=== PATIENT | female | born 1995 | race Caucasian/White ===

== ENCOUNTER 2023-04-06 21:55 | Emergency (ER) | payer BC, OTHER, SELFPAY ==
[2023-04-06 22:00] VITALS: BP 152/96; PULSE 94; RESP 16; TEMP 36.8; O2SAT 100; BMI 36.9
--- NOTE | 2023-04-06 22:27 | ED_ITS ---
HPI - Female Genitourinary General Chief complaint: Vaginal Bleeding Stated complaint: excessive period bleeding Time Seen by Provider: 04/06/23 22:16 Source: patient Mode of arrival: walk-in Limitations: no limitations History of Present Illness HPI Narrative: history of PCOS. takes Monjura and has been loosing weight. Now presents with heavy vaginal period bleed. States 11 pads today. mild abdominal cramping. no fever or light headiness. Advised to come to the hospital by her PCP. LMP was in January. Her periods are not regular Related Data Home Medications Medication Instructions Recorded Confirmed Bacillus coagulans 10 billion cell cell PO DAILY 04/06/23 capsule,delayed release (Probiotic (B. coagulans)) metformin 500 mg tablet,extended 500 mg PO DAILY 04/06/23 04/06/23 release 24 hr metoprolol tartrate 50 mg tablet 50 mg PO DAILY 04/06/23 04/06/23 tirzepatide 7.5 mg/0.5 mL 7.5 mg subcut .weekly 04/06/23 04/06/23 subcutaneous pen injector (Nohemi) Allergies Allergy/AdvReac Type Severity Reaction Status Date / Time amlodipine [From Norvasc] Allergy Hives Verified 04/06/23 22:06 hydrochlorothiazide Allergy Difficulty Verified 04/06/23 22:07 Breathing Penicillins Allergy Hives Verified 04/06/23 22:06 sulfacetamide Allergy Hives Verified 04/06/23 22:06 [From Sulfamide] Review of Systems ROS Status of ROS 10 or more systems reviewed and unremarkable except as noted in history and below [facility] Medical History (Updated 04/07/23 @ 00:03 by Zach Soriano MD) Social History Smoking status: Current every day smoker Exam Constitutional Vital Signs, click to edit/add: Last Vital Signs Temp 98.3 F 04/06/23 22:00 Pulse 98 H 04/06/23 23:08 Resp 16 04/06/23 22:00 BP 138/86 H 04/06/23 23:08 Pulse Ox 100 04/06/23 22:00 O2 Del Method Room Air 04/06/23 22:00 Common normals: no apparent distress, oriented x3, no limitations and healthy appearing HENMT Common normals: normocephalic and head/scalp atraumatic Eye Common normals: PERRL, EOMs intact bilaterally and conjunctivae normal Respiratory Common normals: normal respiratory effort, no use of accessory muscles and clear to auscultation bilaterally Cardio Common normals: regular rate, regular rhythm, S1 normal heart sound and S2 normal heart sound GI Common normals: Normal to inspection, nondistended, normoactive bowel sounds present, soft to palpation and non-tender Other: normal external exam. speculum exam with large amount of blood in the vaginal vault. Did not locate the cervix. Used multiple large cotton swabs to clear blood and there was no evidence of active bleeding at this time Extremity Common normals: normal to inspection and no joint enlargement Neuro Common normals: oriented x3, CN's II-XII intact bilaterally, moves all extremities and no focal motor deficits Psych Appearance: grossly normal Course Vital Signs Vital signs: Vital Signs Temperature 98.3 F 04/06/23 22:00 Pulse Rate 94 H 04/06/23 22:00 Respiratory Rate 16 04/06/23 22:00 Blood Pressure 152/96 H 04/06/23 22:00 Pulse Oximetry 100 04/06/23 22:00 Oxygen Delivery Method Room Air 04/06/23 22:00 Temperature 98.3 F 04/06/23 22:00 Pulse Rate 98 H 04/06/23 23:08 Respiratory Rate 16 04/06/23 22:00 Blood Pressure 138/86 H 04/06/23 23:08 Pulse Oximetry 100 04/06/23 22:00 Oxygen Delivery Method Room Air 04/06/23 22:00 MDM - Female Genitourinary MDM Narrative Medical decision making narrative: patient presents with heavy menstrual cycle. Her H/H is normal . she is asymptomatic except for mild cramping. She is not orthostatic. Pelvic exam I was able to clear blood from the vaginal vault and there was no evidence of active bleeding . I did not locate the cervical os. 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 She is to return if heavy bleeding recurs Lab Data Labs: Lab Results 04/06/23 Range/Units 23:00 WBC 7.6 (4.0-11.0) 10^3/uL RBC 4.74 (4.20-5.40) 10^6/uL Hgb 13.6 (12.0-16.0) g/dL Hct 39.5 (36.0-48.0) % MCV 83.3 (81.0-99.0) fL MCH 28.7 (26.7-34.0) pg MCHC 34.4 (29.9-35.2) g/dL RDW 12.3 (11.0-15.0) % Plt Count 314 (150-450) 10^3/uL MPV 10.7 (9.5-13.5) fL Neut % (Auto) 55.4 (43.0-75.0) % Lymph % (Auto) 30.9 (20.5-60.0) % Rankin % (Auto) 9.4 (1.7-12.0) % Eos % (Auto) 3.5 (0.9-7.0) % Baso % (Auto) 0.5 (0.2-2.0) % Neut # (Auto) 4.2 (1.4-6.5) 10^3/uL Lymph # (Auto) 2.4 (1.2-3.8) 10^3/uL Rankin # (Auto) 0.7 (0.3-0.8) 10^3/uL Eos # (Auto) 0.3 (0.0-0.7) 10^3/uL Baso # (Auto) 0.0 (0.0-0.1) 10^3/uL Abs Immat Gran (auto) 0.02 (0.00-0.03) 10^3/uL Imm/Tot Granulo (auto) 0.3 (0.0-0.5) % Sodium 133 L (136-145) mmol/L Potassium 3.2 L (3.5-5.1) mmol/L Chloride 102 (98-107) mmol/L Carbon Dioxide 22.4 (21.0-32.0) mmol/L Anion Gap 11.8 BUN 11.0 (7.0-18.0) mg/dL Creatinine 0.93 (0.55-1.02) mg/dL Est GFR ( Amer) >60 (>=60) Est GFR (Non-Af Amer) >60 (>=60) BUN/Creatinine Ratio 11.8 Glucose 100 (74-106) mg/dL Calcium 8.8 (8.5-10.1) mg/dL Total Bilirubin 0.8 (0.2-1.0) mg/dL AST 21 (15-37) U/L ALT 49 (14-59) U/L Alkaline Phosphatase 74 (46-116) U/L Total Protein 8.0 (6.4-8.2) g/dL Albumin 4.2 (3.4-5.0) g/dL Globulin 3.8 g/dL Albumin/Globulin Ratio 1.1 HCG, Quant 0 mIU/mL Discharge Plan Discharge Chief Complaint: Vaginal Bleeding Clinical Impression: Vaginal bleeding Prescriptions / Home Meds: No Action Probiotic (B. coagulans) 10 billion cell capsule,delayed release(DR/EC) PO DAILY metformin 500 mg tablet extended release 24 hr 500 mg PO DAILY metoprolol tartrate 50 mg tablet 50 mg PO DAILY Mounjaro 7.5 mg/0.5 mL pen injector 7.5 mg SUBCUT .weekly Instructions: Abnormal (Dysfunctional) Uterine Bleeding (ED) Stand Alone Forms: Portal Instructions Referrals: Physician,Non-Staff, MD [Primary Care Provider] - 1 week (Dr Mchugh)
[2023-04-06] MEDS: 0.9 % SODIUM CHLORIDE 1,000 ML 999 ML IV (23:02)
[2023-04-06 23:08] VITALS: BP 138/86; BP 151/97; BP 154/90; PULSE 108; PULSE 94; PULSE 98
[2023-04-06 23:13] LABS: Basophils Percent Auto 0.5 % (0.2-2.0); Eosinophils Absolute Auto 0.3 10^3/uL (0.0-0.7); Eosinophils Percent Auto 3.5 % (0.9-7.0); Hematocrit 39.5 % (36.0-48.0); Hemoglobin 13.6 g/dL (12.0-16.0); Immature Granulocytes Abs Auto 0.02 10^3/uL (0.00-0.03); Immature Granulocytes Pct Auto 0.3 % (0.0-0.5); Lymphocytes Absolute Auto 2.4 10^3/uL (1.2-3.8); Lymphocytes Percent Auto 30.9 % (20.5-60.0); Mean Corpuscular HGB Conc 34.4 g/dL (29.9-35.2); Mean Corpuscular Hemoglobin 28.7 pg (26.7-34.0); Mean Corpuscular Volume 83.3 fL (81.0-99.0); Mean Platelet Volume 10.7 fL (9.5-13.5); Monocytes Absolute Auto 0.7 10^3/uL (0.3-0.8); Monocytes Percent Auto 9.4 % (1.7-12.0); Neutrophils Absolute Auto 4.2 10^3/uL (1.4-6.5); Neutrophils Percent Auto 55.4 % (43.0-75.0); Platelet Count 314 10^3/uL (150-450); Red Blood Count 4.74 10^6/uL (4.20-5.40); Red Cell Distribution Width 12.3 % (11.0-15.0); White Blood Count 7.6 10^3/uL (4.0-11.0)
[2023-04-06 23:34] LABS: Alanine Aminotransferase 49 U/L (14-59); Albumin Globulin Ratio 1.1; Albumin Level 4.2 g/dL (3.4-5.0); Alkaline Phosphatase 74 U/L (46-116); Anion Gap 11.8; Aspartate Amino Transferase 21 U/L (15-37); BUN Creatinine Ratio 11.8; Bilirubin Total 0.8 mg/dL (0.2-1.0); Calcium 8.8 mg/dL (8.5-10.1); Carbon Dioxide 22.4 mmol/L (21.0-32.0); Chloride 102 mmol/L (98-107); Estimated GFR (African America >60 (>=60); Estimated GFR (Non-African Ame >60 (>=60); Globulin 3.8 g/dL; Glucose 100 mg/dL (74-106); Potassium 3.2 mmol/L (3.5-5.1); Sodium 133 mmol/L (136-145)
[2023-04-06 23:40] LABS: HCG Quantitative 0 mIU/mL
[2023-04-07] MEDS: POTASSIUM CHLORIDE 10 MEQ ER TABLET 40 MEQ PO (00:30)
== END 2023-04-07 00:29 | disposition home or self-care (01) ==
PROVIDERS: Emergency Provider Internal Medicine
DX: N93.9 Abnormal uterine and vaginal bleeding, unspecified (principal); E28.2 Polycystic ovarian syndrome; F17.210 Nicotine dependence, cigarettes, uncomplicated; Z79.899 Other long term (current) drug therapy; Z79.84 Long term (current) use of oral hypoglycemic drugs
CPT/HCPCS: 36415; 80053; 84702; 85025; 99284

== ENCOUNTER 2023-04-07 13:30 | Emergency (ER) | payer BC, OTHER, SELFPAY ==
[2023-04-07 13:36] VITALS: BP 138/98; PULSE 108; RESP 20; TEMP 36.7; O2SAT 99; BMI 36.9
--- NOTE | 2023-04-07 13:49 | US_ITS ---
[address] [address] Patient Name: ADDIE MARIE MRN: [id number] date: 1995 Sex: F Assigned Patient Location: ER Current Patient Location: ER Accession/Order Number: [id number] Exam Date: 04/07/2023 14:05 Report Date: 04/07/2023 15:04 At the request of: CHRISTOPHER TOMPKINS Procedure: US pelvis transvaginal EXAM: US pelvis transvaginal HISTORY: heavy vaginal bleeding COMPARISON: None. TECHNIQUE: Transvaginal and transabdominal imaging was performed utilizing grayscale, color Doppler, and spectral imaging. FINDINGS: Anteflexed uterus. Uterine volume: 10.7 x 4.5 x 4.7 cm = 145 mL. Uterus description: Homogeneous echotexture without evidence of fibroid. Endometrial thickness: 15 mm. (Normal premenopausal thickness is less than 15 mm. Normal postmenopausal thickness is less than 5 mm) Endometrial description: No abnormality demonstrated. Right ovary: Measurements: 4.7 x 3.1 x 2.6 cm = 19 mL. There is a 1.8 x 1.6 x 1.7 cm hyperechoic region in the right ovary without vascular flow, may represent hemorrhagic cyst or dermoid. Pelvic MRI is recommended for better evaluation. Description: Unremarkable appearance of the ovary without suspicious lesion. Vasculature: Normal color waveform. Left ovary: Measurements: 4.6 x 3.8 x 2.9 cm = 27 mL. Description: Unremarkable appearance of the ovary without suspicious lesion. Vasculature: Normal color waveform. Adnexa: Unremarkable. Cul-de-sac: No free fluid. Additional findings: None. IMPRESSION: 1.8 x 1.6 x 1.7 cm hyperechoic region in the right ovary without vascular flow, may represent hemorrhagic cyst or dermoid. Pelvic MRI is recommended for better evaluation. No evidence of ovarian torsion at the time of examination. Electronically authenticated by: OLESYA OSEGUERA Date: 04/07/2023 15:04
--- NOTE | 2023-04-07 13:52 | ED.FEMALEGU1 ---
HPI - Female Genitourinary General Chief complaint: Vaginal Bleeding Stated complaint: HEAVY MENSTRUAL BLEEDING Time Seen by Provider: 04/07/23 13:44 Source: patient Mode of arrival: walk-in Limitations: no limitations History of Present Illness HPI Narrative: 28-year-old female presents for heavy vaginal bleeding. She was seen here last night for same circumstances but she's had continued bleeding. She complains of some pressure in her lower abdomen but no pain. There's been no trauma. Periods are irregular and her last one was at the end of January, because of PCOS. No syncope or presyncope. No fever. Related Data Home Medications Medication Instructions Recorded Confirmed Bacillus coagulans 10 billion cell cell PO DAILY 04/06/23 capsule,delayed release (Probiotic (B. coagulans)) metformin 500 mg tablet,extended 500 mg PO DAILY 04/06/23 04/06/23 release 24 hr metoprolol tartrate 50 mg tablet 50 mg PO DAILY 04/06/23 04/06/23 tirzepatide 7.5 mg/0.5 mL 7.5 mg subcut .weekly 04/06/23 04/06/23 subcutaneous pen injector (Mounjaro) Allergies Allergy/AdvReac Type Severity Reaction Status Date / Time amlodipine [From Norvasc] Allergy Hives Verified 04/06/23 22:06 hydrochlorothiazide Allergy Difficulty Verified 04/06/23 22:07 Breathing Penicillins Allergy Hives Verified 04/06/23 22:06 sulfacetamide Allergy Hives Verified 04/06/23 22:06 [From Sulfamide] Review of Systems ROS Narrative A ten point review of systems is negative except as noted above. [facility] Medical History (Updated 04/07/23 @ 15:26 by Luis Wynne MD) Social History Smoking status: Light tobacco smoker Exam Narrative Exam Narrative: Nurses note and vital signs reviewed and patient is not hypoxic. General: The patient appears well and in no apparent distress. Patient is resting comfortably on cart. Skin: Warm, dry, no pallor noted. There is no rash noted. Head: Normocephalic, atraumatic Eye: Normal conjunctiva, no drainage Ears, Nose, Mouth, and Throat: oral mucosa is moist. Nares patent. Cardiovascular: Regular Rate and Rhythm Respiratory: Patient is in no distress, no accessory muscle use, lungs are clear to auscultation, no wheezing, rales or rhonchi Back: non-tender GI: no tenderness to palpation, no masses appreciated. No rebound, guarding, or rigidity noted. Musculoskeletal: The patient has no evidence of calf tenderness, no pitting edema, symmetrical pulses noted bilaterally Neurological: A&O, normal speech Psychiatric: Cooperative Constitutional Vital Signs, click to edit/add: Last Vital Signs Temp 98.1 F 04/07/23 13:36 Pulse 108 H 04/07/23 13:36 Resp 20 04/07/23 13:36 BP 138/98 H 04/07/23 13:36 Pulse Ox 99 04/07/23 13:36 Course Vital Signs Vital signs: Vital Signs Temperature 98.1 F 04/07/23 13:36 Pulse Rate 108 H 04/07/23 13:36 Respiratory Rate 20 04/07/23 13:36 Blood Pressure 138/98 H 04/07/23 13:36 Pulse Oximetry 99 04/07/23 13:36 Temperature 98.1 F 04/07/23 13:36 Pulse Rate 108 H 04/07/23 13:36 Respiratory Rate 20 04/07/23 13:36 Blood Pressure 138/98 H 04/07/23 13:36 Pulse Oximetry 99 04/07/23 13:36 MDM - Female Genitourinary MDM Narrative Medical decision making narrative: the patient is not or anemic. Ultrasound shows probable right ovarian cyst but no other acute findings. 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 Treatment diagnosis and follow-up were discussed with the patient. Differential Diagnosis Differential diagnosis: Likely other (, ectopic , miscarriage, dysfunctional uterine bleeding, uterine fibroids) Lab Data Attestation: I reviewed the patient's lab results. Labs: Lab Results 04/07/23 Range/Units 14:08 WBC 5.4 (4.0-11.0) 10^3/uL RBC 4.62 (4.20-5.40) 10^6/uL Hgb 13.4 (12.0-16.0) g/dL Hct 38.6 (36.0-48.0) % MCV 83.5 (81.0-99.0) fL MCH 29.0 (26.7-34.0) pg MCHC 34.7 (29.9-35.2) g/dL RDW 12.6 (11.0-15.0) % Plt Count 291 (150-450) 10^3/uL MPV 10.7 (9.5-13.5) fL Neut % (Auto) 53.5 (43.0-75.0) % Lymph % (Auto) 31.3 (20.5-60.0) % Forrest % (Auto) 10.8 (1.7-12.0) % Eos % (Auto) 3.4 (0.9-7.0) % Baso % (Auto) 0.6 (0.2-2.0) % Neut # (Auto) 2.9 (1.4-6.5) 10^3/uL Lymph # (Auto) 1.7 (1.2-3.8) 10^3/uL Forrest # (Auto) 0.6 (0.3-0.8) 10^3/uL Eos # (Auto) 0.2 (0.0-0.7) 10^3/uL Baso # (Auto) 0.0 (0.0-0.1) 10^3/uL Abs Immat Gran (auto) 0.02 (0.00-0.03) 10^3/uL Imm/Tot Granulo (auto) 0.4 (0.0-0.5) % Sodium 139 (136-145) mmol/L Potassium 3.9 (3.5-5.1) mmol/L Chloride 108 H (98-107) mmol/L Carbon Dioxide 21.5 (21.0-32.0) mmol/L Anion Gap 13.4 BUN 11.0 (7.0-18.0) mg/dL Creatinine 0.84 (0.55-1.02) mg/dL Est GFR ( Amer) >60 (>=60) Est GFR (Non-Af Amer) >60 (>=60) BUN/Creatinine Ratio 13.1 Glucose 98 (74-106) mg/dL Calcium 8.9 (8.5-10.1) mg/dL Urine HCG, Qual Negative (NEGATIVE) Discharge Plan Discharge Chief Complaint: Vaginal Bleeding Clinical Impression: Dysfunctional uterine bleeding Patient Disposition: Home, Self-Care Time of Disposition Decision: 15:25 Condition: Good Mode of Transportation: Private Vehicle Prescriptions / Home Meds: No Action Probiotic (B. coagulans) 10 billion cell capsule,delayed release(DR/EC) PO DAILY metformin 500 mg tablet extended release 24 hr 500 mg PO DAILY metoprolol tartrate 50 mg tablet 50 mg PO DAILY Mounjaro 7.5 mg/0.5 mL pen injector 7.5 mg SUBCUT .weekly Instructions: Abnormal (Dysfunctional) Uterine Bleeding (ED) Additional Instructions: F/U with Dr Mchugh Stand Alone Forms: Portal Instructions Referrals: Physician,Non-Staff, MD [Primary Care Provider] - 1 week
[2023-04-07 14:17] LABS: Basophils Percent Auto 0.6 % (0.2-2.0); Eosinophils Absolute Auto 0.2 10^3/uL (0.0-0.7); Eosinophils Percent Auto 3.4 % (0.9-7.0); Hematocrit 38.6 % (36.0-48.0); Hemoglobin 13.4 g/dL (12.0-16.0); Immature Granulocytes Abs Auto 0.02 10^3/uL (0.00-0.03); Immature Granulocytes Pct Auto 0.4 % (0.0-0.5); Lymphocytes Absolute Auto 1.7 10^3/uL (1.2-3.8); Lymphocytes Percent Auto 31.3 % (20.5-60.0); Mean Corpuscular HGB Conc 34.7 g/dL (29.9-35.2); Mean Corpuscular Volume 83.5 fL (81.0-99.0); Mean Platelet Volume 10.7 fL (9.5-13.5); Monocytes Absolute Auto 0.6 10^3/uL (0.3-0.8); Monocytes Percent Auto 10.8 % (1.7-12.0); Neutrophils Absolute Auto 2.9 10^3/uL (1.4-6.5); Neutrophils Percent Auto 53.5 % (43.0-75.0); Platelet Count 291 10^3/uL (150-450); Red Blood Count 4.62 10^6/uL (4.20-5.40); Red Cell Distribution Width 12.6 % (11.0-15.0); White Blood Count 5.4 10^3/uL (4.0-11.0)
[2023-04-07 14:48] LABS: Anion Gap 13.4; BUN Creatinine Ratio 13.1; Calcium 8.9 mg/dL (8.5-10.1); Carbon Dioxide 21.5 mmol/L (21.0-32.0); Chloride 108 mmol/L (98-107); Estimated GFR (African America >60 (>=60); Estimated GFR (Non-African Ame >60 (>=60); Glucose 98 mg/dL (74-106); Potassium 3.9 mmol/L (3.5-5.1); Sodium 139 mmol/L (136-145)
[2023-04-07 14:49] LABS: HCG Qualitative NEGATIVE (NEGATIVE)
[2023-04-07 15:33] VITALS: BP 142/84; PULSE 104; RESP 20; O2SAT 99
== END 2023-04-07 15:35 | disposition home or self-care (01) ==
PROVIDERS: Emergency Provider Emergency Medicine
DX: N93.8 Other specified abnormal uterine and vaginal bleeding (principal); E28.2 Polycystic ovarian syndrome; Z79.899 Other long term (current) drug therapy; Z79.84 Long term (current) use of oral hypoglycemic drugs; F17.210 Nicotine dependence, cigarettes, uncomplicated
CPT/HCPCS: 36415; 76830; 80048; 84703; 85025; 99284

== ENCOUNTER 2023-12-31 20:03 | Outpatient (REF) | payer BC, OTHER, SELFPAY ==
[2024-01-04 11:09] LABS: Age Gdln ACOG Testing Note (.); IGP, rfx Aptima HPV ASCU Note (.)
== END 2023-12-31 20:04 | disposition home or self-care (01) ==
LOC: LAB 20:03
PROVIDERS: Visit Provider Obstetrics & Gynecology
DX: Z01.419 Encounter for gynecological examination (general) (routine) without abnormal findings (principal)
CPT/HCPCS: G0145

== ENCOUNTER 2024-12-23 12:29 | Outpatient (OUT) | payer BC, OTHER, SELFPAY ==
[2024-12-23 12:56] LABS: Estimated Average Glucose 111 mg/dL; Glycohemoglobin A1C 5.5 % (4.5-6.2)
[2024-12-23 12:58] LABS: Basophils Percent Auto 0.6 % (0.2-2.0); Eosinophils Absolute Auto 0.1 10^3/uL (0.0-0.7); Eosinophils Percent Auto 2.4 % (0.9-7.0); Hematocrit 40.2 % (36.0-48.0); Hemoglobin 13.4 g/dL (12.0-16.0); Immature Granulocytes Abs Auto 0.03 10^3/uL (0.00-0.03); Immature Granulocytes Pct Auto 0.6 % (0.0-0.5); Lymphocytes Absolute Auto 2.1 10^3/uL (1.2-3.8); Lymphocytes Percent Auto 38.8 % (20.5-60.0); Mean Corpuscular HGB Conc 33.3 g/dL (29.9-35.2); Mean Corpuscular Hemoglobin 28.8 pg (26.7-34.0); Mean Corpuscular Volume 86.5 fL (81.0-99.0); Mean Platelet Volume 10.8 fL (9.5-13.5); Monocytes Absolute Auto 0.5 10^3/uL (0.3-0.8); Monocytes Percent Auto 9.9 % (1.7-12.0); Neutrophils Absolute Auto 2.6 10^3/uL (1.4-6.5); Neutrophils Percent Auto 47.7 % (43.0-75.0); Platelet Count 273 10^3/uL (150-450); Red Blood Count 4.65 10^6/uL (4.20-5.40); Red Cell Distribution Width 11.8 % (11.0-15.0); White Blood Count 5.4 10^3/uL (4.0-11.0)
[2024-12-23 13:24] LABS: Thyroid Stimulating Hormone 1.363 uIU/mL (0.358-3.740)
[2024-12-23 13:26] LABS: Free T4 0.82 ng/dL (0.76-1.46)
[2024-12-23 13:30] LABS: HCG Quantitative <1 mIU/mL
[2024-12-24 04:07] LABS: FSH 5.1 mIU/mL (.); Luteinizing Hormone(LH) 11.1 mIU/mL (.)
== END 2024-12-23 12:30 | disposition home or self-care (01) ==
LOC: LAB 12:31
PROVIDERS: Visit Provider Obstetrics & Gynecology
DX: E28.2 Polycystic ovarian syndrome (principal); N92.0 Excessive and frequent menstruation with regular cycle
CPT/HCPCS: 36415; 82626; 82627; 83001; 83002; 83036; 84439; 84443; 84702; 85025

== ENCOUNTER 2025-03-04 21:04 | Outpatient (REF) | payer BC, OTHER, SELFPAY ==
--- OUTSIDE RECORDS SUMMARY | 2025-03-04 21:10 | XMS_ITS | CCD ---
Author Organization [facility]iniSyva Care Team Providers Care Consultant Rn Name Role Phone Unavailable Primary Care Provider Unavailabl e EDD LONG Referring Unavailable EDD LONG Referring Unavailable Aishwarya Rocha Primary Care Physician DINESH MÉNDEZ Primary Care Physician [phone] DINESH MÉNDEZ Primary Care Physician Darryl Madrigal Unavailable [facility] Kassidy WOODS Primary Care Provider [phone] Unavailable Unavailable JEISON ., DR FINNEGAN Consulting Unavailable JEISON ., DR FINNEGAN Admitting Unavailable MISC, DR LINARES Primary Care Unavailable JEISON ., DR FINNEGAN Attending Unavailable JEISON ., DR FINNEGAN Primary Care Unavailable KARASIK ., DR MARI Admitting Unavailabl e KARASIK ., DR MARI Attending Unavailabl e KARASIK ., DR MARI Consulting Unavailabl e JEISON ., DR FINNEGAN Admitting Unavailable JEISON ., DR FINNEGAN Attending Unavailable MISC, DR LINARES Primary Care Unavailable JEISON ., DR FINNEGAN Consulting Unavailable JEISON ., DR FINNEGAN Consulting Unavailable JEISON ., DR FINNEGAN Admitting Unavailable JEISON ., DR FINNEGAN Attending Unavailable MISC, DR LINARES Primary Care Unavailable DINESH LACY Primary Care Physician [phone] Stu Hsu Unavailable LEXIE Méndez Primary Care Provider LEXIE Méndez Attending Provider HEATHER Hsu Attending Provider [phone] Dinesh Méndez Unavailable Linda, Dr. J Luis Park Attending Unavaila ble [facility], Dr. J Luis Park Referring Unavaila ble Malakoff, Dr. Darryl Solano Primary Care Unavailab le David, Dr. Slick Perkins Attending Unavailable Hernandez, Dr. Slick Perkins Referring Unavailable Kwasny, . Dineshmasha Nicholson Primary Care Unavai DINESH Cain Primary Care Physician Kwkaleeny HIDE MILL WORKER.SPINDRAW OPERATORDinesh Primary Care Provider Binks, HIDE MILL WORKER Dinesh Nicholson Primary Care Provider DO Richi Llamas Attending Provider [phone] PACI, BREE Calvillo Attending Unavailable KWASNY, DINESH N Primary Care Unavailable TREVA CARTER Attending Unavailable KWASNY, DINESH N Primary Care Unavailable PACI, BREE Calvillo Attending Unavailable KWASNY, DINESH N Primary Care Unavailable KRISTEN NIETO Attending Unavailable KWASNY, DINESH N Primary Care Unavailable PACI, BREE Calvillo Referring Unavailable KWASNY, DINESH N Primary Care Unavailable Muriel, Richi N Attending Unavailable Binks, Dinesh Lyn Primary Care Unavailable Muriel, Richi N Admitting Unavailable Muriel, Richi N Attending Unavailable Binks, Dinesh Lyn Primary Care Unavailable Muriel, Richi N Admitting Unavailable BINKS, DINESH Primary Care Unavailable DO Isra Moreno S. Attending Unavailable Sarmini, Choudhury Talal Admitting Unavaila ble Sarmini, Choudhury Talal Attending Unavaila ble BINKS, DINESH Primary Care Unavailable Tiffanie, Isra S. Attending Unavailable Orzech, Alecia X Attending Unavailable BINKS, DINESH Primary Care Unavailable BINKS, DINESH Admitting Unavailable BINKS, DINESH Attending Unavailable BINKS, DINESH Referring Unavailable BINKS, DINESH Primary Care Unavailable BINKS, DINESH Admitting Unavailable BINKS, DINESH Attending Unavailable BINKS, DINESH Primary Care Unavailable BINKS, DINESH Primary Care Unavailable Orzech, Alecia X Attending Unavailable Alexander Villalta Admitting Unavailable Alexander Villalta Attending Unavailable BINKS, DINESH Primary Care Unavailable Alexander Villalta Attending Unavailable BINKS, DINESH Primary Care Unavailable Dinesh Méndez MD Primary Care Provider BINKS, DINESH Primary Care Unavailable Perry James Admitting Unavailable Perry James Attending Unavailable NONE, XXXX Referring Unavailable BINKS, DINESH Primary Care Unavailable BettyminiKei Attending Unavaila ble BINKS, DINESH Primary Care Unavailable BettyminiKei Attending Unavaila ble BINKS, DINESH Primary Care Unavailable Sarmini, Kei Tom Attending Unavaila ble BINKS, DINESH Primary Care Unavailable Sarmini, Kei Tom Attending Unavaila ble BINKS, DINESH Primary Care Unavailable Kei Garcia Attending Unavaila ble Caterina Beckman GShanika Attending Unavailable BINKS, DINESH Referring Unavailable BINKS, DINESH Primary Care Unavailable BINKS, DINESH Primary Care Unavailable BINKS, DINESH Attending Unavailable BINKS, DINESH Referring Unavailable BINKS, DINESH Admitting Unavailable Caterina Beckman GShanika Attending Unavailable BINKS, DINESH Primary Care Unavailable BINKS, DINESH Primary Care Unavailable Isra Moreno Attending Unavailable Caterina Beckman Attending Unavailable BINKS, DINESH Primary Care Unavailable BINKS, DINESH Referring Unavailable BINKS, DINESH Primary Care Unavailable Perry James Admitting Unavailable Perry James Attending Unavailable NONE, XXXX Referring Unavailable NONE, XXXX Referring Unavailable BINKS, DINESH Primary Care Unavailable Primo Pfeiffer Admitting Unavaila ble Primo Pfeiffer Attending Unavaila ble BINKS, DINESH Primary Care Unavailable Perry James Attending Unavailable Perry James Referring Unavailable NORMA QUIROS Primary Care Physician HEATHER James Admitting Unavailable HEATHER James Attending Unavailable NONE, XXXX Referring Unavailable BINKS, DINESH Primary Care Unavailable Harry MCHUGH Admitting Unavailable Harry MCHUGH Attending Unavailable Harry MCHUGH Referring Unavailable BINKS, DINESH Primary Care Unavailable BINKS, DINESH Primary Care Unavailable Raymundo Hsu Attending Unavailable Oneyda Bull Attending Unavailable BINKS, DINESH Primary Care Unavailable Ankur Paniagua Attending Unavailable BINKS, DINESH Primary Care Unavailable Ankur Paniagua Attending Unavailable BINRICARDO, DINESH Primary Care Unavailable BINKS, DINESH Primary Care Unavailable HARRY MCHUGH Attending Unavailable JANA MAKI Attending Unavailable KLONK, NORMA R Referring Unavailable MAKI, JANA J Attending Unavailable KLONK, NORMA R Referring Unavailable DEPOYMEENAE Attending Unavailable KLONK, NORMA R Referring Unavailable MAKI, JANA J Attending Unavailable KLONK, NORMA R Referring Unavailable DEPOY, TITI Attending Unavailable KLONK, NORMA R Referring Unavailable MAKI, JANA J Attending Unavailable KLONK, NORMA R Referring Unavailable BINKS, DINESH N Admitting Unavailable BINRICARDO, DINESH N Attending Unavailable NAKIA SHEAEN N Referring Unavailable Raymundo Hsu Attending Unavailable Kei Garcia Attending Unavaila ANGELLA Kirkpatrick Attending Unavailable DINESH SHEA Primary Care Unavailable Allergies Allergy Classification Reported Allergen(s) Allergy Type Date of Onset Reaction(s) Facility (8 sources) Penicillins; Translations: [PENICILLINS] Propensity to adverse reactions to drug 021 Anaphylaxis, [facility] [employer] Work Phone: (1 source) Sulfonamides (Antibiotic) Propensity to adverse reactions to drug 021 [facility] [employer] Work Phone: (1 source) Thiazide-Type Diuretics Propensity to adverse reactions to drug [facility] ([facility] amLODIPine; Translations: [amlodipine] Drug Allergy 023 Urticaria (disorder), Hives, Rash [facility] (20 sources) hydroCHLOROthiazide; Translations: [hydrochlorothiazide] Drug Allergy 023 Anaphylaxis, Shortness of Breath [facility] (20 sources) Penicillin; Translations: [penicillin] Drug Allergy 021 hives, Unknown [facility] (20 sources) Sulfamethoxazole; Translations: [sulfamethoxazole] Drug Allergy 023 hives [facility] (3 sources) Penicillins; Translations: [Penicillins] Allergy to drug (finding) [facility]Otol[facility] 240 DO Work Phone: (1 source) hydroCHLOROthiazide Drug Allergy [facility] (1 source) Sulfonamides (Antibiotic) Drug allergy (disorder) [facility] (18 sources) Substance with sulfonamide structure and antibacterial mechanism of action (substance) Drug allergy 021 Hives, Rash, Unknown [employer] Other (7 sources) Sulfonamides (Antibiotic); Translations: [SULFA (SULFONAMIDE ANTIBIOTICS)] Allergy to substance 024 Unknown Reaction, Hives [facility] (6 sources) Penicillins Drug Allergy 024 Hives, Rash [facility] (1 source) amLODIPine Drug Allergy [facility] (1 source) hydroCHLOROthiazide Drug Allergy 024 [facility] (1 source) Penicillins Drug allergy (disorder) [facility] (11 sources) hydroCHLOROthiazide Drug Allergy 023 [facility] (11 sources) Penicillins Drug Allergy 021 Anaphylaxis, Hives, Unknown [facility] Medications Current Medications Medication Drug Class(es) Dates Sig (Normalized) Sig (Original) 0.5 ML tirzepatide 15 MG/ML Auto-Injector [Mounjaro] (3 sources) Start: 05-29-2024 inject 7.5 mg by subcutaneous injection every week Mounjaro 7.5 mg/0.5 mL subcutaneous solution INJECT 7.5 MG UNDER THE SKIN 1 (ONE) TIME PER WEEK FOR 28 DAYS. Start Date: 05/29/24 Status: Ordered Mounjaro 7.5 MG/ 0.5ML as directed Subcutaneous Active 0.5 ML tirzepatide 5 MG/ML Auto-Injector [Mounjaro] (7 sources) Start: 10-23-2022 inject 2.5 mg by subcutaneous injection every week Mounjaro 2.5 mg/0.5 mL subcutaneous solution 2.5 mg, SubCutaneous, qWeek, Refills(s) 0, Other (see comment) Start Date: 10/23/22 Status: Ordered acetaminophen 325 mg oral capsule (7 sources) Start: 11-22-2022 acetaminophen 325 mg cap Take 325 mg by mouth. 11/22/2022 Active Start: 11-22-2022 take 325 mg by mouth every six hours as needed for pain acetaminophen 325 mg, Oral, q6hr, PRN as needed for pain Start Date: 11/22/22 Status: Ordered Ascorbic Acid (20 sources) Vitamin C Start: 07-16-2024 Vitamin C Jemma y, Refills(s) 0 Start Date: 07/16/24 Status: Ordered Repeat number: 1 Start: 07-16-2024 Vitamin C Jemma y, Refills(s) 0 Start Date: 07/16/24 Status: Ordered VITAMIN C 1,000 mg tablet Active aspirin 81 mg chewable tablet (1 source) Platelet Aggregation Inhibitor, Nonsteroidal Anti-inflammatory Drug take 1 tablet by mouth once daily aspirin 81 MG chewable tablet Take 81 mg by mouth daily 0 Active baclofen 10 mg oral tablet (13 sources) gamma-Aminobutyric Acid-ergic Agonist Start: take 10 mg by mouth three times daily baclofen 10 mg, Oral, TID, Refills(s) 0 Start Date: 08/20/24 Status: Ordered Repeat number: 1 Start: 08-20-2024 baclofen Refil ls(s) 0 Start Date: 08/20/24 Status: Ordered cephalexin 500 mg oral capsule (4 sources) Cephalosporin Antibacterial Start: 09-17-2024 End: 09-24-2024 take 1 capsule by mouth every six hours Keflex 500 mg Cap 500 mg = 1 cap(s), Oral, q6hr, X 7 day(s), # 28 cap(s), Refills(s) 0, Pharmacy: [facility]/pharmacy #[id number], 174, cm, 09/17/24 4:48:00 EST, Height/Length Dosing, 125.4, kg, 09/17/24 4:48:00 EST, Weight Dosing Start Date: 09/17/24 Stop Date: 12/25/24 Status: Ordered Start: 11-25-2023 End: 02-08-2024 take 1 capsule by mouth every twelve hours cephALEXin (KEFLEX) 500 mg capsule Take 1 capsule by mouth every 12 hours. 0 11/25/2023 02/08/2024 Discontinued (Course of therapy completed) sugar-free cholestyramine resin 4000 mg powder for oral suspension (4 sources) Bile Acid Sequestrant Start: 02-28-2024 cholestyramine 4 g/5 g Oral Pwdr 5 gram, 1 packet(s), Oral, BID, 60 packet(s), Refill(s) 4, [facility]/pharmacy #[id number], 174, cm, 02/07/24 14:02:00 EDT, Height/Length Dosing, 118, kg, 02/07/24 14:02:00 EDT, Weight Dosing Start Date: 02/28/24 Status: Ordered colesevelam hydrochloride 625 mg oral tablet (1 source) Bile Acid Sequestrant Start: 01-27-2025 take 3 tablets by mouth twice daily Welchol 625 mg Tab 1,875 mg = 3 tab(s), Oral, BID, # 180 tab(s), Refills(s) 0, Pharmacy: [facility]/pharmacy #[id number], 172, cm, 01/27/25 11:28:00 EDT, Height/Length Dosing, 130.6, kg, 01/27/25 11:28:00 EDT, Weight Dosing Start Date: 01/27/25 Status: Ordered Quantity: 180.0 Unit: tab(s) Repeat number: 1 Indications: Gastro-esophageal reflux disease without esophagitis; Abdominal distension (gaseous); colestipol hydrochloride 1000 mg oral tablet (9 sources) Bile Acid Sequestrant Start: 07-16-2024 take 2 tablets by mouth twice daily Colestid 1 g Tab 2 gm = 2 tab(s), Oral, BID, with a full glass of water, # 120 tab(s), Refills(s) 3, Pharmacy: [facility]/pharmacy #[id number], 174, cm, 07/16/24 10:12:00 EDT, Height/Length Dosing, 125, kg, 07/16/24 10:12:00 EDT, Weight Dosing Start Date: 07/16/24 Status: Ordered doxycycline hyclate 100 mg oral capsule (3 sources) Tetracycline-clas s Drug Start: 12-09-2024 take 1 capsule by mouth twice daily doxycycline hyclate 100 mg Cap 100 mg = 1 cap(s), Oral, BID Start Date: 12/09/24 Status: Ordered Repeat number: 1 ergocalciferol 1.25 mg oral capsule (6 sources) Provitamin D2 Compound VITAMIN D2 1,250 mcg (50,000 unit) capsule Active esomeprazole 40 mg delayed release oral capsule (20 sources) Proton Pump Inhibitor Start: 02-15-2024 End: 02-24-2025 take 1 capsule by mouth once daily Esomeprazole Magnesium 40 mg capsule,delayed release(DR/EC) Discontinued 40 MG PO Daily February 15, 2024 12:00am February 24, 2025 1:16pm Start: 02-01-2024 take 1 capsule by [facility] every twelve hours esomeprazole (NEXIUM) 40 mg capsule Take 1 capsule by mouth every 12 hours. 02/01/2024 Active Start: 02-01-2024 take 1 capsule by [facility] twice daily Esomeprazole Magnesium 40 mg capsule,delayed release(DR/EC) Active 40 MG PO Twice daily February 24, 2025 1:12pm Ethinyl Estradiol / Ferrous fumarate / Norethindrone (11 sources) Estrogen Start: 12-23-2024 End: 12-23-2025 norethindrone-ethinyl estradiol (10/20) 1-20 MG-MCG tablet Indications: Menorrhagia with regular cycle Take 1 tablet by mouth Daily 28 tablet 11 12/23/2024 12/23/2025 Active ferrous sulfate 325 mg oral tablet (20 sources) Start: 01-13-2024 take 1 tablet by mouth once ferrous sulfate 325 mg (65 mg iron) tablet Take 1 tablet by mouth every afternoon. 01/13/2024 Active Start: 08-30-2023 take 1 tablet by jonah th at mealtime ferrous sulfate 325 (65 Fe) MG tablet Take 325 mg by mouth in the morning. Take with meals. 08/30/2023 Active Start: 12-28-2021 take 1 tablet by mouth once da taras ferrous sulfate 160 mg ER Tab 160 mg = 1 tab(s), Oral, Daily, Refills(s) 0 Start Date: 12/28/21 Status: Ordered Flintstones Multivitamins (18 sources) Start: 10-29-2020 Flintstones Mu ltivitamins 2 tab(s), Chewed, Daily, Refill(s) 0, Prophylaxis Start Date: 10/29/20 Status: Ordered Start: 10-29-2020 Flintstones Mu ltivitamins 2 tab(s), Chewed, Daily, Refill(s) 0 Start Date: 10/29/20 Status: Ordered hydrOXYzine (20 sources) Antihistamine Start: 08-30-2023 hydrOXYzine hy drochloride Refills(s) 0 Start Date: 08/30/23 Status: Ordered Repeat number: 1 Start: 08-30-2023 hydrOXYzine hy drochloride Refills(s) 0 Start Date: 08/30/23 Status: Ordered Start: 10-23-2022 hydrOXYzine HC l (ATARAX) 50 mg tablet Refills(s) 0 10/23/2022 Active ibuprofen 200 mg oral tablet (20 sources) Nonsteroidal Anti-inflammatory Drug Start: 11-22-2022 ibuprofen (MOTRIN IB) 200 mg tablet Take 400 mg by mouth. 11/22/2022 Active Iron 100 Plus oral tablet (20 sources) Start: 04-25-2023 Iron 100 Plus oral tablet Refill(s) 0 Start Date: 04/25/23 Status: Ordered Repeat number: 1 Start: 04-25-2023 Iron 100 Plus oral tablet Refill(s) 0 Start Date: 04/25/23 Status: Ordered labetalol hydrochloride 300 mg oral tablet (2 sources) beta-Adrenergic Sabiha Start: 05-21-2021 take 1 tablet by mouth three times daily labetalol 300 mg Tab 300 mg = 1 tab(s), Oral, TID, Refills(s) 0 Start Date: 05/21/21 Status: Ordered Start: 11-05-2020 take 1 tablet by jonah th three times daily labetalol (NORMODYNE) 200 MG tablet Take 200 mg by mouth three times daily 0 11/05/2020 Active loperamide hydrochloride 2 mg oral capsule (9 sources) Opioid Agonist Start: 02-01-2024 take 1 capsule by mouth every four hours as needed for diarrhea loperamide (IMODIUM) 2 mg cap(s) TAKE 1 CAPSULE BY MOUTH EVERY 4 HOURS NEEDED FOR DIARRHEA 02/01/2024 Active loratadine 5 mg chewable tablet (5 sources) Start: 12-28-2021 take 1 mg by mouth once daily Claritin 5 mg oral tablet, chewable mg tab(s), Chewed, Daily, Refills(s) 0 Start Date: 12/28/21 Status: Ordered meclizine hydrochloride 25 mg chewable tablet (19 sources) Antiemetic Start: 07-28-2021 End: 02-08-2024 take 1 tablet by mouth three times daily as needed for dizziness meclizine 25 mg oral tablet, chewable 25 mg = 1 tab(s), Chewed, TID, PRN for dizziness, # 30 tab(s), Refills(s) 0, Pharmacy: [facility] #[id number], 172, cm, 07/28/21 19:14:00 EDT, Height/Length Dosing, 116.9, kg, 07/28/21 19:14:00 EDT, Weight Dosing Start Date: 07/28/21 Status: Ordered megestrol acetate 20 mg oral tablet (10 sources) Progestin Start: 01-23-2025 End: 04-23-2025 take 1 tablet by mouth once daily, then take 1 tablet by mouth twice daily, then take 1 tablet by mouth once daily megestrol (Megace) 20 MG tablet Indications: Menorrhagia with irregular cycle Take 1 tablet (20 mg total) by mouth Daily. Take 1 tablet 2 times daily for 3 days then take 1 tablet daily for 1 month (36 tablets total) 30 tablet 2 01/23/2025 04/23/2025 Active Start: 04-25-2023 megestrol 20 m g Tab Refills(s) 0 Start Date: 04/25/23 Status: Ordered metoprolol tartrate 37.5 mg oral tablet (20 sources) beta-Adrenergic Sabiha Start: 02-24-2025 take 1 tablet by mouth twice daily Metoprolol Tartrate 37.5 mg tablet Active 37.5 MG PO Twice daily February 24, 2025 12:00am Start: 11-28-2024 take 1 tablet by jonah th once daily metoprolol succinate 25 mg ER Tab 25 mg = 1 tab(s), Oral, Daily, # 30 tab(s), Refills(s) 2, Pharmacy: [facility]/pharmacy #[id number], 172, cm, 11/28/24 13:13:00 EST, Height/Length Dosing, 131.6, kg, 11/28/24 13:13:00 EST, Weight Dosing Start Date: 11/28/24 Status: Ordered Start: 01-31-2024 End: 02-24-2025 take 1 tablet by mouth twice daily Metoprolol tartrate 50 mg Tab 50 mg = 1 tab(s), Oral, BID, # 60 tab(s), Refills(s) 2, [id number], cm, 12/01/24 17:33:00 EST, Height/Length Dosing, 132, kg, 12/01/24 17:33:00 EST, Weight Dosing Start Date: 12/04/24 Status: Ordered Quantity: 60.0 Unit: tab(s) Repeat number: 3 Indications: Palpitations; Start: 02-27-2023 Metoprolol tar trate 50 mg Tab 25 mg = 0.5 tab(s), Oral, BID, # 30 tab(s), Refills(s) 5, [id number] 174, cm, 02/27/23 15:39:00 EDT, Height/Length Dosing, 116.4, kg, 02/27/23 15:39:00 EDT, Weight Dosing Start Date: 02/27/23 Status: Ordered Start: 02-27-2023 take 1 tablet by jonah th twice daily Metoprolol tartrate 50 mg Tab 50 mg = 1 tab(s), Oral, BID, # 60 tab(s), Refills(s) 5, Pharmacy: [facility]/pharmacy #[id number], 174, cm, 02/27/23 15:39:00 EDT, Height/Length Dosing, 116.4, kg, 02/27/23 15:39:00 EDT, Weight Dosing Start Date: 02/27/23 Status: Ordered Start: 11-22-2022 take 1 tablet by jonah th in the morning metoprolol tartrate (Lopressor) 25 MG tablet Take 25 mg by mouth in the morning and 25 mg before bedtime. 11/22/2022 Active Start: 01-19-2022 End: 01-14-2023 Metoprolol tartrate 25 mg Ta b 12.5 mg = 0.5 tab(s), Oral, BID, X 90 day(s), # 90 tab(s), Refills(s) 3, Pharmacy: [facility] #[id number], 165, cm, 01/19/22 15:39:00 EDT, Height/Length Dosing, 125, kg, 01/19/22 15:39:00 EDT, Weight Dosing Start Date: 01/19/22 Stop Date: 01/14/23 Status: Ordered Mounjaro 2.5 mg/0.5 mL subcutaneous solution (16 sources) Start: 10-23-2022 inject 2.5 mg by subcutaneous injection every week Mounjaro 2.5 mg/0.5 mL subcutaneous solution 2.5 mg, SubCutaneous, qWeek, Refills(s) 0, Other (see comment) Start Date: 10/23/22 Status: Ordered Start: 10-23-2022 Mounjaro 2.5 m g/0.5 mL subcutaneous solution Refills(s) 0 Start Date: 10/23/22 Status: Ordered 24 hr NIFEdipine 30 mg extended release oral tablet (1 source) Dihydropyridine Calcium Channel Sabiha Start: 05-21-2021 take 1 tablet by mouth once daily Procardia XL 30 mg Tab-ER 30 mg = 1 tab(s), Oral, Daily, Refills(s) 0 Start Date: 05/21/21 Status: Ordered nitrofurantoin, macrocrystals 25 mg / nitrofurantoin, monohydrate 75 mg oral capsule (1 source) Nitrofuran Antibacterial Start: 05-05-2023 take 1 capsule by mouth every twelve hours Macrobid 100 MG 1 capsule with food Orally every 12 hrs for 7 day(s) May, Active omeprazole 40 mg Cap-DR (4 sources) Start: 05-05-2020 take 1 capsule by mouth once daily omeprazole 40 mg Cap-DR 40 mg = 1 cap(s), Oral, Daily, Refills(s) 0 Start Date: 05/05/20 Status: Ordered ondansetron 4 mg oral tablet (3 sources) Serotonin-3 Receptor Antagonist Start: 01-31-2023 End: 02-05-2023 take 1 tablet by mouth every twelve hours as needed for nausea Zofran 4 mg Tab 4 mg = 1 tab(s), Oral, q12hr, PRN Nausea/Vomiting, X 5 day(s), # 10 tab(s), Refills(s) 0, Pharmacy: [facility]/pharmacy #[id number], 174, cm, 01/31/23 11:03:00 EDT, Height/Length Dosing, 119.3, kg, 01/31/23 11:03:00 EDT, Weight Dosing Start Date: 01/31/23 Stop Date: 02/05/23 Status: Ordered Pediatric multivitamin chewable (FLINTSTONES MULTIVITAMIN) chewable tablet (6 sources) Start: 10-29-2020 Pediatric multivitamin chewable (FLINTSTONES MULTIVITAMIN) chewable tablet 2 tab(s), Chewed, Daily, Refill(s) 0, Prophylaxis 10/29/2020 Active Start: 10-29-2020 Pediatric mult ivitamin chewable (FLINTSTONES MULTIVITAMIN) chewable tablet 2 tab(s), Chewed, Daily, Refill(s) 0, Prophylaxis 0 10/29/2020 Active phenazopyridine hydrochloride 100 mg oral tablet (7 sources) Start: 09-17-2024 End: 09-20-2024 take 1 tablet by mouth three times daily Pyridium 100 mg Tab 100 mg = 1 tab(s), Oral, TID, X 3 day(s), # 9 tab(s), Refills(s) 0, Pharmacy: [facility]/pharmacy #[id number], 174, cm, 09/17/24 4:48:00 EST, Height/Length Dosing, 125.4, kg, 09/17/24 4:48:00 EST, Weight Dosing Start Date: 09/17/24 Stop Date: 09/20/24 Status: Ordered Start: 01-31-2024 End: 01-07-2025 take 1 tablet by mouth three times daily after mealtime Phenazopyridine (Pyridium) 200 mg tablet Discontinued 1 TAB PO Three times daily January 31, 2024 12:00am January 07, 2025 1:02pm [employer] tablet after meals Orally Three times a day; Note: Source Status: Start; Refills: 0; Provider: Shadi Solano Start: 05-05-2023 take 1 tablet by jonah th every eight hours Pyridium 200 MG 1 tablet after meals Orally Three times a day for 2 day(s) May, Active phentermine hydrochloride 37.5 mg oral tablet (7 sources) Sympathomimetic Amine Anorectic Start: 09-27-2023 Adipex-P 37.5 mg Tab 18.75 mg = 0.5 tab(s), Oral, Daily, Refills(s) 0 Start Date: 09/27/23 Status: Ordered Start: 05-30-2022 phentermine 37 .5 mg Tab Refills(s) 0 Start Date: 05/30/22 Status: Ordered MV-Min-Fe Fum-FA-DHA ( 1 PO) (1 source) MV-Min- Fe Fum-FA-DHA ( 1 PO) Take by mouth 0 Active progesterone 100 mg oral capsule (5 sources) Progesterone Start: 2 take 1 mg by mouth once daily at bedtime progesterone 100 mg oral capsule mg cap(s), Oral, Once a day (at bedtime), Refills(s) 0 Start Date: 12/28/21 Status: Ordered semaglutide, weight loss, (WEGOVY) 0.25 mg/0.5 mL pen injector (3 sources) Start: 4 inject 0.5 mL by subcutaneous injection every week semaglutide, weight loss, (WEGOVY) 0.25 mg/0.5 mL pen injector Inject 0.5 mL subcutaneously one time a week. 6 mL 03/21/2024 Active Start: 03-21-2024 inject 0.5 mL by sub cutaneous injection every week semaglutide, weight loss, (WEGOVY) 0.25 mg/0.5 mL pen injector Inject 0.5 mL subcutaneously one time a week. 6 mL 0 03/21/2024 Active sertraline 25 mg oral tablet (18 sources) Serotonin Reuptake Inhibitor Start: 04-28-2022 take 1 mg by mouth once daily sertraline 25 mg Tab mg tab(s), Oral, Daily, Refills(s) 0 Start Date: 04/28/22 Status: Ordered Start: 12-28-2021 take 1 tablet by jonah th once daily Zoloft 50 mg Tab 50 mg = 1 tab(s), Oral, Daily, Refills(s) 0, Depression Start Date: 12/28/21 Status: Ordered Sprintec (10 sources) Start: 04-28-2022 Sprintec Oral, Daily, Refill(s) 0 Start Date: 04/28/22 Status: Ordered Tirzepatide (Mounjaro) 2.5 MG/0.5ML solution auto-injector (2 sources) Start: 12-25-2024 End: 01-24-2025 inject 0.5 mL by subcutaneous injection every week Tirzepatide (Mounjaro) 2.5 MG/0.5ML solution auto-injector Indications: Menorrhagia with regular cycle , PCOS (polycystic ovarian syndrome) Inject 0.5 mL under the skin 1 (one) time per week 2 mL 12/25/2024 01/24/2025 Active tiZANidine 2 mg oral tablet (1 source) Central alpha-2 Adrenergic Agonist Start: 02-24-2025 take 1 tablet by mouth twice daily as needed Tizanidine 2 mg tablet Active 2 MG PO Twice daily as needed February 24, 2025 12:00am Vitamin B Complex oral capsule (15 sources) Start: 07-16-2024 take 1 capsule by mouth once daily Vitamin B Complex oral capsule Oral, Daily, Refill(s) 0 Start Date: 07/16/24 Status: Ordered Repeat number: 1 Start: 07-16-2024 Vitamin B Comp kavya oral capsule Oral, Daily, Refill(s) 0 Start Date: 07/16/24 Status: Ordered Vitamin D (15 sources) Start: 07-16-2024 Vitamin D Inte rnational_Unit, Oral, qWeek, Refills(s) 0 Start Date: 07/16/24 Status: Ordered Repeat number: 1 Start: 07-16-2024 Vitamin D Inte rnational_Unit, Oral, qWeek, Refills(s) 0 Start Date: 07/16/24 Status: Ordered Vitamin D3 (10 sources) Start: 04-28-2022 Vitamin D3 400 0 units, Refills(s) 0 Start Date: 04/28/22 Status: Ordered Completed/Discontinued Medications Medication Drug Class(es) Dates Sig (Normalized) Sig (Original) clotrimazole 10 mg/ml topical cream (1 source) Azole Antifungal Start: 01-23-2024 End: 02-08-2024 clotrimazole (LOTRIMIN) 1 % cream APPLY 1 APPLICATION TOPICALLY TO AFFECTED AREA 2 TIMES PER DAY FOR 7 DAYS NEEDED 0 01/23/2024 02/08/2024 Discontinued (Course of therapy completed) diclofenac sodium 75 mg delayed release oral tablet (6 sources) Nonsteroidal Anti-inflammatory Drug Start: 02-01-2024 End: 02-15-2024 take 1 tablet by mouth twice daily Diclofenac Sodium 75 mg tablet,delayed release (DR/EC) Discontinued 75 MG PO Twice daily February 01, 2024 12:00am February 15, 2024 10:31am escitalopram 10 mg oral tablet (2 sources) Serotonin Reuptake Inhibitor Start: 06-25-2023 take 1 tablet by mouth once daily Escitalopram Oxalate 10 MG Oral Tablet Take 1 tablet daily Quantity: 90 Refills: 2 Ordered: 25-Jun-2023 Slick Hernandez MD Start : 25-Jun-2023 Active Start: 06-14-2023 take 1 tablet by jonah th once daily Escitalopram Oxalate 10 MG Oral Tablet TAKE 1 TABLET DAILY. Quantity: 30 Refills: 5 Ordered: 14-Jun-2023 Slick Hernandez MD Start : 14-Jun-2023 Active famotidine 20 mg oral tablet (6 sources) Histamine-2 Receptor Antagonist Start: 12-04-2023 End: 03-21-2024 take 1 tablet by mouth every twelve hours famotidine (PEPCID) 20 mg tablet Take 1 tablet by mouth every 12 hours. 0 12/04/2023 03/21/2024 Discontinued (Discontinued by Patient) Start: 02-02-2022 End: 03-04-2022 take 1 tablet by mouth once daily at bedtime Pepcid 20 mg Tab 20 mg = 1 tab(s), Oral, Once a day (at bedtime), X 30 day(s), # 30 tab(s), Refills(s) 0, Pharmacy: [id number], 165, cm, 01/19/22 15:39:00 EDT, Height/Length Dosing, 125, kg, 01/19/22 15:39:00 EDT, Weight Dosing Start Date: 02/02/22 Stop Date: 03/04/22 Status: Ordered metFORMIN hydrochloride 500 mg oral tablet (20 sources) Biguanide Start: 02-24-2025 take 1 tablet by mouth twice daily Metformin 500 mg tablet extended release 24 hr Active 500 MG PO Twice daily February 24, 2025 12:00am Start: 12-09-2024 End: 02-24-2025 take 1 tablet by mouth twice daily Metformin 500 mg tablet Discontinued 500 MG PO Twice daily February 24, 2025 1:13pm February 24, 2025 1:16pm FreeTextSi tablet with a meal Orally Once a day; Note: Source Status: Taking; Provider: Shadi Peraza ( ) Start: 09-22-2024 End: 09-22-2025 take 2 tablets by mouth every twenty-four hours at mealtime metFORMIN XR (Glucophage-XR) 500 MG 24 hr tablet Indications: Encounter for weight management TAKE 2 TABLETS (1,000 MG) BY MOUTH IN THE EVENING. TAKE WITH MEALS. DO NOT CRUSH, CHEW, OR SPLIT. 180 tablet 3 09/22/2024 09/22/2025 Active Start: 01-04-2023 take 1 tablet by jonah th once daily at dinner metFORMIN HCl ER (MOD) 500 MG Oral Tablet Extended Release 24 Hour TAKE 1 TABLET BY MOUTH DAILY WITH DINNER Quantity: 30 Refills: 2 Ordered: 04-Jan-2023 DO Start : 04-Jan-2023 Active Start: 04-28-2022 End: 02-24-2025 take 1 tablet by mouth once daily Metformin 500 mg tablet Discontinued 1 TAB PO Daily January 31, 2024 12:00am February 24, 2025 1:16pm FreeText[employer] tablet with a meal Orally Once a day; Note: Source Status: Taking; Provider: Shadi Peraza ( ) Start: 12-28-2021 metFORMIN (GLU COPHAGE) 500 mg tablet Take 1,000 mg by mouth. 12/28/2021 Active Mounjaro 5 MG/0.5ML Subcutaneous Solution Pen-injector (3 sources) Start: 01-04-2023 Mounjaro 5 MG/ 0.5ML Subcutaneous Solution Pen-injector Quantity: 0 Refills: 0 Ordered: 04-Jan-2023 DO Start : 04-Jan-2023 Active omeprazole 40 mg delayed release oral capsule (20 sources) Proton Pump Inhibitor Start: 05-05-2020 End: 02-15-2024 take 1 capsule by mouth once daily Omeprazole 40 mg capsule,delayed release(DR/EC) Discontinued 1 CAP PO Daily January 31, 2024 12:00am February 15, 2024 10:31am FreeTextSi capsule 30 minutes before morning meal Orally Once a day; Note: Source Status: Taking; Provider: Shadi Peraza ( ) take 1 capsule by mouth once rozina ly omeprazole (PRILOSEC) 10 MG delayed release capsule Take 10 mg by mouth daily 0 Active One A Day Women's Complete (20 sources) Start: 11-22-2022 take 1 tablet by jonah th once daily One A Day Women's Complete 1 tab(s), Oral, Daily, Prophylaxis Start Date: 11/22/22 Status: Ordered tirzepatide, weight loss (ZEPBOUND) 5 mg/0.5 mL pen injector (4 sources) Start: 02-08-2024 End: 03-21-2024 inject 5 mg by subcutaneous injection every week tirzepatide, weight loss (ZEPBOUND) 5 mg/0.5 mL pen injector Inject 5 mg subcutaneously one time a week. 4 Each 0 02/08/2024 03/21/2024 Discontinued (Cost of medication) Start: 02-08-2024 inject 5 mg by subcu taneous injection every week tirzepatide, weight loss (ZEPBOUND) 5 mg/0.5 mL pen injector Inject 5 mg subcutaneously one time a week. 4 Each 0 02/08/2024 Active tirzepatide, weight loss (ZEPBOUND) 7.5 mg/0.5 mL pen injector (4 sources) Start: 03-10-2024 End: 03-21-2024 tirzepatide, weight loss (ZEPBOUND) 7.5 mg/0.5 mL pen injector Inject 7.5 mg subcutaneously one time a week. Patient should start on March 10, 2024. 4 Each 0 03/10/2024 03/21/2024 Discontinued (Cost of medication) Start: 03-10-2024 tirzepatide, w eight loss (ZEPBOUND) 7.5 mg/0.5 mL pen injector Inject 7.5 mg subcutaneously one time a week. Patient should start on March 10, 2024. 4 Each 0 03/10/2024 Active topiramate 50 mg oral tablet (8 sources) Start: 03-10-2024 End: 06-08-2024 take 1 tablet by mouth once daily at bedtime topiramate (TOPAMAX) 50 mg tablet Take 1 tablet by mouth daily at bedtime. Patient should start on March 10, 2024. 90 tablet 0 03/10/2024 03/21/2024 Discontinued (Clinical Decision) Start: 02-08-2024 End: 03-21-2024 take 1 tablet by mouth once daily at bedtime topiramate (TOPAMAX) 25 mg tablet Take 1 tablet by mouth daily at bedtime. 30 tablet 0 02/08/2024 03/21/2024 Discontinued (Clinical Decision) Problems Active Problems Problem Classification Problem Date Documented Da te Episodic/Chronic Abdominal pain (20 sources) Epigastric pain; Translations: [Epigastric pain] Onset: 2 Episodic Administrative/social admission (3 sources) Patient encounter status; Translations: [Dietary counseling and surveillance] 03-31-2024 Episodic Anxiety disorders (3 sources) Anxiety; Translations: [Anxiety state, unspecified] 03-14-2024 Chronic Biliary tract disease (20 sources) Cholelithiasis without obstruction; Translations: [Calculus of gallbladder without cholecystitis without obstruction] Onset: 3 Episodic Cardiac dysrhythmias (20 sources) Palpitations; Translations: [Palpitations] Onset: 4 12-19-2014 Episodic Disorders of teeth and jaw (1 source) Unspecified temporomandibular joint disorder, unspecified side; Translations: [Temporomandibular joint disorders, unspecified] 01-07-2025 Episodic Esophageal disorders (20 sources) Gastroesophageal reflux disease without esophagitis; Translations: [Gastro-esophageal reflux disease without esophagitis] Onset: 2 Chronic Essential hypertension (20 sources) Hypertensive disorder; Translations: [Essential (primary) hypertension] Onset: 5 06-25-2015 Chronic Gastritis and duodenitis (20 sources) Gastritis; Translations: [Gastritis, unspecified, without bleeding] Onset: 2 Episodic Genitourinary symptoms and ill-defined conditions (7 sources) Dysuria; Translations: [Genitourinary tract problem] Onset: 5 Episodic Headache; including migraine (1 source) Tension-type headache, unspecified, not intractable; Translations: [Tension headache] 01-07-2025 Chronic Headache; including migraine (2 sources) Headache; Translations: [Headache, unspecified] Onset: 3 Episodic Immunizations and screening for infectious disease (2 sources) Encounter for screening for human papillomavirus (HPV); Translations: [Contact with and (suspected) exposure to infections with a predominantly sexual mode of transmission] Onset: 3 Episodic Inflammation; infection of eye (except that caused by tuberculosis or sexually transmitteddisease) (20 sources) Allergic conjunctivitis; Translations: [Allergic conjunctivitis of bilateral eyes] Onset: 4 09-08-2020 Episodic Menstrual disorders (6 sources) Irregular menstruation, unspecified; Translations: [Menorrhagia] Onset: 2 Chronic Miscellaneous mental health disorders (1 source) Psychosomatic factor in physical condition; Translations: [Psychological and behavioral factors associated with disorders or diseases classified elsewhere] 03-14-2024 Chronic Nausea and vomiting (20 sources) Nausea; Translations: [Nausea] Onset: 2 Episodic Nonspecific chest pain (3 sources) Chest pain; Translations: [Chest pain, unspecified] Onset: 5 Episodic Other circulatory disease (1 source) Orthostatic hypotension; Translations: [Orthostatic hypotension] Onset: 3 Episodic Other connective tissue disease (2 sources) Atypical neuralgia; Translations: [Neuralgia, neuritis, and radiculitis, unspecified] Episodic Other ear and sense organ disorders (3 sources) Otalgia, left ear; Translations: [Otalgia of left ear] Episodic Other endocrine disorders (20 sources) Polycystic ovary syndrome; Translations: [Polycystic ovarian syndrome] Onset: 4 Chronic Other female genital disorders (2 sources) Pain in female genitalia on intercourse; Translations: [Unspecified dyspareunia] 12-23-2024 Chronic Other female genital disorders (20 sources) History of gynecological disorder; Translations: [Personal history of other diseases of the female genital tract] Onset: 4 11-22-2022 Episodic Other gastrointestinal disorders (6 sources) Irritable bowel syndrome; Translations: [Irritable bowel syndrome without diarrhea] Onset: 4 02-07-2024 Chronic Other gastrointestinal disorders (2 sources) Celiac disease 01-27-2025 Chronic Other gastrointestinal disorders (20 sources) Burping; Translations: [Eructation] Onset: 4 01-31-2023 Episodic Other gastrointestinal disorders (20 sources) Diarrhea; Translations: [Diarrhea, unspecified] Onset: 4 01-31-2023 Episodic Other gastrointestinal disorders (1 source) Swollen abdomen; Translations: [Abdominal distension (gaseous)] Onset: 5 Episodic Other gastrointestinal disorders (12 sources) Abdominal bloating 10-17-2024 Episodic Other injuries and conditions due to external causes (20 sources) Foreign body in stomach 04-25-2023 Episodic Other liver diseases (20 sources) Steatosis of liver; Translations: [Fatty (change of) liver, not elsewhere classified] Onset: 4 02-22-2023 Chronic Other lower respiratory disease (2 sources) Dyspnea; Translations: [Shortness of breath] Onset: 4 Episodic Other non-traumatic joint disorders (2 sources) Derangement of left shoulder joint; Translations: [Other specific joint derangements of left shoulder, not elsewhere classified] Onset: 5 02-25-2025 Chronic Other nutritional; endocrine; and metabolic disorders (20 sources) Body mass index 40+ - severely obese; Translations: [Body mass index (BMI) 40.0-44.9, adult] Onset: 2 Chronic Other nutritional; endocrine; and metabolic disorders (20 sources) Obesity; Translations: [Obesity, unspecified] Onset: 2 Chronic Other nutritional; endocrine; and metabolic disorders (1 source) Obese class II; Translations: [Body mass index (BMI) 36.0-36.9, adult] Onset: 4 Chronic Other nutritional; endocrine; and metabolic disorders (2 sources) Severe obesity; Translations: [Morbid (severe) obesity due to excess calories] 02-08-2024 Chronic Other nutritional; endocrine; and metabolic disorders (2 sources) Obesity caused by energy imbalance; Translations: [Other obesity due to excess calories] 03-14-2024 Chronic Other nutritional; endocrine; and metabolic disorders (1 source) Insulin resistance; Translations: [Insulin resistance] 03-21-2024 Chronic Other nutritional; endocrine; and metabolic disorders (1 source) Metabolic syndrome X; Translations: [Metabolic syndrome] 03-21-2024 Chronic Other nutritional; endocrine; and metabolic disorders (20 sources) Morbid obesity; Translations: [Morbid (severe) obesity due to excess calories] Onset: 4 Chronic Other nutritional; endocrine; and metabolic disorders (3 sources) Body mass index (BMI) 40.0-44.9, adult; Translations: [Body Mass Index 40.0-44.9, adult] Onset: 5 02-24-2025 Chronic Other nutritional; endocrine; and metabolic disorders (1 source) Obesity, unspecified; Translations: [Obesity, unspecified] 02-24-2025 Chronic Other nutritional; endocrine; and metabolic disorders (1 source) Abnormal weight gain; Translations: [Abnormal weight gain] 02-24-2025 Episodic Other nutritional; endocrine; and metabolic disorders (1 source) Abnormal weight gain; Translations: [Abnormal weight gain] 02-24-2025 Episodic Other screening for suspected conditions (not mental disorders or infectious disease) (4 sources) Encounter for screening for malignant neoplasm of cervix; Translations: [ENC SCREENING MALIG NEOPLASM CERV] Onset: 3 Episodic Other upper respiratory infections (2 sources) Acute pharyngitis; Translations: [Acute pharyngitis, unspecified] Onset: 4 Episodic Otitis media and related conditions (3 sources) Dysfunction of eustachian tube; Translations: [Dysfunction of Eustachian tube] Episodic Residual codes; unclassified (17 sources) Obstructive sleep apnea syndrome; Translations: [Obstructive sleep apnea (adult) (pediatric)] Onset: 2 Chronic Residual codes; unclassified (20 sources) Sleep apnea; Translations: [Sleep apnea, unspecified] Onset: 4 11-22-2022 Chronic Comment on above: no cpap needs surger y per ENT DR is having next Residual codes; unclassified (20 sources) H/O: stillbirth; Translations: [Personal history of other complications of , childbirth and the puerperium] Onset: 4 12-25-2016 Episodic Residual codes; unclassified (4 sources) Family history of malignant neoplasm of urinary bladder 12-09-2024 Episodic Residual codes; unclassified (1 source) History of adenoidectomy; Translations: [Acquired absence of other organs] 02-24-2025 Episodic Screening and history of mental health and substance abuse codes (4 sources) Ex-smoker 12-09-2024 Episodic Spondylosis; intervertebral disc disorders; other back problems (16 sources) Chronic neck pain; Translations: [Cervicalgia] Onset: 5 02-09-2025 Episodic Substance-related disorders (20 sources) Smoker; Translations: [Nicotine dependence, unspecified, uncomplicated] Onset: 4 09-27-2015 Chronic Comment on above: Added secondary to d ocumentation in Social History. Unclassified (20 sources) Bezoar in stomach 02-22-2023 Urinary tract infections (13 sources) Acute cystitis with hematuria; Translations: [Urinary tract infectious disease] Onset: Episodic Past or Other Problems Problem Classification Problem Date Documented Date Episodic/Chronic Joint disorders and dislocations; trauma-related (1 source) Unspecified tear of unspecified meniscus, current injury, left knee, initial encounter; Translations: [Unspecified tear of unspecified meniscus, current injury, left knee, initial encounter] Onset: 02-01-2024 Episodic Other female genital disorders (4 sources) Other specified noninflammatory disorders of vagina; Translations: [OTH SPEC NONINFLAMMATORY D/O VAGINA] Onset: 11-02-2022 Episodic Other injuries and conditions due to external causes (6 sources) Foreign body in stomach, initial encounter; Translations: [Foreign body in stomach] Onset: 02-07-2024 02-07-2024 Episodic Other non-traumatic joint disorders (1 source) Effusion, left knee; Translations: [Effusion, left knee] Onset: 02-01-2024 Episodic Other non-traumatic joint disorders (1 source) Pain in left knee; Translations: [Pain in left knee] Onset: 02-01-2024 Episodic Unclassified (20 sources) Streptococcus agalactiae (organism) Resolved: 04-17-2017 04-20-2017 Unclassified (20 sources) Onset: 10-01-2015 Resolved: 04-18-2017 06-02-2016 Unclassified (1 source) Exposure to 2019 novel coronavirus; Translations: [Contact with and (suspected) exposure to COVID19] Results Test Name Value Interpretation Reference Range Facility CT Head or Brain w/o Contras ton 02-06-2025 CT Head or Brain w/o Contrast Exam Date/Time: 02/05/2025 23:07 EDT Reason for Exam: Headache, sudden, severe;Headache Report Impression: No acute intracranial process. CT Brain. Contrast medium: without contrast.. History: Headache and dizziness for 4 days.. Technical factors: CT imaging of the brain was obtained and formatted as 5 mm contiguous axial images. 2.5 mm contiguous axial images were obtained through the osseous structures. Sagittal and coronal reconstruction obtained during postprocessing. Comparison: CT brain, December 13, 2022.. Findings: Extra-axial spaces: Normal. Intracranial hemorrhage: None. Ventricular system: Without anomaly. Basal Cisterns: Normal. Cerebral Parenchyma: Without anomaly. Midline Shift: None. Cerebellum: Normal. Paranasal sinuses, calvarium, and mastoid air cells: Sinuses clear. Mastoid air cells well pneumatized. Partially empty sella. Visualized Orbits: Normal. All CT scans at this facility use dose modulation, iterative reconstruction, and/or weight based dosing when appropriate to reduce radiation dose to as low as reasonably achievable. Technical Comments: Report Ordering Provider: Raymundo Hsu FINAL REPORT Dictated: 02/06/2025 8:41 am Miky Simpson MD Signed (Electronic Signature): 02/06/2025 8:41 am Signed by: Miky Simpson MD Transcribed by: EDE Technologist: INDIO [facility] ED Clinical Summaryon 2024 ED Clinical Summary ED Clinical Summary [place] [id number] ED Clinical Summary Person Information Name: ADDIE [address] Judy[place] Age: 29 Years : 1995 Sex: Female Language: Cymro PCP: NORMA QUIROS NP Marital Status: Phone: [phone] Visit Id: Visit Reason: Headache; Dizziness; HEADACHE, DIZZINESS, SHARP PAINS. Speciality: Acuity: 3 Enc Type: Emergency Med Service: Emergency Arrival: 02/05/2025 21:35:23 Discharge: 02/06/2025 01:18:06 LOS: 000 03:43 Checkin: 02/05/2025 21:35:23 Checkout: 02/06/2025 01:18:06 Dispo Type: Home (Routine DC) EVENTS: Event Name Event Status Request Date/Time Start Date/Time Complete Date/Time Arrive Complete 02/05/2025 21:35:23 02/05/2025 21:35:23 02/05/2025 21:35:23 Document Home Meds Request 02/05/2025 21:35:23 Triage Complete 02/05/2025 21:35:23 02/05/2025 21:46:35 02/05/2025 21:46:35 Registration Complete 02/05/2025 21:40:13 02/05/2025 21:40:13 02/05/2025 21:40:13 Reg Complete Request 02/05/2025 21:40:13 Reg Bed Request Complete 02/05/2025 21:40:13 02/05/2025 21:40:13 02/05/2025 21:40:13 EKG Complete 02/05/2025 21:44:12 02/05/2025 22:43:52 Bed Assign Complete 02/05/2025 21:46:52 02/05/2025 21:46:52 02/05/2025 21:46:52 Dr Exam Complete 02/05/2025 21:46:52 02/05/2025 22:01:42 02/05/2025 22:01:42 RN Exam Complete 02/05/2025 21:46:52 02/06/2025 00:18:54 02/06/2025 00:18:54 Registration Request 02/05/2025 22:01:42 Meds Admin Complete 02/05/2025 22:29:49 02/05/2025 23:40:19 Pending Labs Complete 02/05/2025 22:29:49 02/05/2025 23:12:32 Lab Complete 02/05/2025 22:29:49 02/05/2025 23:12:32 CT Complete 02/05/2025 22:29:49 02/05/2025 22:36:03 02/05/2025 23:07:10 Pending Labs Complete 02/05/2025 22:49:14 02/05/2025 22:49:14 02/05/2025 23:12:32 Lab Complete 02/05/2025 22:49:14 02/05/2025 22:49:14 02/05/2025 23:12:32 Pending Labs Complete 02/06/2025 00:36:25 02/06/2025 00:36:25 02/06/2025 00:36:25 Discharge Complete 02/06/2025 01:07:02 02/06/2025 01:18:13 02/06/2025 01:18:13 Transfer Complete 02/06/2025 01:18:13 02/06/2025 01:18:13 02/06/2025 01:18:13 ADDRESS: [address] [place] [address] [phone] PHYS DOC NOTES: MEDICAL INFORMATION: Prescriptions Given: Medications to Continue with No Changes Other Medications ascorbic acid (Vitamin C) every day. baclofen 10 Milligram By Mouth 3 times a day. colesevelam (Welchol 625 mg Tab) 3 Tablets By Mouth 2 times a day. Refills: 0. doxycycline (doxycycline hyclate 100 mg Cap) 1 Capsules By Mouth 2 times a day. ergocalciferol (Vitamin D) By Mouth every week. esomeprazole (Nexium 40 mg Cap-EC) 1 Capsules By Mouth 2 times a day. Refills: 6. hydrOXYzine (hydrOXYzine hydrochloride) metformin (metformin 500 mg Tab) 1 Tablets By Mouth 2 times a day. metoprolol (Metoprolol tartrate 50 mg Tab) 1 Tablets By Mouth 2 times a day. Refills: 2. multivitamin (Vitamin B Complex oral capsule) By Mouth every day. multivitamin with iron (Iron 100 Plus oral tablet) PATIENT EDUCATION INFORMATION: Instructions: Migraine Headache Follow up: With: Address: When: [address], [place] [address] [phone] Business (1) In 3 days 02/09/2025 Comments: Call the office of your primary care doctor to arrange for follow-up within the above-stated timeframe. Follow-up with your primary care doctor about this ED visit. You should review your labs, imaging, and diagnoses from this ED visit with your primary care physician. There are occasionally non-emergent findings that require additional follow-up after your ED visit. If you were prescribed medications you should discuss possible side-effects and drug interactions with your pharmacist. Call 911 or go to the nearest Emergency Department if you develop any new or worsening symptoms. Seek immediate medical attention if you develop: worsening headache, nausea, vomiting, confusion, weakness, loss of motion in your arms or legs, loss of control of your urine or stool, difficulty waking from sleep, neck pain, fever, or any new or worsening symptoms. DIAGNOSIS: Acute headache [facility] ED Note-Physicianon 02-07-20 ED Note-Physician ED Note-Physician Basic Information Time Seen: Raymundo Hsu DO 02/05/2025 22:01 Chief Complaint Pt to ED for c/o NARVAEZ and dizziess for the last 4 days. Pt states no relief with motrin/tylenol. Deneis N/V. Hx of HTN. History of Present Illness 21-year-old female to the emergency department chief complaint of headache and feeling of dizziness ongoing for the last 4 days. She has a history of near chronic daily headaches. She has upcoming appoint with neurology for this. Denies any vision changes, numbness, weakness. Otherwise at her baseline health. Review of Systems A 10 point review of systems is negative except as noted above. Medical and Surgical History: Reviewed and noted Social history: Lives at home Tobacco: Denies Physical Exam Vitals & Measurements T: 36.5 ???C(Oral) HR: 76(Monitored) RR: 16 BP: 135/78 SpO2: 99% HT: 172.72 cm WT: 129.2 kg BMI: 43.31 VITALS: I have reviewed the triage vital signs. GENERAL: Well developed, well appearing adult female in no acute distress. NEURO: Alert and oriented x4. Moves all extremities. Face is symmetric and expressive. Cranial nerves II through XII grossly intact as tested. Muscular strength and sensation grossly intact upper and lower extremities bilaterally. No dysarthria. No aphasia. No ataxia. Normal gait. NIHSS 0. EYES: PERRL. No scleral icterus or conjunctival injection. No discharge. HENT: Normocephalic, atraumatic. Hearing is grossly intact. Nares grossly patent and without discharge. Mucous membranes moist. NECK: No JVD. Patient moves neck without restriction. EXTREMITIES: Symmetric muscle bulk. No joint swelling. No clubbing, cyanosis, or deformity. SKIN: Warm and dry. Normal turgor. No rash or lesions appreciated. PSYCH: Mood, affect, and interaction is appropriate to the setting. Medical Decision Making Well-appearing 21-year-old female to the emergency department chief complaint of daily headaches, particularly bad over the last 4 days. Vital stable, the patient is afebrile. She reports no neuroimaging performed. CT head is ordered to rule out mass, hemorrhage. Modified migraine cocktail. Patient agrees with this plan. Labs are unremarkable. CT scan without acute findings patient felt significantly better after medications. Sounds like she is having migraine headaches fairly regularly. I recommended neurology which she has an upcoming appoint with. Return precautions were discussed. All questions were answered. The patient was discharged home.. Assessment/Plan Acute headache (R51.9: Headache, unspecified) Orders: acetaminophen + Generic Diluent 100 mL, 1,000 mg = 100 mL, Soln-IV, IV Piggyback, Once, Stop date 02/05/25 22:29:00 EDT, STAT, Start date 02/05/25 22:29:00 EDT, 400 mL/hr, Infuse over 15 minute(s) magnesium sulfate + Generic Diluent 50 mL, 2 gram = 50 mL, IV Piggyback, Once, Stop date 02/05/25 22:29:00 EDT, STAT, Start date 02/05/25 22:29:00 EDT, 25 mL/hr, Infuse over 2 hour(s), 02/05/25 22:29:00 EDT methylPREDNISolone, 125 mg = 2 mL, Injection, IV Push, Once, Stop date 02/05/25 22:29:00 EDT, STAT, Start date 02/05/25 22:29:00 EDT, 02/05/25 22:29:00 EDT ondansetron, 4 mg = 2 mL, Injection, IV Push, Once, Stop date 02/05/25 22:29:00 EDT, STAT, Start date 02/05/25 22:29:00 EDT, 02/05/25 22:29:00 EDT Sodium Chloride 0.9% intravenous solution, 1,000 mL, Soln-IV, IV, Once, Stop date 02/05/25 22:29:00 EDT, STAT, Start date 02/05/25 22:29:00 EDT, Infuse over 61, minute(s) Basic Metabolic Panel CBC w/ Auto Diff CT Head or Brain w/o Contrast eGFR Extra Blue Tube Extra SST Tube Medications Administered Given GenDil 100 mL + [id number] [F] 1000 mg, IV Piggyback methylPREDNISolone 125 mg preservative-free injection (SOLU-MEDROL), 125 mg, IV Push NS 1000 ml Bolus, 1000 mL, IV ondansetron 4 mg/2 mL Inj, 4 mg, IV Push premix generic diluent 50 mL + magnesium additive 2 gm, IV Piggyback Disposition Plan Patient Discharge Condition Stable Home Discharge Prescription List Prescriptions No active prescription medications Follow-up With When Contact Information NORMA QUIROS In 3 days 02/09/2025 EDT [address], [facility] [address], [address] [place] [address]- [phone] Business (1) Additional Instructions: Call the office of your primary care doctor to arrange for follow-up within the above-stated timeframe. Follow-up with your primary care doctor about this ED visit. You should review your labs, imaging, and diagnoses from this ED visit with your primary care physician. There are occasionally non-emergent findings that require additional follow-up after your ED visit. If you were prescribed medications you should discuss possible side-effects and drug interactions with your pharmacist. Call 911 or go to the nearest Emergency Department if you develop any new or worsening symptoms. Seek immediate medical attention if you develop: worsening headache, nausea, vomiting, confusion, weakness, loss of motion in your arms or legs, loss of control of your (more content not included)... Normal [facility] Comment on above: Result Comment: Elec tronically Signed By: Raymundo Hsu DO.julio\Date and Time Signed: 02/06/25 01:46 EDT ED Patient Summaryon 025 ED Patient Summary ED Patient Summary [place] [id number] Patient Discharge Instructions Person Information Name: ADDIE LANE Age: 29 Years Arrival Date: 02/05/2025 21:35:23 Discharge Diagnosis: Acute headache Primary Care Physician: NORMA QUIROS NP Provider Information Primary Provider: Raymundo Hsu DO Advanced Moss Picker:None The exam and treatment you received in the Emergency Department were for an urgent problem and are not intended as complete care. It is important that you follow up with a doctor, nurse practitioner, or physician???s optometry assistant for ongoing care. If your symptoms become worse or you do not improve as expected and you are unable to reach your usual health care provider, you should return to the Emergency Department. We are available 24 hours a day. ADDIE L[address] has been given the following list of patient education materials, prescriptions and follow-up instructions: Follow-up Instructions: With: Address: When: NORMA QUIROS [address], [address], [facility] [address], [place] [address] [phone] [facility] (1) In 3 days 02/09/2025 Comments: Call the office of your primary care doctor to arrange for follow-up within the above-stated timeframe. Follow-up with your primary care doctor about this ED visit. You should review your labs, imaging, and diagnoses from this ED visit with your primary care physician. There are occasionally non-emergent findings that require additional follow-up after your ED visit. If you were prescribed medications you should discuss possible side-effects and drug interactions with your pharmacist. Call 911 or go to the nearest Emergency Department if you develop any new or worsening symptoms. Seek immediate medical attention if you develop: worsening headache, nausea, vomiting, confusion, weakness, loss of motion in your arms or legs, loss of control of your urine or stool, difficulty waking from sleep, neck pain, fever, or any new or worsening symptoms. In the event that this physician does not participate in your insurance network, please consult with your insurance company to find a nearby participating provider. Patient Education Materials: Migraine Headache A MESSAGE TO ALL PATIENTS REGARDING OPIOIDS PRESCRIPTION OPIOIDS: WHAT YOU NEED TO KNOW Prescription opioids can be used to help relieve ojzqinml-ef-ycoivi pain and are often prescribed following a surgery or injury, or for certain health conditions. These medications can be an important part of the treatment but also come with serious risks. It is important to work with your healthcare provider to make sure you are getting the safest, most effective care. WHAT ARE THE RISKS AND SIDE EFFECTS OF OPIOID USE? Prescription opioids carry serious risks of addiction and overdose, especially with prolonged use. An opioid overdose, often marked by slowed breathing, can cause sudden . The use of prescription opioids can have a number of side effects as well, even when taken as directed: ??? Tolerance???meaning you might need to take more of the medication for the same pain relief ??? Physical dependence???meaning you have symptoms of withdrawal when a medication is stopped ??? Increased sensitivity to pain ??? Constipation ??? Nausea, vomiting, and dry mouth ??? Sleepiness and dizziness ??? Confusion ??? Depression ??? Low levels of testosterone that can result in lower sex drive, energy, and strength ??? Itching and sweating RISKS ARE GREATER WITH: ??? History of drug misuse, substance use disorder, or overdose ??? Mental health conditions (such as depression or anxiety) ??? Sleep apnea ??? Older age (65 years and older) ??? Avoid alcohol while taking prescription opioids. Also, unless specifically advised by your health care provider, medications to avoid include: ??? Benzodiazepines (such as Xanax or Valium) ??? Muscle relaxants (such as Soma or Flexeril) ??? Hypnotics (such as Ambien or Lunesta) ??? Other prescription opioids KNOW YOUR OPTIONS Talk to your health care provider about ways to manage your pain that don???t involve prescription opioids. Some of these options may actually work better and have fewer risks and side effects. Options may include: ??? Pain relievers such as acetaminophen, ibuprofen, and naproxen ??? Some medication that are also used for depression or seizures ??? Physical therapy and exercise ??? Cognitive behavioral therapy, a psychological, goal-directed approach, in which patients learn how to modify physical, behavioral, and emotional triggers of pain and stress. IF YOU ARE PRESCRIBED OPIOIDS FOR PAIN: ??? Never take opioids in greater amounts or more often than prescribed. ??? Follow up with your primary health care provider. o Work together to create a plan on how to manage your pain (more content not included)... Normal [facility] Extra Blueon 02-06-2025 Tube Collected Plasma Yes Invalid Interpretation Code [facility] Comment on above: Performed By: #### 1 [id number] #### [facility] [address] [place] [address] BMPon 02-05-2025 Anion gap [Moles/Vol] 13 mmol/L Normal 6-16 [facility] Comment on above: Performed By: #### 2 [id number] #### [facility] [address] [place] [address] Calcium [Mass/Vol] 8.9 mg/dL Normal 8.9-11.1 [facility] Comment on above: Performed By: #### 2 [id number] #### [facility] [address] [place] [address] Chloride [Moles/Vol] 107 mmol/L Normal 101-111 [facility] Comment on above: Performed By: #### 2 [id number] #### [facility] [address] [place] [address] CO2 [Moles/Vol] 22 mmol/L Normal 21-31 [facility] Comment on above: Performed By: #### 2 [id number] #### [facility] [address] [place] [address] Creatinine [Mass/Vol] 0.7 mg/dL Normal 0.5-1.3 [facility] Comment on above: Performed By: #### 2 [id number] #### [facility] [address] [place] [address] Glucose [Mass/Vol] 95 mg/dL Normal 55-199 [facility] Comment on above: Performed By: #### 2 [id number] #### [facility] [address] [place] [address] Potassium [Moles/Vol] 3.6 mmol/L Normal 3.5-5.3 [facility] Comment on above: Performed By: #### 2 [id number] #### [facility] [address] [place] [address] Sodium [Moles/Vol] 138 mmol/L Normal 135-145 [facility] Comment on above: Performed By: #### 2 [id number] #### [facility] [address] [place] [address] Urea nitrogen [Mass/Vol] 7 mg/dL Normal 5-21 [facility] Comment on above: Performed By: #### 2 [id number] #### [facility] [address] [place] [address] Urea nitrogen/Creatinine [Mass ratio] 10 No Units Normal 10-20 [facility] Comment on above: Performed By: #### 2 [id number] #### [facility] [address] [place] [address] CBC w/ Auto Diffon 5 Basophils/100 WBC (Bld) 0.7 % Normal 0.0-2.0 [facility] Comment on above: Performed By: #### 2 [id number] #### [facility] [address] [place] [address] Basophils/Leukocytes Auto (Bld) [Pure # fraction] 0.0 E9/L Normal 0.0-0.2 [facility] Comment on above: Performed By: #### 2 [id number] #### [facility] [address] [place] [address] Eosinophils (Bld) [#/Vol] 0.2 E9/L Normal 0.0-0.5 [facility] Comment on above: Performed By: #### 2 [id number] #### [facility] [address] [place] [address] Eosinophils/100 WBC (Bld) 3.1 % Normal 0.0-8.0 [facility] Comment on above: Performed By: #### 2 169106 #### [facility] [address] [place] [address] Erythrocyte distribution width (RBC) [Ratio] 12.9 % Normal 10.9-14.2 [facility] Comment on above: Performed By: #### 2 [id number] #### [facility] [address] [place] [address] Hematocrit (Bld) [Volume fraction] 37.3 % Normal 34.0-46.0 [facility] Comment on above: Performed By: #### 2 [id number] #### [facility] [address] [place] [address] Hemoglobin (Bld) [Mass/Vol] 13.3 g/dL Normal 12.0-16.0 [facility] Comment on above: Performed By: #### 2 [id number] #### [facility] [address] [place] [address] Lymphocytes (Bld) [#/Vol] 2.9 E9/L Normal 1.0-4.0 [facility] Comment on above: Performed By: #### 2 [id number] #### [facility] [address] [place] [address] Lymphocytes/100 WBC (Bld) 48.3 % Normal 14.0-50.0 [facility] Comment on above: Performed By: #### 2 [id number] #### [facility] [address] [place] [address] MCH (RBC) [Entitic mass] 30.1 pg Normal 27.0-34.0 [facility] Comment on above: Performed By: #### 2 [id number] #### [facility] [address] [place] [address] MCHC (RBC) [Mass/Vol] 35.6 g/dL Normal 31.4-36.0 [facility] Comment on above: Performed By: #### 2 [id number] #### [facility] [address] [place] [address] MCV (RBC) [Entitic vol] 84.7 fL Normal 80.0-100.0 F [facility] Comment on above: Performed By: #### 2 [id number] #### [facility] [address] [place] [address] Monocytes (Bld) [#/Vol] 0.6 E9/L Normal 0.2-1.0 F [facility] Comment on above: Performed By: #### 2 [id number] #### [facility] [address] [place] [address] Neutrophils (Bld) [#/Vol] 2.3 E9/L Normal 2.0-7.5 [facility] Comment on above: Performed By: #### 2 [id number] #### [facility] [address] [place] [address] Neutrophils/100 WBC (Bld) 38.3 % Normal 36.0-75.0 [facility] Comment on above: Performed By: #### 2 [id number] #### [facility] [address] [place] [address] Platelet 251.0 E9/L Normal 150.0-500. 0 [facility] Comment on above: Performed By: #### 2 [id number] #### [facility] [address] [place] [address] Platelet mean volume (Bld) [Entitic vol] 8.7 fL Normal 6.4-10.8 [facility] Comment on above: Performed By: #### 2 [id number] #### [facility] [address] [place] [address] RBC (Bld) [#/Vol] 4.4 E12/L Normal 4.3-5.9 [facility] Comment on above: Performed By: #### 2 [id number] #### [facility] [address] [place] [address] WBC corrected for nucl RBC Auto (Bld) [#/Vol] 6.0 E9/L Normal 4.0-11.0 [facility] Comment on above: Performed By: #### 2 [id number] #### [facility] [address] [place] [address] CHEMISTRYOrdered By: SYSTEM SYSTEM on 02-05-2025 Anion gap [Moles/Vol] 13 mmol/L Normal 6 - 16 mEq/L [facility] Calcium [Mass/Vol] 8.9 mg/dL Normal 8.9 - 11. 1 mg/dL [facility] Chloride [Moles/Vol] 107 mmol/L Normal 101 - 1 11 mmol/L [facility] CO2 [Moles/Vol] 22 mmol/L Normal 21 - 31 mmol/L [facility] Creatinine [Mass/Vol] 0.7 mg/dL Normal 0.5 - 1.3 mg/dL [facility] eGFR 120 mL/min/1.73 m2 Normal >=59mL/mi n /1.73 m2 [facility] Glucose [Mass/Vol] 95 mg/dL Normal 55 - 199 mg/dL [facility] Potassium [Moles/Vol] 3.6 mmol/L Normal 3.5 - 5.3 mmol/L [facility] Sodium [Moles/Vol] 138 mmol/L Normal 135 - 145 mmol/L [facility] Urea nitrogen [Mass/Vol] 7 mg/dL Normal 5 - 21 mg/dL [facility] Urea nitrogen/Creatinine [Mass ratio] 10 mg/mg Normal 10 - 20 [facility] HEMATOLOGYOrdered By: SYSTEM SYSTEM on 02-05-2025 Basophils/100 WBC (Bld) 0.7 % Normal 0.0 - 2.0 % [facility] Basophils/Leukocytes Auto (Bld) [Pure # fraction] 0.0 E9/L Normal 0.0 - 0.2 E9/L [facility] Eosinophils (Bld) [#/Vol] 0.2 E9/L Normal 0.0 - 0.5 E9/L [facility] Eosinophils/100 WBC (Bld) 3.1 % Normal 0.0 - 8.0 % [facility] Erythrocyte distribution width (RBC) [Ratio] 12.9 % Normal 10.9 - 14.2 % [facility] Hematocrit (Bld) [Volume fraction] 37.3 % Normal 34.0 - 46.0 % [facility] Hemoglobin (Bld) [Mass/Vol] 13.3 g/dL Normal 12.0 - 16.0 gm/dL [facility] Lymphocytes (Bld) [#/Vol] 2.9 E9/L Normal 1.0 - 4.0 E9/L [facility] Lymphocytes/100 WBC (Bld) 48.3 % Normal 14.0 - 50.0 % [facility] MCH (RBC) [Entitic mass] 30.1 pg Normal 27.0 - 34.0 pg [facility] MCHC (RBC) [Mass/Vol] 35.6 g/dL Normal 31.4 - 36.0 gm/dL [facility] MCV (RBC) [Entitic vol] 84.7 fL Normal 80.0 - 100.0 fL [facility] Monocytes (Bld) [#/Vol] 0.6 E9/L Normal 0.2 - 1.0 E9/L [facility] Monocytes/100 WBC (Bld) 9.6 % Normal 4.0 - 14.0 % [facility] Neutrophils (Bld) [#/Vol] 2.3 E9/L Normal 2.0 - 7.5 E9/L [facility] Neutrophils/100 WBC (Bld) 38.3 % Normal 36.0 - 75.0 % [facility] Platelet 251.0 E9/L Normal 150.0 - 500.0 E9/L [facility] Platelet mean volume (Bld) [Entitic vol] 8.7 fL Normal 6.4 - 10.8 fL [facility] RBC (Bld) [#/Vol] 4.4 E12/L Normal 4.3 - 5.9 E12/L [facility] WBC corrected for nucl RBC Auto (Bld) [#/Vol] 6.0 E9/L Normal 4.0 - 11.0 E9/L [facility] Laboratory - Chemistry and C hemistry - challengeon 02-05-2025 Calcium [Mass/Vol] 8.9 mg/dL [facility] Chloride [Moles/Vol] 107 mmol/L [facility] CO2 [Moles/Vol] 22 mmol/L [facility] Creatinine [Mass/Vol] 0.7 mg/dL [facility] Glucose [Mass/Vol] 95 mg/dL [facility] Potassium [Moles/Vol] 3.6 mmol/L [facility] Sodium [Moles/Vol] 138 mmol/L [facility] Urea nitrogen [Mass/Vol] 7 mg/dL [facility] No Panel Informationon 02-05 Estimated GFR (Non- 120 mL/min [facility] eGFRon 02-05-2025 eGFR 120 mL/min/1.73 m2 Normal >=59 [facility] Comment on above: Performed By: #### 1 [id number] #### [facility] [address] [place] [address] Ambulatory Visit Summaryon 0 01-27-2025 Ambulatory Visit Summary Ambulatory Visit Summary ADDIE LANE :1995 Visit Date:01/27/2025 Ambulatory Visit Instructions Your Diagnosis Abdominal bloating Chronic GERD Post-cholecystectomy syndrome Morbid obesity with BMI of 40.0-44.9, adult Celiac disease Body mass index [BMI] 40.0-44.9, adult Your Care Team Attending Physician - Ankur Pnaiagua MD Primary Care Physician - DINESH SHEA CNP This Is Your Medications List colesevelam (Welchol 625 mg Tab) Contact prescribing physician if questions or concerns ascorbic acid (Vitamin C) baclofen doxycycline (doxycycline hyclate 100 mg Cap) ergocalciferol (Vitamin D) esomeprazole (Nexium 40 mg Cap-EC) hydrOXYzine (hydrOXYzine hydrochloride) metformin (metformin 500 mg Tab) metoprolol (Metoprolol tartrate 50 mg Tab) multivitamin (Vitamin B Complex oral capsule) multivitamin with iron (Iron 100 Plus oral tablet) Procedures Performed Cholecystectomy (11/29/2022), Esophagogastroduodenosco py (03/31/2022), adenoids removed ear tubes, section. Discharge Vitals Respiratory Rate 16 Blood Pressure 114/79 Height 172 cm Height 68 in Weight 130.6 kg Weight 287.923 lb BMI 44.15 What to do next Scheduled Follow-Up Appointments Sunday 11:20 AM EDT With: Oneyda Urbina Where: [facility] [address], [address] [place] [address]- Sunday 12:45 PM EDT With: Ankur Paniagua MD Where: [facility] [address] [place] [address]- Sunday 9:45 AM EDT With: Jacob ROMERO, Perry Solano Where: [facility] Medications What How Much When Why Instructions New colesevelam (Welchol 625 mg Tab) 3 Tablets By Mouth 2 times a day Abdominal bloating Chronic GERD Pickup at [facility]/pharmacy #[id number] Unchanged ascorbic acid (Vitamin C) Every day Contact prescribing physician if questions or concerns Unchanged baclofen 10 Milligram By Mouth 3 times a day Contact prescribing physician if questions or concerns Unchanged doxycycline (doxycycline hyclate 100 mg Cap) 1 Capsules By Mouth 2 times a day Contact prescribing physician if questions or concerns Unchanged ergocalciferol (Vitamin D) By Mouth Every week Contact prescribing physician if questions or concerns Unchanged esomeprazole (Nexium 40 mg Cap-EC) 1 Capsules By Mouth 2 times a day Contact prescribing physician if questions or concerns Unchanged hydrOXYzine (hydrOXYzine hydrochloride) Contact prescribing physician if questions or concerns Unchanged metformin (metformin 500 mg Tab) 1 Tablets By Mouth 2 times a day Contact prescribing physician if questions or concerns Unchanged metoprolol (Metoprolol tartrate 50 mg Tab) 1 Tablets By Mouth 2 times a day Palpitations Contact prescribing physician if questions or concerns Unchanged multivitamin (Vitamin B Complex oral capsule) By Mouth Every day Contact prescribing physician if questions or concerns Unchanged multivitamin with iron (Iron 100 Plus oral tablet) Contact prescribing physician if questions or concerns Pharmacy Information [facility]/pharmacy #[id number]: [address] [id number] [phone] Allergies hydrochlorothiazide (anaphlaxis) Norvasc (Hives) penicillin (hives) sulfamethoxazole (hives) Problems Ongoing - Any problem that you are currently receiving treatment for. Abdominal bloating Allergic conjunctivitis, bilateral Belching BMI 40.0-44.9, adult Celiac disease Cholelithiasis Chronic GERD Diarrhea Epigastric pain Family history of bladder cancer Fatty liver Foreign body in stomach, sequela Former smoker Gastric bezoar Gastritis Hematuria Hypertension Morbid obesity Morbid obesity with BMI of 40.0-44.9, adult Obesity CASIE (obstructive sleep apnea) PCOS (polycystic ovarian syndrome) Post-cholecystectomy syndrome Recurrent UTI Smoker Vomiting Historical - Any problem that you are no longer receiving treatment for. Group B streptococcus HBP (high blood pressure) History of stillbirth Nausea Nausea and vomiting Palpitations Patient Survey You may receive a survey via text or e-mail asking about your office visit. Please share your experience with us by completing your survey. We appreciate your feedback and thank you for choosing us for your care. Normal [facility] G[facility]enterology Office/Clin ic Noteon 01-27-2025 Gastroenterology Office/Clinic Note Gastroenterology Office/Clinic Note Chief Complaint bloating, abdominal pain HPI Staff EST, 29 year old female who presents today for a sick call for complaints of abdominal bloating and acid reflux. Denies Blood Thinners Mounjaro weekly Abdominal pain and bloating: Postprandial, mostly after dinner C/o diarrhea, about 6 loose/ watery stools a day Has been a chronic issue for years, worse since having cholecystectomy No relief with cholestyramine or Colestid GERD; taking nexium 40mg BID- tried and failed omeprazole 40mg and pepcid Last office visit w/ Dr Garcia 10/2024 Assessment/Plan 1. Chronic GERD (K21.9: Gastro-esophageal reflux disease without esophagitis) On Nexium twice a day AC , having occasional/rare symptoms, feels burning, worse in the afternoon. Advised to take Nexium before eating meals. Recommended Gaviscon. Last EGD 01/2023, some food in stomach, was on Mounjaro. 2. Abdominal bloating (R14.0: Abdominal distension (gaseous)) no milk Having epigastric pain with this. Some relief with Gas-X. Recommended Low Fodmap diet and food journal. Celiac panel ordered. 3. Epigastric pain (R10.13: Epigastric pain) likely Due # 4. Vomiting (R11.10: Vomiting, unspecified) GES 03/2023, accelerated rate less than 30% after 1 hour. 5. Fatty liver (K76.0: Fatty (change of) liver, not elsewhere classified) She is on multivitamins and she is on an oral diet. Fibroscan 03/2023, S3 F0 Repeat fibroscan in 1 year. 6. Diarrhea (R19.7: Diarrhea, unspecified) Postcholecystectomy 11/2021, suspect bile acid diarrhea, cholestyramine once a day did not make much difference. Switched to Colestid twice a day which did not help much either. Advised to minimize coffee as this exacerbates her symptoms, symptoms only with coffee discussed decaff option 7. PCOS (polycystic ovarian syndrome) (E28.2: Polycystic ovarian syndrome) Good control of metabolic syndrome History of Present Illness I have reviewed HPI staff note, most recent labs and imaging, I agree with the above documentation with the following additions/exceptions : PT with bloating after eating dinner early satiety for 2 hours no constipation stopped leann in 09.22 GERD is well controlled hx of maurilio in November 2022 hx of accelerated emptying of the stomach pt with worse diarrhea - was taking meds for that Review of Systems PHQ Score Initial Depression Screen Score: 0 SCORE All systems reviewed, negative except as mentioned above Physical Exam Vitals & Measurements RR: 16 BP: 114/79 HT: 68 in HT: 172 cm WT: 287.923 lb WT: 130.6 kg BMI: 44.15 General: alert, no acute distress HEENT: atraumatic normocephalic Extremities: no deformity, no trauma Assessment/Plan 1. Abdominal bloating (R14.0: Abdominal distension (gaseous)) Ordered: colesevelam, 1,875 mg = 3 tab(s), Oral, BID, # 180 tab(s), Refills(s) 0, Pharmacy: [facility]/pharmacy #[id number], 172, cm, 01/27/25 11:28:00 EDT, Height/Length Dosing, 130.6, kg, 01/27/25 11:28:00 EDT, Weight Dosing 2. Chronic GERD (K21.9: Gastro-esophageal reflux disease without esophagitis) Ordered: colesevelam, 1,875 mg = 3 tab(s), Oral, BID, # 180 tab(s), Refills(s) 0, Pharmacy: [facility]/pharmacy #[id number], 172, cm, 01/27/25 11:28:00 EDT, Height/Length Dosing, 130.6, kg, 01/27/25 11:28:00 EDT, Weight Dosing 3. 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 Morbid obesity with BMI of 40.0-44.9, adult (E66.01: Morbid (severe) obesity due to excess calories) 5. Celiac disease (K90.0: Celiac disease) Body mass index [BMI] 40.0-44.9, adult (Z68.41: Body mass index [BMI] 40.0-44.9, adult) Start WelChol 1875 mg twice daily Is advised to take align 1 tablet every day and FDgard 1 tablet twice a day from [id number] Advised to try gluten-free diet since she has weakly positive celiac serologies Might benefit from BuSpar in the future Might benefit from stopping metformin since it could give her diarrhea Follow-up No qualifying data available Problem List/Past Medical History Ongoing Abdominal bloating Allergic conjunctivitis, bilateral Belching BMI 40.0-44.9, adult Celiac disease Cholelithiasis Chronic GERD Diarrhea Epigastric pain Family history of bladder cancer Fatty liver Foreign body in stomach, sequela Former smoker Gastric bezoar Gastritis Hematuria Hypertension Morbid obesity Morbid obesity with BMI of 40.0-44.9, adult Obesity CASIE (obstructive sleep apnea) PCOS (polycystic ovarian syndrome) Post-cholecystectomy syndrome Recurrent UTI Smoker Vomiting Historical Group B streptococcus HBP (high blood pressure) History of stillbirth Nausea Nausea and vomiting Palpitations Procedure/Surgical History Cholecystectomy (11/29/2022), Esophagogastroduodenosco py (03/31/2022), adenoids removed ear tubes, section. Medications baclofen, 10 mg, Oral, TID doxycycline hyclate 100 (more content not included)... [facility] Comment on above: Result Comment: Elec tronically Signed By: Siva URBINA, Ankur Andrade\.br\Date and Time Signed: 01/27/25 11:56 EDT Heart and Vascular Office/Cl in Noteon 01-23-2025 Heart and Vascular Office/Clinic Note Heart and Vascular Office/Clinic Note Chief Complaint SOB, PALPITATIONS History of Present Illness Patient is a 29-year-old female with past medical history of hypertension, GERD, fatty liver dizziness, palpitations. Patient comes in for acute visit due to shortness of breath palpitations today. Reviewed prior stress echo, event monitor, echo, EKG stress test. At last visit, I saw patient at which time her metoprolol was changed from metoprolol tartrate 25 mg twice daily to metoprolol succinate 50 mg ER daily. However, shortly after starting the medication, patient called us that she was still having palpitations so she was changed to metoprolol tartrate to 50 mg twice daily. EKG in the office today shows normal sinus rhythm with a heart rate of 72 bpm. Patient reports that her palpitations have been doing better since changing to metoprolol tartrate 50 mg twice daily. She states that she is not having them quite as often. She still is having some palpitations and they are still more often in the evening, but less overall. She does occasionally take her metoprolol dose a little bit early when she is having palpitations. Overall, she does feel like they are better. She also reports that her resting heart rate is much lower and usually around the 70s since increasing metoprolol dose. Patient reports that 2 days ago she was having issues with shortness of breath. Patient reports that she was having some right sided thoracic back pain and when she took a deep breath, it hurt worse. She was also having issues with shortness of breath when she was laying down at night. She states she had to prop herself up at about 6 pillows to feel like she could breathe normally. Patient does have CPAP and she was wearing her mask like usual but took her much longer to fall asleep. Patient reports that she did not have any issues last night with falling asleep or shortness of breath and she slept like normal. Patient also reports that the pain in her back is pretty much resolved at this point and maybe only has mild symptoms if any. Patient denies chest pain, swelling to lower extremities, dizziness/lightheadednes s. REVIEWED PRIOR NOTE FROM 11/28/2024: Patient comes in for 3-month follow-up today. At last visit, I saw patient at which time she was continued on current medications and we were monitoring symptoms as she was going through further testing for CASIE. Patient reports that her symptoms have been similar to what they were at last visit. She states that she did complete CASIE testing and she was diagnosed with sleep apnea and just got her CPAP about 3 weeks ago. She states that she has been ill and had to change the mask, so has not noticed a huge significant difference from the machine so far. Patient reports that she is still having heart palpitations. She states that they were really bad a few weeks ago and she was going to call to get a sooner appointment, but then they started to let off some. She is still having them multiple times a week on average and she also has associated lightheadedness when she has palpitations. This is not a new symptom for her at all and almost always goes along with her palpitations. Patient reports that she has checked her blood pressure at these times in the past and it is never low, it is often normal or high. Patient is still taking metoprolol tartrate 25 mg twice daily. She states that she sometimes feels that the medicine wears off too quickly and she starts to have a lot more palpitations, so she takes her second dose earlier and that helps relieve her symptoms. Patient denies chest pain, shortness of breath, swelling lower extremities. Review of Systems PHQ Score Initial Depression Screen Score: 0 SCORE ROS - Provider Constitutional: no fever, no chills, no sweats, no weakness Respiratory: no shortness of breath, no cough Cardiovascular: no chest pain Neuro: no dizziness. no loss of consciousness Physical Exam Vitals & Measurements HR: 72(Peripheral) RR: 16 BP: 125/82 SpO2: 98% HT: 172 cm HT: 68 in WT: 131.2 kg WT: 289.246 lb BMI: 44.35 General: alert, no acute distress Cardiovascular: regular rate and rhythm, no murmur normal peripheral perfusion Respiratory: Lungs CTAB, respirations non labored Extremities: no edema left lower extremity. no edema right lower extremity Neurological: oriented x 4, LOC appropriate for age, speech normal Skin: Warm, dry, intact- no rash or concerning lesions Cardiac Diagnostics (11/14/2023 15:02 EST EC Stress Echo Complete w/ Contrast) Interpretation Summary Ejection Fraction = 60-65%. Normal adequate treadmill echocardiogram. Negative for ischemia by EKG and echocardiograph criteria. No anginal symptoms noted. No arrhythmias noted. Hypertensive blood pressure response to exercise. Average exercise capacity for age. Test terminated due to attainment of target heart rate. Decrease sensitivity due to poor echo windows requiring Definity agent. This is a low risk study. [1] E (more content not included)... [facility] Comment on above: Result Comment: Elec tronically Signed By: Jacob ROMERO, Perry Solano\.julio\Date and Time Signed: 01/23/25 12:37 EDT US Pelvis Non-OB Completeon 01-21-2025 US Pelvis Non-OB Complete Exam Date/Time: 01/19/2025 18:46 EDT Reason for Exam: E28.2 Report IMPRESSION: Negative pelvic ultrasound. CLINICAL HISTORY: E28.2 Technical factors: Transabdominal sonography performed. FINDINGS: Uterus: Normal in size, shape, and echogenicity. Endometrium: Normal in appearance. Right ovary: Normal in size, shape, and echogenicity. Color flow and Doppler without anomaly. Left ovary: Normal in size, shape, and echogenicity. Color flow and Doppler without anomaly. Free fluid: None Adnexal masses: None The uterus measurements and an estimated volume are: Uterus Length: 11.1 cm Uterus Width: 6.7 cm Uterus Height: 4.4 cm Uterus Volume: 169.9 cm3 Endometrium Thickness: 0.4 cm The right ovary measurements and an estimated volume are: Right Ovary Length: 3.5 cm Right Ovary Width: 2.3 cm Right Ovary Height: 3.2 cm Right Ovary Volume: 13.7 cm3 The left ovary measurements and an estimated volume are: Left Ovary Length: 3.0 cm Left Ovary Width: 3.5 cm Left Ovary Height: 2.4 cm Left Ovary Volume: 13.2 cm3 Report Ordering Provider: Harry MCHUGH FINAL REPORT Dictated: 01/21/2025 11:53 am Miky Simpson MD Signed (Electronic Signature): 01/21/2025 11:53 am Signed by: Miky Simpson MD Transcribed by: EDE Technologist: JOCELYN [facility] - Hematology and Cell countson 12-23-2024 HbA1c (Bld) [Mass fraction] 5.5 % [facility] No Panel Informationon 12-23 Thyroid Stimulating Hormone 3rd Gen 1.36 [facility] Ambulatory Visit Summaryon 0 12-09-2024 Ambulatory Visit Summary Ambulatory Visit Summary [address] :1995 Visit Date:12/09/2024 Ambulatory Visit Instructions Your Diagnosis Recurrent UTI Hematuria Family history of bladder cancer Former smoker Your Care Team Attending Physician - Catarina MEYER, JAYDE, Alecia Cheng Primary Care Physician - DINESH SHEA CNP This Is Your Medications List Contact prescribing physician if questions or concerns ascorbic acid (Vitamin C) baclofen doxycycline (doxycycline hyclate 100 mg Cap) ergocalciferol (Vitamin D) esomeprazole (Nexium 40 mg Cap-EC) hydrOXYzine (hydrOXYzine hydrochloride) metformin (metformin 500 mg Tab) metoprolol (Metoprolol tartrate 50 mg Tab) multivitamin (Vitamin B Complex oral capsule) multivitamin with iron (Iron 100 Plus oral tablet) Procedures Performed Cholecystectomy (11/29/2022), Esophagogastroduodenosco py (03/31/2022), adenoids removed ear tubes, section. Discharge Vitals Temperature (Temporal Artery) 37 ???C Heart Rate (Peripheral) 74 Respiratory Rate 16 Blood Pressure 135/79 What to do next Scheduled Follow-Up Appointments 2024 10:30 AM EDT With: Perry James PA-C Where: Cardiology Clinic Sunday 11:20 AM EDT With: Oneyda Urbina Where: [facility] [address] [place] [address]- Medications What How Much When Why Instructions Unchanged ascorbic acid (Vitamin C) Every day Contact prescribing physician if questions or concerns Unchanged baclofen 10 Milligram By Mouth 3 times a day Contact prescribing physician if questions or concerns Unchanged doxycycline (doxycycline hyclate 100 mg Cap) 1 Capsules By Mouth 2 times a day Contact prescribing physician if questions or concerns Unchanged ergocalciferol (Vitamin D) By Mouth Every week Contact prescribing physician if questions or concerns Unchanged esomeprazole (Nexium 40 mg Cap-EC) 1 Capsules By Mouth 2 times a day Contact prescribing physician if questions or concerns Unchanged hydrOXYzine (hydrOXYzine hydrochloride) Contact prescribing physician if questions or concerns Unchanged metformin (metformin 500 mg Tab) 1 Tablets By Mouth 2 times a day Contact prescribing physician if questions or concerns Unchanged metoprolol (Metoprolol tartrate 50 mg Tab) 1 Tablets By Mouth 2 times a day Palpitations Contact prescribing physician if questions or concerns Unchanged multivitamin (Vitamin B Complex oral capsule) By Mouth Every day Contact prescribing physician if questions or concerns Unchanged multivitamin with iron (Iron 100 Plus oral tablet) Contact prescribing physician if questions or concerns Allergies hydrochlorothiazide (anaphlaxis) Norvasc (Hives) penicillin (hives) sulfamethoxazole (hives) Problems Ongoing - Any problem that you are currently receiving treatment for. Abdominal bloating Allergic conjunctivitis, bilateral Belching BMI 40.0-44.9, adult Cholelithiasis Chronic GERD Diarrhea Epigastric pain Family history of bladder cancer Fatty liver Foreign body in stomach, sequela Former smoker Gastric bezoar Gastritis Hematuria Hypertension Morbid obesity Obesity CASIE (obstructive sleep apnea) PCOS (polycystic ovarian syndrome) Recurrent UTI Smoker Vomiting Historical - Any problem that you are no longer receiving treatment for. Group B streptococcus HBP (high blood pressure) History of stillbirth Nausea Nausea and vomiting Palpitations Patient Survey You may receive a survey via text or e-mail asking about your office visit. Please share your experience with us by completing your survey. We appreciate your feedback and thank you for choosing us for your care. 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 coli 12/01/24 - neg Earlier in the month had lower back pain and groin pain but pain has ceased since doxycycline. Pt denies dysuria, denies hematuria. History of Present Illness Tests reviewed: UA, KUB, & Referral Notes. I have reviewed the previous health record information and history for this patient from Alexander Villalta PA-C. I have reviewed and verified the staff HPI to be accurate for this encounter. Review of Systems PHQ Score Initial Depression Screen Score: 0 SCORE ROS - Provider Constitutional: denies weight loss, denies hot flashes. Eyes: denies eye problems. Gastrointestinal: denies nausea, denies vomiting. Cardiovascular: denies chest pain or angina. Integumentary: no dryness Musculoskeletal: denies musculoskeletal symptoms. ENMT: denies otolaryngeal symptoms. Respiratory: no shortness of breath. Heme/Lymph: denies easy bleeding tendency, denies easy bruising tendency. Psychiatric: no confusion, no anxiety. Genitourinary: See HPI. Physical Exam Vitals & Measurements T: 37 ???C(Temporal Artery) HR: 74(Peripheral) RR: 16 BP: 135/79 General Appearance: alert, no distress, well nourished, well developed female. Assessment/Plan [place] 29 year old female presents here for new patient referral from convenient care for recurrent urinary tract infection and hematuria. BBSQ: 8 - moderate symptoms. 1. Recurrent UTI (N39.0: Urinary tract infection, site not specified) UCx 09/19/24 - >100,000 cfu/ml Escherichia coli 12/01/24 - negative Pt reports 6 rounds of abx since August for UTI sxs. Sxs always resolve w/ abx, then come back. PVR today 0mL UA today negative for blood and infection. Reviewed UA. Denies any gross hematuria or dysuria at this time. Has trialed with Doxycycline 2 week course x 2 for PID per her PCP. Patient shares every time she on abx, she sees improvement and sxs go away. Patient was advised to contact our office when she starts experiencing urinary infection sxs so that we can send urine off for UTiD. Bowel movements varies due to patient having IBS, states sometimes she has multiple BMs a day and sometimes she does not she does not go at all. We discussed the possibility of patient getting infections after sexual intercourse, patient states she previously thought that, advised patient to make sure she is urinating before and after sexual intercourse. Patient shares she is going to be following up with her CLIENT SERVICE ADMINISTRATOR due to her PCP thinking this could be pelvic inflammatory disease. Informed patient to go to that appt and keep our office updated. most recent UTI August 2024 UA in office today not suspicious for UTI current UTI symptoms no UTI frequency every 1-2 mos UTIs started worsening in the past 6-12 mos Prior to that averaged UTIs very rarely pt's typical UTI sx include burning and frequency hx stones no immunosuppressed no post-menopausal/hysterec khai yes proper hygiene habits: wipes front to back every time yes avoids baths/hot tubs yes avoids scented CLIENT SERVICE ADMINISTRATOR products yes urinates after sexual activity yes Discussed with pt. to start D-mannose, cranberry, and probiotics to help decrease the number of urinary tract infections. Explained that D-mannose works by the bacteria clinging to the sugars vs. the bladder wall, cranberry making it harder for the bacteria to cling to the bladder wall, and probiotics which increases the number of good bacteria. Pt advised if develops fever, severe flank pain, vomiting - needs to go to ER. -Wipe front to back. -Avoid baths, shower only -Urinate after sexual intercourse. -Emptying the bladder completely. -Recommended pt to increase fluid intake. -Cont routine UAs and sx monitoring -Pt to call office w/ all urinary complaints - Would like to send UTiD next episode. Follow up 3 months or sooner if needed. Pt understands and agrees with plan. 2. Hematuria (R31.9: Hematuria, unspecified) ~UA 12/01/24- SHOWS TRACE BLOOD [PCP] Denies any gross hematuria at this time, but does c/o intermittent gross hematuria when she is not on abx and while she is having urinary sxs. It is also unclear if this may be vaginally? We discussed the possibility of preceding with a cysto if a patient continues to see blood. The risks and benefits for cystoscopy have been discussed. The risks include bleeding, infection, and irritation of the bladder and urinary channel, among others. The patient, after being informed of procedural details and after questions have been answered. Pt knows to notify the office if they were to experiences gross hematuria or clots. 3. Family history of bladder cancer (Z80.52: Family history of malignant neoplasm of bladder) paternal grandf (more content not included)... [facility] Comment on above: Result Comment: Elec tronically Signed By: JAYDE Elmore APRN, [place] X\.br\Date and Time Signed: 12/09/24 10:54 EDT\.br\Electronically Co-Signed By: Clementina Menjivar\.br\Date and Time Co-Signed: 12/09/24 10:45 EDT C Urineon 12-04-2024 Bacteria identified Cx Nom (U) Microbiology PROCEDURE: Urine Culture [R1] SOURCE: U CleanCatch BODY SITE: COLLECTED DATE/TIME: 12/01/2024 17:43 EST RECEIVED DATE/TIME: 12/02/2024 13:39 EST START DATE/TIME: 12/02/2024 13:39 EST FREE TEXT SOURCE: Pawan ROMERO, Alexander Gutiérrez. Pawan ROMERO, Alexander Gutiérrez. FINAL REPORTS Final Report [] Verified Date/Time: 12/04/2024 08:52 EST <10,000 cfu/ml Mixed skin contaminants Performing Locations R1: This test was performed at: [facility], [address] [place] [address], [id number] , , [facility] Comment on above: Performed By: #### [id number] #### [facility] [address] [place] [address] Family Medicine Office/Clini c Noteon 12-03-2024 Family Medicine Office/Clinic Note Family Medicine Office/Clinic Note Chief Complaint uti HPI Staff 29 yo female presents with uti symptoms Onset: yesterday Symptoms: blood in urine, lower back pain, lower abdominal pain OTC used: was recently on on doxycycline- yesterday was the 4th day she was off of this and that is when symptoms began has been on about 6 antibiotics in past 3 months due to UTI's History of Present Illness I have reviewed and verified the staff HPI to be accurate for this encounter. Portions of this record have been created with voice recognition software. Occasional wrong-word or ???[id number]??? substitutions may have occurred due to the inherent limitations of voice recognition software. 29 yo female presents today with complaint of lower back pain and lower abdominal discomfort burning with urination started yesterday. Patient states she has been dealing with reoccurring urinary tract infections as well as PID symptoms over the last 3 months. Patient states that she does not currently have a primary care provider states that her child's nurse practitioner, has been seeing and treating patient as needed. Patient states she was most recently on doxycycline more so for pelvic inflammatory symptoms. States that she deals with intermittent hematuria. States she noticed this return approximately 2 to 3 days ago denies any vaginal bleeding or spotting. States history of PCOS. Denies any concerns for . States that she has not had a regular menstrual cycle probably since May of last year. States however there was a time where she had menstrual bleeding for about 2 weeks. She states some lower pelvic pain some pain with intercourse. Denies any abnormal vaginal discharge or concern for STI. Patient states she did have a pelvic ultrasound as well as ultrasound kidney ureter bladder and when she states everything came back fine. States that she is scheduled to see urology on December 09 is scheduled with her mat man on December 23 but states again the symptoms are reoccurring. States that while she was taking the doxycycline she did have improvement of symptoms states that today would be the fourth day that she has been off of the doxycycline. States has been an ongoing issue over the past 3 months. She denies any dysuria hematuria urinary urgency or frequency. States she just noticed hematuria and noticed this mostly when wiping denies any gross hematuria which she has had in the past. She does note some right lower back pain and lower bladder pressure denies flank pain or history of kidney stones that she is aware of. No fever chills or weakness. No nausea vomiting or diarrhea. She has no other concerns at this time. Review of Systems PHQ Score Initial Depression Screen Score: 0 SCORE ROS negative unless otherwise stated in HPI. Physical Exam Vitals & Measurements T: 36.6 ???C(Oral) HR: 93(Peripheral) BP: 124/82 SpO2: 98% HT: 68 in HT: 172 cm WT: 132 kg WT: 291.01 lb BMI: 44.62 General: Very pleasant obese young female, no acute distress sitting upright in exam chair Eyes: not assessed Ears: not assessed Nose: not addressed Mouth: not assessed Neck: not assessed Lungs: Lung sounds are clear bilaterally. No wheezing rhonchi or crackles on exam Cardio: S1, S2, regular rhythm. No murmurs gallops or rubs Abdomen: Bowel sounds are present x 4 quadrants. Abdomen is soft, nontender, nondistended. No rigidity rebound or guarding on exam. No flank pain. Negative McBurney's point tenderness. Musculoskeletal: No CVA tenderness Extremity: not assessed Neurologic: not assessed Skin: not assessed Mental Status: Alert and oriented x3. Normal mood and affect Assessment/Plan Urine dip in office notes trace blood. Otherwise negative. I would like to send for culture prior to placing patient on antibiotics as she states she has been on several different antibiotics recently and just completed doxycycline approximately 4 days ago. Patient is in agreement with this plan. Patient does have follow-up with urology on December 09 followed by gynecology follow-up on December 23 which I discussed with patient that she is moving in the right direction in regards to the symptoms which may be 2 separate issues. Discussed if urine culture is negative and symptoms continue such as hematuria that she should let them know at her follow-up appointment. If she develops fever chills weakness flank pain abdominal pain vomiting she should seek ER for reevaluation which patient agrees and understands plan. Patient did have UTI back in August of last year at that time did grow greater than 100,000 CFU of E. coli. Discussed with patient that if urine culture comes back positive I would review that urine culture in regards to susceptibility if preliminary results are positive otherwise will wait for final culture patient agrees and understands plan. 1. Hematuria (R31.9: Hematuria, unspecified) UA without abnormality. Discussed UTI unlikely. Will cx urine to ensure no bacterial growth and (more content not included)... [facility] Comment on above: Result Comment: Elec tronically Signed By: Alexander Villalta PA-C\.br\Date and Time Signed: 12/03/24 13:33 EST Ambulatory Visit Summaryon 0 12-01-2024 Ambulatory Visit Summary Ambulatory Visit Summary ADDIE L[address] :1995 Visit Date:12/01/2024 Ambulatory Visit Instructions Your Diagnosis Hematuria UTI symptoms Your Care Team Attending Physician - Alexander Villalta PA-C Primary Care Physician - DINESH SHEA CNP This Is Your Medications List ascorbic acid (Vitamin C) baclofen ergocalciferol (Vitamin D) esomeprazole (Nexium 40 mg Cap-EC) hydrOXYzine (hydrOXYzine hydrochloride) metformin (metformin 500 mg ER Tab) metoprolol (metoprolol succinate 25 mg ER Tab) multivitamin (Vitamin B Complex oral capsule) multivitamin with iron (Iron 100 Plus oral tablet) Procedures Performed Cholecystectomy (11/29/2022), Esophagogastroduodenosco py (03/31/2022), adenoids removed ear tubes, section. Discharge Vitals Temperature (Oral) 36.6 ???C Heart Rate (Peripheral) 93 Blood Pressure 124/82 Height 172 cm Height 68 in Weight 132 kg Weight 291.01 lb BMI 44.62 What to do next Scheduled Follow-Up Appointments Sunday 9:40 AM EDT With: JAYDE Elmore APRN, [place] [facility] Where: [facility] [address] [place] [address] 2024 10:30 AM EDT With: Perry James PA-C Where: [facility] You Need to Schedule the Following Appointments Follow Up with DINESH SHEA CNP When: Where: [facility] [place] [address]- Medications What How Much When Why Instructions Unchanged ascorbic acid (Vitamin C) Every day Unchanged baclofen Unchanged ergocalciferol (Vitamin D) By Mouth Every week Unchanged esomeprazole (Nexium 40 mg Cap-EC) 1 Capsules By Mouth 2 times a day Unchanged hydrOXYzine (hydrOXYzine hydrochloride) Unchanged metformin (metformin 500 mg ER Tab) 1 Tablets By Mouth Every day Unchanged metoprolol (metoprolol succinate 25 mg ER Tab) 1 Tablets By Mouth Every day Palpitation Unchanged multivitamin (Vitamin B Complex oral capsule) By Mouth Every day Unchanged multivitamin with iron (Iron 100 Plus oral tablet) Allergies hydrochlorothiazide (anaphlaxis) Norvasc (Hives) penicillin (hives) sulfamethoxazole (hives) Problems Ongoing - Any problem that you are currently receiving treatment for. Abdominal bloating Allergic conjunctivitis, bilateral Belching BMI 40.0-44.9, adult Cholelithiasis Chronic GERD Diarrhea Epigastric pain Fatty liver Foreign body in stomach, sequela Gastric bezoar Gastritis Morbid obesity Obesity CASIE (obstructive sleep apnea) PCOS (polycystic ovarian syndrome) Recurrent UTI Smoker Vomiting Historical - Any problem that you are no longer receiving treatment for. Group B streptococcus HBP (high blood pressure) History of stillbirth Nausea Nausea and vomiting Palpitations Patient Survey You may receive a survey via text or e-mail asking about your office visit. Please share your experience with us by completing your survey. We appreciate your feedback and thank you for choosing us for your care. [facility] Heart and Vascular Office/[facility] Noteon 11-28-2024 Heart and Vascular Office/Clinic Note Heart and Vascular Office/Clinic Note Chief Complaint 3 month follow up History of Present Illness Patient is a 29-year-old female with past medical history of hypertension, GERD, fatty liver dizziness, palpitations. Patient comes in for 3-month follow-up today. At last visit, I saw patient at which time she was continued on current medications and we were monitoring symptoms as she was going through further testing for CASIE. Patient reports that her symptoms have been similar to what they were at last visit. She states that she did complete CASIE testing and she was diagnosed with sleep apnea and just got her CPAP about 3 weeks ago. She states that she has been ill and had to change the mask, so has not noticed a huge significant difference from the machine so far. Patient reports that she is still having heart palpitations. She states that they were really bad a few weeks ago and she was going to call to get a sooner appointment, but then they started to let off some. She is still having them multiple times a week on average and she also has associated lightheadedness when she has palpitations. This is not a new symptom for her at all and almost always goes along with her palpitations. Patient reports that she has checked her blood pressure at these times in the past and it is never low, it is often normal or high. Patient is still taking metoprolol tartrate 25 mg twice daily. She states that she sometimes feels that the medicine wears off too quickly and she starts to have a lot more palpitations, so she takes her second dose earlier and that helps relieve her symptoms. Patient denies chest pain, shortness of breath, swelling lower extremities. NOTE FROM 08/20/2024: Patient comes in for 6-month follow-up today. At last visit, I saw patient at which time she was evaluated for chest pain and reassured that likely was not cardiac related as she recently had normal stress echo, event monitor, echo. Patient reports that she has not had much chest discomfort since last visit. However, she states that she has had continued heart palpitations. She states that the palpitations come on randomly, but are not lasting as long as it used to in the past. Patient is currently taking metoprolol 25 mg twice daily for this issue and patient reports that it does not help. She states she was on labetalol previously and the metoprolol seems to help more. Patient reports that palpitations are not lasting as long as they used to and sometimes are not overly significant. However, she states that sometimes she has some palpitations that seem to take her breath away. Patient reports that she thinks they are slightly better than they have been in the past, but pretty similar. She has had a couple different event monitors but most recent was in 01/2023. Patient denies shortness of breath, dizziness/lightheadednes s, and swelling in lower legs. Review of Systems PHQ Score Initial Depression Screen Score: 0 SCORE ROS - Provider Constitutional: no fever, no chills, no sweats, no weakness Respiratory: no shortness of breath, no cough Cardiovascular: no chest pain, positive for heart palpitations Neuro: no dizziness. no loss of consciousness Physical Exam Vitals & Measurements HR: 80(Peripheral) RR: 18 BP: 137/84 SpO2: 97% HT: 68 in HT: 172 cm WT: 131.6 kg WT: 290.128 lb BMI: 44.48 General: alert, no acute distress Cardiovascular: regular rate and rhythm, no murmur normal peripheral perfusion Respiratory: Lungs CTAB, respirations non labored Extremities: no edema left lower extremity. no edema right lower extremity Neurological: oriented x 4, LOC appropriate for age, speech normal Skin: Warm, dry, intact- no rash or concerning lesions Cardiac Diagnostics (11/14/2023 15:02 EST EC Stress Echo Complete w/ Contrast) Interpretation Summary Ejection Fraction = 60-65%. Normal adequate treadmill echocardiogram. Negative for ischemia by EKG and echocardiograph criteria. No anginal symptoms noted. No arrhythmias noted. Hypertensive blood pressure response to exercise. Average exercise capacity for age. Test terminated due to attainment of target heart rate. Decrease sensitivity due to poor echo windows requiring Definity agent. This is a low risk study. [1] Event Monitor 02/20/23 CONCLUSIONS: 1. Unremarkable 14 day event monitor. The predominant rhythm was normal sinus rhythm alternating with occasional episodes of sinus tachycardia. The patient had several triggered events of chest pain all of which corresponded to either normal sinus rhythm or rare sinus tachycardia. 2. Patient had no evidence of atrial fibrillation, supraventricular tachycardia, pauses, premature ventricular contractions or ventricular tachycardia. 3. Recommend clinical correlation or alternative mode of testing to further evaluate chest pain, if clinically indicated. [2] (02/22/2023 13:37 EDT Echo Transthoracic Complete) Interpretation Summary Ejection Fraction = 60-65%. The left ventricula (more content not included)... [facility] Comment on above: Result Comment: Elec tronically Signed By: Jacob ROMERO, Perry Solano\.julio\Date and Time Signed: 11/28/24 13:35 EST Celiac Disease Comprehensive on 11-10-2024 Endomysium IgA Ql (S) Negative Invalid Interpretation Code Negative [facility] Comment on above: Performed By: #### 1 [id number] #### [facility] [address] [place] [address] Gliadin peptide IgA Qn (S) 4 unit(s) Invalid Interpretation Code 0-19 [facility] Comment on above: Result Comment: Nega tive 0 - 19 Weak Positive 20 - 30 Moderate to Strong Positive >30 Performed By: #### 1 [id number] #### [facility] [address] [place] [address] Gliadin peptide IgG Qn (S) 3 unit(s) Invalid Interpretation Code 0-19 [facility] Comment on above: Result Comment: Nega tive 0 - 19 Weak Positive 20 - 30 Moderate to Strong Positive >30 Performed By: #### 1 [id number] #### [facility] [address] [place] [address] IgA [Mass/Vol] 194 mg/dL Invalid Interpretation Code 87-352 [facility] Comment on above: Result Comment: Perf ormed at: [facility] [address] [id number] PhD Anna Avitia Performed By: #### 1 [id number] #### [facility] [address] [place] [address] tTG IgA Qn (S) <2 Invalid Interpretation Code 0-3 [facility] Comment on above: Result Comment: Nega tive 0 - 3 Weak Positive 4 - 10 Positive >10 Tissue Transglutaminase (tTG) has been identified as the endomysial antigen. Studies have demonstr- ated that endomysial IgA antibodies have over 99% specificity for gluten sensitive enteropathy. Performed By: #### 1 [id number] #### [facility] [address] [place] [address] tTG IgG Qn (S) 6 unit/mL High 0-5 [facility] Comment on above: Result Comment: Nega tive 0 - 5 Weak Positive 6 - 9 Positive >9 Performed By: #### 1 [id number] #### [facility] [address] [place] [address] XR Chest 2 Viewson 5 XR Chest 2 Views Exam Date/Time: 11/06/2024 17:27 EST Reason for Exam: Other (please specify) Report IMPRESSION: ON THE LATERAL PROJECTION THERE ARE 2 AREAS OF LINEAR OSSIFIC DENSITY PROJECTING ANTERIOR TO THE DISTAL BODY OF THE STERNUM THAT ARE NONSPECIFIC AND MAY REPRESENT COSTOCHONDRAL JUNCTIONS HOWEVER IF THERE IS CONCERN FOR RECENT FRACTURE OR BONE LESION, CT OF THE CHEST WITHOUT CONTRAST IS RECOMMENDED TO FURTHER EVALUATE. EXAMINATION: XR Chest 2 Views HISTORY: Rib and sternum pain. TECHNIQUE: Frontal and lateral views of the chest. COMPARISON: 11/09/2022 FINDINGS: Cardiomediastinal silhouette is within normal limits. No pneumothorax, pleural effusion, or consolidation. No acute displaced fracture. On the lateral projection there are 2 areas of linear ossific density projecting anterior to the distal body of the sternum. Ordering Provider: , FINAL REPORT Dictated: 11/06/2024 5:32 pm Good Chandler DO Signed (Electronic Signature): 11/06/2024 5:32 pm Signed by: Good Chandler DO Transcribed by: EDE Technologist: EVERARDO [facility] US Pelvis Non-OB Completeon 10-31-2024 US Pelvis Non-OB Complete Exam Date/Time: 10/29/2024 19:59 EST Reason for Exam: URINARY REFLUX DYSURIA, include bladder Report IMPRESSION: Negative pelvic ultrasound. Negative urinary bladder. CLINICAL HISTORY: URINARY REFLUX DYSURIA, include bladder COMPARISONS: None available. TECHNICAL FACTORS: Transabdominal and transvaginal sonography with transvaginal imaging was obtained to better assess pelvic anatomy. FINDINGS: Uterus: Normal in size, shape, and echogenicity. Endometrium: Normal in appearance. Right ovary: Normal in size, shape, and echogenicity. Color flow and Doppler without anomaly. Left ovary: Normal in size, shape, and echogenicity. Color flow and Doppler without anomaly. Free fluid: None Adnexal masses: None The uterus measurements and an estimated volume are: Uterus Length: 11.0 cm Uterus Width: 5.7 cm Uterus Height: 4.0 cm Uterus Volume: 132.0 cm3 Endometrium Thickness: 0.5 cm The right ovary measurements and an estimated volume are: Right Ovary Length: 2.9 cm Right Ovary Width: 2.6 cm Right Ovary Height: 2.1 cm Right Ovary Volume: 8.3 cm3 The left ovary measurements and an estimated volume are: Left Ovary Length: 2.9 cm Left Ovary Width: 2.8 cm Left Ovary Height: 3.4 cm Report Left Ovary Volume: 14.5 cm3 Urinary bladder is smoothly marginated and well-defined. Ureteral jets identified on color flow bilaterally. Prevoid urinary bladder volume 72.7 mL post void volume 1.6 mL. Ordering Provider: , FINAL REPORT Dictated: 10/31/2024 1:22 pm Miky Simpson MD Signed (Electronic Signature): 10/31/2024 1:22 pm Signed by: Miky Simpson MD Transcribed by: EDE Technologist: ADRIANA [facility] US Renalon 10-31-2024 US Renal Exam Date/Time: 10/29/2024 19:57 EST Reason for Exam: URINARY REFLUX DYSURIA Report IMPRESSION: NEGATIVE ULTRASOUND OF THE KIDNEYS. CLINICAL HISTORY: URINARY REFLUX DYSURIA. COMPARISON: NONE. Findings: Right kidney measures 12.9 x 4.6 x 6.4 cm. Left kidney measures 13.5 x 5.3 x 4.6 cm. Both kidneys normal in size, shape, echogenicity, color flow. No pelvocaliectasis, calculi, cystic/solid lesions, cortical thinning demonstrated bilaterally. Ordering Provider: , FINAL REPORT Dictated: 10/31/2024 1:27 pm Miky Simpson MD Signed (Electronic Signature): 10/31/2024 1:27 pm Signed by: Miky Simpson MD Transcribed by: EDE Technologist: ADRIANA [facility] Ambulatory Visit Summaryon 0 10-20-2024 Ambulatory Visit Summary Ambulatory Visit Summary ADDIE LANE :1995 Visit Date:10/20/2024 Ambulatory Visit Instructions Your Diagnosis Chronic GERD Abdominal bloating Epigastric pain Vomiting Fatty liver Diarrhea PCOS (polycystic ovarian syndrome) Your Care Team Attending Physician - Kei Garcia MD Primary Care Physician - DINESH SHEA CNP This Is Your Medications List Contact prescribing physician if questions or concerns ascorbic acid (Vitamin C) baclofen colestipol (Colestid 1 g Tab) ergocalciferol (Vitamin D) esomeprazole (Nexium 40 mg Cap-EC) hydrOXYzine (hydrOXYzine hydrochloride) metformin (metformin 500 mg ER Tab) metoprolol (Metoprolol tartrate 50 mg Tab) multivitamin (Vitamin B Complex oral capsule) multivitamin with iron (Iron 100 Plus oral tablet) Procedures Performed Cholecystectomy (11/29/2022), Esophagogastroduodenosco py (03/31/2022), adenoids removed ear tubes, section. Discharge Vitals Heart Rate (Peripheral) 71 Respiratory Rate 14 Blood Pressure 124/85 Height 172 cm Height 68 in Weight 128 kg Weight 282.191 lb BMI 43.27 What to do next Scheduled Follow-Up Appointments Sunday 9:15 AM EST With: Jacob ROMERO, Perry Solano Where: [facility] You Need to Complete the Following Celiac Disease Comprehensive, Blood, Routine collect, 10/20/24, Order for future visit, Lab Collect, Diarrhea, Print Label By Order Location Celiac Disease Comprehensive, Blood, Routine collect, 10/20/24, Order for future visit, Lab Collect, PCOS (polycystic ovarian syndrome) Diarrhea, Print Label By Order Location Medications What How Much When Instructions Unchanged ascorbic acid (Vitamin C) Every day Contact prescribing physician if questions or concerns Unchanged baclofen Contact prescribing physician if questions or concerns Unchanged colestipol (Colestid 1 g Tab) 2 Tablets By Mouth 2 times a day with a full glass of water Contact prescribing physician if questions or concerns Unchanged ergocalciferol (Vitamin D) By Mouth Every week Contact prescribing physician if questions or concerns Unchanged esomeprazole (Nexium 40 mg Cap-EC) 1 Capsules By Mouth 2 times a day Contact prescribing physician if questions or concerns Unchanged hydrOXYzine (hydrOXYzine hydrochloride) Contact prescribing physician if questions or concerns Unchanged metformin (metformin 500 mg ER Tab) 1 Tablets By Mouth Every day Contact prescribing physician if questions or concerns Unchanged metoprolol (Metoprolol tartrate 50 mg Tab) 0.5 Tablets By Mouth 2 times a day Contact prescribing physician if questions or concerns Unchanged multivitamin (Vitamin B Complex oral capsule) By Mouth Every day Contact prescribing physician if questions or concerns Unchanged multivitamin with iron (Iron 100 Plus oral tablet) Contact prescribing physician if questions or concerns Allergies hydrochlorothiazide (anaphlaxis) Norvasc (Hives) penicillin (hives) sulfamethoxazole (hives) Problems Ongoing - Any problem that you are currently receiving treatment for. Abdominal bloating Allergic conjunctivitis, bilateral Belching BMI 40.0-44.9, adult Cholelithiasis Chronic GERD Diarrhea Epigastric pain Fatty liver Foreign body in stomach, sequela Gastric bezoar Gastritis Morbid obesity Obesity CASIE (obstructive sleep apnea) PCOS (polycystic ovarian syndrome) Smoker Vomiting Historical - Any problem that you are no longer receiving treatment for. Group B streptococcus HBP (high blood pressure) History of stillbirth Nausea Nausea and vomiting Palpitations Patient Survey You may receive a survey via text or e-mail asking about your office visit. Please share your experience with us by completing your survey. We appreciate your feedback and thank you for choosing us for your care. Normal [facility] Gastroenterology Office/Clin ic Noteon 10-20-2024 Gastroenterology Office/Clinic Note Gastroenterology Office/Clinic Note Chief Complaint 3 month follow up HPI Staff Established patient is a(n) 29 year old female who presents today for a(n) 3 month follow up. Having bloating, epigastric pain, acid reflux and vomiting. She stated that she is becoming so bloated that it is causing heart palpitations, her cardiolgist wanted her to talk to you about this. Did pt start Colestid? Effective? She stated it doesn't help that much. Nexium BID effective? taking it, but not helping at all. Any blood thinners? no Any GLP-1 agonists? no Last visit 07/16/24 w/Dr. Garcia: Assessment/Plan 1. Chronic GERD (K21.9: Gastro-esophageal reflux disease without esophagitis) Discussed lifestyle modifications and weight loss, she is following at [facility] bariatric GI, did not approve GLP-1 medicines for her, she will continue to follow-up with them On Nexium twice a day controlling her symptoms 2. 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 She is on multivitamins and she is on an oral diet. Consider repeating FibroScan in 1 to 2 years 3. Diarrhea (R19.7: Diarrhea, unspecified) Postcholecystectomy suspect bile acid diarrhea, cholestyramine once a day did not make much difference switch to Colestid twice a day She also reports if she drinks her coffee in the morning will give her severe symptoms, advised to minimize 4. PCOS (polycystic ovarian syndrome) (E28.2: Polycystic ovarian syndrome) Good control of metabolic syndrome 5. Morbid obesity (E66.01: Morbid (severe) obesity due to excess calories) History of Present Illness Reviewed HPI collected by staff Review of Systems PHQ Score Initial Depression Screen Score: 0 SCORE All systems reviewed, negative; Except for above Physical Exam Vitals & Measurements HR: 71(Peripheral) RR: 14 BP: 124/85 HT: 68 in HT: 172 cm WT: 128 kg WT: 282.191 lb BMI: 43.27 General: in Nad Abdomen: Soft, NTND Assessment/Plan 1. Chronic GERD (K21.9: Gastro-esophageal reflux disease without esophagitis) On Nexium twice a day AC , having occasional/rare symptoms, feels burning, worse in the afternoon. Advised to take Nexium before eating meals. Recommended Gaviscon. Last EGD 01/2023, some food in stomach, was on Mounjaro. 2. Abdominal bloating (R14.0: Abdominal distension (gaseous)) no milk Having epigastric pain with this. Some relief with Gas-X. Recommended Low Fodmap diet and food journal. Celiac panel ordered. 3. Epigastric pain (R10.13: Epigastric pain) likely Due #2 4. Vomiting (R11.10: Vomiting, unspecified) GES 03/2023, accelerated rate less than 30% after 1 hour. 5. Fatty liver (K76.0: Fatty (change of) liver, not elsewhere classified) She is on multivitamins and she is on an oral diet. Fibroscan 03/2023, S3 F0 Repeat fibroscan in 1 year. 6. Diarrhea (R19.7: Diarrhea, unspecified) Postcholecystectomy 11/2021, suspect bile acid diarrhea, cholestyramine once a day did not make much difference. Switched to Colestid twice a day which did not help much either. Advised to minimize coffee as this exacerbates her symptoms, symptoms only wuth coffee discussed decaff option 7. PCOS (polycystic ovarian syndrome) (E28.2: Polycystic ovarian syndrome) Good control of metabolic syndrome I, Heike Garcia, personally scribed for Kei Garcia on 10/20/2024 09:20:20. . Documentation recorded by Iman Garcia, accurately reflects the services I performed and decisions made by me. Kei Garcia MD Follow-up No qualifying data available Problem List/Past Medical History Ongoing Abdominal bloating Allergic conjunctivitis, bilateral Belching BMI 40.0-44.9, adult Cholelithiasis Chronic GERD Diarrhea Epigastric pain Fatty liver Foreign body in stomach, sequela Gastric bezoar Gastritis Morbid obesity Obesity CASIE (obstructive sleep apnea) PCOS (polycystic ovarian syndrome) Smoker Vomiting Historical Group B streptococcus HBP (high blood pressure) History of stillbirth Nausea Nausea and vomiting Palpitations Procedure/Surgical History Cholecystectomy (11/29/2022), Esophagogastroduodenosco py (03/31/2022), adenoids removed ear tubes, section. Medications baclofen Colestid 1 g Tab, 2 gm= 2 tab(s), Oral, BID, 3 refills, Not taking hydrOXYzine hydrochloride Iron 100 Plus oral tablet metformin 500 mg ER Tab, 500 mg= 1 tab(s), Oral, Daily Metoprolol tartrate 50 mg Tab, 25 mg= 0.5 tab(s), Oral, BID, 5 refills Nexium 40 mg Cap-EC, 40 mg= 1 cap(s), Oral, BID, 6 refills Vitamin B Complex oral capsule, Oral, Daily Vitamin C, Daily Vitamin D, Oral, qWeek Allergies hydrochlorothiazide (anaphlax (more content not included)... Normal [facility] Comment on above: Result Comment: Elec tronically Signed By: Jose URBINA, Kei Tom\.br\Date and Time Signed: 10/20/24 09:45 EST\.br\Electronically Co-Signed By: Heike Garcia MA\.br\Date and Time Co-Signed: 10/20/24 09:39 EST C Urineon 09-19-2024 Bacteria identified Cx Nom (U) Microbiology PROCEDURE: Urine Culture [R1] SOURCE: U CleanCatch BODY SITE: COLLECTED DATE/TIME: 09/17/2024 04:53 EST RECEIVED DATE/TIME: 09/17/2024 05:56 EST START DATE/TIME: 09/17/2024 05:56 EST FREE TEXT SOURCE: Isra Moreno DO. Isra Moreno DO. FINAL REPORTS Final Report [] Verified Date/Time: 09/19/2024 09:55 EST >100,000 cfu/ml Escherichia coli SUSCEPTIBILITY RESULTS ___ LEGEND: S=Susceptible, N/R=Not Reported, Blank=Data not available, or drug not advisable or tested, I=Intermediate, ESBL=Extended spectrum beta-lactamase, R=Resistant, TFG=Thymidine-dependent strain, RAMIRO=Beta-lactamase positive, FERMÍN=mcg/m;(mg/L), S*=Predicted susceptible interp, R*=Predicted resistant interp EC Antibiotic FERMÍN Dilutn EFRMÍN Interp Ampicillin <=8 S Ampicillin/ <=8/4 S Sulbactam Aztreonam <=4 S Cefazolin <=2 S Cefepime <=2 S Ceftazidime <=1 S Ceftazidime/ <=8 S Avibactam Ceftriaxone <=1 S Cefuroxime <=4 S Ciprofloxacin <=0.25 S Ertapenem <=0.5 S Gentamicin <=2 S Levofloxacin <=0.5 S Meropenem <=1 S Nitrofurantoin <=32 S Piperacillin/ <=8 S Tazobactam Tetracycline <=4 S Tobramycin <=2 S Trimethoprim/ <=2/38 S Sulfa Performing Locations R1: This test was performed at: [facility], [address] [place] [address], [id number]- , , [facility] Comment on above: Performed By: #### 2 [id number] #### [facility] [address] [place] [address] ED Clinical Summaryon 2023 ED Clinical Summary ED Clinical Summary [address] [address] ED Clinical Summary Person Information Name: ADDIE L[address]/[place] Age: 29 Years : 1995 Sex: Female Language: Cymro PCP: DINESH SHEA CNP Marital Status: Visit Id: Visit Reason: Back pain; Urinary frequency; Dysuria; PAIN WITH URINATION AND BLODD IN URINE Speciality: Acuity: 4 Enc Type: Emergency Med Service: Emergency Arrival: 09/17/2024 04:41:48 Discharge: 09/17/2024 05:37:27 LOS: 000 00:56 Checkin: 09/17/2024 04:41:48 Checkout: 09/17/2024 05:37:27 Dispo Type: Home (Routine DC) EVENTS: Event Name Event Status Request Date/Time Start Date/Time Complete Date/Time Arrive Complete 09/17/2024 04:41:48 09/17/2024 04:41:48 09/17/2024 04:41:48 Document Home Meds Request 09/17/2024 04:41:48 Triage Complete 09/17/2024 04:41:48 09/17/2024 04:48:42 09/17/2024 04:48:42 Registration Complete 09/17/2024 04:44:58 09/17/2024 04:44:58 09/17/2024 04:44:58 Reg Complete Request 09/17/2024 04:44:58 Reg Bed Request Complete 09/17/2024 04:44:58 09/17/2024 04:44:58 09/17/2024 04:44:58 Dr Exam Complete 09/17/2024 04:48:53 09/17/2024 04:48:53 09/17/2024 04:48:53 Registration Start 09/17/2024 04:48:53 09/17/2024 04:50:03 Bed Assign Complete 09/17/2024 04:50:03 09/17/2024 04:50:03 09/17/2024 04:50:03 RN Exam Complete 09/17/2024 04:50:03 09/17/2024 04:57:23 09/17/2024 04:57:23 Pending Labs Complete 09/17/2024 04:50:10 09/17/2024 05:25:07 Lab Complete 09/17/2024 04:50:10 09/17/2024 05:25:07 Urine Collect Complete 09/17/2024 04:50:10 09/17/2024 05:25:07 Pending Labs Collected 09/17/2024 05:23:46 09/17/2024 05:23:46 Lab Collected 09/17/2024 05:23:46 09/17/2024 05:23:46 Meds Admin Complete 09/17/2024 05:26:37 09/17/2024 05:35:53 Discharge Complete 09/17/2024 05:27:58 09/17/2024 05:37:32 09/17/2024 05:37:32 Transfer Complete 09/17/2024 05:37:32 09/17/2024 05:37:32 09/17/2024 05:37:32 ADDRESS: [address] [place] [phone] PHYS DOC NOTES: MEDICAL INFORMATION: Prescriptions Given: New Medications [facility]/pharmacy #[id number], [address], [place] [id number], [phone] cephalexin (Keflex 500 mg Cap) 1 Capsules By Mouth every 6 hours for 7 Days. Refills: 0. phenazopyridine (Pyridium 100 mg Tab) 1 Tablets By Mouth 3 times a day for 3 Days. Refills: 0. Medications to Continue with No Changes Other Medications ascorbic acid (Vitamin C) every day. baclofen colestipol (Colestid 1 g Tab) 2 Tablets By Mouth 2 times a day. with a full glass of water. Refills: 3. ergocalciferol (Vitamin D) By Mouth every week. esomeprazole (Nexium 40 mg Cap-EC) 1 Capsules By Mouth 2 times a day. Refills: 6. hydrOXYzine (hydrOXYzine hydrochloride) metformin (metformin 500 mg ER Tab) 1 Tablets By Mouth every day. metoprolol (Metoprolol tartrate 50 mg Tab) 0.5 Tablets By Mouth 2 times a day. Refills: 5. multivitamin (Vitamin B Complex oral capsule) By Mouth every day. multivitamin with iron (Iron 100 Plus oral tablet) PATIENT EDUCATION INFORMATION: Instructions: Urinary Tract Infection, Adult Follow up: With: Address: When: DINESH SHEA [address] [place] [id number] [phone] Business (1) In 3 days DIAGNOSIS: Acute UTI Normal [facility] ED Note-Physicianon 09-17-20 ED Note-Physician ED Note-Physician Basic Information Time Seen: Isra Moreno DO 09/17/2024 04:48 Chief Complaint complains of lower back pain. dysuria, urinary freq. denies fever or nausea or vomiting History of Present Illness HPI: Patient is a 29-year-old female with past medical history of cholelithiasis, GERD, PCOS who presents the ED for dysuria, hematuria, urinary frequency, and low back discomfort. Patient states that this for started yesterday with urinary frequency and blood-tinged urine. She states that an outpatient office did a urine dipstick and told her it was just blood and that may be a yeast infection. She states that the dysuria and suprapubic discomfort has been worsening and is now radiating to her lower back. She states that she has frequent urination and it is very blood-tinged now. She denies any fever or chills. She denies any nausea or vomiting. She states this is similar to previous time she has had UTIs ROS: Pertinent review of systems conducted and is negative except as noted above. Physical exam: General: nontoxic appearing and in no distress HEENT: Mucous membranes moist Neuro: awake and alert Neck: supple, trachea midline Card: Heart regular rate and rhythm no murmur Resp: Lungs clear to auscultation no wheeze or rhonchi Abd: Soft and nondistended. Very mild suprapubic tenderness without rebound or guarding. No CVA tenderness. Ext: No gross deformity or edema Physical Exam Vitals & Measurements T: 36.6 ???C(Oral) HR: 95(Peripheral) RR: 16 BP: 150/95 SpO2: 99% HT: 174 cm WT: 125.4 kg BMI: 41.42 Medical Decision Making MEDICAL DECISION MAKING Number and Complexity of Problems Differential Diagnosis: [] [facility] Data External documents reviewed: N/A My EKG interpretation: Noted in chart if applicable My CT interpretation: N/A My X-ray interpretation: Noted in chart if applicable My Ultrasound interpretation: N/A Decision rules/scores evaluated: N/A Discussed with: N/A Treatment and Disposition ED Course: Patient is nontoxic-appearing and in no distress. She is afebrile here in the ED. She has mild suprapubic tenderness and symptoms of possible UTI. Will obtain a urinalysis and hCG. No CVA tenderness or signs of pyelonephritis. Urine results do show evidence of likely UTI. I discussed with the patient at bedside. She has multiple allergies but states that she is taking Keflex for UTIs in the past successfully. We we will start her on a course of oral Keflex giving her the first dose here in the ED as well as give her a dose of Pyridium for comfort. We discussed need for increased oral fluid intake. We discussed the need for close follow-up with her primary care physician. Discussed return precautions. Patient is understanding agreement with this plan was discharged stable condition. Shared decision making: As above Code status: N/A Assessment/Plan Acute UTI (N39.0: Urinary tract infection, site not specified) Orders: cephalexin, 500 mg = 1 cap(s), Oral, q6hr, X 7 day(s), # 28 cap(s), Refills(s) 0, Pharmacy: [facility]/pharmacy #[id number], 174, cm, 09/17/24 4:48:00 EST, Height/Length Dosing, 125.4, kg, 09/17/24 4:48:00 EST, Weight Dosing cephalexin, 500 mg = 1 cap(s), Cap, Oral, Once, Stop date 09/17/24 5:25:00 EST, STAT, Start date 09/17/24 5:25:00 EST, 09/17/24 5:25:00 EST phenazopyridine, 100 mg = 1 tab(s), Tab, Oral, Once, Stop date 09/17/24 5:26:00 EST, STAT, Start date 09/17/24 5:26:00 EST, 09/17/24 5:26:00 EST phenazopyridine, 100 mg = 1 tab(s), Oral, TID, X 3 day(s), # 9 tab(s), Refills(s) 0, Pharmacy: [facility]/pharmacy #[id number], 174, cm, 09/17/24 4:48:00 EST, Height/Length Dosing, 125.4, kg, 09/17/24 4:48:00 EST, Weight Dosing U Beta Hcg Qual UA with Cult Rflx Urine Culture Disposition Plan Discharge Prescription List Prescriptions Keflex 500 mg Cap, 500 mg= 1 cap(s), Oral, q6hr Pyridium 100 mg Tab, 100 mg= 1 tab(s), Oral, TID Follow-up With When Contact Information DINESH SHEA In 3 days [address] [place] [address] [phone] Business (1) Additional Instructions: Patient Education Urinary Tract Infection, Adult Problem List/Past Medical History Ongoing Allergic conjunctivitis, bilateral Belching BMI 40.0-44.9, adult Cholelithiasis Chronic GERD Diarrhea Fatty liver Foreign body in stomach, sequela Gastric bezoar Gastritis Morbid obesity Obesity CASIE (obstructive sleep apnea) PCOS (polycystic ovarian syndrome) Smoker Historical Epigastric pain Group B streptococcus HBP (high blood pressure) History of stillbirth Nausea Nausea and vomiting Palpitations Procedure/Surgical History Cholecystectomy (11/29/2022), Esophagogastroduodenosco py (03/31/2022), adenoids removed ear tubes, section. Medications Inpatient No active inpatient medications Home baclofen Colestid 1 g Tab, 2 gm= 2 tab(s), Oral, BID, 3 refills, Not taking hydrOXYzine hydrochloride Iron 100 Plus oral tablet metform (more content not included)... Normal [facility] Comment on above: Result Comment: Elec tronically Signed By: Isra Moreno DO\.br\Date and Time Signed: 09/17/24 05:29 EST ED Patient Summaryon 024 ED Patient Summary ED Patient Summary [address] [address] Patient Discharge Instructions Person Information Name: ADDIE LANE Age: 29 Years Arrival Date: 09/17/2024 04:41:48 Discharge Diagnosis: Acute UTI Primary Care Physician: DINESH SHEA CNP Provider Information Primary Provider: Isra Moreno DO Advanced Moss Picker:None The exam and treatment you received in the Emergency Department were for an urgent problem and are not intended as complete care. It is important that you follow up with a doctor, nurse practitioner, or physician???s optometry assistant for ongoing care. If your symptoms become worse or you do not improve as expected and you are unable to reach your usual health care provider, you should return to the Emergency Department. We are available 24 hours a day. ADDIE LANE has been given the following list of patient education materials, prescriptions and follow-up instructions: Follow-up Instructions: With: Address: When: DINESH SHEA [address] [place], [place] [phone] Business (1) In 3 days In the event that this physician does not participate in your insurance network, please consult with your insurance company to find a nearby participating provider. Patient Education Materials: Urinary Tract Infection, Adult A MESSAGE TO ALL PATIENTS REGARDING OPIOIDS PRESCRIPTION OPIOIDS: WHAT YOU NEED TO KNOW Prescription opioids can be used to help relieve rexsuwih-gl-dofseg pain and are often prescribed following a surgery or injury, or for certain health conditions. These medications can be an important part of the treatment but also come with serious risks. It is important to work with your healthcare provider to make sure you are getting the safest, most effective care. WHAT ARE THE RISKS AND SIDE EFFECTS OF OPIOID USE? Prescription opioids carry serious risks of addiction and overdose, especially with prolonged use. An opioid overdose, often marked by slowed breathing, can cause sudden . The use of prescription opioids can have a number of side effects as well, even when taken as directed: ??? Tolerance???meaning you might need to take more of the medication for the same pain relief ??? Physical dependence???meaning you have symptoms of withdrawal when a medication is stopped ??? Increased sensitivity to pain ??? Constipation ??? Nausea, vomiting, and dry mouth ??? Sleepiness and dizziness ??? Confusion ??? Depression ??? Low levels of testosterone that can result in lower sex drive, energy, and strength ??? Itching and sweating RISKS ARE GREATER WITH: ??? History of drug misuse, substance use disorder, or overdose ??? Mental health conditions (such as depression or anxiety) ??? Sleep apnea ??? Older age (65 years and older) ??? Avoid alcohol while taking prescription opioids. Also, unless specifically advised by your health care provider, medications to avoid include: ??? Benzodiazepines (such as Xanax or Valium) ??? Muscle relaxants (such as Soma or Flexeril) ??? Hypnotics (such as Ambien or Lunesta) ??? Other prescription opioids KNOW YOUR OPTIONS Talk to your health care provider about ways to manage your pain that don???t involve prescription opioids. Some of these options may actually work better and have fewer risks and side effects. Options may include: ??? Pain relievers such as acetaminophen, ibuprofen, and naproxen ??? Some medication that are also used for depression or seizures ??? Physical therapy and exercise ??? Cognitive behavioral therapy, a psychological, goal-directed approach, in which patients learn how to modify physical, behavioral, and emotional triggers of pain and stress. IF YOU ARE PRESCRIBED OPIOIDS FOR PAIN: ??? Never take opioids in greater amounts or more often than prescribed. ??? Follow up with your primary health care provider. o Work together to create a plan on how to manage your pain. o Talk about ways to help manage your pain that don???t involve prescription opioids. o Talk about any and all concerns and side effects. ??? Help prevent misuse and abuse o Never sell or share prescription opioids. o Never use another person???s prescription opioids. ??? Store prescription opioids in a secure place and out of reach of others (this may include visitors, children, friends, and family). ??? Safely dispose of unused prescription opioids: Find your community drug take-back program or your pharmacy mail-back program, or flush them down the toilet, following guidance from the Food and Drug Administration (www.fda.gov/Drugs/Resou rcesForYou). ??? Visit www.cdc.gov/drugoverdose to learn about the risks of opioids abuse and overdose. ??? If you believe you may be struggling with addiction, tell your health skin care instructor and ask for guidance or (more content not included)... Normal [facility] SEROLOGYOrdered By: Oskar huerta on 09-17-2024 HCG.beta subunit (U) [Moles/Vol] Negative Normal [facility] Man Sero U BetaHcg Qualon 09-17-2024 HCG.beta subunit (U) [Moles/Vol] Negative Normal [facility] Comment on above: Performed By: #### 2 [id number] #### [facility] [address] [place] [address] UA with Cult Rflxon 09-17-20 24 Bilirubin Ql (U) Negative Normal Negative [facility] Comment on above: Performed By: #### 4 [id number] #### [facility] [address] [place] [address] Clarity (U) Turbid Abnormal Clear [facility] Comment on above: Performed By: #### 4 [id number] #### [facility] [address] [place] [address] Color (U) Yellow Normal Yellow [facility] Comment on above: Result Comment: Micr oscopic readings are only performed on those samples that meet specific criteria set forth by [facility]. Performed By: #### 4 [id number] #### [facility] [address] [place] [address] Glucose Ql (U) Negative Normal Negative [facility] Comment on above: Performed By: #### 4 [id number] #### [facility] [address] [place] [address] Hemoglobin Auto test strip (U) [Mass/Vol] 3+ mg/dL Abnormal Negative [facility] Comment on above: Performed By: #### 4 [id number] #### [facility] [address] [place] [address] Ketones Auto test strip Ql (U) Negative Normal Negative [facility] Comment on above: Performed By: #### 4 [id number] #### [facility] [address] [place] [address] Leukocyte clumps Auto (Urine sed) [#/Area] >30 Abnormal [facility] Comment on above: Performed By: #### 4 [id number] #### [facility] [address] [place] [address] Leukocyte esterase Auto test strip Ql (U) 250 Devyn/uL Abnormal Negative [facility] Comment on above: Performed By: #### 4 [id number] #### [facility] [address] [place] [address] Mucus Auto Ql (U) Negative Normal Negative [facility] Comment on above: Performed By: #### 4 [id number] #### [facility] [address] [place] [address] Nitrite Auto test strip Ql (U) Negative Normal Negative [facility] Comment on above: Performed By: #### 4 [id number] #### [facility] [address] [place] [address] pH (U) 6.0 [pH] Invalid Interpretation Code 5.0-9.0 [facility] Comment on above: Performed By: #### 4 [id number] #### [facility] [address] [place] [address] Protein Ql (U) 2+ mg/dL Abnormal Negative [facility] Comment on above: Performed By: #### 4 [id number] #### [facility] [address] [place] [address] RBC Ql (U) >75 Abnormal 0-3 [facility] Comment on above: Performed By: #### 4 [id number] #### [facility] [address] [place] [address] Specific gravity (U) [Rel density] 1.023 Invalid Interpretation Code 1.005-1.03 0 [facility] Comment on above: Performed By: #### 4 [id number] #### [facility] [address] [place] [address] Urobilinogen (U) [Mass/Vol] Negative Normal Negative [facility] Comment on above: Performed By: #### 4 [id number] #### [facility] [address] [place] [address] WBC Auto (Urine sed) [#/Area] >75 Abnormal 0-5 [facility] Comment on above: Performed By: #### 4 [id number] #### [facility] [address] [place] [address] Type of Urine collection method Clean Catch Normal [facility] Comment on above: Performed By: #### 4 [id number] #### [facility] [address] [place] [address] URINALYSISOrdered By: SYSTEM SYSTEM on 09-17-2024 Bilirubin Ql (U) Negative Normal Negativemg /dL [facility] UA Auto SS Clarity (U) Turbid *ABN* (09/17/24 4:53 AM) Invalid Interpretation Code Clear [facility] UA Auto SS Color (U) Yellow 1 (09/17/24 4:53 AM) Normal Yellow [facility] UA Auto SS Comment on above: Interpretive Data: M icroscopic readings are only performed on those samples that meet specific criteria set forth by [facility]. Glucose Ql (U) Negative Normal Negativemg /dL [facility] UA Auto SS Hemoglobin Auto test strip (U) [Mass/Vol] 3+ mg/dL Invalid Interpretation Code Negativemg /dL [facility] UA Auto SS Ketones Auto test strip Ql (U) Negative Normal Negativemg /dL [facility] UA Auto SS Leukocyte clumps Auto (Urine sed) [#/Area] >30 graded/HPF Invalid Interpretation Code [facility] UA Auto SS Leukocyte esterase Auto test strip Ql (U) 250 Devyn/uL Devyn/uL Invalid Interpretation Code NegativeLe u/uL [facility] UA Auto SS Mucus Auto Ql (U) Negative Normal Negativegr aded/LPF [facility] UA Auto SS Nitrite Auto test strip Ql (U) Negative Normal Negativemg /dL [facility] UA Auto SS pH (U) 6.0 *NA* (09/17/24 4:53 AM) Invalid Interpretation Code 5.0 - 9.0 [facility] UA Auto SS Protein Ql (U) 2+ mg/dL Invalid Interpretation Code Negativemg /dL [facility] UA Auto SS RBC Ql (U) >75 graded/HPF Invalid Interpretation Code 0-3graded/ HPF [facility] UA Auto SS Specific gravity (U) [Rel density] 1.023 *NA* (09/17/24 4:53 AM) Invalid Interpretation Code 1.005 - 1.030 [facility] UA Auto SS Urobilinogen (U) [Mass/Vol] Negative Normal Negativemg /dL [facility] UA Auto SS WBC Auto (Urine sed) [#/Area] >75 graded/HPF Invalid Interpretation Code 0-5graded/ HPF [facility] UA Auto SS URINALYSISOrdered By: Isra morrow on 09-17-2024 UA Spec Desc Clean Catch (09/17/24 4:53 AM) Normal [facility] UA Auto SS Heart and Vascular Office/Cl inic Noteon 08-20-2024 Heart and Vascular Office/Clinic Note Heart and Vascular Office/Clinic Note Chief Complaint 6 month F/U History of Present Illness Patient is a 29-year-old female with past medical history of hypertension, GERD, fatty liver dizziness, palpitations. Patient comes in for 6-month follow-up today. At last visit, I saw patient at which time she was evaluated for chest pain and reassured that likely was not cardiac related as she recently had normal stress echo, event monitor, echo. Patient reports that she has not had much chest discomfort since last visit. However, she states that she has had continued heart palpitations. She states that the palpitations come on randomly, but are not lasting as long as it used to in the past. Patient is currently taking metoprolol 25 mg twice daily for this issue and patient reports that it does not help. She states she was on labetalol previously and the metoprolol seems to help more. Patient reports that palpitations are not lasting as long as they used to and sometimes are not overly significant. However, she states that sometimes she has some palpitations that seem to take her breath away. Patient reports that she thinks they are slightly better than they have been in the past, but pretty similar. She has had a couple different event monitors but most recent was in 01/2023. Patient denies shortness of breath, dizziness/lightheadednes s, and swelling in lower legs. Review of Systems PHQ Score Initial Depression Screen Score: 0 SCORE ROS - Provider Constitutional: no fever, no chills, no sweats, no weakness Respiratory: no shortness of breath, no cough Cardiovascular: no chest pain, positive for heart palpitations Neuro: no dizziness. no loss of consciousness Physical Exam Vitals & Measurements HR: 82(Peripheral) RR: 18 BP: 130/80 SpO2: 97% HT: 69 in HT: 174 cm WT: 125.6 kg WT: 276.9 lb BMI: 41.49 General: alert, no acute distress Cardiovascular: regular rate and rhythm, no murmur normal peripheral perfusion Respiratory: Lungs CTAB, respirations non labored Extremities: no edema left lower extremity. no edema right lower extremity Neurological: oriented x 4, LOC appropriate for age, speech normal Skin: Warm, dry, intact- no rash or concerning lesions Cardiac Diagnostics (11/14/2023 15:02 EST EC Stress Echo Complete w/ Contrast) Interpretation Summary Ejection Fraction = 60-65%. Normal adequate treadmill echocardiogram. Negative for ischemia by EKG and echocardiograph criteria. No anginal symptoms noted. No arrhythmias noted. Hypertensive blood pressure response to exercise. Average exercise capacity for age. Test terminated due to attainment of target heart rate. Decrease sensitivity due to poor echo windows requiring Definity agent. This is a low risk study. [1] Event Monitor 02/20/23 CONCLUSIONS: 1. Unremarkable 14 day event monitor. The predominant rhythm was normal sinus rhythm alternating with occasional episodes of sinus tachycardia. The patient had several triggered events of chest pain all of which corresponded to either normal sinus rhythm or rare sinus tachycardia. 2. Patient had no evidence of atrial fibrillation, supraventricular tachycardia, pauses, premature ventricular contractions or ventricular tachycardia. 3. Recommend clinical correlation or alternative mode of testing to further evaluate chest pain, if clinically indicated. [2] (02/22/2023 13:37 EDT Echo Transthoracic Complete) Interpretation Summary Ejection Fraction = 60-65%. The left ventricular wall motion is normal. Normal diastolic function. There is trace tricuspid regurgitation. Right ventricular systolic pressure is 26 mmHg. In comparison echo report dated 01/13/2015, no appreciable changes noted. [3] [1] (03/09/2022 14:49 EDT ECG Stress Exercise) CONCLUSIONS: Negative or normal adequate cardiac treadmill exercise stress test. Hypertensive response. Clinical correlation is suggested. Assessment/Plan 1. Palpitations (R00.2: Palpitations) Patient is a last visit. She states that her a little bit better than the past. She has continued to take metoprolol 25 mg twice daily and that does seem to help with palpitations. Discussed getting another heart monitor. However, patient reports she is currently being worked up for obstructive sleep apnea and wants to wait until she gets treated prior to repeating her monitor. Will continue to monitor symptoms and if they worsen prior to next visit, we will order monitor. Follow-up with me in 3 months Portions of this record may have been created with voice recognition artificial intelligence software, specifically [employer], [employer] and or [employer]. Substitutions may have occurred due to the inherent limitations of voice recognition and artificial intelligence software. Follow-up No qualifying data available Problem List/Past Medical History Ongoing Allergic conjunctivitis, bilateral Belching BMI 40.0-44.9, adult Cholelithiasis Chronic GERD Diarrhe (more content not included)... Normal [facility] Comment on above: Result Comment: Elec tronically Signed By: Jacob ROMERO, Perry Solano\.br\Date and Time Signed: 08/20/24 12:27 EST Sleep Office/Clinic Noteon 1 10-18-2023 Sleep Office/Clinic Note Sleep Office/Clinic Note History of Present Illness Here to establish care for obstructive sleep apnea. The patient reports that she was told by her that she snores at night and occasionally stops breathing. She herself feels that her sleep is quite disrupted and she wakes up in the morning with bad headaches. She has fatigue and daytime sleepiness as well throughout the day. Given the above the patient underwent a home sleep study and is here to discuss results and guide further management. Her weight has somewhat increased recently. Review of Systems Constitutional: no fever, no chills, no sweats, no weakness Skin: no Jaundice, no rash, no lesions, no petechiae ENT: no ear pain, no sore throat, no congestion, no hoarseness Respiratory: Denies shortness of breath, cough or wheezing Cardiovascular: no chest pain, no palpitations, no edema Gastrointestinal: no nausea, no vomiting, no diarrhea, no GI bleeding Genitourinary: no dysuria, no hematuria, no discharge, no pain Musculoskeletal: no back pain, no trauma Neurologic: no headache, no dizziness, no numbness, no weakness Psychiatric: no irritability, no mood swings/depression. Heme/Lymph: no bleeding tendency, no bruising tendency, no petechiae, no swollen nodes Allergy/Immunologic: no seasonal allergies, no food allergies, no recurrent infections, no impaired immunity Additional ROS info: Except as noted in the above Review of Systems and in the History of Present Illness all other systems have been reviewed and are negative or noncontributory. Physical Exam General: Awake, alert, in no acute distress Skin: warm, dry Head: no trauma, normocephalic. Prolonged soft palate Neck: Trachea midline, no adenopathy, no tenderness Eye: normal conjunctiva, sclera clear ENMT: TM's clear, oral mucosa moist, no pharyngeal erythema or exudate Cardiovascular: regular rate and rhythm, normal peripheral perfusion Respiratory: Good breath sounds to both lung mendoza without wheezing or crackles. Gastrointestinal: soft, non distended, no tenderness, no guarding. Back: No tenderness, Normal ROM, Normal alignment. Extremities: no deformity, no trauma Neurological: oriented x 4, LOC appropriate for age, CN II-XII intact, motor strength equal & normal bilaterally, sensation equal & normal bilaterally, speech normal Psychiatric: cooperative, affect appropriate for age, normal judgement, normal psychiatric thoughts. Assessment/Plan 1. CASIE (obstructive sleep apnea) (G47.33: Obstructive sleep apnea (adult) (pediatric)) The patient's sleep study was reviewed and results were discussed with the patient in details. Evidence of mild underlying obstructive sleep apnea with an apnea hypotony index of 8.2/hour without oxygen desaturation noted. The etiology of obstructive sleep apnea and methods of treatment were discussed with the patient in details. This is likely an underestimate of the patient's actual obstructive sleep apnea given the discrepancy between the total sleep time and the total recorded time. She is agreeable to treatment. I will arrange for an auto titrating CPAP machine with a pressure range of 5 to 20 cm via mask of her choice with heated humidity and see her back after 6 to 8 weeks with a download from her machine to reevaluate her treatment plan. She will call me back in the meantime if any issues. Follow-up With When Contact Information Karuna URBINA, Caterina Plummer, PUL, LINDA Within [address] [place] [address] [facility] [place] [address]- Additional Instructions: Problem List/Past Medical History Ongoing Allergic conjunctivitis, bilateral Belching BMI 40.0-44.9, adult Cholelithiasis Chronic GERD Diarrhea Fatty liver Foreign body in stomach, sequela Gastric bezoar Gastritis Morbid obesity Obesity CASIE (obstructive sleep apnea) PCOS (polycystic ovarian syndrome) Smoker Historical Epigastric pain Group B streptococcus HBP (high blood pressure) History of stillbirth Nausea Nausea and vomiting Palpitations Procedure/Surgical History Cholecystectomy (11/29/2022), Esophagogastroduodenosco py (03/31/2022), adenoids removed ear tubes, section. Medications Colestid 1 g Tab, 2 gm= 2 tab(s), Oral, BID, 3 refills hydrOXYzine hydrochloride Iron 100 Plus oral tablet metformin 500 mg ER Tab, 500 mg= 1 tab(s), Oral, Daily Metoprolol tartrate 50 mg Tab, 25 mg= 0.5 tab(s), Oral, BID, 5 refills Nexium 40 mg Cap-EC, 40 mg= 1 cap(s), Oral, BID, 6 refills Vitamin B Complex oral capsule, Oral, Daily Vitamin C, Daily Vitamin D, Oral, qWeek Allergies hydrochlorothiazide (anaphlaxis) Norvasc (Hives) penicillin (hives) sulfamethoxazole (hives) Social History Alcohol - Denies Alcohol Use, 12/19/2014 Never., 08/10/2024 Household alcohol concerns: No., 03/26/2019 Employment/School Employed, Work/School description: [employer]. Activity level: Moderate phys (more content not included)... Normal [facility] Comment on above: Result Comment: Elec tronically Signed By: Karuna URBINA, Caterina Plummer\.br\Date and Time Signed: 08/18/24 11:06 EST Gastroenterology Office/Clin ic Noteon 07-16-2024 Gastroenterology Office/Clinic Note Gastroenterology Office/Clinic Note Chief Complaint 5 month follow up HPI Staff Patient is a(n) 29 year old female who presents today for a(n) 5 month follow up. Imodium helping with diarrhea? No, questran packet didn't help either. Nexium working well? Working well. Any breakthrough reflux/heartburn? Saw [facility] Dietitian 03/31/24. Denies blood thinners. Last visit 02/01/24 w/Dr. Garcia: Assessment/Plan 1. Chronic GERD (K21.9: Gastro-esophageal reflux disease without esophagitis) Has significant symptoms of acid reflux and burning and regurgitation Was taking omeprazole 40 daily We discussed lifestyle modifications including weight loss, Switch omeprazole to Nexium 40 mg twice daily, keep Pepcid as needed, use Tums and Gaviscon as needed If that fails we will consider Hsu, will discuss on or off PPI at that time Last EGD was done while she is on Mounjaro, she had gastric bezoar, but gastric emptying study in March last year while on Mounjaro showed accelerated emptying after 2 hours only 2. Fatty liver (K76.0: Fatty (change of) liver, not elsewhere classified) Had FibroScan March 2023 showed S3, F0/F1, E 4 Given the PCOS she is at 4 times more likely to develop fatty liver and [place] in the future We discussed lifestyle modifications and weight loss for fatty liver, she used Mounjaro she lost significant amount of weight, but she gained it right back afterwards I am can refer her to Dr. Baig at [facility] for GI bariatric clinic We also discussed Mediterranean diet 3. Diarrhea (R19.7: Diarrhea, unspecified) Likely bile acid induced diarrhea, started after her gallbladder removal in November last year, 5-6 bowel movements a day, mostly postprandial urgency Start Imodium as needed, if that fails we will consider cholestyramine or Colestid 4. PCOS (polycystic ovarian syndrome) (E28.2: Polycystic ovarian syndrome) Good control of metabolic syndrome Morbid obesity (E66.01: Morbid (severe) obesity due to excess calories) Saw bariatric DIRECTOR TRUST 03/21 @[facility]: Recommendations: - Start wegovy 0.25 mg weekly injection x4 weeks, then increase to 0.50 mg weekly injection Discussed side effects - Start tracking intake - Follow healthy balance diet - Continue diet and lifestyle modifications - Continue to see and follow up with one of our GI bariatric endoscopy dietitians, Treva Carter RD or Yasmin Hernandez RD - Start group visits as scheduled - Continue to see and follow up with GI bariatric endoscopy psychologist, Dr. Nieto - Continue to increase physical activity as tolerated aim for 150 mins of cardio and strength training exercises weekly - RTC in 4-6 weeks for follow up of medically supervised weight management program Physical Exam Vitals & Measurements HR: 81(Peripheral) RR: 16 BP: 134/85 HT: 69 in HT: 174 cm WT: 125 kg WT: 275 lb BMI: 41.29 Assessment/Plan 1. Chronic GERD (K21.9: Gastro-esophageal reflux disease without esophagitis) Discussed lifestyle modifications and weight loss, she is following at [facility] bariatric GI, did not approve GLP-1 medicines for her, she will continue to follow-up with them On Nexium twice a day controlling her symptoms 2. 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 She is on multivitamins and she is on an oral diet. Consider repeating FibroScan in 1 to 2 years 3. Diarrhea (R19.7: Diarrhea, unspecified) Postcholecystectomy suspect bile acid diarrhea, cholestyramine once a day did not make much difference switch to Colestid twice a day She also reports if she drinks her coffee in the morning will give her severe symptoms, advised to minimize 4. PCOS (polycystic ovarian syndrome) (E28.2: Polycystic ovarian syndrome) Good control of metabolic syndrome 5. Morbid obesity (E66.01: Morbid (severe) obesity due to excess calories) Orders: cholestyramine, 5 gram, 1 packet(s), Oral, BID, 60 packet(s), Refill(s) 4, [facility]/pharmacy #[id number], 174, cm, 02/07/24 14:02:00 EDT, Height/Length Dosing, 118, kg, 02/07/24 14:02:00 EDT, Weight Dosing Follow-up No qualifying data available Problem List/Past Medical History Ongoing Allergic conjunctivitis, bilateral Belching BMI 40.0-44.9, adult Cholelithiasis Chronic GERD Diarrhea Fatty liver Foreign body in stomach, sequela Gastric bezoar Gastritis Morbid obesity Obesity PCOS (polycystic ovarian syndrome) Smoker Historical Epigastric pain Group B streptococcus HBP (high blood pressure) History of stillbirth Nausea Nausea and vomiting Palpitations Procedure/Surgical History Cholecystectomy (11/29/2022), Esophagogastroduodenosco py (03/31/2022), adenoids removed ear tubes, section. Medications hydrOXYzine hydrochloride Iron 100 Plus oral tablet metfor (more content not included)... Normal [facility] Comment on above: Result Comment: Elec tronically Signed By: Jose URBINA, Kei Tom\.br\Date and Time Signed: 07/16/24 10:53 EDT Coding Summary.on 03-25-2024 Coding Summary. OUEWSmpm67ISw7pUp+PG hlYW Q+ZH7SKKCsY73msSGelS1eC3 NMTElOSywgQVBQTElOSyIgbm UeOC7tgPEePKIg IC8+TD7uHIQzNgontCScf1S0 rQF5M11xcu0kSXjshAJ3SKPx KoXtjdaju7lolSc1DWmeNmzd OyBt ENFmqT63PKH5kP07Hf86eMBr mLEzl3ofcHc3HdZhUKKeXST1 pPyiCFqqm0YoYUAzT81gwSGd c2U6 KQOpbGpbsFIcToKknKZ9uE6o EPcptpaeu3rynumgBim9lg25 vCSje3V8nWX6N7UlbnM0DJEs bGQg UdcuiXTSeC1mtbrgp0wudthv HmCoFBJySVg6GBm0SUBiyQxd GsIaIK17AUP2BAPzwmMgX9Bs LWFs rAxzFdY7n9B9Cd6HD0GBVbvt F8PMVMOSQMkqcGR+PV22ee70 K1ZuPpknAuy1TBJnACF7vXY1 aD0n ROHsMDoze4V9fDR9J1HlgmVm ps5gh0dmNYIqHTjfW21djEMs l6F9EIHezKB6POJczKzfYcYs aG93 Oyc+XIHltZqld7NvMhlci8dj m5gxuSq3WgerRELrdjQltRjk ZUD3u2CaKt2wBIMkxUN0kCT0 aD0i DtKiJqQ1DBqlK005VlDdaJWo EolnE47zE5KspWC+PHRyPjx0 EGShhMlyMT3pS4XzOKOfpzwp bGVm eVmuKD3lODIrthcbXIHgvX4v QKBlR3x8XaLdIkM5VUglP7Lq PTDtteihFb10xA2iKcEgBbL6 MGlu W6QfpbL6LNCnnVWxKSvpWZT0 A73bh9K4CDKjUXRvFIH8zDX0 kW1qkHzmqbsjsBHswEfrwnPk dGlj UGopBDhfV789VCCscHfwKzJs ZGluZyBEYXRlOiAgMDYvMjUv MjAyNDwvdGQ+YVQcUFJ6hJht PSAn sPKvTQtuVh9mhBrnvKwoUC5y OUQoxtlyUBGlvO4fFOTjjKTp nQtqGS5uTKMwpwieo149SbYc MHB0 QGPwpSLvK1KwsI9bCdFoKWIc NQJjR7KmgXHjOPoiY259OBxh XxW4FIFluoCuH3VgHOOgdJai OiB0 r2U0Ux3Xj4HougotF5KzoOGb EkIlUqorBTn9O6VsAbovhOY+ BL58KVGrYA65BKk1KYN8xSzl PSdi FPDpX7CsgO1lCeLtTPTkWMGo Oyc+PHRhYmxlIHdpZHRoPScx JZWrXmNlpKymAO4gCw0fYNRc LWNv oJokrWLiXoNlj3igWGNgVDas KY9uaZemH0JjfOW6VCRnt0p3 Yv58N61xW6DjbNI+PGNvbCB3 aWR0 eQ4pPpPdNhT3WHmqT343ZbVn hOVlUsdvs5ude3zsvDn4TwP9 MMSizpJxuYekWXQ0f6AqOx00 Y29s IHdpZHRoPSIxNSUiIHZhbGln dg3daR2zKr9+TFJtePY1mKN9 cD2xIhRuLiY8XUxgB352BwJw cCIv Xicfe8phn5oruKq4TgArZHOy imTdiBthIWP1r7RgTf92X8Ek bXinf9EjAyr1jb24kPGzo9D2 bGU9 Z3ZcQXFfhmavrYYpgYiaMR3d UHEvywltYNQetJ2aJQAoP1w9 GxFyIjQ6IIivH1SbebC9HDZq bGQg ZSDfbZVOqR4rchqfj8ipdswi IuAfTUVjKBb2ISb6BJDjsDri RyScVVO3TgB9LDL2pEZqvJ0u bGln tdjufY9uMcm+WEX2gKNvyZFA CD3tPzmiiIT+GPRzOEF7mEgu GXjfPMKqhD0hECSgW7w2IeUw LjA1 QUluF9GjjtF8YXHruSFjWUYi zLMMjI7hgznaz2grtzphYuQj JFJsKEm5HUp1TVGutYnhEjUp ZWZ0 RjK7SXN9iTGfjV1alErdrjdq mJ6xZzx+GlqbiWwpWEU2HLy0 L3OtEnc6KOJiwLgkSX7moOGk ZGlu Jz9udTwojVocSO0jQGUzczih q859VeVhp8hfKWXbfERbKCrn TYM3H35nl5A6ODTgTRAbLQG8 dGV4 yU1vsJynefjizPRfaSyouwSy kAeaCBucJOsuI104IZJqyOfd VbMkDVf0C7QfAda7ZGJgcRfm ZT0n iZPqOPeaGg4mtIqvuWqhRI0j PVLjybzqq893HhHjw4zrESRx qSJpMRunASW6C19vz1K7JAMp MDAw UXF8vHB7eL2ckYjlmysqtWPn pTcxmrUkkKuhJZacMOhfQ425 ESObwRzgEtOofKg0K0YmDsy2 ZCBz bCscOL2bbWMkPCrcXu1ftTns oUauJF7fRNCoegfeg403RrJv m2tfKYQvnTBwJZsrJKB8T56g b3I6 SHDeSQCwHNY6cQY0kL6osJjk bjogbGVmdDsgdmVydGljYWwt JDkkK929PXBikFukEzXkiRkm bnQg JYciRBu8R4YhVahriAQ+PC90 FYYlIL52bUPcdRJom8pbzKf8 BfLsTOMoZZA7uEoaVFcqd2Is ZXIt V77qxZMgs7O1DQSawGgyvGBa LjKpfYI9zY7wWOxsmgsyl2ol kcqkLrmpu3ukjf01wZ23M07d IHdp FFXvXBElCUKqDOMupZsxkg9i cE0zKt9+IEIexLJ8kAZ1wX8f MHTlFzP8BEuiX583AsHekUXk Pjxj d2ezc7deuBz0HpD3HVFigaRs tNpaWTR7f0JiJu54R98mORog ADQgQSKrGCSoFBTijKwkfq0y dG9w Ii8+XOUwsOG8ePV6sX2yBoIz NdC0TMaxU178HkHykPMzIaem A85tO8HpjLF+ZZJgNdm1IBHd dHls KQ3tdIHbCEgmSi5nVXP9DhDx YqByDYhqQ8KiBXOoljhaggnh aAN4ZEXzAAOxrS88Rq1ylLgg MTBw gPBNgX5xcjfvy2xhczqdTgMh VHJwKQk4WKv2CARzhYfdVtBf ASB9DkE7NFA8yCHppO3kwXyb bjog tA9rD1GwQBMrgtaxWm07wZ8m IeEeSkL8WWsnYtr+OFDZGP5C IKUUMSZKIHYKV4GFTDCFSZ37 ZD48 rGSkx0B0sRQ9F8QiQNJenrxl lalfxPL7BCRqXFQdqH02pXUt KLubIv7qu7Q8i209AWUwUHZf aW47 Zn0peIrtVFIxjYDKfU5wrbns t7tmavztFlNwSUZmMFt1JEe8 YNVwsNcfCyKpVNC8RuX2KKH5 aWNh tK0tyLndiebqkF7nZdc+MDYv PidsPPq7VqjnkEX+PHRkIHN0 lFhpRQwlFVMtkJ7lPGFsP5u1 OiAw EuS8UUghF2FnIASvojrfDq16 mO1mHfEsZyB2VAsrU0ZcjlA7 XMMehKNuQTxfKWS0H64as7L2 ICMw UCDeYAE4uIS0cF6kwAvhstze bGVmdDsgdmVydGljYWwtYWxp S860NVEzbErdVtI1PPwjMZPh PC90 FG37eVGjf5F6cXA7A2SqVZTp vuryptdgiVA2KLNtMZWyiA11 jLVhQXsuUm0ow6I4r974LYHc MDUw lI51Qb2xdXpzJCUjxLJXeQ2q ziaut5hmkoanVnTuMRVjPSv5 AMd5KLErgIleOwJwVCG4RsT6 ZXJ0 qODeeK0wjIkpyhsfxR2qZik+ XxUsTPseCQ06BN17lDSov3Y8 kUA1A1AiTEDepuhcjdiqaBR7 IDAu YWNaaF23fBNzDFwfFm8mc5R7 f565SZAqDRKadU75Sp4weWry NYRmuHZKaU8wurddc3vyfqoo IzAw WFNkOMe5XDp3NBCgmBvwYjFq FVE3BbE6VTS4jVJnjV2fzGfz wggseT5lOkp+D8U8pAO2bJVm dDwv dGQ+EV36vv98K7XoYkmnWir0 QTBuCBJ5uFY7qN9sSOHgISei c0B2pXL8W4QeqmChdz1hy0zm YXBz VFeqE24rcCIah2F8EUXapSM2 NNSclMkgAoTbdK95Jea+PGNv wYaik6ZfBcbse5fnq2swtCa2 IjMw CVVeirHtyTucUIF2i0OsOr94 Q45zXTcbVJDyZHSwDKIqDNHe aBobse2omD4aMa7+PGNvbCB3 aWR0 hX4cGyJqMpN5OElrM831PzBo lFExQkerr8nas2ummYz1ZxHy XOJkpkAmoGoaERH4m0CyLb07 L2Nv pXsel5KqMyw5kz73sVTws4N3 bBL7T4LnYYCchbfugRCwoOwh AG1eXFKflqsdHNBfoS3jMVJv Z2h0 QxEtMiW2GPnnQ7OkchD9FVUg rVXmVDTliJITlN0gxgecg3dg cygnFkSpSJUiMEx1FGu6MMBv aWdu OxZgXAQ2CgF5BBE1bEVdqA0r uKqjnrfxcT4kGdj+GRd3l0zj zDAlLS1dvBD4MD85WH27uHCx c3R5 zIG6F3HlNPUcjkoopoifcRR2 SUBwDUJloY00Ku8xnYmrGd9d MBEoERA6DDZsmGLpY3BieW2h OiAj MJSnKVInA5VovLNyRZbfT398 GSokWzF4YNJwxpAuO9CkQUPy bCcmQqE2f0D6Uy8EKP51UB45 ZD48 pHMlo8Y7dLI9U2GbVAAzazwx huczgKW4QVSvRXEkcQ79Zq7q vFnbRm4cYTVyCFB6QXXuyRZu O2Nv rQ4rZcBpYRVtWGFqT7DfkOPl FBhbB963WIuvIzE6VKQxpqKj X1VvFLZjdBcpTiT8y6C9Ab0R Uk46 VB48IH10oDAeb7S0yLJ0T3Ry MOUphunwmiarbCS9IFYaHJTg eM45Ll1jcZmbBj5vMJAqFIA3 IFRp qXIsN5KgvW2aAlJeEWQzBDTn O8NreKEaMFzvF591HWqiLqU6 JQQbumHzP3KbUUOfcCrmXuV5 b3A7 Eb5FZBuoege1Q9HgNthgeOW+ WD73VXEzCQ55nVUdrJAqz1bz qOn6AtLyJTAjKWP1wQvnXAob b3Jk TFXeN52ojSEih (more content not included)... Normal [facility] Consent for Treatmenton 03-01 Consent for Treatment [id number] F [facility] Heart and Vascular Office/Cl inic Noteon 03-13-2024 Heart and Vascular Office/Clinic Note Chief Complaint f/u c/o chest pain & dizziness History of Present Illness Patient is a 28-year-old female with past medical history of hypertension, GERD, fatty liver dizziness, palpitations. Patient comes in for acute visit today due to palpitations and chest pain while working out. At last visit, saw Dr. Pfeiffer at which time he continued her on current medication and she was feeling better at that time -1 month ago. pt reports that she had a recent episode of chest pain and SOB while working out on the treadmill. She states that it was going on for 4-5 minutes when she decided to stop her workout early. It resolved shortly after she stopped activity. Pt has had similar episodes in the past along with other testing. She also has hx of palpitations and still getting those, although not as bad since starting metoprolol 12.5mg BID. Event monitor from 01/2023 was fairly unremarkable with episodes of to sinus tachycardia but no other secondary arrhythmia. Patient has had also had a grossly normal echo and normal EKG stress test in the past. Patient denies swelling to lower extremities, dizziness/lightheadednes s. Review of Systems ROS - Provider Constitutional: no fever, no chills, no sweats, no weakness Respiratory: yes shortness of breath, no cough Cardiovascular: yes chest pain Neuro: no dizziness. no loss of consciousness Physical Exam Vitals & Measurements HR: 82(Peripheral) BP: 143/90 SpO2: 97% HT: 69 in HT: 174 cm WT: 117.4 kg WT: 258.28 lb BMI: 38.78 General: alert, no acute distress Cardiovascular: regular rate and rhythm, no murmur normal peripheral perfusion Respiratory: Lungs CTAB, respirations non labored Extremities: no edema left lower extremity. no edema right lower extremity Neurological: oriented x 4, LOC appropriate for age, speech normal Skin: Warm, dry, intact- no rash or concerning lesions Cardiac Diagnostics (11/14/2023 15:02 EST EC Stress Echo Complete w/ Contrast) Interpretation Summary Ejection Fraction = 60-65%. Normal adequate treadmill echocardiogram. Negative for ischemia by EKG and echocardiograph criteria. No anginal symptoms noted. No arrhythmias noted. Hypertensive blood pressure response to exercise. Average exercise capacity for age. Test terminated due to attainment of target heart rate. Decrease sensitivity due to poor echo windows requiring Definity agent. This is a low risk study. [1] Event Monitor 02/20/23 CONCLUSIONS: 1. Unremarkable 14 day event monitor. The predominant rhythm was normal sinus rhythm alternating with occasional episodes of sinus tachycardia. The patient had several triggered events of chest pain all of which corresponded to either normal sinus rhythm or rare sinus tachycardia. 2. Patient had no evidence of atrial fibrillation, supraventricular tachycardia, pauses, premature ventricular contractions or ventricular tachycardia. 3. Recommend clinical correlation or alternative mode of testing to further evaluate chest pain, if clinically indicated. [2] (02/22/2023 13:37 EDT Echo Transthoracic Complete) Interpretation Summary Ejection Fraction = 60-65%. The left ventricular wall motion is normal. Normal diastolic function. There is trace tricuspid regurgitation. Right ventricular systolic pressure is 26 mmHg. In comparison echo report dated 01/13/2015, no appreciable changes noted. [3] [1] (03/09/2022 14:49 EDT ECG Stress Exercise) CONCLUSIONS: Negative or normal adequate cardiac treadmill exercise stress test. Hypertensive response. Clinical correlation is suggested. Assessment/Plan 1. Chest pain (R07.9: Chest pain, unspecified) Patient had recent episode of chest pain with some shortness of breath while exercising on the treadmill. Her EKG in the office was normal sinus rhythm with no ST segment changes. Patient recently had dobutamine stress echo which came back normal, no identifiable wall ischemia and was considered a low risk study. Offered patient reassurance that this is likely not heart related. Suggested patient maybe look into lungs and she has not had this looked into in the past. Continue with current medications of metoprolol 12.5 mg twice daily. Ordered: ECG 12 Lead Adult 2. SOB (shortness of breath) (R06.02: Shortness of breath) Follow-up as scheduled in August 2024 Portions of this record may have been created with voice recognition artificial intelligence software, specifically [employer], [employer] and or [employer]. Substitutions may have occurred due to the inherent limitations of voice recognition and artificial intelligence software. Follow-up No qualifying data available Problem List/Past Medical History Ongoing Allergic conjunctivitis, bilateral Belching BMI 40.0-44.9, adult Cholelithiasis Chronic GERD Fatty liver Foreign body in stomach, sequela Gastric bezoar Gastritis Obesity Smoker Historical Diarrhea Epigastric pain Group B streptococcus HBP (more content not included)... Normal [facility] Comment on above: Result Comment: Elec tronically Signed By: Jacob ROMERO, Perry Solano\.br\Date and Time Signed: 03/13/24 13:24 EDT Physician Orderon 03-13-2024 Physician Order [id number] F [facility] Heart and Vascular Office/Cl inic Noteon 03-03-2024 Heart and Vascular Office/Clinic Note Chief Complaint 6 week F/U History of Present Illness Addie Lane is a female who presents for evaluation of multiple medical concerns. The patient reports a significant improvement in her condition. During her last visit with Bhavani, she underwent tests and her metoprolol dosage was reduced due to episodes of dizziness. She has ceased vaping and has reduced her caffeine intake to once a week, which she believes has significantly improved her condition. However, she acknowledges a hypersensitivity to caffeine. Despite this, she continues to experience fatigue. She believes her blood pressure is currently elevated, which is typically well-controlled at night. However, she attributes this to a recent meniscal tear. Review of Systems PHQ Score Initial Depression Screen Score: 0 SCORE Constitutional: no fever, no sweats, no weakness Skin: no rash, no lesions, no bruising/petechiae ENMT: no sore throat, no congestion, no hoarseness Respiratory: no shortness of breath, no cough, no orthopnea, no wheezing Cardiovascular: no chest pain, no palpitations, no edema Gastrointestinal: no nausea, no vomiting, no diarrhea, no GI bleeding Genitourinary: no anuria/oliguria no hematuria Musculoskeletal: no back pain, no trauma Neurologic: no headache, no dizziness, no numbness, no weakness Psychiatric: no sleeping problems, no irritability, no anxiety/depression. Heme/Lymph: no bleeding tendency, no bruising tendency Allergy/Immunologic: no recurrent infections, no impaired immunity Additional ROS info: Except as noted in the above Review of Systems and in the History of Present Illness all other systems have been reviewed and are negative or noncontributory Physical Exam Vitals & Measurements HR: 82(Peripheral) BP: 132/92 SpO2: 97% HT: 69 in HT: 174 cm WT: 118.0 kg WT: 259.6 lb BMI: 38.97 General: alert, no acute distress Skin: warm, dry intact Head: atraumatic, normocephalic Neck: trachea midline, no JVD, no bruit Eye: normal conjunctiva, sclera clear ENMT: oral mucosa moist Cardiovascular: regular rate and rhythm, no murmur, normal peripheral perfusion Respiratory: lungs CTA, respirations non labored Chest wall: no deformity. Gastrointestinal: soft, non-distended, no tenderness, no guarding. Back: no tenderness, normal ROM, normal alignment. Extremities: no edema, no deformity, no trauma Neurological: oriented x 4, LOC appropriate for age, sensation equal & normal bilaterally, speech normal Psychiatric: cooperative, affect appropriate for age, normal judgement, normal psychiatric thoughts. Assessment/Plan Stress echo showed no problems. The patient is scheduled for a follow-up visit in 6 months. 1. Palpitation (R00.2: Palpitations) 2. Obesity (E66.9: Obesity, unspecified) Portions of this record may have been created with voice recognition artificial intelligence software, specifically [employer], [employer] and or [employer]. Substitutions may have occurred due to the inherent limitations of voice recognition and artificial intelligence software. ATTESTATION: Documentation services were performed after patient or guardian consented to allow [employer] to record this visit. JORGE systems support specialist and provider reviewed before signing. JORGE: Phoebe Jessica Oseo. Follow-up No qualifying data available Problem List/Past Medical History Ongoing Allergic conjunctivitis, bilateral Belching BMI 40.0-44.9, adult Cholelithiasis Chronic GERD Fatty liver Foreign body in stomach, sequela Gastric bezoar Gastritis Obesity Smoker Historical Diarrhea Epigastric pain Group B streptococcus HBP (high blood pressure) History of stillbirth Nausea Nausea and vomiting Palpitations Procedure/Surgical History Cholecystectomy (11/29/2022), Esophagogastroduodenosco py (03/31/2022), adenoids removed ear tubes, section. Medications hydrOXYzine hydrochloride Imodium 2 mg oral capsule, 2 mg= 1 cap(s), Oral, q4hr, PRN, 6 refills Iron 100 Plus oral tablet metformin 500 mg ER Tab, 500 mg= 1 tab(s), Oral, Daily Metoprolol tartrate 50 mg Tab, 25 mg= 0.5 tab(s), Oral, BID, 5 refills Nexium 40 mg Cap-EC, 40 mg= 1 cap(s), Oral, BID, 6 refills One A Day Women's Complete, 1 tab(s), Oral, Daily Allergies hydrochlorothiazide (anaphlaxis) Norvasc (Hives) penicillin (hives) sulfamethoxazole (hives) Social History Alcohol - Denies Alcohol Use, 12/19/2014 Household alcohol concerns: No., 01/08/2023 Household alcohol concerns: No., 03/26/2019 Employment/School Employed, Work/School description: [employer]. Activity level: Moderate physical work. Highest education level: High school. Operates hazardous equipment: No., 04/17/2017 Exercise Exercise frequency: 3-4 times/week. Self assessment: Good condition. Exercise type: Walking., 04/17/2017 Home/Environment Lives with Mother, Significant other, FOB's (more content not included)... Normal [facility] Comment on above: Result Comment: Elec tronically Signed By: Kentrell URBINA, Primo Sam\.br\Date and Time Signed: 03/03/24 10:06 EDT\.br\Electronically Co-Signed By: Caren Harrison\.br\Date and Time Co-Signed: 02/07/24 15:14 EDT Comprehensive metabolic 2000 panelon 02-15-2024 Albumin [Mass/Vol] 4.7 g/dL Normal 3.9-4.9 [facility] Comment on above: Order Comment: Speci men Type: BLOOD SPECIMEN Ordering Facility: [facility] Address: [address] [place] [address] Performed By: #### 2 4323-8 #### [facility] CLIA [id number] [address] [place] [address] ALP [Catalytic activity/Vol] 99 U/L Normal 34-123 [facility] Comment on above: Order Comment: Speci men Type: BLOOD SPECIMEN Ordering Facility: [facility] Address: [address] [place] [address] Performed By: #### 2 4323-8 #### [facility] CLIA [id number] [address] [place] [address] ALT [Catalytic activity/Vol] 29 U/L Normal 7-38 [facility] Comment on above: Order Comment: Speci men Type: BLOOD SPECIMEN Ordering Facility: [facility] Address: [address] [place] [address] Performed By: #### 2 4323-8 #### [facility] CLIA [id number] [address] [place] [address] Anion gap [Moles/Vol] 12 mmol/L Normal 9-18 [facility] Comment on above: Order Comment: Speci men Type: BLOOD SPECIMEN Ordering Facility: [facility] Address: [address] [place] [address] Performed By: #### 2 4323-8 #### [facility] CLIA [id number] [address] [place] [address] AST [Catalytic activity/Vol] 25 U/L Normal 13-35 [facility] Comment on above: Order Comment: Speci men Type: BLOOD SPECIMEN Ordering Facility: [facility] Address: [address] [place] [address] Performed By: #### 2 4323-8 #### [facility] CLIA [id number] [address] [place] [address] Bilirubin [Mass/Vol] 0.8 mg/dL Normal 0.2-1.3 [facility] Comment on above: Order Comment: Speci men Type: BLOOD SPECIMEN Ordering Facility: [facility] Address: [address] [place] [id number] Performed By: #### 2 4323-8 #### [facility] CLIA [id number] [address] [place] [address] Calcium [Mass/Vol] 9.7 mg/dL Normal 8.5-10.2 [facility] Comment on above: Order Comment: Speci men Type: BLOOD SPECIMEN Ordering Facility: [facility] Address: [address] [place] [address] Performed By: #### 2 4323-8 #### [facility] CLIA [id number] [address] [place] [address] Chloride [Moles/Vol] 106 mmol/L High 97-105 [facility] Comment on above: Order Comment: Speci men Type: BLOOD SPECIMEN Ordering Facility: [facility] Address: [address] [place] [address] Performed By: #### 2 4323-8 #### [facility] CLIA [id number] [address] [place] [address] CO2 [Moles/Vol] 21 mmol/L Low 22-30 [facility] Comment on above: Order Comment: Speci men Type: BLOOD SPECIMEN Ordering Facility: [facility] Address: [address] [place] [address] Performed By: #### 2 4323-8 #### [facility] CLIA [id number] [address] [place] [address] Creatinine [Mass/Vol] 0.70 mg/dL Normal 0.58-0.96 [facility] Comment on above: Order Comment: Speci men Type: BLOOD SPECIMEN Ordering Facility: [facility] Address: [address] [place] [address] Performed By: #### 2 4323-8 #### [facility] CLIA [id number] [address] [place] [address] Creatinine and Glomerular filtration rate.predicted panel (S/P/Bld) 122 mL/min/1.73m??? Normal >=60 [facility] Comment on above: Order Comment: Speci martin Type: BLOOD SPECIMEN Ordering Facility: [facility] Address: [address] [place] [address] Result Comment: Mary mated Glomerular Filtration Rate (eGFR) is calculated using the 2020 CKD-EPI creatinine equation. This equation utilizes serum creatinine, sex, and age as parameters. The creatinine assay has traceable calibration to isotope dilution-mass spectrometry. Refer to KDIGO guidelines for clinical interpretation. In patients with unstable renal function, e.g. those with acute kidney injury, the eGFR may not accurately reflect actual GFR. Performed By: #### 2 4323-8 #### [facility] CLIA [id number] [address] [place] [address] Glucose [Mass/Vol] 139 mg/dL High 74-99 [facility] Comment on above: Order Comment: Speci martin Type: BLOOD SPECIMEN Ordering Facility: [facility] Address: [address] [place] [address] Result Comment: The [place] Diabetes Association (ADA) provides guidance for cutoff values for fasting glucose and random glucose. The ADA defines fasting as no caloric intake for at least 8 hours. Fasting plasma glucose results between 100 to 125 mg/dL indicate increased risk for diabetes (prediabetes). Fasting plasma glucose results greater than or equal to 126 mg/dL meet the criteria for diagnosis of diabetes. In the absence of unequivocal hyperglycemia, results should be confirmed by repeat testing. In a patient with classic symptoms of hyperglycemia or hyperglycemic crisis, random plasma glucose results greater than or equal to 200 mg/dL meet the criteria for diagnosis of diabetes. Reference: Standards of Medical Care in Diabetes 2016, [place] Diabetes Association. Diabetes Care. 2016.39(Suppl 1). Performed By: #### 2 4323-8 #### [facility] CLIA [id number] [address] [place] [address] Potassium [Moles/Vol] 4.0 mmol/L Normal 3.7-5.1 [facility] Comment on above: Order Comment: Speci men Type: BLOOD SPECIMEN Ordering Facility: [facility] Address: [address] [place] [address] Performed By: #### 2 4323-8 #### [facility] CLIA [id number] [address] [place] [address] Protein [Mass/Vol] 7.9 g/dL Normal 6.3-8.0 [facility] Comment on above: Order Comment: Speci men Type: BLOOD SPECIMEN Ordering Facility: [facility] Address: [address] [place] [address] Performed By: #### 2 4323-8 #### [facility] CLIA [id number] [address] [place] [address] Sodium [Moles/Vol] 139 mmol/L Normal 136-144 [facility] Comment on above: Order Comment: Speci men Type: BLOOD SPECIMEN Ordering Facility: [facility] Address: [address] [place] [address] Performed By: #### 2 4323-8 #### [facility] CLIA [id number] [address] [place] [address] Urea nitrogen [Mass/Vol] 13 mg/dL Normal 7-21 [facility] Comment on above: Order Comment: Speci men Type: BLOOD SPECIMEN Ordering Facility: [facility] Address: [address] [place] [address] Performed By: #### 2 4323-8 #### [facility] CLIA [id number] [address] [place] [address] HbA1c (Bld)on 02-15-2024 Average glucose Estimated from glycated hemoglobin (Bld) [Mass/Vol] 94 mg/dL Normal [facility] Comment on above: Order Comment: Speci men Type: BLOOD SPECIMEN Ordering Facility: [facility] Address: [address] [place], [place] [address] Result Comment: eAG: (Estimated average glucose) is a calculated value from HgbA1c and is admissions representative of the average blood glucose level in the last 2-3 month period. Performed By: #### 5 5454-3 #### [facility] CLIA [id number] [address] [place] [address] [place] HbA1c (Bld) [Mass fraction] 4.9 % Normal 4.3-5.6 [facility] Comment on above: Order Comment: Blake salazar Type: BLOOD SPECIMEN Ordering Facility: [facility] Address: [address] [place] [address] Result Comment: Amer [place] Diabetes Association guidelines indicate that patients with HgbA1c in the range 5.7-6.4% are at increased risk for development of diabetes, and intervention by lifestyle modification may be beneficial. HgbA1c greater or equal to 6.5% is considered diagnostic of diabetes. Performed By: #### 5 5454-3 #### [facility] CLIA [id number] [address] [place] [address] [place] Insulin SerPl-aCncon 05-17-2 024 Insulin Qn 161.5 u[IU]/mL High 3.0-25.0 [facility] Comment on above: Order Comment: Blake salazar Type: BLOOD SPECIMEN Ordering Facility: [facility] Address: [address] [place] [address] Performed By: #### 2 0448-7 #### [facility] CLIA [id number] [address] [place] [address] [place] MR knee LT wo conon 02-13-20 MR knee LT wo con [place] [id number] MRI Report Signed Patient: Addie Lane MR#: [id number] : 1995 Acct:[id number] Age/Sex: 28 / F ADM Date: 02/12/24 Loc: MR Room: Type: [facility] Attending Dr: Richi Llamas DO Copies to: Richi Llamas DO Ordering Provider: Richi Llamas DO Date of Service: 02/12/24 MR/MR knee LT wo con: M25.562 MRI of the RIGHT Knee without contrast TECHNIQUE: Multiplanar T1 and T2-weighted imaging of the knee obtained without contrast HISTORY: Medial LEFT knee pain for one month. No central or canal. COMPARISON:None BONE MARROW: No infiltrative changes. BONE MARROW EDEMA: Medial tibial plateau bone marrow edema. FRACTURE: Nondisplaced fracture of the medial tibial plateau. BONE TUMOR: None BONY ALIGNMENT: Adequate DEGENERATION: No significant spurring or joint space narrowing. JOINT EFFUSION: Small joint effusion MUSCLES: Unremarkable SOFT TISSUES: Unremarkable POPLITEAL CYST: None ANTERIOR CRUCIATE LIGAMENT: Intact POSTERIOR CRUCIATE LIGAMENT: Intact LATERAL COMPARTMENT: LATERAL MENISCUS: Heterogeneous changes of the posterior horn of the lateral meniscus. Consider mucoid degeneration, intrasubstance,/intrasub stance tear.. LATERAL ARTICULAR CARTILAGE: Intact. No osteochondral defect. No subcuticular bone marrow edema. PROXIMAL TIBIOFIBULAR JOINT: Intact POSTERIOR LATERAL COMPARTMENT: Intact lateral collateral ligament complex. Intact biceps femoris tendon. Intact popliteus tendon. COMMON PERONEAL NERVE: Intact MEDIAL COMPARTMENT: MEDIAL MENISCUS: Intact MEDIAL ARTICULAR SURFACE: No chondromalacia. No subarticular bone marrow edema. POSTERIOR MEDIAL COMPARTMENT: Medial collateral ligament complex intact. The semimembranosus tendon intact. No ramp lesion of the posterior horn of medial meniscus present. PATELLOFEMORAL COMPARTMENT: PATELLOFEMORAL ARTICULAR CARTILAGE: Focal chondromalacia of the lateral facet of the patella. ANTERIOR LIGAMENTS: Patellar ligament and quadriceps tendon are intact. MR/MR knee LT wo con IMPRESSION: Acute nondisplaced fracture of the medial tibial plateau. Intact ACL. Heterogeneous signal changes of the intrasubstance of the posterior horn of the lateral meniscus. Consideration for mucoid degeneration, meniscal intrasubstance trauma/tear. Small joint effusion. Impression dictated by: Darryl Houston M.D.02/13/2024 12:04 PM Dictation Location: [place] [address] Transcribed By: [facility] 02/13/24 1204 Dictated By: Darryl Houston DO 02/13/24 1152 Signed By: 02/13/24 1204 [facility] Insurance Correspondenceon 0 02-12-2024 Insurance Correspondence [id number]#1.00TI FF [facility] Physician Orderon 02-08-2024 Physician Order [id number]#1.00TI FF [facility] Consent for Treatmenton Consent for Treatment [id number]#1.00TIF F [facility] Physician Orderon 02-07-2024 Physician Order [id number]#1.00TI FF [facility] US Extremity Non-Vascular Li mited Righton 02-05-2024 US Extremity Non-Vascular Limited Right Exam Date/Time: 02/01/2024 20:56 EDT Reason for Exam: CALF LUMP Report IMPRESSION: SMALL SUPERFICIAL PATENT VENOUS VARICOSITY AT THE PALPABLE AREA OF CONCERN. EXAM: US Extremity Non-Vascular Limited Right DATE: 02/01/2024 8:53 PM CLINICAL HISTORY: CALF LUMP. COMPARISON: None available. TECHNIQUE: Directed soft tissue ultrasound was performed of the posterior right calf. An area of palpable concern, with a regional survey. FINDINGS: A mildly prominent patent superficial venous varicosities is noted at the palpable area of concern. There are no abnormal masses, organized fluid collections, or other findings of concern identified. Ordering Provider: , FINAL REPORT Dictated: 02/05/2024 4:06 pm Sander Arellano MD Signed (Electronic Signature): 02/05/2024 4:06 pm Signed by: Sander Arellano MD Transcribed by: EDE Technologist: ADRIANA [facility] Shari 02-01-2024 BLAISEN Telephone (GASTMN) -------- ADDIE LANE ([id number]) 1995 F Date Time Provider Department 02/01/24 Iwona DAVIS During your visit today, we recorded the following information about you: Norma Rosa 02/01/2024 3:02 PM Signed Referral uploaded under scanned doc. Norma Rosa [employer] Teacher June Pizarro, RN 02/06/2024 10:52 AM Signed Called and spoke to patient. Assisted to schedule appointments with [facility] team Allergies As of Date: 02/01/2024 (Not on File) Date Reviewed: Never Reviewed Reason for Visit: Consult [502] Problem List As Of Date: 02/01/2024 (None) Encounter Status:Closed by NORMA ROSA on 02/04/24 Normal [facility] Consent for Treatmenton Consent for Treatment [id number]#1.00TIF F Normal [facility] Gastroenterology Office/Clin ic Noteon 02-01-2024 Gastroenterology Office/Clinic Note Chief Complaint sick call - GERD HPI Staff Patient is a 28 year old female who presents today for a sick call with c/o acid reflux. Was taking Omeprazole 40mg daily - not working. Having acid come up on occasion with Omeprazole. Last visit 04/25/23 w/Gayathri: Assessment/Plan 1. Foreign body in stomach, sequela (T18.2XXS: Foreign body in stomach, sequela) EGD completed 02/20/2023 revealed normal esophagus, normal gastric mucosa, small semisolid gastric bezoar?patient on Mounjaro which can cause gastroparesis and also has diabetes per Dr. Eng, normal duodenum. Patient was instructed regarding low fiber/low fat diet. Patient was ordered gastric emptying study to evaluate for possible gastroparesis. Gastric emptying study completed revealed rapid gastric emptying- possibly related to cyclic vomiting syndrome, autonomic dysfunction, or possibly food sensitivity- patient reports having a neurologist referral that was set up by her PCP- patient to follow-up 2. Chronic GERD (K21.9: Gastro-esophageal reflux disease without esophagitis) Controlled with omeprazole 40mg daily. 3. Fatty liver (K76.0: Fatty (change of) liver, not elsewhere classified) Ultrasound of liver 5/17/23 revealed hepatic steatosis. Previous labs 04/10/2023 revealed unremarkable CBC/CMP. FibroScan completed 03/15/2023 revealed F0?F1 fibrosis, severe steatosis. Has lost 50 pounds in the last 7 months intentionally with Mounjaro that is managed by her PCP. Educated regarding healthy diet/exercise, weight loss. Avoid ETOH. 4. Nausea and vomiting (R11.2: Nausea with vomiting, unspecified) Resolved. History of Present Illness Reports burning, acid reflux with acid in her mouth despite on omeprazole Also reports 5-6 bowel movements with urgency since her gallbladder removed in November last year, no blood or alarming symptoms mostly postprandial Review of Systems PHQ Score Initial Depression Screen Score: 0 SCORE Physical Exam Vitals & Measurements HR: 70(Peripheral) RR: 18 BP: 130/80 HT: 69 in HT: 174 cm WT: 116 kg WT: 255.2 lb BMI: 38.31 General: in Nad Abdomen: Soft, NTND Assessment/Plan 1. Chronic GERD (K21.9: Gastro-esophageal reflux disease without esophagitis) Has significant symptoms of acid reflux and burning and regurgitation Was taking omeprazole 40 daily We discussed lifestyle modifications including weight loss, Switch omeprazole to Nexium 40 mg twice daily, keep Pepcid as needed, use Tums and Gaviscon as needed If that fails we will consider Hsu, will discuss on or off PPI at that time Last EGD was done while she is on Mounjaro, she had gastric bezoar, but gastric emptying study in March last year while on Mounjaro showed accelerated emptying after 2 hours only Ordered: Current tobacco non-user 1036F Most recent diastolic blood pressure 80-89 mm Hg 3079F Systolic BP 130-139 mm Hg (Most Recent) 3075F 2. Fatty liver (K76.0: Fatty (change of) liver, not elsewhere classified) Had FibroScan March 2023 showed S3, F0/F1, E 4 Given the PCOS she is at 4 times more likely to develop fatty liver and [place] in the future We discussed lifestyle modifications and weight loss for fatty liver, she used Mounjaro she lost significant amount of weight, but she gained it right back afterwards I am can refer her to Dr. Bagi at [facility] for GI bariatric clinic We also discussed Mediterranean diet 3. Diarrhea (R19.7: Diarrhea, unspecified) Likely bile acid induced diarrhea, started after her gallbladder removal in November last year, 5-6 bowel movements a day, mostly postprandial urgency Start Imodium as needed, if that fails we will consider cholestyramine or Colestid 4. PCOS (polycystic ovarian syndrome) (E28.2: Polycystic ovarian syndrome) Good control of metabolic syndrome Morbid obesity (E66.01: Morbid (severe) obesity due to excess calories) Ordered: [facility] External Ambulatory Referral Orders: esomeprazole, 40 mg = 1 cap(s), Oral, BID, # 180 cap(s), Refills(s) 6, Pharmacy: [facility]/pharmacy #[id number], 174, cm, 02/01/24 10:53:00 EDT, Height/Length Dosing, 116, kg, 02/01/24 10:52:00 EDT, Weight Dosing loperamide, 2 mg = 1 cap(s), Oral, q4hr, PRN Diarrhea, # 6 cap(s), Refills(s) 6, Pharmacy: [facility]/pharmacy #[id number], 174, cm, 02/01/24 10:53:00 EDT, Height/Length Dosing, 116, kg, 02/01/24 10:52:00 EDT, Weight Dosing Follow-up No qualifying data available Problem List/Past Medical History Ongoing Allergic conjunctivitis, bilateral Belching BMI 40.0-44.9, adult Cholelithiasis Chronic GERD Fatty liver Foreign body in stomach, sequela Gastric bezoar Gastritis Obesity Smoker Historical Diarrhea Epigastric pain Group B streptococcus HBP (high blood pressure) History of stillbirth Nausea Nausea and vomiting Palpitations Procedure/Surgical History Cholecystectomy (11/29/2022), Esophagogastroduodenosco py (03/31/2022), adenoids removed ear tubes, section. Medications hydrOXYzi (more content not included)... Normal [facility] Comment on above: Result Comment: Elec tronically Signed By: Jose URBINA, Kei Tom\.br\Date and Time Signed: 02/01/24 11:26 EDT XR knee LT 2Von 02-01-2024 XR knee LT 2V [facility] [place] [address] XRay Report Signed Patient: Addie Lane MR#: [id number] : 1995 Acct:[id number] Age/Sex: 28 / F ADM Date: 02/01/24 [facility]: [facility] Attending Dr: Richi Llamas DO Copies to: Richi Llamas DO Ordering Provider: Richi Llamas DO Date of Service: 02/01/24 XR/XR knee LT 2V: M25.562 - Pain in left knee LEFT KNEE - 2 views CLINICAL HISTORY: Left knee pain. COMPARISON: None FINDINGS: No knee joint effusion. No acute bony process. Joint spaces appear maintained. XR/XR knee LT 2V IMPRESSION: NO ACUTE BONY PROCESS. Impression dictated by: Morgan Hamilton Jr., D.OShanika02/01/2024 10:37 AM Dictation Location: [place] [address] Transcribed By: [facility] 02/01/24 1037 Dictated By: Morgan Hamilton Jr, DO 02/01/24 1037 Signed By: 02/01/24 1037 Normal [facility] Physician Orderon 01-31-2024 Physician Order [id number]#1.00TIF F Normal [facility] CHEMISTRYOrdered By: SYSTEM SYSTEM on 11-29-2023 Cholesterol [Mass/Vol] 146 mg/dL Normal 120 - 200 mg/dL Remisol Chem Cholesterol in HDL [Mass/Vol] 25 mg/dL Invalid Interpretation Code Remisol Chem Comment on above: Result Comment: '>= 60 LOW RISK' '<= 40 HIGH RISK' Cholesterol in LDL [Mass/Vol] 96 mg/dL Normal <=129mg/dL Remisol Chem Cholesterol in VLDL [Mass/Vol] 39 mg/dL Normal 7 - 40 mg/dL Remisol Chem Cobalamin (Vitamin B12) [Mass/Vol] 342 pg/mL Normal 50 - 1500 pg/mL Remisol Chem Folate [Mass/Vol] 11.2 ng/mL Normal >=6.7ng/mL Remisol Chem Triglyceride [Mass/Vol] 194 mg/dL High <=149mg/dL R emisol Chem Office Visit (Neuro-General) on 06-14-2023 Follow-up visit Patient Discussion/Summary I had a long discussion about the role of medicine, effect and side effects of the medication including signs symptoms to watch for. She has lost few pounds since her and have discussed the signs and the risk factor for seizures stroke which she understood Due to technical limitations of voice recognition and human error, this note may not accurately reflect the care of the patient. 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 ADDIE is a 28 year old F who presents to clinic for trigeminal/occipital neuralgia evaluation. History of Present Illness Addie Lane is a 28-year-old young lady who was seen today for evaluation of her episodic left facial tingling and numbness with occasional tingling that was on the right side of the face with pain in the back of the neck and occasional pain behind the left ear. Symptoms have been fluctuating and can last from minutes to hours to sometimes days. Today her physical and neurological exam is normal. At the time of my evaluation she is asymptomatic. I believe she has most likely tension headache with associated this episodic tingling numbness which is in the form of atypical neuralgia which could be due to anxiety. I would like to try her on Lexapro 10 mg for anxiety and for chronic pain and have discussed the therapy to be done at home and the signs symptoms to watch for which she understood. She had MRI and CAT scan done in the past which according to her was reported to be normal As you recall, Addie is a 28-year-old young lady who has been having this episodic tingling numbness for last 2 years. According to her it started on the left side of the face which can last for seconds to a minute without any pain. Then she was having tingling and numbness on the right side of the face and occasionally she will have pain in the back of the neck with some tightening of the muscles. At the same time she was complaining of some tingling and numbness in the left side of the and in the legs which started like few months back. She does complain of some neck and back pain. At time she was also having some pain in the left ear for which she had ENT evaluation which was normal She lives with her family and there is no family history of seizures migraine headaches or any neurological problem on either maternal or paternal side Review of Systems Constitutional: no fever, no unexplained weight gain and no unexplained weight loss. Eyes: no blurred vision and no diplopia. ENT: no hearing loss, no tinnitus, no earache, no sore throat, no hoarseness and no swollen glands in the neck. Cardiovascular: no chest pain, no shortness of breath, no palpitations and no lower extremity edema. Respiratory: no chronic cough, not coughing up sputum and no wheezing that is consistent with asthma. Gastrointestinal: no abdominal pain, no nausea, no vomiting, no diarrhea, no constipation and no bloody stools. Genitourinary: no urinary frequency, no dysuria, no burning sensation during urination and no hematuria. Musculoskeletal: no arthralgias, no joint stiffness, no muscle weakness, no back pain and no difficulty walking. Skin: no skin rashes, no change in skin color and pigmentation, no skin lesions and no skin lumps. Neurological: no headaches, no dizziness, no seizures, no tingling, no numbness and no limb weakness. Psychiatric: no confusion, no memory lapses or loss, no depression and no sleep disturbances. Endocrine: no excessive thirst, no cold intolerance, no heat intolerance, no dry skin and no increased urinary frequency. Hematologic/Lymphatic: is not slow to heal, does not bleed easily, does not bruise easily, no thrombophlebitis and no anemia. All other systems have been reviewed and are negative for complaint. Active Problems Problems Chronic neck pain (723.1,338.29) (M54.2,G89.29) Dysfunction of left eustachian tube (381.81) (H69.92) Otalgia of left ear (388.70) (H92.02) Surgical History Problems History of Adenoidectomy History of section History of Ear pressure equalization tube insertion History of Gallbladder surgery Family History Mother No pertinent family history Social History Problems No alcohol use No illicit drug use Non-smoker (V49.89) (Z78.9) Allergies Medication hydrochlorothiazide Recorded By: Shawna Hayes; 01/04/2023 11:28:35 AM Norvasc Recorded By: Shawna Hayes; 01/04/2023 11:28:35 AM Penicillins Recorded By: Shawna Hayes; 01/04/2023 11:28:35 AM sulfa Recorded By: Shawna Hayes; 01/04/2023 11:28:35 AM Current Meds Medication NameInstruction metFORMIN HCl ER (MOD) 500 (more content not included)... Normal Touchworks Tobacco Screening.on 023 Adult depression screening assessment No -Neurolog [facility] 201 Work Phone: Fall risk assessment a) No falls within the last year [facility] 201 Work Phone: Tobacco use status CPHS a) Yes M [facility] 201 Work Phone: Urinalysis - DIPSTICKon 08-0 Appearance (U) CLOUDY Planday Other Bilirubin Ql (U) Negative uStudio Other Color (U) DARK YELLOW [employer] Other Glucose Ql (U) Negative Planday Other Hemoglobin Ql (U) MOD dough Other Ketones Ql (U) Negative [employer]landay Other Leukocyte esterase Test strip Ql (U) MOD [employer] Other Nitrite Ql (U) Negative [employer] Other pH (U) 5.0 [pH] [employer] Other Protein Ql (U) Negative [employer] Other Specific gravity (U) [Rel density] 1.025 [employer] Other Urobilinogen (U) [Mass/Vol] Negative [employer] Other Urinalysis - DIPSTICK Nor [facility] EverTune Other URINALYSISOrdered By: Maxx kent on 04-27-2023 Bilirubin Ql (U) Negative (04/27/23 5:05 PM) Normal Negative [facility] UA Auto SS Clarity (U) Slightly Cloudy *ABN* (04/27/23 5:05 PM) Invalid Interpretation Code Clear [facility] UA Auto SS Color (U) Yellow (04/27/23 5:05 PM) Normal Yellow [facility] UA Auto SS Epithelial cells.squamous LM.HPF (Urine sed) [#/Area] 3-4 /HPF Normal 0-2/HPF [facility] UA Aut o SS Glucose Test strip (U) [Mass/Vol] Negative (04/27/23 5:05 PM) Normal Negative [facility] UA Auto SS Hemoglobin Ql (U) Trace *ABN* (04/27/23 5:05 PM) Invalid Interpretation Code Negative [facility] UA Auto SS Ketones (U) [Mass/Vol] Negative (04/27/23 5:05 PM) Normal Negative [facility] UA Auto SS Crete.plasma/Crete. RBC (Bld) [Mass ratio] 0-3 /HPF Normal 0-3/HPF [facility] UA A uto SS Nitrite Ql (U) Negative (04/27/23 5:05 PM) Normal Negative [facility] UA Auto SS pH (U) 7.0 *NA* (04/27/23 5:05 PM) Invalid Interpretation Code 5.0 - 9.0 [facility] UA Auto SS Protein (U) [Mass/Vol] Negative (04/27/23 5:05 PM) Normal Negative [facility] UA Auto SS Specific gravity (U) [Rel density] 1.010 *NA* (04/27/23 5:05 PM) Invalid Interpretation Code 1.005 - 1.030 [facility] UA Auto SS UA Spec Desc Clean Catch (04/27/23 5:05 PM) Normal [facility] UA Auto SS Urobilinogen Qn (U) [id number] {Americo'U}/dL Normal 0.0 - 1.0 EU/dL [facility] UA Auto SS WBC Auto Ql (U) Trace *ABN* (04/27/23 5:05 PM) Invalid Interpretation Code Negative [facility] UA Auto SS WBC LM.HPF (Urine sed) [#/Area] 0-5 /HPF Normal 0-5/HPF [facility] UA Auto SS CHEMISTRYOrdered By: SYSTEM SYSTEM on 04-10-2023 Albumin [Mass/Vol] 4.3 g/dL Normal 3.3 - 5.0 gm/dL [facility] Remisol Albumin/Globulin [Mass ratio] 1.3 {ratio} Normal 1.1 - 2.2 [facility] Remisol ALP [Catalytic activity/Vol] 62 [iU]/d Normal 21 - 98 Int._Unit/ L [facility] Rem[facility] ALT No additional P-5'-P [Catalytic activity/Vol] 38 [iU]/d Normal 6 - 46 Int._Unit/ L [facility] Rem[facility] Anion gap [Moles/Vol] 14 mmol/L Normal 6 - 16 mEq/L [facility] AST [Catalytic activity/Vol] 28 [iU]/d Normal 5 - 43 Int._Unit/ L [facility] Remisol Bilirubin [Mass/Vol] 0.6 mg/dL Normal 0.0 - 1 .1 mg/dL [facility] Remisol Calcium [Mass/Vol] 9.0 mg/dL Normal 8.9 - 11. 1 mg/dL [facility] Remisol Chloride [Moles/Vol] 106 mmol/L Normal 101 - 1 11 mmol/L [facility] CO2 [Moles/Vol] 21 mmol/L Normal 21 - 31 mmol/L [facility] Rem[facility] Creatinine [Mass/Vol] 0.8 mg/dL Normal 0.5 - 1.3 mg/dL [facility] Remisol GFR/1.73 sq M.predicted among non-blacks MDRD (S/P/Bld) [Vol rate/Area] 104 mL/min/1.73 m2 Normal >=59mL/min /1.73 m2 [facility] Chem S Globulin (S) [Mass/Vol] 3.4 g/dL Normal 1.4 - 4.0 gm/dL [facility] Remisol Glucose [Mass/Vol] 84 mg/dL Normal 55 - 199 mg/dL [facility] Remisol Potassium [Moles/Vol] 3.5 mmol/L Normal 3.5 - 5.3 mmol/L [facility] Remisol Protein [Mass/Vol] 7.7 g/dL Normal 6.0 - 7.8 gm/dL [facility] Remisol Sodium [Moles/Vol] 137 mmol/L Normal 135 - 145 mmol/L [facility] Rem[facility] Urea nitrogen [Mass/Vol] 12 mg/dL Normal 5 - 21 mg/dL [facility] Remisol Urea nitrogen/Creatinine [Mass ratio] 15 mg/mg Normal 10 - 20 [facility] Remisol HEMATOLOGYOrdered By: SYSTEM SYSTEM on 04-10-2023 Basophils/100 WBC (Bld) 0.6 % Normal 0.0 - 2.0 % [facility] HemeAutoSS Basophils/Leukocytes Auto (Bld) [Pure # fraction] 0.0 E9/L Normal 0.0 - 0.2 E9/L [facility]eAutoSS Eosinophils/100 WBC (Bld) 2.6 % Normal 0.0 - 8.0 % [facility]eAutoSS Eosinophils/Leukocytes Auto (Bld) [Pure # fraction] 0.2 E9/L Normal 0.0 - 0.5 E9/L [facility]eAutoSS Lymphocytes/100 WBC (Bld) 31.7 % Normal 14.0 - 50.0 % [facility]eAutoSS Lymphocytes/Leukocytes Auto (Bld) [Pure # fraction] 2.2 E9/L Normal 1.0 - 4.0 E9/L [facility]eAutoSS Monocytes/100 WBC (Bld) 8.8 % Normal 4.0 - 14.0 % [facility]eAutoSS Monocytes/Leukocytes Auto (Bld) [Pure # fraction] 0.6 E9/L Normal 0.2 - 1.0 E9/L [facility]eAutoSS Neutrophils/100 WBC (Bld) 56.3 % Normal 36.0 - 75.0 % [facility] HemeAutoSS Neutrophils/Leukocytes Auto (Bld) [Pure # fraction] 3.9 E9/L Normal 2.0 - 7.5 E9/L [facility]eAutoSS HEMATOLOGYOrdered By: Osiel Gupta on 04-10-2023 Erythrocyte distribution width (RBC) [Ratio] 13.2 % Normal 10.9 - 14.2 % [facility]eAutoSS Hematocrit (Bld) [Volume fraction] 34.2 % Normal 34.0 - 46.0 % [facility]eAutoSS Hemoglobin (Bld) [Mass/Vol] 12.0 g/dL Normal 12.0 - 16.0 gm/dL [facility]eAutoSS MCH (RBC) [Entitic mass] 29.4 pg Normal 27.0 - 34.0 pg [facility]eAutoSS MCHC (RBC) [Mass/Vol] 35.1 g/dL Normal 31.4 - 36.0 gm/dL [facility]eAutoSS MCV (RBC) [Entitic vol] 83.8 fL Normal 80.0 - 100.0 fL [facility]eAutoSS Platelet mean volume (Bld) [Entitic vol] 9.8 fL Normal 6.4 - 10.8 fL [facility]eAutoSS Platelets (Bld) [#/Vol] 300.0 E9/L Normal 150. 0 - 500.0 E9/L [facility]eAutoSS RBC (Bld) [#/Vol] 4.1 E12/L Low 4.3 - 5.9 E12/L [facility]eAutoSS WBC corrected for nucl RBC Auto (Bld) [#/Vol] 6.9 E9/L Normal 4.0 - 11.0 E9/L [facility]eAutoSS Helicobacter pylori IgG Ab [ Units/volume] in Serum by ImmunoassayOrdered By: Dinesh Méndez on 03-09-2023 H. pylori IgG IA Qn (S) 0.25 {index_val} 0.00-0 .79 [facility] Comment on above: Result Units: Index Value Negative <0.80 Equivocal 0.80 - 0.89 Positive >0.89 No Panel InformationOrdered By: Dinesh Méndez on 03-09-2023 Helicobacter pylori IgM Antibody <9.0 units 0.0-8.9 [facility] Comment on above: Negative <9.0 Equivo gunner 9.0 - 11.0 Positive >11.0This test was developed and its performance characteristicsdetermined by [employer]. It has not been cleared orapproved by the Food and Drug Administration.Performed at: [facility] [employer] [id number] Director: Sadi Castillo PhD, Phone: [phone] Serum Helicobacter pylori Ig A antibody assay by immunoassay (units/volume)Ordered By: Dinesh Méndez on 03-09-2023 H. pylori IgA IA Qn (S) <9.0 units 0.0-8.9 [facility] Comment on above: Negative <9.0 Equivo gunner 9.0 - 11.0 Positive >11.0 CHEMISTRYOrdered By: SYSTEM SYSTEM on 01-31-2023 Albumin [Mass/Vol] 4.4 g/dL Normal 3.3 - 5.0 gm/dL [facility] Remisol Albumin/Globulin [Mass ratio] 1.3 {ratio} Normal 1.1 - 2.2 [facility] Remisol ALP [Catalytic activity/Vol] 76 [iU]/d Normal 21 - 98 Int._Unit/ L [facility] Remisol ALT No additional P-5'-P [Catalytic activity/Vol] 68 [iU]/d High 6 - 46 Int._Unit/ L [facility] Remisol Anion gap [Moles/Vol] 11 mmol/L Normal 6 - 16 mEq/L [facility] Remisol AST [Catalytic activity/Vol] 39 [iU]/d Normal 5 - 43 Int._Unit/ L [facility] Remisol Bilirubin [Mass/Vol] 0.8 mg/dL Normal 0.0 - 1 .1 mg/dL [facility] Remisol Calcium [Mass/Vol] 8.6 mg/dL Low 8.9 - 11. 1 mg/dL [facility] Remisol Chloride [Moles/Vol] 104 mmol/L Normal 101 - 1 11 mmol/L [facility] Rem[facility] CO2 [Moles/Vol] 24 mmol/L Normal 21 - 31 mmol/L [facility] Rem[facility] Creatinine [Mass/Vol] 1.0 mg/dL Normal 0.5 - 1.3 mg/dL [facility] GFR/1.73 sq M.predicted among non-blacks MDRD (S/P/Bld) [Vol rate/Area] 80 mL/min/1.73 m2 Normal >=59mL/min /1.73 m2 [facility] Chem S Globulin (S) [Mass/Vol] 3.3 g/dL Normal 1.4 - 4.0 gm/dL [facility] Remisol Glucose [Mass/Vol] 116 mg/dL Normal 55 - 199 mg/dL [facility] Remisol Potassium [Moles/Vol] 3.4 mmol/L Low 3.5 - 5.3 mmol/L [facility] Remisol Protein [Mass/Vol] 7.7 g/dL Normal 6.0 - 7.8 gm/dL [facility] Remisol Sodium [Moles/Vol] 136 mmol/L Normal 135 - 145 mmol/L [facility] Remisol Urea nitrogen [Mass/Vol] 10 mg/dL Normal 5 - 21 mg/dL [facility] Remisol Urea nitrogen/Creatinine [Mass ratio] 10 mg/mg Normal 10 - 20 [facility] Remisol HEMATOLOGYOrdered By: SYSTEM SYSTEM on 01-31-2023 Basophils/100 WBC (Bld) 0.4 % Normal 0.0 - 2.0 % [facility] HemeAutoSS Basophils/Leukocytes Auto (Bld) [Pure # fraction] 0.0 E9/L Normal 0.0 - 0.2 E9/L [facility]Auto[facility] Eosinophils/100 WBC (Bld) 6.0 % Normal 0.0 - 8.0 % [facility]eAutoSS Eosinophils/Leukocytes Auto (Bld) [Pure # fraction] 0.4 E9/L Normal 0.0 - 0.5 E9/L [facility]eAutoSS Lymphocytes/100 WBC (Bld) 39.3 % Normal 14.0 - 50.0 % [facility]eAutoSS Lymphocytes/Leukocytes Auto (Bld) [Pure # fraction] 2.4 E9/L Normal 1.0 - 4.0 E9/L [facility]eAuto[facility] Monocytes/100 WBC (Bld) 7.5 % Normal 4.0 - 14.0 % [facility]eAutoSS Monocytes/Leukocytes Auto (Bld) [Pure # fraction] 0.5 E9/L Normal 0.2 - 1.0 E9/L [facility]eAutoSS Neutrophils/100 WBC (Bld) 46.8 % Normal 36.0 - 75.0 % [facility]eAutoSS Neutrophils/Leukocytes Auto (Bld) [Pure # fraction] 2.8 E9/L Normal 2.0 - 7.5 E9/L [facility]eAutoSS HEMATOLOGYOrdered By: Osiel Gupta on 01-31-2023 Erythrocyte distribution width (RBC) [Ratio] 13.4 % Normal 10.9 - 14.2 % [facility]eAutoSS Hematocrit (Bld) [Volume fraction] 40.7 % Normal 34.0 - 46.0 % [facility]eAutoSS Hemoglobin (Bld) [Mass/Vol] 13.3 g/dL Normal 12.0 - 16.0 gm/dL [facility]eAuto[facility] MCH (RBC) [Entitic mass] 28.1 pg Normal 27.0 - 34.0 pg [facility] MCHC (RBC) [Mass/Vol] 32.7 g/dL Normal 31.4 - 36.0 gm/dL [facility]eAutoSS MCV (RBC) [Entitic vol] 85.8 fL Normal 80.0 - 100.0 fL [facility]Auto[facility] Platelet mean volume (Bld) [Entitic vol] 9.0 fL Normal 6.4 - 10.8 fL [facility]eAutoSS Platelets (Bld) [#/Vol] 281.0 E9/L Normal 150. 0 - 500.0 E9/L [facility]eAutoSS RBC (Bld) [#/Vol] 4.7 E12/L Normal 4.3 - 5.9 E12/L [facility]eAutoSS WBC corrected for nucl RBC Auto (Bld) [#/Vol] 6.0 E9/L Normal 4.0 - 11.0 E9/L [facility] HemeAutoSS Initial Visit (Otolaryngolog y)on 01-04-2023 Initial Visit (Otolaryngology) Diagnoses/Problems Otalgia of left ear (388.70) (H92.02) Dysfunction of left eustachian tube (381.81) (H69.82) Chronic neck pain (723.1,338.29) (M54.2,G89.29) Provider Impressions RECOMMENDATIONS/PLAN : I reassured the patient that her ears appear fairly normal today however she probably has mild eustachian tube dysfunction. I want her to continue Nasonex nasal spray?2 puffs each nostril daily. I want her to touch base with her chiropractor and or neurologist as I believe she is having some referred pain from her neck to that left ear. All of her concerns were addressed today. This electronic medical record note was created with the use of voice recognition software. Despite proofreading, typographical or grammatical errors may be present that could affect meaning of content Chief Complaint Chronic ear pain, occasional pressure in the ears, history of neck problems with headache History of Present IllnessThis is a pleasant 27-year-old female who presents to the office today complaining of intermittent pain, worse in the left ear. She oftentimes complains of pressure. She has been using Nasonex nasal spray as directed however she has also been diagnosed with previous middle ear infections. She denies any drainage from the ears or any other neurologic complaints. She denies grinding her teeth or any history of TMJ problems. She does have chronic neck problems with headache and she has seen a chiropractor and neurologist. I did review her previous audiogram and back in August 2022 it did appear that she may have had some fluid in the left middle ear space. Review of Systems A detailed 12 system review of systems is noted on the intake form has been reviewed with the patient with details noted in the HPI and scanned into the patient's medical record Allergies hydrochlorothiazide Recorded By: Shawna Hayes; 01/04/2023 11:28:35 AM Norvasc Recorded By: Shawna Hayes; 01/04/2023 11:28:35 AM Penicillins Recorded By: Shawna Hayes; 01/04/2023 11:28:35 AM sulfa Recorded By: Shawna Hayes; 01/04/2023 11:28:35 AM Vitals Vital Signs Recorded: 04Jan2023 11:22AM Khcbasecusr11 F Heart Rate84 Tqjstcvw840 Ellivklah04 Xjlafs091 lb 3.2 oz Tobacco Usea) Yes PHQ-2 #1. Over the last 2 weeks have you felt down, depressed or hopeless? (If yes, answer PHQ-9 below)No PHQ-2 #2. Over the last 2 weeks have you felt little interest or pleasure in doing things? (If yes, answer PHQ-9 below)No Falls Screening (Age 18+)a) No falls within the last year O2 Hpqxkeouly32 Physical Exam Right ear?external canal is patent. Tympanic membrane intact with good mobility. No effusion. Mastoid nontender. Left ear?external canal is patent. Tympanic membrane intact with good mobility. No effusion. Mastoid nontender. Nose?septum is straight. Turbinates moderately swollen. No pus polyps or lesions. Oral cavity?clear, no postnasal drip, tonsils +2 no exudates. Neck?supple no adenopathy 'Scores and Scales' Signatures Electronically signed by : J Luis Mckeon DO; Jan 04 2023 11:32AM EST (Author) Normal [employer] Tobacco Screening.on 023 Adult depression screening assessment No [facility] 240 DO Work Phone: Fall risk assessment a) No falls within the last year [facility]tolaryngo [facility] 240 DO Work Phone: Tobacco use status CPHS a) Yes M P-Otolaryngo [facility] 240 DO Work Phone: PAP ACOG PANEL 2: 21 to 29on 01-02-2023 . . Normal [facility] Comment on above: Performed By: #### [id number] #### [facility] [address] [place] [address] Dr. Sienna Noble Age Gdln ACOG Testing - [facility] Comment on above: Performed By: #### [id number] #### [facility] [address] [place] [address] Dr. Sienna Noble DIAGNOSIS: Comment [facility] Comment on above: Result Comment: NEGA TIVE FOR INTRAEPITHELIAL LESION OR MALIGNANCY. Performed By: #### [id number] #### [facility] [address] [place] [address] Dr. Sienna Noble Methodology: Comment [facility] Comment on above: Result Comment: This liquid based ThinPrep(R) pap test was screened with the use of an image guided system. Performed By: #### [id number] #### [facility] [address] [place] [address] Dr. Sienna Noble Note: Comment [facility] Comment on above: Result Comment: The Pap smear is a screening test designed to aid in the detection of premalignant and malignant conditions of the uterine cervix. It is not a diagnostic procedure and should not be used as the sole means of detecting cervical cancer. Both false-positive and false-negative reports do occur. . Performed By: #### [id number] #### [facility] [address] [place] [address] Dr. Sienna Noble Performed by: Comment [facility] Comment on above: Result Comment: Delfino Corley Plaster Tender (ASCP) Performed By: #### [id number] #### [facility] [address] [address] [address] Sienna Noble Reflex Criteria: Comment Normal [facility] Comment on above: Result Comment: The HPV DNA reflex criteria were not met with this specimen result therefore, no HPV testing was performed. . Performed By: #### [id number] #### [facility] [address] [address] [address] Sienna Noble Specimen adequacy: Comment Normal [facility] Comment on above: Result Comment: Sati sfactory for evaluation. Endocervical and/or squamous metaplastic cells (endocervical component) are present. Performed By: #### [id number] #### [facility] [address] [address] [address] Sienna Noble CHEMISTRYOrdered By: Lab ROP User on 12-13-2022 Glucose [Mass/Vol] 91 mg/dL Normal 55 - 99 mg/dL [facility] POC Subsection POC Device SN [id number] Invalid Interpretation Code [facility] POC Subsection POC User ID [id number] Invalid Interpretation Code [facility] POC Subsection POC Username LOUISE SALINAS Invalid Interpretation Code [facility] POC Subsection SEROLOGYOrdered By: Kassidy Mack on 12-13-2022 HCG.beta subunit (U) [Moles/Vol] Negative Normal [facility] Man Sero SEROLOGYOrdered By: Galo Gupta on 11-22-2022 HCG.beta subunit (U) [Moles/Vol] Negative Normal [facility] Man Sero CHEMISTRYOrdered By: SYSTEM SYSTEM on 11-09-2022 Albumin [Mass/Vol] 4.3 g/dL Normal 3.3 - 5.0 gm/dL [facility] Remisol Albumin/Globulin [Mass ratio] 1.3 {ratio} Normal 1.1 - 2.2 [facility] Remisol ALP [Catalytic activity/Vol] 65 [iU]/d Normal 21 - 98 Int._Unit/ L [facility] Remisol ALT No additional P-5'-P [Catalytic activity/Vol] 119 [iU]/d High 6 - 46 Int._Unit/ L [facility] Remisol Anion gap [Moles/Vol] 14 mmol/L Normal 6 - 16 mEq/L [facility] AST [Catalytic activity/Vol] 86 [iU]/d High 5 - 43 Int._Unit/ L [facility] Bilirubin [Mass/Vol] 1.3 mg/dL High 0.0 - 1 .1 mg/dL [facility] Rem[facility] Bilirubin.direct [Mass/Vol] 0.2 mg/dL Normal 0.1 - 0.4 mg/dL [facility]isol Bilirubin.indirect [Mass or moles/Vol] 1.1 mg/dL High 0.1 - 0.9 mg/dL [facility] Calcium [Mass/Vol] 9.6 mg/dL Normal 8.9 - 11. 1 mg/dL [facility] Chloride [Moles/Vol] 103 mmol/L Normal 101 - 1 11 mmol/L [facility] CO2 [Moles/Vol] 22 mmol/L Normal 21 - 31 mmol/L [facility] Creatinine [Mass/Vol] 0.7 mg/dL Normal 0.5 - 1.3 mg/dL [facility] GFR/1.73 sq M.predicted among blacks MDRD (S/P/Bld) [Vol rate/Area] mL/min/1.73 m2 Normal >=59mL/min /1.73 m2 [facility] Chem S GFR/1.73 sq M.predicted among non-blacks MDRD (S/P/Bld) [Vol rate/Area] mL/min/1.73 m2 Normal >=59mL/min /1.73 m2 [facility] Chem S Globulin (S) [Mass/Vol] 3.3 g/dL Normal 1.4 - 4.0 gm/dL [facility] Glucose [Mass/Vol] 82 mg/dL Normal 55 - 199 mg/dL [facility] Lipase [Catalytic activity/Vol] 31 U/L Normal 13 - 58 unit/L [facility] Potassium [Moles/Vol] 3.7 mmol/L Normal 3.5 - 5.3 mmol/L [facility] Protein [Mass/Vol] 7.6 g/dL Normal 6.0 - 7.8 gm/dL [facility] Sodium [Moles/Vol] 135 mmol/L Normal 135 - 145 mmol/L [facility] Troponin I.cardiac [Mass/Vol] pg/mL Low 10.10 - 27.10 pg/mL [facility] Urea nitrogen [Mass/Vol] 10 mg/dL Normal 5 - 21 mg/dL [facility] Urea nitrogen/Creatinine [Mass ratio] 14 mg/mg Normal 10 - 20 [facility] CHEMISTRYOrdered By: Anita Be on 11-09-2022 Natriuretic peptide B (Bld) [Mass/Vol] pg/mL Normal 5 - 80 pg/mL [facility] HemeManSS HEMATOLOGYOrdered By: SYSTEM SYSTEM on 11-09-2022 Basophils/100 WBC (Bld) 1.3 % Normal 0.0 - 2.0 % [facility]eAutoSS Basophils/Leukocytes Auto (Bld) [Pure # fraction] 0.1 E9/L Normal 0.0 - 0.2 E9/L [facility] Eosinophils/100 WBC (Bld) 5.4 % Normal 0.0 - 8.0 % [facility] Eosinophils/Leukocytes Auto (Bld) [Pure # fraction] 0.3 E9/L Normal 0.0 - 0.5 E9/L [facility] Lymphocytes/100 WBC (Bld) 35.1 % Normal 14.0 - 50.0 % [facility]eAuto[facility] Lymphocytes/Leukocytes Auto (Bld) [Pure # fraction] 2.0 E9/L Normal 1.0 - 4.0 E9/L [facility] Monocytes/100 WBC (Bld) 11.5 % Normal 4.0 - 14.0 % [facility] Monocytes/Leukocytes Auto (Bld) [Pure # fraction] 0.7 E9/L Normal 0.2 - 1.0 E9/L [facility] Neutrophils/100 WBC (Bld) 46.7 % Normal 36.0 - 75.0 % [facility] Neutrophils/Leukocytes Auto (Bld) [Pure # fraction] 2.7 E9/L Normal 2.0 - 7.5 E9/L [facility]eAutoSS HEMATOLOGYOrdered By: Julissa Be on 11-09-2022 Erythrocyte distribution width (RBC) [Ratio] 12.8 % Normal 10.9 - 14.2 % [facility] HemeAutoSS Hematocrit (Bld) [Volume fraction] 43.3 % Normal 34.0 - 46.0 % [facility]eAutoSS Hemoglobin (Bld) [Mass/Vol] 14.5 g/dL Normal 12.0 - 16.0 gm/dL [facility] MCH (RBC) [Entitic mass] 28.7 pg Normal 27.0 - 34.0 pg [facility] MCHC (RBC) [Mass/Vol] 33.6 g/dL Normal 31.4 - 36.0 gm/dL [facility] MCV (RBC) [Entitic vol] 85.3 fL Normal 80.0 - 100.0 fL [facility] Platelet mean volume (Bld) [Entitic vol] 9.0 fL Normal 6.4 - 10.8 fL [facility] Platelets (Bld) [#/Vol] 274.0 E9/L Normal 150. 0 - 500.0 E9/L [facility] RBC (Bld) [#/Vol] 5.1 E12/L Normal 4.3 - 5.9 E12/L [facility] WBC corrected for nucl RBC Auto (Bld) [#/Vol] 5.7 E9/L Normal 4.0 - 11.0 E9/L [facility] MICRO OTHER TESTSOrdered By: Serenity Dolan on 11-09-2022 Influenzae A Ag Negative (11/09/22 10:18 AM) Normal Negative [facility] Man Sero Influenzae B Ag Negative (11/09/22 10:18 AM) Normal Negative [facility] Rapid COV Int NEG Ctl Pass (11/09/22 10:18 AM) Normal [facility] Sero Rapid COV Int POS Ctl Pass (11/09/22 10:18 AM) Normal [facility]ero SARS-CoV+SARS-CoV-2 (COVID-19) Ag IA.rapid Ql (Resp) Not Detected (11/09/22 10:18 AM) Normal Not Detected [facility] Man Sero SEROLOGYOrdered By: Serenity winslow on 11-09-2022 Beta hCG Ql Negative (11/09/22 10:08 AM) Normal [facility]ero CHLAMYDIA/GONOCOCCUS ALLEN (SW AB/URINE/PAPon 11-06-2022 Chlamydia trachomatis, ALLEN Negative Normal Negative [facility] Comment on above: Performed By: #### C T/NGNA #### [facility] [address] [place] [address] Dr. Sienna Noble Neisseria gonorrhoeae, ALLEN Negative Normal Negative [facility] Comment on above: Performed By: #### C T/NGNA #### [facility] [address] [address] [address] Sienna Noble VAGINITIS/VAGINOSIS DNA PROB Gabriel 11-04-2022 Patricia species Negative Normal Negative [facility] Comment on above: Performed By: #### V AGINT #### [facility] [address] [address] [address] Sienna Noble Gardnerella vaginalis Negative Normal Negative [facility] Comment on above: Performed By: #### V AGINT #### [facility] [address] [address] [address] Sienna Noble Trichomonas vaginalis Negative Normal Negative [facility] Comment on above: Performed By: #### V AGINT #### [facility] [address] [place] [address] Dr. Sienna Noble CHEMISTRYOrdered By: SYSTEM SYSTEM on 10-23-2022 Creatinine [Mass/Vol] 0.8 mg/dL Normal 0.5 - 1.3 mg/dL [facility] Remisol GFR/1.73 sq M.predicted among blacks MDRD (S/P/Bld) [Vol rate/Area] mL/min/1.73 m2 Normal >=59mL/min /1.73 m2 [facility] Chem S GFR/1.73 sq M.predicted among non-blacks MDRD (S/P/Bld) [Vol rate/Area] mL/min/1.73 m2 Normal >=59mL/min /1.73 m2 [facility] Chem S Urea nitrogen [Mass/Vol] 14 mg/dL Normal 5 - 21 mg/dL [facility] Remisol HEMATOLOGYOrdered By: SYSTEM SYSTEM on 10-23-2022 Basophils/100 WBC (Bld) 0.8 % Normal 0.0 - 2.0 % [facility] Basophils/Leukocytes Auto (Bld) [Pure # fraction] 0.1 E9/L Normal 0.0 - 0.2 E9/L [facility] Eosinophils/100 WBC (Bld) 2.8 % Normal 0.0 - 8.0 % [facility] Eosinophils/Leukocytes Auto (Bld) [Pure # fraction] 0.2 E9/L Normal 0.0 - 0.5 E9/L [facility] Lymphocytes/100 WBC (Bld) 28.2 % Normal 14.0 - 50.0 % [facility] Lymphocytes/Leukocytes Auto (Bld) [Pure # fraction] 1.9 E9/L Normal 1.0 - 4.0 E9/L [facility] Monocytes/100 WBC (Bld) 8.3 % Normal 4.0 - 14.0 % [facility] Monocytes/Leukocytes Auto (Bld) [Pure # fraction] 0.6 E9/L Normal 0.2 - 1.0 E9/L [facility] Neutrophils/100 WBC (Bld) 59.9 % Normal 36.0 - 75.0 % [facility] Neutrophils/Leukocytes Auto (Bld) [Pure # fraction] 4.1 E9/L Normal 2.0 - 7.5 E9/L [facility] HEMATOLOGYOrdered By: Rosa Isela Alba on 10-23-2022 Erythrocyte distribution width (RBC) [Ratio] 12.9 % Normal 10.9 - 14.2 % [facility] Hematocrit (Bld) [Volume fraction] 41.3 % Normal 34.0 - 46.0 % [facility] Hemoglobin (Bld) [Mass/Vol] 13.6 g/dL Normal 12.0 - 16.0 gm/dL [facility] MCH (RBC) [Entitic mass] 28.6 pg Normal 27.0 - 34.0 pg [facility] MCHC (RBC) [Mass/Vol] 32.9 g/dL Normal 31.4 - 36.0 gm/dL [facility] MCV (RBC) [Entitic vol] 86.7 fL Normal 80.0 - 100.0 fL [facility] Platelet mean volume (Bld) [Entitic vol] 9.0 fL Normal 6.4 - 10.8 fL [facility] Platelets (Bld) [#/Vol] 288.0 E9/L Normal 150. 0 - 500.0 E9/L [facility] RBC (Bld) [#/Vol] 4.8 E12/L Normal 4.3 - 5.9 E12/L [facility] WBC corrected for nucl RBC Auto (Bld) [#/Vol] 6.8 E9/L Normal 4.0 - 11.0 E9/L [facility]eAutoSS DHEA SERUMon 04-13-2022 Dehydroepiandrosterone (DHEA) 467 ng/dL Normal 31-701 [facility] Comment on above: Result Comment: Age 1 - 5 years 0 - 67 6 - 7 years 0 - 110 8 - 10 years 0 - 185 11 - 12 years 0 - 201 13 - 14 years 0 - 318 15 - 16 years 39 - 481 17 - 19 years 40 - 491 >19 years 31 - 701 Performed By: #### D GISELA. #### [facility] [address] [place] [address] Dr. Sienna Noble DHEA-SULFATEon 04-11-2022 DHEA-Sulfate 288.0 ug/dL Normal 84.8-378.0 [facility] Comment on above: Performed By: #### C T/NGNA #### [facility] [address] [place] [address] Dr. Sienna Noble FSHon 04-11-2022 FSH 5.7 mIU/mL Normal [facility] Comment on above: Result Comment: Adul t Female: Follicular phase 3.5 - 12.5 Ovulation phase 4.7 - 21.5 Luteal phase 1.7 - 7.7 Postmenopausal 25.8 - 134.8 Performed By: #### L BCFORMERLY [facility] #### [facility] [address] [place] [address] Dr. Sienna Noble LUTEINIZING HORMONE (LH)on 0 04-11-2022 LH 11.9 mIU/mL Normal [facility] Comment on above: Result Comment: Adul t Female: Follicular phase 2.4 - 12.6 Ovulation phase 14.0 - 95.6 Luteal phase 1.0 - 11.4 Postmenopausal 7.7 - 58.5 Performed By: #### C T/NGNA #### [facility] [address] [place] [address] Dr. Sienna Noble CBC AUTO DIFFon 04-10-2022 BASO # 0.0 103/ul Normal 0.0-0.1 [facility] Comment on above: Performed By: #### C BC #### [facility] [address] [address] [address] Sienna Noble Basophils/100 WBC (Bld) 0.6 % Normal 0.2-2.0 [facility] Comment on above: Performed By: #### C BC #### [facility] [address] [address] [address] Sienna Noble EO # 0.2 103/ul Normal 0.0-0.7 [facility] Comment on above: Performed By: #### C BC #### [facility] [address] [address] [address] Sienna Noble Eosinophils/100 WBC (Bld) 2.7 % Normal 0.9-7.0 [facility] Comment on above: Performed By: #### C BC #### [facility] [address] [place] [address] Dr. Sienna Noble Erythrocyte distribution width (RBC) [Ratio] 12.0 % Normal 11.0-15.0 [facility] Comment on above: Performed By: #### C BC #### [facility] [address] [place] [address] Dr. Sienna Noble Hematocrit (Bld) [Volume fraction] 41.1 % Normal 36.0-48.0 [facility] Comment on above: Performed By: #### C BC #### [facility] [address] [place] [address] Dr. Sienna Noble Hemoglobin (Bld) [Mass/Vol] 13.6 g/dL Normal 12.0-16.0 [facility] Comment on above: Performed By: #### C BC #### [facility] [address] [place] [address] Dr. Sienna Noble IG # 0.05 10e3/ul Critically high 0.00-0.03 [facility] Comment on above: Performed By: #### C BC #### [facility] [address] [address] [address] Sienna Noble IG % 0.8 % Critically high 0.0-0.5 [facility] Comment on above: Performed By: #### C BC #### [facility] [address] [place] [address] Dr. Sienna Noble LYMPH # 2.4 103/ul Normal 1.2-3.8 [facility] Comment on above: Performed By: #### C BC #### [facility] [address] [place] [address] Dr. Sienna Noble Lymphocytes/100 WBC (Bld) 36.1 % Normal 20.5-60.0 [facility] Comment on above: Performed By: #### C BC #### [facility] [address] [place] [address] Dr. Sienna Noble MANUAL DIFF REQ NO Normal [facility] Comment on above: Performed By: #### C BC #### [facility] [address] [place] [address] Dr. Sienna Noble MCH (RBC) [Entitic mass] 28.8 pg Normal 26.7-34.0 [facility] Comment on above: Performed By: #### C BC #### [facility] [address] [place] [address] Dr. Sienna Noble MCHC (RBC) [Mass/Vol] 33.1 g/dL Normal 29.9-35.2 [facility] Comment on above: Performed By: #### C BC #### [facility] [address] [place] [address] Dr. Sienna Noble MCV (RBC) [Entitic vol] 87.1 fL Normal 81.0-99.0 [facility] Comment on above: Performed By: #### C BC #### [facility] [address] [place] [address] Dr. Sienna Noble MONO # 0.5 103/ul Normal 0.3-0.8 [facility] Comment on above: Performed By: #### C BC #### [facility] [address] [place] [address] Dr. Sienna Noble Monocytes/100 WBC (Bld) 7.0 % Normal 1.7-12.0 [facility] Comment on above: Performed By: #### C BC #### [facility] [address] [address] [address] Sienna Noble NEUT # 3.5 103/ul Normal 1.4-6.5 [facility] Comment on above: Performed By: #### C BC #### [facility] [address] [place] [address] Dr. Sienna Noble Neutrophils/100 WBC (Bld) 52.8 % Normal 43.0-75.0 [facility] Comment on above: Performed By: #### C BC #### [facility] [address] [place] [address] Dr. Sienna Noble Platelet mean volume (Bld) [Entitic vol] 11.4 fL Normal 9.5-13.5 [facility] Comment on above: Performed By: #### C BC #### [facility] [address] [place] [address] Dr. Sienna Noble PLT 197 103/ul Normal 150-450 [facility] Comment on above: Performed By: #### C BC #### [facility] [address] [place] [address] Dr. Sienna Noble RBC 4.72 106/ul Normal 4.20-5.40 [facility] Comment on above: Performed By: #### C BC #### [facility] [address] [place] [address] Dr. Sienna Noble WBC 6.6 103/ul Normal 4.0-11.0 [facility] Comment on above: Performed By: #### C BC #### [facility] [address] [place] [address] Dr. Sienna Noble FREE T4on 04-10-2022 Free T4 [Mass/Vol] 0.79 ng/dL Normal 0.76-1.46 [facility] Comment on above: Performed By: #### F T4 #### [facility] [address] [place] [address] Dr. Sienna Noble GLYCOHEMOGLOBIN A1Con 2021 ADA RECOMMENDATION SEE BELOW Normal [facility] Comment on above: Result Comment: ADA RECOMMENDED LIMIT 4.0 - 6.0 ADA THERAPEUTIC TARGET < 7.0 ACTION SUGGESTED > 7.0 Performed By: #### C T/NGNA #### [facility] [address] [address] [address] Sienna Noble Glucose [Mass/Vol] 117 mg/dL Normal [facility] Comment on above: Performed By: #### C T/NGNA #### [facility] [address] [address] [address] Sienna Noble HbA1c (Bld) [Mass fraction] 5.7 % Normal 4.5-6.2 [facility] Comment on above: Performed By: #### C T/NGNA #### [facility] [address] [address] [address] Sienna Noble TSHon 04-10-2022 TSH 1.300 uIU/mL Normal 0.358-3.74 0 [facility] Comment on above: Performed By: #### T SH #### [facility] [address] [place] [address] Dr. Sienna Noble CHEMISTRYOrdered By: SYSTEM SYSTEM on 03-24-2022 Cholesterol [Mass/Vol] 165 mg/dL Normal 120 - 200 mg/dL [facility] Cholesterol in HDL [Mass/Vol] 28 mg/dL Invalid Interpretation Code [facility] Cholesterol in LDL [Mass/Vol] 86 mg/dL Normal <=129mg/dL [facility] Cholesterol in VLDL [Mass/Vol] 64 mg/dL High 7 - 40 mg/dL [facility] Triglyceride [Mass/Vol] 320 mg/dL High <=149mg/dL [facility] CHLAMYDIA/GONOCOCCUS ALLEN (SW AB/URINE/PAPon 02-25-2022 Chlamydia trachomatis, ALLEN Negative Normal Negative [facility] Comment on above: Performed By: #### C T/NGNA #### [facility] [address] [place] [address] Dr. Sienna Noble Neisseria gonorrhoeae, ALLEN Negative Normal Negative [facility] Comment on above: Performed By: #### C T/NGNA #### [facility] [address] [place] [address] Dr. Sienna Noble VAGINITIS/VAGINOSIS DNA PROB Gabriel 02-24-2022 Patricia species Negative Normal Negative [facility] Comment on above: Performed By: #### V AGINT #### [facility] [address] [address] [address] Sienna Noble Gardnerella vaginalis Negative Normal Negative [facility] Comment on above: Performed By: #### V AGINT #### [facility] [address] [address] [address] Sienna Noble Trichomonas vaginalis Negative Normal Negative [facility] Comment on above: Performed By: #### V AGINT #### [facility] [address] [address] [address] Sienna Noble AFP, Maternalon 12-25-2020 Determined by LMP CONF by [facility] Comment on above: Performed By: #### H OCYS, GLYHGB, CMIS, PROCAC, AT3A, LUPPRO, PROSAC #### [place] [address] Commercial Relationship Manager: Zeb Edwards MD #### AF5MUT, APTMUT, AMTHFR #### [facility] [address] [place] [address] Commercial Relationship Manager: Shiraz Patton MD Due Date SEE NOTE [facility] Comment on above: Result Comment: Resu lts for Estimated Due Date: 06 01 21 Performed By: #### H OCYS, GLYHGB, CMIS, PROCAC, AT3A, LUPPRO, PROSAC #### [facility] [employer] [address] [place] [address] Commercial Relationship Manager: Zeb Edwards MD #### AF5MUT, APTMUT, AMTHFR #### [facility] [address] [place] [address] Commercial Relationship Manager: Shiraz Patton MD Family History No Normal [facility] Comment on above: Performed By: #### H OCYS, GLYHGB, CMIS, PROCAC, AT3A, LUPPRO, PROSAC #### [address] [address] Commercial Relationship Manager: Zeb Edwards MD #### AF5MUT, APTMUT, AMTHFR #### [facility] [address] [place] [address] Commercial Relationship Manager: Shiraz Patton MD Gestat Age (exact) 16 wks, 6 days Normal [facility] Comment on above: Performed By: #### H OCYS, GLYHGB, CMIS, PROCAC, AT3A, LUPPRO, PROSAC #### [facility] [address] [place] [address] Commercial Relationship Manager: Zeb Edwards MD #### AF5MUT, APTMUT, AMTHFR #### [facility] [address] [place] [address] Commercial Relationship Manager: Shiraz Patton MD Ins Req Matern Diab No Normal [facility] Comment on above: Performed By: #### H OCYS, GLYHGB, CMIS, PROCAC, AT3A, LUPPRO, PROSAC #### [address] [address] Commercial Relationship Manager: Zeb Edwards MD #### AF5MUT, APTMUT, AMTHFR #### [facility] [address] [place] [address] Commercial Relationship Manager: Shiraz Patton MD Interpretation Screen Neg Normal [facility] Comment on above: Result Comment: (NOT E) INTERPRETATION: SCREEN NEGATIVE for open spina bifida Neural Tube Defects (NTD) Negative Pre-Test Post-Test Cutoff Neural Tube Defects Risks 1:1030 1:694 1:250 Comments: The risk of an open neural tube defect is less than the screening cut-off. Information provided an invalid EDC of 11-24-20 and an LMP of 08-25-20. We have used the LMP to calculate the gestational age for this report. If this is not correct, please contact the laboratory for an amended report. This test was developed and its performance characteristics determined by [facility]. It has not been cleared or approved by the [place] Food and Drug Administration. This test was performed in a CLIA certified laboratory and is intended for clinical purposes. Performed By: #### H OCYS, GLYHGB, CMIS, PROCAC, AT3A, LUPPRO, PROSAC #### [facility] [address] [place] [address] Commercial Relationship Manager: Zeb Edwards MD #### AF5MUT, APTMUT, AMTHFR #### [facility] [address], [place] [phone] Commercial Relationship Manager: Shiraz Patton MD [age] [facility] Comment on above: Performed By: #### H OCYS, GLYHGB, CMIS, PROCAC, AT3A, LUPPRO, PROSAC #### [facility] [address] [place] [address] Commercial Relationship Manager: Zeb Edwards MD #### AF5MUT, APTMUT, AMTHFR #### [facility] [address] [place] [phone] Commercial Relationship Manager: Shiraz Patton MD Maternal Race Nonblack [facility] Comment on above: Performed By: #### H OCYS, GLYHGB, CMIS, PROCAC, AT3A, LUPPRO, PROSAC #### [facility] [address] [place] [phone] Commercial Relationship Manager: Zeb Edwards MD #### AF5MUT, APTMUT, AMTHFR #### [facility] [address] [place] [address] Commercial Relationship Manager: Shiraz Patton MD Maternal Weight 273.0 lbs. [facility] Comment on above: Performed By: #### H OCYS, GLYHGB, CMIS, PROCAC, AT3A, LUPPRO, PROSAC #### [facility] [address] [place] [phone] Commercial Relationship Manager: Zeb Edwards MD #### AF5MUT, APTMUT, AMTHFR #### [facility] [address], [place] [phone] Commercial Relationship Manager: Shiraz Patton MD MoM for AFP 2.05 [facility] Comment on above: Performed By: #### H OCYS, GLYHGB, CMIS, PROCAC, AT3A, LUPPRO, PROSAC #### [facility] [address] [place] [address] Commercial Relationship Manager: Zeb Edwards MD #### AF5MUT, APTMUT, AMTHFR #### [facility] [address], [place] [id number] Commercial Relationship Manager: Shiraz Patton MD Number of Fetuses Silvestre Normal [facility] Comment on above: Performed By: #### H OCYS, GLYHGB, CMIS, PROCAC, AT3A, LUPPRO, PROSAC #### [address] [address] Commercial Relationship Manager: Zeb Edwards MD #### AF5MUT, APTMUT, AMTHFR #### [facility] [address], [place] [phone] Commercial Relationship Manager: Shiraz Patton MD Patient's AFP 50 ng/mL Normal [facility] Comment on above: Performed By: #### H OCYS, GLYHGB, CMIS, PROCAC, AT3A, LUPPRO, PROSAC #### [facility] [address] [place] [address] Commercial Relationship Manager: Zeb Edwards MD #### AF5MUT, APTMUT, AMTHFR #### [facility] [address], [place] [phone] Commercial Relationship Manager: Shiraz Patton MD Smoking Unknown Normal [facility] Comment on above: Performed By: #### H OCYS, GLYHGB, CMIS, PROCAC, AT3A, LUPPRO, PROSAC #### [address] [address] Commercial Relationship Manager: Zeb Edwards MD #### AF5MUT, APTMUT, AMTHFR #### [facility] [address], [place] [phone] Commercial Relationship Manager: Shiraz Patton MD Specimen See Note [facility] Comment on above: Result Comment: (NOT E) Initial sample Performed by [facility], [address] [place] [phone] [email or web address], Gaby Calvin MD, Lab. Director Performed By: #### H OCYS, GLYHGB, CMIS, PROCAC, AT3A, LUPPRO, PROSAC #### [address] [address] Commercial Relationship Manager: Zeb Edwards MD #### AF5MUT, APTMUT, AMTHFR #### [facility] [address] [phone] Commercial Relationship Manager: Shiraz Patton MD [facility], Maternalon 12-22-2020 Current Smoking INFORMATION NOT PROVIDED [facility] Comment on above: Performed By: #### H OCYS, GLYHGB, CMIS, PROCAC, AT3A, LUPPRO, PROSAC #### [address] [address] Commercial Relationship Manager: Zeb Edwards MD #### AF5MUT, APTMUT, AMTHFR #### [facility] [address] [place] [phone] Commercial Relationship Manager: Shiraz Patton MD [facility] Comment on above: Performed By: #### H OCYS, GLYHGB, CMIS, PROCAC, AT3A, LUPPRO, PROSAC #### [address] [address] Commercial Relationship Manager: Zeb Edwards MD #### AF5MUT, APTMUT, AMTHFR #### [facility] [address] [place] [address] Commercial Relationship Manager: Shiraz Patton MD Diabetic Negative [facility] Comment on above: Performed By: #### H OCYS, GLYHGB, CMIS, PROCAC, AT3A, LUPPRO, PROSAC #### [facility] [address] [place] [address] Commercial Relationship Manager: Zeb Edwards MD #### AF5MUT, APTMUT, AMTHFR #### [facility] [address] [place] [address] Commercial Relationship Manager: Shiraz Patton MD Donor Egg INFORMATION NOT PROVIDED [facility] Comment on above: Performed By: #### H OCYS, GLYHGB, CMIS, PROCAC, AT3A, LUPPRO, PROSAC #### [address] [address] Commercial Relationship Manager: Zeb Edwards MD #### AF5MUT, APTMUT, AMTHFR #### [facility] [address], [place] [phone] Commercial Relationship Manager: Shiraz Patton MD Estimated Due Date [id number] [facility] Comment on above: Performed By: #### H OCYS, GLYHGB, CMIS, PROCAC, AT3A, LUPPRO, PROSAC #### [facility] [address] [place] [address] Commercial Relationship Manager: Zeb Edwards MD #### AF5MUT, APTMUT, AMTHFR #### [facility] [address], [place] [phone] Commercial Relationship Manager: Shiraz Patton MD Family History Negative [facility] Comment on above: Performed By: #### H OCYS, GLYHGB, CMIS, PROCAC, AT3A, LUPPRO, PROSAC #### [facility] [address] [place] [address] Commercial Relationship Manager: Zeb Edwards MD #### AF5MUT, APTMUT, AMTHFR #### [facility] [address] [place] [address] Commercial Relationship Manager: Shiraz Patton MD In Vitro Fertalizat INFORMATION NOT PROVIDED [facility] Comment on above: Performed By: #### H OCYS, GLYHGB, CMIS, PROCAC, AT3A, LUPPRO, PROSAC #### [facility] [address] [place] [address] Commercial Relationship Manager: Zeb Edwards MD #### AF5MUT, APTMUT, AMTHFR #### [facility] [address], [place] [phone] Commercial Relationship Manager: Shiraz Patton MD LMP date [facility] Comment on above: Performed By: #### H OCYS, GLYHGB, CMIS, PROCAC, AT3A, LUPPRO, PROSAC #### [facility] [address] [place] [address] Commercial Relationship Manager: Zeb Edwards MD #### AF5MUT, APTMUT, AMTHFR #### [facility] [address], [place] [phone] Commercial Relationship Manager: Shiraz Patton MD Maternal date [facility] Comment on above: Performed By: #### H OCYS, GLYHGB, CMIS, PROCAC, AT3A, LUPPRO, PROSAC #### [facility] [address] [place] [address] Commercial Relationship Manager: Zeb Edwards MD #### AF5MUT, APTMUT, AMTHFR #### [facility] [address] [place] [address] Commercial Relationship Manager: Shiraz Patton MD Maternal Weight 273 [facility] Comment on above: Performed By: #### H OCYS, GLYHGB, CMIS, PROCAC, AT3A, LUPPRO, PROSAC #### [facility] [address] [place] [address] Commercial Relationship Manager: Zeb Edwards MD #### AF5MUT, APTMUT, AMTHFR #### [facility] [address] [place] [address] Commercial Relationship Manager: Shiraz Patton MD Monochorionic Twins INFORMATION NOT PROVIDED [facility] Comment on above: Performed By: #### H OCYS, GLYHGB, CMIS, PROCAC, AT3A, LUPPRO, PROSAC #### [address] [address] Commercial Relationship Manager: Zeb Edwards MD #### AF5MUT, APTMUT, AMTHFR #### [facility] [address] [place] [address] Commercial Relationship Manager: Shiraz Patton MD Patient Weight Units [facility] Comment on above: Performed By: #### H OCYS, GLYHGB, CMIS, PROCAC, AT3A, LUPPRO, PROSAC #### [address] [address] Commercial Relationship Manager: Zeb Edwards MD #### AF5MUT, APTMUT, AMTHFR #### [facility] [address], [place] [id number] Commercial Relationship Manager: Shiraz Patton MD Race (Maternal) WHITE [facility] Comment on above: Performed By: #### H OCYS, GLYHGB, CMIS, PROCAC, AT3A, LUPPRO, PROSAC #### [address] [address] Commercial Relationship Manager: Zeb Edwards MD #### AF5MUT, APTMUT, AMTHFR #### [facility] [address] [place] [address] Commercial Relationship Manager: Shiraz Patton MD Repeat Specimen INFORMATION NOT PROVIDED Normal [facility] Comment on above: Performed By: #### H OCYS, GLYHGB, CMIS, PROCAC, AT3A, LUPPRO, PROSAC #### [address] [address] Commercial Relationship Manager: Zeb Edwards MD #### AF5MUT, APTMUT, AMTHFR #### [facility] [address] [place] [address] Commercial Relationship Manager: Shiraz Patton MD Valproic/Carbamazep INFORMATION NOT PROVIDED Normal [facility] Comment on above: Performed By: #### H OCYS, GLYHGB, CMIS, PROCAC, AT3A, LUPPRO, PROSAC #### [address] [address] Commercial Relationship Manager: Zeb Edwards MD #### AF5MUT, APTMUT, AMTHFR #### [facility] [address] [place] [address] Commercial Relationship Manager: Shiraz Patton MD MTHFR Gene Mutationon 2020 MTHFR 1286 A>C Mut Heterozygous Normal [facility] [facility] Comment on above: Performed By: #### H OCYS, GLYHGB, CMIS, PROCAC, AT3A, LUPPRO, PROSAC #### [address] [address] Commercial Relationship Manager: Zeb Edwards MD #### AF5MUT, APTMUT, AMTHFR #### [facility] [address] [place] [address] Commercial Relationship Manager: Shiraz Patton MD MTHFR 655C>T Mut Negative Normal [facility] Comment on above: Performed By: #### H OCYS, GLYHGB, CMIS, PROCAC, AT3A, LUPPRO, PROSAC #### [address] [address] Commercial Relationship Manager: Zeb Edwards MD #### AF5MUT, APTMUT, AMTHFR #### [facility] [address] [place] [address] Commercial Relationship Manager: Shiraz Patton MD MTHFR Interpretation See Note Normal [facility] Comment on above: Result Comment: (NOT E) Indication for testing: Determine genetic contribution to hyperhomocysteinemia. Heterozygous MTHFR c.1286A>C: One copy of the MTHFR gene variant c.1286A>C (previously designated C9638W) was detected; the c.665C>T (previously designated C677T) variant was not detected. This common variant is present in 15 percent of Americans and 31 percent of Caucasians. Although MTHFR enzyme levels may be mildly reduced, this genotype is not predicted to have clinical significance. This result has been reviewed and approved by Beatriz Dobbs M.D., Ph.D. Background Information: Methylenetetrahydrofolate Reductase (MTHFR) 2 Variants Characteristics: Variants in the MTHFR gene may reduce enzyme activity contributing to hyperhomocysteinemia. Although hyperhomocysteinemia was previously reported to be a risk factor for many conditions, especially venous thrombosis and cardiovascular disease, recent meta-analysis casts doubt on whether lifelong moderate homocysteine elevation has an effect on cardiovascular disease. The [employer] Practice Guidelines indicate that individuals with elevated homocysteine and two copies of the c.665C>T variant have an odds ratio of 1.27 for venous thromboembolism. Thus, they recommend MTHFR genotyping not be ordered as part of a routine evaluation for recurrent loss or thromobophilia due to questionable clinical significance. Incidence: The allele frequency of the c.665C>T variant is 0.35 in Caucasians, 0.5 in Hispanics, and 0.12 in Americans. Inheritance: Autosomal recessive; two copies of the c.665C>T variant may be a contributing factor to hyperhomocysteinemia. Variants Tested: c.665C>T(p.Jxp871Vag) and c.1286A>C(p.Ysx883Nfi). (legacy names C677T and S3514Y, respectively). Clinical Sensitivity: Undefined; hyperhomocysteinemia is caused by genetic, physiologic and environmental factors. MTHFR variants are only one contributing factor. Methodology: Polymerase chain reaction (PCR) and fluorescence monitoring. Analytical Sensitivity AND Specificity: 99 percent. Limitations: Only two MTHFR gene variants (c.665C>T and c.1286A>C) are tested. Diagnostic errors can occur due to rare sequence variations. This test was developed and its performance characteristics determined by [facility]. It has not been cleared or approved by the [place] Food and Drug Administration. This test was performed in a CLIA certified laboratory and is intended for clinical purposes. Counseling and informed consent are recommended for genetic testing. Consent forms are available online. Performed by [facility], [address] [place] [id number] [email or web address], Gaby Calvin MD, Lab. Director Performed By: #### H OCYS, GLYHGB, CMIS, PROCAC, AT3A, LUPPRO, PROSAC #### [address] [id number] Commercial Relationship Manager: Zeb Edwards MD #### AF5MUT, APTMUT, AMTHFR #### [address] [address] Commercial Relationship Manager: Shiraz Patton MD MTHFR SPECIMEN Whole Blood Normal [facility] Comment on above: Performed By: #### H OCYS, GLYHGB, CMIS, PROCAC, AT3A, LUPPRO, PROSAC #### [address] [address] Commercial Relationship Manager: Zeb Edwards MD #### AF5MUT, APTMUT, AMTHFR #### [address] [address] Commercial Relationship Manager: Shiraz Patton MD PT Mutation [id number] 12-02-19 21 PT [id number] VARIANT Negative Normal [facility] Comment on above: Result Comment: (NOT E) Indication for testing: Assess genetic risk for thrombosis. NEGATIVE: The Factor II, prothrombin A77101M mutation, was not detected. Other causes of elevated prothrombin levels and hereditary forms of venous thrombosis have not been excluded. Recommendations: If clinically indicated, testing for other inherited or acquired thrombophilic disorders is recommended including DNA testing for the factor V Leiden mutation, measurement of total plasma homocysteine concentration, serological assays for anticardiolipin antibodies, multiple phospholipid-dependent coagulation assays for lupus inhibitor, protein C activity, protein S activity or free protein S antigen, and antithrombin activity. This result has been reviewed and approved by Eros Maier, Ph.D. BACKGROUND INFORMATION: Prothrombin (F2) c.*97G>A (X57045F) Pathogenic Variant CHARACTERISTICS: The Factor II, c.*97G>A (J57655O) pathogenic variant is a common genetic risk factor for venous thrombosis associated with elevated prothrombin levels leading to increased rates of thrombin generation and excessive growth of fibrin clots. The expression of Factor II thrombophilia is impacted by coexisting genetic thrombophilic disorders, acquired thrombophilic disorders (eg, malignancy, hyperhomocysteinemia, high factor VIII levels), and circumstances including: , oral contraceptive use, hormone replacement therapy, selective estrogen receptor modulators, travel, central venous catheters, surgery, and organ transplantation. INCIDENCE: Approximately 2 percent of Caucasians and 0.3 percent of Americans are heterozygous; homozygosity occurs in 1 in 10,000 individuals. INHERITANCE: Incomplete autosomal dominant. PENETRANCE: The risk of thrombosis is increased 2-4 fold for heterozygotes and further increased for homozygotes. CAUSE: Homozygosity or heterozygosity for F2 c.*97G>A (R09196L). PATHOGENIC VARIANT TESTED: F2 c.*97G>A (S87172X). CLINICAL SENSITIVITY FOR VENOUS THROMBOSIS: Approximately 10 percent. METHODOLOGY: Polymerase chain reaction and fluorescence monitoring. ANALYTICAL SENSITIVITY AND SPECIFICITY: 99 percent. LIMITATIONS: Diagnostic errors can occur due to rare sequence variations. F2 gene variants, other than c.*97G>A (J09572U), will not be detected. This test was developed and its performance characteristics determined by [facility]. It has not been cleared or approved by the [place] Food and Drug Administration. This test was performed in a CLIA certified laboratory and is intended for clinical purposes. Counseling and informed consent are recommended for genetic testing. Consent forms are available online. Performed by [facility], [address] [place] [address] [email or web address], Gaby Calvin MD, Lab. Director Performed By: #### H OCYS, GLYHGB, CMIS, PROCAC, AT3A, LUPPRO, PROSAC #### [address] [place] [address] Commercial Relationship Manager: Zeb Edwards MD #### AF5MUT, APTMUT, AMTHFR #### [facility] [address] [place], [place] [id number] Commercial Relationship Manager: Shiraz Patton MD PT PCR SPECIMEN Whole Blood Normal [facility] Comment on above: Performed By: #### H OCYS, GLYHGB, CMIS, PROCAC, AT3A, LUPPRO, PROSAC #### [facility] [address] [place] [address] Commercial Relationship Manager: Zeb Edwards MD #### AF5MUT, APTMUT, AMTHFR #### [facility] [address] [place], [place] [id number] Commercial Relationship Manager: Shiraz Patton MD Factor V Mutationon 12-01-19 21 F 5 SPECIMEN Whole Blood Normal [facility] Comment on above: Performed By: #### H OCYS, GLYHGB, CMIS, PROCAC, AT3A, LUPPRO, PROSAC #### [facility] [address] [place] [address] Commercial Relationship Manager: Zeb Edwards MD #### AF5MUT, APTMUT, AMTHFR #### [facility] [address] [place], [place] [id number] Commercial Relationship Manager: Shiraz Patton MD FACTOR 5 MUTATION Negative Normal [facility] Comment on above: Result Comment: (NOT E) Indication for testing: Assess genetic risk for thrombosis. NEGATIVE: The factor V Leiden variant, c.1601G>A; p.Fgo588Fqy, was not detected. This does not exclude a genetic cause for thrombophilia. If this individual has had a previous venous thromboembolism, this negative result is unlikely to significantly reduce the risk for recurrence; thus, future clinical management to reduce recurrence should not be altered. This result has been reviewed and approved by Eros Maier, Ph.D. BACKGROUND INFORMATION: Factor V Leiden (F5) R506Q Mutation CHARACTERISTICS: Venous thromboembolism (VTE) is multifactorial caused by a combination of genetic and environmental factors. The Factor V Leiden (FVL) variant is the most common cause of inherited VTEs, accounting for over 90 percent of activated protein C (APC) resistance. Because the FVL variant eliminates the APC cleavage site, factor V is inactivated slower, thus persisting longer in blood circulation, leading to more thrombin production. Other genetic risk factors for VTE include, male sex and variants in antithrombin, protein C, protein S, or factor XIII. Non-genetic risk factors include, age, smoking, prolonged immobilization, malignant neoplasms, surgery, , oral contraceptives, estrogen replacement therapy, tamoxifen and raloxifene therapy. INCIDENCE OF FACTOR V LEIDEN VARIANT: Approximately 5 percent of Caucasians, 2 percent of Hispanics, 1 percent of Americans and 0.5 percent of Asians are heterozygous; homozygosity occurs in 1 in 1500 Caucasians. INHERITANCE: Semi-dominant; both heterozygotes and homozygotes are at increased risk for VTE. PENETRANCE: Lifetime risk of VTE is 10 percent for heterozygotes and 80 percent of homozygotes. 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 Legacy nomenclature: R506Q (1691G>A) CLINICAL SENSITIVITY: 20-50 percent of individuals with an isolated VTE have the FVL variant. METHODOLOGY: Polymerase chain reaction and fluorescence monitoring. ANALYTICAL SENSITIVITY AND SPECIFICITY: 99 percent. LIMITATIONS: Diagnostic errors can occur due to rare sequence variations. F5 gene mutations, other than p.Whf757Ysn, will not be detected. This test was developed and its performance characteristics determined by [facility]. It has not been cleared or approved by the [place] Food and Drug Administration. This test was performed in a CLIA certified laboratory and is intended for clinical purposes. Counseling and informed consent are recommended for genetic testing. Consent forms are available online. Performed by [facility], [address] [place] [address] [email or web address], Gaby Calvin MD, Lab. Director Performed By: #### H OCYS, GLYHGB, CMIS, PROCAC, AT3A, LUPPRO, PROSAC #### [facility] [id number] [place] [address] Commercial Relationship Manager: Zeb Edwards MD #### AF5MUT, APTMUT, AMTHFR #### [facility] [address] [place], [place] [id number] Commercial Relationship Manager: Shiraz Patton MD Antithrombin III Alba 11-25 Antithrombin III Act 96 % Normal 83-122 [facility] Comment on above: Result Comment: Patients receiving Hirudin may have a falsely decreased Antitrombin III Activity. Performed By: #### H OCYS, GLYHGB, CMIS, PROCAC, AT3A, LUPPRO, PROSAC #### [facility] [address] [place] [address] Commercial Relationship Manager: Zeb Edwards MD #### AF5MUT, APTMUT, AMTHFR #### [facility] [address] [place] [address] Commercial Relationship Manager: Shiraz Patton MD Lupus Anticoagulanton 2020 Antiphospholipid IgA 0.9 APU Normal <12 [facility] Comment on above: Result Comment: Reference Range: 12 - 15 Equivocal >15 Positive Performed By: #### H OCYS, GLYHGB, CMIS, PROCAC, AT3A, LUPPRO, PROSAC #### [facility] [address] [place] [address] Commercial Relationship Manager: Zeb Edwards MD #### AF5MUT, APTMUT, AMTHFR #### [facility] [address] [place] [address] Commercial Relationship Manager: Shiraz Patton MD Antiphospholipid IgG 9.8 GPU Normal <20 [facility] Comment on above: Result Comment: Reference Range: 20.0 - 29.9 Low Positive 30.0 - 79.9 Moderate Positive >79.9 High Positive Performed By: #### H OCYS, GLYHGB, CMIS, PROCAC, AT3A, LUPPRO, PROSAC #### [facility] [address] [place] [address] Commercial Relationship Manager: Zeb Edwards MD #### AF5MUT, APTMUT, AMTHFR #### [facility] [address] [place] [address] Commercial Relationship Manager: Shiraz Patton MD Antiphospholipid IgM 3.1 MPU Normal <20 [facility] Comment on above: Result Comment: Reference Range: 20.0 - 29.9 Low Positive 30.0 - 79.9 Moderate Positive >79.9 High Positive Performed By: #### H OCYS, GLYHGB, CMIS, PROCAC, AT3A, LUPPRO, PROSAC #### [facility] [address] [place] [address] Commercial Relationship Manager: Zeb Edwards MD #### AF5MUT, APTMUT, AMTHFR #### [facility] [address] [place] [address] Commercial Relationship Manager: Shiraz Patton MD Dilute Leonel Viper Negative Normal [facility] Comment on above: Performed By: #### H OCYS, GLYHGB, CMIS, PROCAC, AT3A, LUPPRO, PROSAC #### [address] [address] Commercial Relationship Manager: Zeb Edwards MD #### AF5MUT, APTMUT, AMTHFR #### [facility] [address] [place] [address] Commercial Relationship Manager: Shiraz Patton MD Miscellaneouson 11-25-2020 Send Out Report FORWARD TO TYLER SHAH Normal [facility] Comment on above: Performed By: #### H OCYS, GLYHGB, CMIS, PROCAC, AT3A, LUPPRO, PROSAC #### [address] [address] Commercial Relationship Manager: Zeb Edwards MD #### AF5MUT, APTMUT, AMTHFR #### [facility] [address] [place] [address] Commercial Relationship Manager: Shiraz Patton MD Protein C Activityon 021 Protein C Activity 116 % Normal >80 [facility] Comment on above: Result Comment: Patients on warfarin will have decreased functional protein C/S values. Warfarin therapy should be discontinued for two weeks for accurate measurement of functional protein C/S levels. Artifactually elevated levels of functional protein C/S may be seen in patients receiving heparin,rivaroxaban,apixaban,edozaban,and dabiqatran. Decreased functionality may be seen in patients with abnormally elevated levels of Factor VIII. Performed By: #### H OCYS, GLYHGB, CMIS, PROCAC, AT3A, LUPPRO, PROSAC #### [facility] [address] [place] [address] Commercial Relationship Manager: Zeb Edwards MD #### AF5MUT, APTMUT, AMTHFR #### [facility] [address] [place] [address] Commercial Relationship Manager: Shiraz Patton MD Protein S Activityon 021 Protein S Activity 87 % Normal 59-130 [facility] Comment on above: Result Comment: Patients on warfarin will have decreased functional protein C/S values. Warfarin therapy should be discontinued for two weeks for accurate measurement of functional protein C/S levels. Artifactually elevated levels of functional protein C/S may be seen in patients receiving heparin,rivaroxaban,apixaban,edozaban,and dabiqatran. Decreased functionality may be seen in patients with abnormally elevated levels of Factor VIII. Performed By: #### H OCYS, GLYHGB, CMIS, PROCAC, AT3A, LUPPRO, PROSAC #### [facility] [address] [place] [address] Commercial Relationship Manager: Zeb Edwards MD #### AF5MUT, APTMUT, AMTHFR #### [facility] [address] [place] [address] Commercial Relationship Manager: hSiraz Patton MD Specimen Rejectionon 021 Reason for rejection Unable to perform testing: No specimen received. Normal [facility] Comment on above: Performed By: #### H OCYS, GLYHGB, CMIS, PROCAC, AT3A, LUPPRO, PROSAC #### [facility] [address] [place] [address] Commercial Relationship Manager: Zeb Edwards MD #### AF5MUT, APTMUT, AMTHFR #### [facility] [address] [place] [address] Commercial Relationship Manager: Shiraz Patton MD Source of sample .BLOOD Normal [facility] Comment on above: Performed By: #### H OCYS, GLYHGB, CMIS, PROCAC, AT3A, LUPPRO, PROSAC #### [facility] [address] [place] [address] Commercial Relationship Manager: Zeb Edwards MD #### AF5MUT, APTMUT, AMTHFR #### [facility] [address] [place], [place] [id number] Commercial Relationship Manager: Shiraz Patton MD Test ordered GLUSC Normal [facility] Comment on above: Performed By: #### H OCYS, GLYHGB, CMIS, PROCAC, AT3A, LUPPRO, PROSAC #### [facility] [address] [place] [address] Commercial Relationship Manager: Zeb Edwards MD #### AF5MUT, APTMUT, AMTHFR #### [facility] [address] [place], [place] [phone] Commercial Relationship Manager: Shiraz Patton MD Hemoglobin A1Con 11-24-2020 Glucose [Mass/Vol] 100 mg/dL Normal [facility] Comment on above: Result Comment: The ADA and AACC recommend providing the estimated average glucose result to permit better patient understanding of their HBA1c result. Performed By: #### H OCYS, GLYHGB, CMIS, PROCAC, AT3A, LUPPRO, PROSAC #### [facility] [address] [place] [address] Commercial Relationship Manager: Zeb Edwards MD #### AF5MUT, APTMUT, AMTHFR #### [facility] [address] [place] [address] Commercial Relationship Manager: Shiraz Patton MD HbA1c (Bld) [Mass fraction] 5.1 % Normal 4.0-6.0 [facility] Comment on above: Performed By: #### H OCYS, GLYHGB, CMIS, PROCAC, AT3A, LUPPRO, PROSAC #### [facility] [address] [place] [phone] Commercial Relationship Manager: Zeb Edwards MD #### AF5MUT, APTMUT, AMTHFR #### [facility] [address] [place] [address] Commercial Relationship Manager: Shiraz Patton MD Glucose [Mass/Vol] 100 mg/dL [facility] [employer] Phone: Comment on above: The ADA and AACC rec ommend providing the estimated average glucose result to permit better patient understanding of their HBA1c result. HbA1c (Bld) [Mass fraction] 5.1 % 4 - 6 % [facility] [employer] Phone: Homocysteineon 11-24-2020 Homocysteine 4.7 umol/L Normal <15.0 [facility] Comment on above: Performed By: #### H OCYS, GLYHGB, CMIS, PROCAC, AT3A, LUPPRO, PROSAC #### [facility] [address] [place] [phone] Commercial Relationship Manager: Zeb Edwards MD #### AF5MUT, APTMUT, AMTHFR #### [facility] [address] [place] [address] Commercial Relationship Manager: Shiraz Patton MD Homocysteine, Serumon 2020 Homocysteine 4.7 umol/L <15.0 [facility] [employer] Phone: Lupus Anticoagulanton 2020 aPTT Coag (Bld) [Time] 23.1 s Normal 20.5-30.5 [facility] Comment on above: Result Comment: IV Heparin Therapy Range: 48.6-77.8 Performed By: #### H OCYS, GLYHGB, CMIS, PROCAC, AT3A, LUPPRO, PROSAC #### [address] [address] Commercial Relationship Manager: Zeb Edwards MD #### AF5MUT, APTMUT, AMTHFR #### [facility] [address] [place], [place] [phone] Commercial Relationship Manager: Shiraz Patton MD INR Coag (PPP) [Relative time] 0.9 {INR} Normal [facility] Comment on above: Result Comment: Therapeutic Range: Moderate Anticoagulant Intensity: INR = 2.0-3.0 High Anticoagulant Intensity: INR = 2.5-3.5 Performed By: #### H OCYS, GLYHGB, CMIS, PROCAC, AT3A, LUPPRO, PROSAC #### [place] [address] Commercial Relationship Manager: Zeb Edwards MD #### AF5MUT, APTMUT, AMTHFR #### [facility] [address] [place] [address] Commercial Relationship Manager: Shiraz Patton MD PT Coag (PPP) [Time] 9.8 s Normal 9.1-12.3 [facility] Comment on above: Result Comment: NOTE : NEW REFERENCE RANGE Performed By: #### H OCYS, GLYHGB, CMIS, PROCAC, AT3A, LUPPRO, PROSAC #### [place] [address] Commercial Relationship Manager: Zeb Edwards MD #### AF5MUT, APTMUT, AMTHFR #### [facility] [address] [place] [address] Commercial Relationship Manager: Shiraz Patton MD Lupus Anticoagulant NOT REPORTED Normal [facility] Comment on above: Performed By: #### H OCYS, GLYHGB, CMIS, PROCAC, AT3A, LUPPRO, PROSAC #### [facility] [place], [place] [phone] Commercial Relationship Manager: Zeb Edwards MD #### AF5MUT, APTMUT, AMTHFR #### [facility] [address] [place], [place] [phone] Commercial Relationship Manager: Shiraz Patton MD Miscellaneouson 11-24-2020 Test Name TYLER Normal [facility] Comment on above: Performed By: #### H OCYS, GLYHGB, CMIS, PROCAC, AT3A, LUPPRO, PROSAC #### [facility] [address] [place] [address] [phone] Commercial Relationship Manager: Zeb Edwards MD #### AF5MUT, APTMUT, AMTHFR #### [facility] [address] [place] [address] Commercial Relationship Manager: Shiraz Patton MD Protein / creatinine ratio, urineon 11-24-2020 Creatinine, Ur 187.8 mg/dL 28 - 217 mg/dL [facility] [employer] Phone: Protein (U) [Mass/Vol] 17 mg/dL [facility] [employer] Phone: Comment on above: No normal range esta blished. Urine Total Protein Creatinine Ratio 0.09 [facility] [employer] Phone: Protein,Tot,[place] Uron 2020 Creatinine [Mass/Vol] 187.8 mg/dL Normal 28.0-217.0 [facility] Comment on above: Performed By: #### H OCYS, GLYHGB, CMIS, PROCAC, AT3A, LUPPRO, PROSAC #### [facility] [address] [place] [phone] Commercial Relationship Manager: Zeb Edwards MD #### AF5MUT, APTMUT, AMTHFR #### [facility] [address] [place] [address] Commercial Relationship Manager: Shiraz Patton MD Tot Prot. Conc. 17 mg/dL Normal [facility] Comment on above: Result Comment: No n ormal range established. Performed By: #### H OCYS, GLYHGB, CMIS, PROCAC, AT3A, LUPPRO, PROSAC #### [facility] [address] [place] [address] Commercial Relationship Manager: Zeb Edwards MD #### AF5MUT, APTMUT, AMTHFR #### [facility] [address] [place] [address] Commercial Relationship Manager: Shiraz Patton MD TP/Cre Ratio 0.09 Normal 0.00-0.20 [facility] Comment on above: Performed By: #### H OCYS, GLYHGB, CMIS, PROCAC, AT3A, LUPPRO, PROSAC #### [facility] [address] [place] [address] Commercial Relationship Manager: Zeb Edwards MD #### AF5MUT, APTMUT, AMTHFR #### [facility] [address] [place] [address] Commercial Relationship Manager: Shiraz Patton MD Specimen Rejectionon 021 ----- NOT REPORTED Normal [facility] Comment on above: Performed By: #### H OCYS, GLYHGB, CMIS, PROCAC, AT3A, LUPPRO, PROSAC #### [facility] [address] [place] [address] Commercial Relationship Manager: Zeb Edwards MD #### AF5MUT, APTMUT, AMTHFR #### [facility] [address] [place] [address] Commercial Relationship Manager: Shiraz Patton MD Provider Note - ED v2on 03-31 Provider Note - ED v2 Provider Note - ED v2: Chart Review: HISTORY OF PRESENTING ILLNESS ADDIE is a 25 year old Female and was seen by me at 14-Apr-2020 13:26 for a chief complaint of (Right eye irritation). Other complaints include: Pt presents for (R) eye conjunctivitis. Erythema, drainage, and tenderness began in the (R) eye today without effect on vision or perception. Pt denies preceding URI. Patient denies seasonal allergies or possible exposure to chemical irritants. No fever, chills, or other constitutional S/S. No other complaints . Triage Information: Most recent Vital Sign Value Date PAST MEDICAL HISTORY ATTESTATION: I have reviewed and confirmed nurse's/medic's notes for patient's medications, allergies, medical history, and surgical history ALLERGIES/INTOLERANCES: Allergy Allergen: penicillin Type: Drug Reaction: Hives/Urticaria Allergen: hydrochlorothiazide Type: Drug Reaction: Anaphylaxis Allergen: sulfa drugs Type: Drug Category Reaction: Hives/Urticaria HEALTH HISTORY: No documented data. OUTPATIENT MEDICATIONS: Home Medications Review Status for Reconciliation: Complete Med Status: Patient Currently Takes Medications Drug Name: metFORMIN 500 mg oral tablet Instructions: 1 tab(s) orally 2 times a day Drug Name: omeprazole 2 mg/mL oral suspension Instructions: 1.25 milliliter(s) orally once a day Drug Name: labetalol 200 mg oral tablet Instructions: 1 tab(s) orally 2 times a day SIGNIFICANT EVENTS: Past Surgical History Description:TUBES IN EARS Description:Adenoidectom y Social/Behavioral Description:SMOKER 1/4 PACK A DAY PATROLLER: Is : no Is : no REVIEW OF SYSTEMS REVIEW OF SYSTEMS: Comments Review of Systems Constitutional: See HPI Eye: See HPI Respiratory: See HPI Neurologic: Alert and oriented X4, No numbness, No tingling. All other systems are negative PHYSICAL EXAM CONSTITUTIONAL: Well appearing, well nourished, awake, alert, oriented to person, place, time/situation and in no apparent distress. EYES: Medial conjunctive of the right eye with mild injection and mild/early chemosis near the cornea; no visible foreign body or injury; left eye is unremarkable MUSCULOSKELETAL: Spine appears normal, range of motion is not limited, no muscle or joint tenderness. NEUROLOGICAL: Alert and oriented, no focal deficits, no motor or sensory deficits. SKIN: Skin normal color for race, warm, dry and intact. No evidence of trauma. MEDICAL DECISION MAKING/ED COURSE MDM/ED COURSE: Exam revealed mild conjunctivitis and chemosis of the right eye; infectious versus reactive is unclear. Will cover both with Tobrex ophthalmic solution and oral prednisone taper. Patient's clinical presentation is otherwise unremarkable at this time. Patient is discharged with instructions to follow-up with primary care or seek emergency medical attention for worsening symptoms or any new concerns. CLINICAL IMPRESSION Diagnosis/Annotation: ED Dx Name:Conjunctivitis of right eye Code:H10.9 Name:Chemosis of conjunctiva Code:H11.429 Dispostion: discharged Type: home ATTESTATION CRITICAL CARE TIME Is this a critically ill patient: no Electronic Signatures: Eugenio Rowland (PAC) (Signed 14-Apr-2020 13:47) Authored: Provider Note - ED v2 Last Updated: 14-Apr-2020 13:47 by Eugenio Rowland (PAC) [facility] Vital Signs Date Time Vital Sign Value Performing Clinician Janie moss 02-24-2025 12:59-0400 Body height 170.61 cm [facility] 02-24-2025 12:59-0400 Body mass index (BMI) [Ratio] 43.7 kg/m2 [facility] 02-24-2025 12:59-0400 Body weight 127.3 kg [facility] 02-24-2025 12:59-0400 Diastolic blood pressure 80 mm[Hg] [facility] 02-24-2025 12:59-0400 Heart rate 76 /min [facility] 02-24-2025 12:59-0400 Respiratory rate 20 /min [facility] 02-24-2025 12:59-0400 SaO2% (BldA) [Mass fraction] 98 % [facility] 02-24-2025 12:59-0400 Systolic blood pressure 122 mm[Hg] [facility] 02-06-2025 01:00-0400 Heart rate 76 /min Raymundo Hsu [facility] 02-06-2025 01:00-0400 SaO2% (BldA) [Mass fraction] 99 % Raymundo Hsu [facility] 02-06-2025 01:00-0400 Blood Pressure Location Raymundo Hsu [facility] 02-06-2025 01:00-0400 Diastolic blood pressure 78 mm[Hg] Raymundo Shadi [facility] 02-06-2025 01:00-0400 Mean blood pressure 97 mm[Hg] Raymundo Shadi [facility] 02-06-2025 01:00-0400 Respiratory rate 16 /min Raymundo Shadi [facility] 02-06-2025 01:00-0400 Systolic blood pressure 135 mm[Hg] Raymundo Shadi [facility] 02-06-2025 00:00-0400 SaO2% (BldA) [Mass fraction] 99 % Raymundo Shadi [facility] 02-06-2025 00:00-0400 Heart rate 74 /min Raymundo Shadi [facility] 02-06-2025 00:00-0400 Diastolic blood pressure 74 mm[Hg] Raymundo Shadi [facility] 02-06-2025 00:00-0400 Systolic blood pressure 111 mm[Hg] Raymundo Shadi [facility] 02-06-2025 00:00-0400 Mean blood pressure 86 mm[Hg] Raymundo Shadi [facility] 02-05-2025 21:42-0400 Body temperature 97.7 [degF] Raymundo Shadi [facility] 02-05-2025 21:42-0400 Diastolic blood pressure 97 mm[Hg] Raymundo Shadi [facility] 02-05-2025 21:42-0400 Heart rate 89 /min Raymundo Shadi [facility] 02-05-2025 21:42-0400 Respiratory rate 18 /min Raymundo Shadi [facility] 02-05-2025 21:42-0400 SaO2% (BldA) [Mass fraction] 97 % Raymundo Hsu [facility] 02-05-2025 21:42-0400 Systolic blood pressure 157 mm[Hg] Raymundo Hsu [facility] 01-23-2025 10:50-0400 Blood Pressure Location Perry James [facility] 01-23-2025 10:50-0400 Diastolic blood pressure 82 mm[Hg] Perry James [facility] 01-23-2025 10:50-0400 Heart rate 72 /min Perry James [facility] 01-23-2025 10:50-0400 Respiratory rate 16 /min Perry James [facility] 01-23-2025 10:50-0400 SaO2% (BldA) [Mass fraction] 98 % Perry James [facility] 01-23-2025 10:50-0400 Systolic blood pressure 125 mm[Hg] Perry James [facility] 01-07-2025 13:02-0400 Body height 172.72 cm [facility] 01-07-2025 13:02-0400 Body mass index (BMI) [Ratio] 38 kg/m2 [facility] 01-07-2025 13:02-0400 Body weight 113.39 kg [facility] 01-07-2025 13:02-0400 Diastolic blood pressure 78 mm[Hg] [facility] 01-07-2025 13:02-0400 Heart rate 88 /min [facility] 01-07-2025 13:02-0400 SaO2% (BldA) [Mass fraction] 98 % [facility] 01-07-2025 13:02-0400 Systolic blood pressure 132 mm[Hg] [facility] 12-23-2024 11:49-0400 Body mass index (BMI) [Ratio] 44.25 kg/m2 Harry Jeison DO Work Phone: [facility] 12-23-2024 11:49-0400 Body weight 132 kg Harry Jeison DO Work Phone: [facility] 12-23-2024 11:49-0400 Diastolic blood pressure 92 mm[Hg] Harry Jeison DO Work Phone: [facility] 12-23-2024 11:49-0400 Systolic blood pressure 136 mm[Hg] Harry Jeison DO Work Phone: [facility] 12-01-2024 17:31-0500 Blood Pressure Location Alexander Pawan [facility] 12-01-2024 17:31-0500 Body temperature 97.88 [degF] Alexander Villalta [facility] 12-01-2024 17:31-0500 Diastolic blood pressure 82 mm[Hg] Alexander Villalta [facility] 12-01-2024 17:31-0500 Heart rate 93 /min Alexander Villalta [facility] 12-01-2024 17:31-0500 SaO2% (BldA) [Mass fraction] 98 % Alexanderjuanita Villalta [facility] 12-01-2024 17:31-0500 Systolic blood pressure 124 mm[Hg] Alexander Villalta [facility] 11-28-2024 13:14-0500 Diastolic blood pressure 84 mm[Hg] Perry James [facility] 11-28-2024 13:14-0500 Mean blood pressure 102 mm[Hg] Perry James [facility] 11-28-2024 13:14-0500 Systolic blood pressure 137 mm[Hg] Perry James [facility] 11-28-2024 13:06-0500 Blood Pressure Location Perry James [facility] 11-28-2024 13:06-0500 Diastolic blood pressure 91 mm[Hg] Perry James [facility] 11-28-2024 13:06-0500 Heart rate 80 /min Perry James [facility] 11-28-2024 13:06-0500 Respiratory rate 18 /min Perry James [facility] 11-28-2024 13:06-0500 SaO2% (BldA) [Mass fraction] 97 % Perry James [facility] 11-28-2024 13:06-0500 Systolic blood pressure 149 mm[Hg] Perry James [facility] 10-20-2024 09:10-0500 Blood Pressure Location Kei Hernándezmini [facility] 10-20-2024 09:10-0500 Diastolic blood pressure 85 mm[Hg] Choudhury Sarmini [facility] 10-20-2024 09:10-0500 Heart rate 71 /min Choudhury Sarmini [facility] 10-20-2024 09:10-0500 Respiratory rate 14 /min Choudhury Sarmini [facility] 10-20-2024 09:10-0500 Systolic blood pressure 124 mm[Hg] Choudhury Sarmini [facility] 09-17-2024 04:45-0500 Body temperature 97.88 [degF] Isra Tiffanie [facility] 09-17-2024 04:45-0500 Diastolic blood pressure 95 mm[Hg] Isra Tiffanie [facility] 09-17-2024 04:45-0500 Heart rate 95 /min Isra Tiffanie [facility] 09-17-2024 04:45-0500 Respiratory rate 16 /min Isra Tiffanie [facility] 09-17-2024 04:45-0500 SaO2% (BldA) [Mass fraction] 99 % Isra Tiffanie [facility] 09-17-2024 04:45-0500 Systolic blood pressure 150 mm[Hg] Isra Moreno [facility] 08-20-2024 11:43-0500 Blood Pressure Location Perry James [facility] 08-20-2024 11:43-0500 Diastolic blood pressure 80 mm[Hg] Perry James [facility] 08-20-2024 11:43-0500 Heart rate 82 /min Perry James [facility] 08-20-2024 11:43-0500 Respiratory rate 18 /min Perry James [facility] 08-20-2024 11:43-0500 SaO2% (BldA) [Mass fraction] 97 % Perry James [facility] 08-20-2024 11:43-0500 Systolic blood pressure 130 mm[Hg] Perry James [facility] 07-16-2024 10:07-0400 Blood Pressure Location Kei Garcia [facility] 07-16-2024 10:07-0400 Diastolic blood pressure 85 mm[Hg] Choudhury Sarmini [facility] 07-16-2024 10:07-0400 Heart rate 81 /min Choudhury Sarmini [facility] 07-16-2024 10:07-0400 Respiratory rate 16 /min Choudhury Sarmini [facility] 07-16-2024 10:07-0400 Systolic blood pressure 134 mm[Hg] Choudhury Sarmini [facility] 03-31-2024 08:01-0400 Body height 172.[address] Work Phone: [facility] 03-31-2024 08:01-0400 Body mass index (BMI) [Ratio] 39.23 kg/m2 Treva Carter RD Work Phone: [facility] 03-31-2024 08:01-0400 Body weight 117.[address] Work Phone: [facility] 03-21-2024 10:29-0400 Body height 172.7 cm Bree Paci HIDE MILL WORKER.SPINDRAW OPERATOR Work Phone: [facility] 03-21-2024 10:29-0400 Body mass index (BMI) [Ratio] 39.23 kg/m2 Bree Paci HIDE MILL WORKER.SPINDRAW OPERATOR Work Phone: [facility] 03-21-2024 10:29-0400 Body weight 117.03 kg Bree Paci HIDE MILL WORKER.SPINDRAW OPERATOR Work Phone: [facility] 03-13-2024 12:48-0400 Diastolic blood pressure 90 mm[Hg] Perry James [facility] 03-13-2024 12:48-0400 Heart rate 82 /min Perry James [facility] 03-13-2024 12:48-0400 SaO2% (BldA) [Mass fraction] 97 % Perry James [facility] 03-13-2024 12:48-0400 Systolic blood pressure 143 mm[Hg] Perry James [facility] 02-15-2024 10:25-0400 Body height 172.72 cm HIDE MILL WORKER Dinesh Shea Work Phone: [facility] 02-15-2024 10:25-0400 Body mass index (BMI) [Ratio] 39 kg/m2 HIDE MILL WORKERDiana Shea Work Phone: [facility] 02-15-2024 10:25-0400 Body weight 116.57 kg HIDE MILL WORKERDiana Shea Work Phone: [facility] 02-15-2024 10:25-0400 Diastolic blood pressure 84 mm[Hg] HIDE MILL WORKERDiana Shea Work Phone: [facility] 02-15-2024 10:25-0400 Heart rate 82 /min HIDE MILL WORKERDiana Shea Work Phone: [facility] 02-15-2024 10:25-0400 SaO2% (BldA) [Mass fraction] 98 % BETSY Shea Work Phone: [facility] 02-15-2024 10:25-0400 Systolic blood pressure 124 mm[Hg] BETSY Shea Work Phone: [facility] 02-08-2024 13:16-0400 Body height 172.7 cm Bree Paci HIDE MILL WORKER.SPINDRAW OPERATOR Work Phone: [facility] 02-08-2024 13:16-0400 Body mass index (BMI) [Ratio] 38.77 kg/m2 Bree Paci HIDE MILL WORKER.SPINDRAW OPERATOR Work Phone: [facility] 02-08-2024 13:16-0400 Body weight 115.67 kg Bree Paci HIDE MILL WORKER.SPINDRAW OPERATOR Work Phone: [facility] 02-07-2024 14:12-0400 Diastolic blood pressure 92 mm[Hg] Primo Christofferson [facility] 02-07-2024 14:12-0400 Mean blood pressure 105 mm[Hg] Primo Christofferson [facility] 02-07-2024 14:12-0400 Systolic blood pressure 132 mm[Hg] Primo Christofferson [facility] 02-07-2024 13:59-0400 Blood Pressure Location Primo Christofferson [facility] 02-07-2024 13:59-0400 Diastolic blood pressure 90 mm[Hg] Primo Christofferson [facility] 02-07-2024 13:59-0400 Heart rate 82 /min Primo Christofferson [facility] 02-07-2024 13:59-0400 SaO2% (BldA) [Mass fraction] 97 % Primo Laneofferson [facility] 02-07-2024 13:59-0400 Systolic blood pressure 150 mm[Hg] Primo Christofferson [facility] 02-01-2024 10:35-0400 Blood Pressure Location Choudhury Sarmini [facility] 02-01-2024 10:35-0400 Diastolic blood pressure 80 mm[Hg] Choudhury Sarmini [facility] 02-01-2024 10:35-0400 Heart rate 70 /min Choudhury Sarmini [facility] 02-01-2024 10:35-0400 Respiratory rate 18 /min Choudhury Sarmini [facility] 02-01-2024 10:35-0400 Systolic blood pressure 130 mm[Hg] Kei Garcia [facility] 02-01-2024 07:36-0400 Body height 172.72 cm HIDE MILL WORKERDiana Shea Work Phone: [facility] 02-01-2024 07:36-0400 Body mass index (BMI) [Ratio] 38.7 kg/m2 HIDE MILL WORKERDiana Shea Work Phone: [facility] 02-01-2024 07:36-0400 Body weight 115.66 kg HIDE MILL WORKERDiana Shea Work Phone: [facility] 02-01-2024 07:36-0400 Diastolic blood pressure 84 mm[Hg] BETSY Shea Work Phone: [facility] 02-01-2024 07:36-0400 Heart rate 85 /min HIDE MILL WORKERDiana Shea Work Phone: [facility] 02-01-2024 07:36-0400 SaO2% (BldA) [Mass fraction] 98 % HIDE MILL WORKERDiana Shea Work Phone: [facility] 02-01-2024 07:36-0400 Systolic blood pressure 122 mm[Hg] BETSY Shea Work Phone: [facility] 11-25-2023 12:49-0500 Blood Pressure Location Nader Driver [facility] 11-25-2023 12:49-0500 Body temperature 100.4 [degF] Nader Driver [facility] 11-25-2023 12:49-0500 Diastolic blood pressure 82 mm[Hg] Nader Driver [facility] 11-25-2023 12:49-0500 Heart rate 110 /min Nader Driver [facility] 11-25-2023 12:49-0500 SaO2% (BldA) [Mass fraction] 97 % Nader Neisha [facility] 11-25-2023 12:49-0500 Systolic blood pressure 134 mm[Hg] Nader Driver [facility] 09-27-2023 10:26-0500 Blood Pressure Location Bhavanidavid BROCK [facility] 09-27-2023 10:26-0500 Diastolic blood pressure 85 mm[Hg] Bhavanidavid BORJASG [facility] 09-27-2023 10:26-0500 Heart rate 84 /min Bhavanidavid BORJASG [facility] 09-27-2023 10:26-0500 SaO2% (BldA) [Mass fraction] 100 % Bhavanidavid BORJASG [facility] 09-27-2023 10:26-0500 Systolic blood pressure 133 mm[Hg] Bhavanidavid BORJASG [facility] 08-30-2023 10:15-0500 Blood Pressure Location Bhavanidavid BORJASG [facility] 08-30-2023 10:15-0500 Diastolic blood pressure 82 mm[Hg] Bhavanidavid BORJASG [facility] 08-30-2023 10:15-0500 Heart rate 92 /min Bhavani STANG [facility] 08-30-2023 10:15-0500 SaO2% (BldA) [Mass fraction] 99 % Bhavani STANG [facility] 08-30-2023 10:15-0500 Systolic blood pressure 119 mm[Hg] Bhavani STANG [facility] 06-14-2023 10:01-0400 Body height 172.72 cm Dinesh Méndez Work Phone: [facility]-Kxliszgiz-Ms[address] Work Phone: 06-14-2023 10:01-0400 Body mass index (BMI) [Ratio] 35.35 kg/m2 Dinesh Méndez Work Phone: HI-Ywxdbrogs-Zmshvg [address] Work Phone: 06-14-2023 10:01-0400 Body surface area Derived from formula 2.18 m2 Dinesh Méndez Work Phone: RP-Xbkfrtpwh-Cuodrt [address] Work Phone: 06-14-2023 10:01-0400 Body weight 105.46 kg Dinesh Méndez Work Phone: TS-Uvvadrjpd-Pjjprf [address] Work Phone: 06-14-2023 10:01-0400 Diastolic blood pressure 60 mm[Hg] Dinesh Méndez Work Phone: QG-Jcnjpdbpt-Pmazkl [address] Work Phone: 06-14-2023 10:01-0400 Heart rate 96 /min Dinesh Méndez Work Phone: W[facility]-Tzsfndzkk-Phstwl [address] Work Phone: 06-14-2023 10:01-0400 SaO2% (BldA) [Mass fraction] 98 % Dinesh Méndez Work Phone: AL-Sijwyybme-Ufxxkr [address] Work Phone: 06-14-2023 10:01-0400 Systolic blood pressure 92 mm[Hg] Dinesh Méndez Work Phone: YC-Csnmmahdz-Hmhmtp [address] Work Phone: 05-05-2023 11:05-0400 Body height 172.72 cm Stu Hsu Other [employer] Other 05-05-2023 11:05-0400 Body mass index (BMI) [Ratio] 36.18 kg/m2 Stu Hsu Other [employer] Other 05-05-2023 11:05-0400 Body temperature 97.8 [degF] Stu Hsu Other [employer] Other 05-05-2023 11:05-0400 Body weight 107.96 kg Stu Hsu Other [employer] Other 05-05-2023 11:05-0400 Diastolic blood pressure 80 mm[Hg] Stu Hsu Other [employer] Other 05-05-2023 11:05-0400 Respiratory rate 18 /min Stu Hsu Other [employer] Other 05-05-2023 11:05-0400 SaO2% (BldA) [Mass fraction] 99 % Stu Hsu Other [employer] Other 05-05-2023 11:05-0400 Systolic blood pressure 114 mm[Hg] Stu Hsu Other [employer] Other 02-27-2023 15:37-0400 Blood Pressure Location Bhavani BROCK [facility] 02-27-2023 15:37-0400 Diastolic blood pressure 83 mm[Hg] Bhavani BROCK [facility] 02-27-2023 15:37-0400 Heart rate 104 /min Bhavani BROCK [facility] 02-27-2023 15:37-0400 SaO2% (BldA) [Mass fraction] 96 % Bhavani BROCK [facility] 02-27-2023 15:37-0400 Systolic blood pressure 131 mm[Hg] Bhavani BROCK [facility] 01-24-2023 10:35-0400 Blood Pressure Location Bhavani BROCK [facility] 01-24-2023 10:35-0400 Diastolic blood pressure 78 mm[Hg] Bhavani BROCK [facility] 01-24-2023 10:35-0400 Heart rate 103 /min Bhavani BROCK [facility] 01-24-2023 10:35-0400 SaO2% (BldA) [Mass fraction] 97 % Bhavani BROCK [facility] 01-24-2023 10:35-0400 Systolic blood pressure 110 mm[Hg] Bhavani BROCK [facility] 01-04-2023 11:22-0400 Body temperature 98 [degF] Darryl Russ Malakoff Work Phone: XC-Njctrgthbvvqux-K t [facility] DO Work Phone: 01-04-2023 11:22-0400 Body weight 123.92 kg Darryl Russ Kaitlin Work Phone: CQ-Dbvyzleuicktba-H t [facility] DO Work Phone: 01-04-2023 11:22-0400 Diastolic blood pressure 87 mm[Hg] Darryl Solano Malakoff Work Phone: WA-Skcemsiiwmjkdl-L t [facility] DO Work Phone: 01-04-2023 11:22-0400 Heart rate 84 /min Darryl Solano Kaitlin Work Phone: KC-Rnxwtjejjzmkoz-A t [facility] DO Work Phone: 01-04-2023 11:22-0400 SaO2% (BldA) [Mass fraction] 97 % Darryl Madrigal Work Phone: SP-Htqxrynskafthm-C t [facility] DO Work Phone: 01-04-2023 11:22-0400 Systolic blood pressure 137 mm[Hg] Darryl Madrigal Work Phone: BW-Nylrogxzwusdib-N t [facility] DO Work Phone: 12-13-2022 03:33-0400 Diastolic blood pressure 74 mm[Hg] Isra Tiffanie [facility] 12-13-2022 03:33-0400 Heart rate 81 /min Isra Tiffanie [facility] 12-13-2022 03:33-0400 Mean blood pressure 96 mm[Hg] Isra Tiffanie [facility] 12-13-2022 03:33-0400 Respiratory rate 15 /min Isra Tiffanie [facility] 12-13-2022 03:33-0400 SaO2% (BldA) [Mass fraction] 98 % Isra Tiffanie [facility] 12-13-2022 03:33-0400 Systolic blood pressure 141 mm[Hg] Isra Tiffanie [facility] 12-13-2022 01:53-0400 gluc 91 mg/dL Isra Tiffanie [facility] 12-13-2022 01:53-0400 gluc Isra Tiffanie [facility] 12-13-2022 01:49-0400 Body temperature 97.88 [degF] Isra Tiffanie [facility] 12-13-2022 01:49-0400 Diastolic blood pressure 101 mm[Hg] Isra Moreno [facility] 12-13-2022 01:49-0400 Heart rate 95 /min Isra Moreno [facility] 12-13-2022 01:49-0400 Respiratory rate 17 /min Isra Moreno [facility] 12-13-2022 01:49-0400 SaO2% (BldA) [Mass fraction] 99 % Isra Moreno [facility] 12-13-2022 01:49-0400 Systolic blood pressure 159 mm[Hg] Isra Moreno [facility] 11-22-2022 09:32-0500 Heart rate 90 /min Reji Kowalskiy [facility] 11-22-2022 09:32-0500 SaO2% (BldA) [Mass fraction] 96 % Reji Inmanurany [facility] 11-22-2022 09:32-0500 Body temperature 97.88 [degF] Reji Inmanurany [facility] 11-22-2022 09:32-0500 Diastolic blood pressure 86 mm[Hg] Reji Mourany [facility] 11-22-2022 09:32-0500 Mean blood pressure 101 mm[Hg] Reji Mourany [facility] 11-22-2022 09:32-0500 Systolic blood pressure 131 mm[Hg] Reji Mourany [facility] 11-22-2022 09:32-0500 Blood Pressure Location Reji Mourany [facility] 11-22-2022 09:32-0500 Body temperature 97.88 [degF] Reji Mourany [facility] 11-22-2022 09:31-0500 Respiratory rate 18 /min Reji Inmanurany [facility] 11-22-2022 09:31-0500 Diastolic blood pressure 80 mm[Hg] Reji Inmanurany [facility] 11-22-2022 09:31-0500 Heart rate 91 /min Reji Inmanurany [facility] 11-22-2022 09:31-0500 Mean blood pressure 96 mm[Hg] Reji Inmanurany [facility] 11-22-2022 09:31-0500 Systolic blood pressure 129 mm[Hg] Reji Inmanurany [facility] 11-22-2022 09:31-0500 Blood Pressure Location Reji Inmanurany [facility] 11-22-2022 09:30-0500 Respiratory rate 18 /min Reji Inmanurany [facility] 11-09-2022 11:30-0500 Diastolic blood pressure 93 mm[Hg] Raymundo Hsu [facility] 11-09-2022 11:30-0500 Heart rate 81 /min Raymundo Hsu [facility] 11-09-2022 11:30-0500 Mean blood pressure 111 mm[Hg] Raymundo Hsu [facility] 11-09-2022 11:30-0500 Respiratory rate 15 /min Raymundo Hsu [facility] 11-09-2022 11:30-0500 SaO2% (BldA) [Mass fraction] 94 % Raymundo Hsu [facility] 11-09-2022 11:30-0500 Systolic blood pressure 147 mm[Hg] Raymundo Hsu [facility] 11-09-2022 11:00-0500 Diastolic blood pressure 86 mm[Hg] Raymundo Shadi [facility] 11-09-2022 11:00-0500 Mean blood pressure 99 mm[Hg] Raymundo Hsu [facility] 11-09-2022 11:00-0500 Systolic blood pressure 124 mm[Hg] Raymundo Hsu [facility] 11-09-2022 10:58-0500 Heart rate 94 /min Raymundo Hsu [facility] 11-09-2022 10:58-0500 Respiratory rate 15 /min Raymundo Hsu [facility] 11-09-2022 10:58-0500 SaO2% (BldA) [Mass fraction] 95 % Raymundo Hsu [facility] 11-09-2022 08:46-0500 Body temperature 98.06 [degF] Raymundo Hsu [facility] 11-09-2022 08:46-0500 Diastolic blood pressure 105 mm[Hg] Raymundo Shadi [facility] 11-09-2022 08:46-0500 Heart rate 92 /min Raymundo Hsu [facility] 11-09-2022 08:46-0500 Systolic blood pressure 163 mm[Hg] Raymundo Hsu [facility] 11-02-2022 14:07-0500 Blood Pressure Location José Miguel Phoenix [facility] 11-02-2022 14:07-0500 Diastolic blood pressure 80 mm[Hg] José Miguel Phoenix [facility] 11-02-2022 14:07-0500 Heart rate 102 /min José Miguel Phoenix [facility] 11-02-2022 14:07-0500 SaO2% (BldA) [Mass fraction] 97 % José Miguel Phoenix [facility] 11-02-2022 14:07-0500 Systolic blood pressure 134 mm[Hg] José Miguel Phoenix [facility] 10-23-2022 13:51-0500 Blood Pressure Location Reji Hickey [facility] 10-23-2022 13:51-0500 Diastolic blood pressure 85 mm[Hg] Reji Kowalskiy [facility] 10-23-2022 13:51-0500 Heart rate 88 /min Reji Kowalskiy [facility] 10-23-2022 13:51-0500 SaO2% (BldA) [Mass fraction] 99 % Reji Kowalskiy [facility] 10-23-2022 13:51-0500 Systolic blood pressure 136 mm[Hg] Reji Kowalskiy [facility] 05-30-2022 13:26-0400 Diastolic blood pressure 83 mm[Hg] Reji Inmanurany [facility] 05-30-2022 13:26-0400 Heart rate 90 /min Reji Inmanurany [facility] 05-30-2022 13:26-0400 Systolic blood pressure 126 mm[Hg] Reji Kowalskiy [facility] 04-28-2022 12:36-0400 Blood Pressure Location Gayathri Martínez [facility] 04-28-2022 12:36-0400 Body temperature 97.34 [degF] Gayathri Martínez [facility] 04-28-2022 12:36-0400 Diastolic blood pressure 81 mm[Hg] Gayathri Martínez [facility] 04-28-2022 12:36-0400 Heart rate 89 /min Gayathri Martínez [facility] 04-28-2022 12:36-0400 SaO2% (BldA) [Mass fraction] 97 % Gayathri Martínez [facility] 04-28-2022 12:36-0400 Systolic blood pressure 115 mm[Hg] Gayathri Martínez [facility] 04-24-2022 15:26-0400 Blood Pressure Location José Miguel Phoenix [facility] 04-24-2022 15:26-0400 Diastolic blood pressure 77 mm[Hg] José Miguel Phoenix [facility] 04-24-2022 15:26-0400 Heart rate 85 /min José Miguel Phoenix [facility] 04-24-2022 15:26-0400 Respiratory rate 18 /min José Miguel Phoenix [facility] 04-24-2022 15:26-0400 SaO2% (BldA) [Mass fraction] 98 % José Miguel Phoenix [facility] 04-24-2022 15:26-0400 Systolic blood pressure 119 mm[Hg] José Miguel Phoenix [facility] 03-31-2022 14:21-0400 Diastolic blood pressure 63 mm[Hg] Prince SALAM [facility] 03-31-2022 14:21-0400 Heart rate 80 /min Prince SALAM [facility] 03-31-2022 14:21-0400 Respiratory rate 17 /min Prince SALAM [facility] 03-31-2022 14:21-0400 SaO2% (BldA) [Mass fraction] 97 % Prince SALAM [facility] 03-31-2022 14:21-0400 Systolic blood pressure 110 mm[Hg] Prince SALAM [facility] 03-31-2022 14:10-0400 Diastolic blood pressure 60 mm[Hg] Prince SALAM [facility] 03-31-2022 14:10-0400 Heart rate 82 /min Prince SALAM [facility] 03-31-2022 14:10-0400 Respiratory rate 11 /min Prince SALAM [facility] 03-31-2022 14:10-0400 SaO2% (BldA) [Mass fraction] 96 % Prince SALAM [facility] 03-31-2022 14:10-0400 Systolic blood pressure 111 mm[Hg] Prince SALAM [facility] 03-31-2022 14:05-0400 Diastolic blood pressure 71 mm[Hg] Prince SALAM [facility] 03-31-2022 14:05-0400 Heart rate 85 /min Prince SALAM [facility] 03-31-2022 14:05-0400 Respiratory rate 16 /min Prince SALAM [facility] 03-31-2022 14:05-0400 SaO2% (BldA) [Mass fraction] 97 % Prince SALAM [facility] 03-31-2022 14:05-0400 Systolic blood pressure 121 mm[Hg] Prince SALAM [facility] 03-31-2022 13:56-0400 Body temperature 98.24 [degF] Prince SALAM [facility] 03-31-2022 13:18-0400 Blood Pressure Location Prince SALAM [facility] 03-31-2022 13:16-0400 Body temperature 98.42 [degF] Prince SALAM [facility] 03-31-2022 13:16-0400 Respiratory rate 18 /min Prince SALAM [facility] 02-02-2022 13:07-0400 Blood Pressure Location José Miguel Phoenix [facility] 02-02-2022 13:07-0400 Diastolic blood pressure 84 mm[Hg] José Miguel Phoenix [facility] 02-02-2022 13:07-0400 Heart rate 90 /min José Miguel Phoenix [facility] 02-02-2022 13:07-0400 Respiratory rate 18 /min José Miguel Phoenix [facility] 02-02-2022 13:07-0400 SaO2% (BldA) [Mass fraction] 100 % José Miguel Phoenix [facility] 02-02-2022 13:07-0400 Systolic blood pressure 126 mm[Hg] José Miguel Phoenix [facility] 12-28-2021 09:06-0400 Diastolic blood pressure 80 mm[Hg] Suresh SALAM [facility] 12-28-2021 09:06-0400 Systolic blood pressure 124 mm[Hg] Prince SALAM [facility] Encounters Encounter Date Encounter Type Care Provider Facility Start: 03-11-2025 ambulatory Aknur Lima lity:[facility] Start: 03-09-2025 ambulatory Oneyda Bull Facility :[facility] Start: 03-03-2025 End: 03-03-2025 ambulatory [facility] Start: 02-27-2025 End: 02-27-2025 ambulatory DINESH SHEA Facility:[facility] Start: 02-27-2025 End: 02-27-2025 Patient encounter procedure DINESH SHEA [facility] Start: 02-24-2025 End: 02-25-2025 ambulatory Jana Maki PT Work Phone: [facility] Comment on above: Radiculopathy of cer vical region (Primary Dx); Internal derangement of left shoulder Start: 02-24-2025 End: 02-24-2025 Patient encounter procedure [facility] Work Phone: Start: 02-19-2025 End: 02-20-2025 ambulatory TITI DANIEL Not Available Start: 02-16-2025 End: 02-16-2025 ambulatory Jana Maki PT Work Phone: [facility] Comment on above: Radiculopathy of cer vical region (Primary Dx) Start: 02-16-2025 End: 02-16-2025 Bamboo flowsheet Jana Maki PT Work Phone: [facility] Start: 02-16-2025 End: 02-16-2025 Bamboo flowsheet Jana Maki PT Work Phone: [facility] Start: 02-12-2025 End: 02-12-2025 ambulatory Titi Depoy [employer]NIFE GRINDER Work Phone: [facility] Comment on above: Radiculopathy of cer vical region (Primary Dx) Start: 02-12-2025 End: 02-12-2025 Bamboo flowsheet Titi Depoy KNIFE GRINDER Work Phone: [facility] Start: 02-12-2025 End: 02-12-2025 Bamboo flowsheet Titi Depoy KNIFE GRINDER Work Phone: [facility] Start: 02-09-2025 End: 02-10-2025 ambulatory Jana Maki PT Work Phone: [facility] Comment on above: Radiculopathy of cer vical region (Primary Dx) Start: 02-09-2025 End: 02-09-2025 Bamboo flowsheet Jana Maki PT Work Phone: [facility] Start: 02-09-2025 End: 02-09-2025 Bamboo flowsheet Jana Maki PT Work Phone: [facility] Start: 02-05-2025 End: 02-06-2025 Emergency department patient visit Raymundo Hsu [facility] Start: 02-05-2025 Non-patient / Non-visit [facility] Work Phone: Start: 02-04-2025 End: 02-04-2025 ambulatory Jana Maki PT Work Phone: [facility] Comment on above: Radiculopathy of cer vical region (Primary Dx) Start: 02-04-2025 End: 02-04-2025 Bamboo flowsheet Jana Maki PT Work Phone: [facility] Start: 02-04-2025 End: 02-04-2025 Bamboo flowsheet Jana Maki PT Work Phone: [facility] Start: 01-27-2025 End: 01-27-2025 ambulatory Ankur Paniagua Facility:[facility] Start: 01-23-2025 End: 01-23-2025 ambulatory HEATHER James Facility:[facility] Start: 01-23-2025 End: 01-23-2025 Patient encounter procedure Perry James [facility] Start: 01-19-2025 End: 01-19-2025 ambulatory Harry R JEISON Facility:[facility] Start: 01-19-2025 End: 01-19-2025 Patient encounter procedure Harry R JEISON [facility] Start: 01-07-2025 End: 01-07-2025 ambulatory [facility] Work Phone: Start: 01-07-2025 End: 01-07-2025 Patient encounter procedure [facility] Work Phone: Start: 12-23-2024 End: 12-23-2024 Office outpatient visit 15 minutes Harry Jeison DO Work Phone: [facility] Comment on above: Menorrhagia with reg ular cycle; Dyspareunia in female; PCOS (polycystic ovarian syndrome) Start: 12-23-2024 End: 12-23-2024 ambulatory HARRY JEISON Not Available Start: 12-23-2024 Non-patient / Non-visit [facility] Work Phone: Start: 12-17-2024 ambulatory DINESH SHEA Facility:[facility] Start: 12-09-2024 End: 12-09-2024 ambulatory DINESH SHEA Facility: [facility] Start: 12-01-2024 End: 12-01-2024 Lab Drop off Alexander Villalta [facility] Start: 12-01-2024 End: 12-01-2024 ambulatory Alexander Villalta Facility:[facility] Start: 12-01-2024 End: 12-01-2024 Patient encounter procedure Alexander Villalta [facility] Start: 11-28-2024 End: 11-28-2024 ambulatory DINESHMASHA SHEA Facility:[facility] Start: 11-28-2024 End: 11-28-2024 Patient encounter procedure Perry James [facility] Start: 11-07-2024 End: 11-07-2024 ambulatory Alecia X Orzech Facility:[facility] Start: 11-07-2024 End: 11-07-2024 Patient encounter procedure Alecia X Orzech [facility] Start: 11-06-2024 End: 11-06-2024 ambulatory DINESH SHEA Facility:[facility] Start: 11-06-2024 End: 11-06-2024 Patient encounter procedure Kei Garcia [facility] Start: 10-29-2024 End: 10-29-2024 ambulatory DINESH SHEA Facility:[facility] Start: 10-29-2024 End: 10-29-2024 Patient encounter procedure DINESH SHEA [facility] Start: 10-20-2024 End: 10-20-2024 ambulatory DINESH SHEA Facility:[facility] Start: 10-20-2024 End: 10-20-2024 Patient encounter procedure Choudhury Talal Sarmini [facility] Start: 09-17-2024 End: 09-17-2024 Emergency department patient visit Isra Moreno [facility] Start: 09-04-2024 ambulatory [facility] Facility:[facility] Start: 08-20-2024 End: 08-20-2024 ambulatory [facility] Facility:[facility] Start: 08-20-2024 End: 08-20-2024 Patient encounter procedure Perry James [facility] Start: 08-18-2024 End: 08-18-2024 ambulatory Basem G. Beckman Facility:[facility] Start: 08-18-2024 End: 08-18-2024 Patient encounter procedure Basemarla Diggsdad [facility] Start: 07-16-2024 End: 07-16-2024 ambulatory [facility] Start: 07-16-2024 End: 07-16-2024 Patient encounter procedure Choudhury Talal Sarmini [facility] Start: 05-30-2024 End: 05-30-2024 ambulatory Basem Randy. Beckman Facility:[facility] Start: 05-30-2024 End: 05-30-2024 Patient encounter procedure Basem Randy. Beckman [facility] Start: 05-29-2024 End: 05-29-2024 ambulatory DINESHMASHA SHEA [facility] Start: 05-29-2024 End: 05-29-2024 Patient encounter procedure Choudhury Talal Sarmini [facility] Start: 04-16-2024 End: 04-17-2024 Pre-admission assessment Caterina Beckman [facility] Start: 03-31-2024 End: 03-31-2024 ambulatory Treva Carter SNEHA Work Phone: Gastroenterology Comment on above: Class 2 obesity due to excess calories with body mass index (BMI) of 39.0 to 39.9 in adult, unspecified whether serious comorbidity present (Primary Dx); Dietary counseling and surveillance Start: 03-31-2024 End: 03-31-2024 Telemedicine consultation with patient Treva Carter RD Work Phone: Gastroenterology Start: 03-21-2024 End: 05-26-2024 Telephone encounter Bree Lopes APRN.SPINDRAW OPERATOR Work Phone: Gastroenterology Comment on above: Medication Preauthor ization (Wegovy) Start: 03-21-2024 End: 03-21-2024 ambulatory BREE Calvillo PACI Facility:[facility] Start: 03-21-2024 End: 03-21-2024 Office outpatient visit 25 minutes Bree Lopes HIDE MILL WORKER.SPINDRAW OPERATOR Work Phone: Gastroenterology Comment on above: Class 2 severe obesi ty due to excess calories with serious comorbidity and body mass index (BMI) of 38.0 to 38.9 in adult (HCC) (Primary Dx); Gastroesophageal reflux disease, unspecified whether esophagitis present; Fatty liver; PCOS (polycystic ovarian syndrome); Sleep apnea, unspecified type; Insulin resistance; Metabolic syndrome Start: 03-14-2024 End: 03-14-2024 [facility] Kristen ACOSTAYD Work Phone: Psychology Comment on above: Psychological factor s affecting medical condition (Primary Dx); Class 2 obesity due to excess calories with body mass index (BMI) of 38.0 to 38.9 in adult, unspecified whether serious comorbidity present; Generalized anxiety disorder Start: 03-13-2024 End: 03-13-2024 ambulatory DINESH SHEA Facility:[facility] Start: 03-13-2024 End: 03-13-2024 Patient encounter procedure Perry James [facility] Start: 02-15-2024 End: 02-15-2024 ambulatory BREE D PACI Facility:[facility] Start: 02-15-2024 End: 02-15-2024 ambulatory BETSY Shea Work Phone: [facility] Work Phone: Start: 02-15-2024 End: 02-15-2024 Patient encounter procedure BETSY Kenten Monse Work Phone: [facility] Work Phone: Start: 02-12-2024 End: 02-12-2024 Patient encounter procedure BETSY Dinesh Monse Work Phone: [facility] [place] Work Phone: Start: 02-12-2024 End: 02-12-2024 ambulatory Richi Llamas Facility:[facility] Start: 02-11-2024 Telephone encounter Bree castellanos APRN.CNP Work Phone: Gastroenterology Comment on above: Medication Preauthor ization (tirzepatide, weight loss (ZEPBOUND) 5 mg/0.5 mL pen injector Inject 5 mg subcutaneously one time a week. 4 Each 0 ordered 02/08/2024/) Start: 02-08-2024 End: 02-08-2024 Telemedicine consultation with patient Bree D Paci ASHLYN Work Phone: Gastroenterology Start: 02-08-2024 End: 02-08-2024 ambulatory Bree D Paci ASHLYN Work Phone: Gastroenterology Comment on above: Class 2 severe obesi ty due to excess calories with serious comorbidity and body mass index (BMI) of 38.0 to 38.9 in adult (HCC) (Primary Dx); Gastroesophageal reflux disease, unspecified whether esophagitis present; Fatty liver; PCOS (polycystic ovarian syndrome); Sleep apnea, unspecified type Start: 02-07-2024 End: 02-07-2024 ambulatory XXXX NONE Facility:[facility] Start: 02-07-2024 End: 02-07-2024 Patient encounter procedure Primo Pfeiffer [facility] Start: 02-01-2024 End: 02-01-2024 ambulatory DINESH SHEA Facility:[facility] Start: 02-01-2024 End: 02-01-2024 Patient encounter procedure DINESH SHEA [facility] Start: 02-01-2024 Telephone encounter Iwona Davis MD Work Phone: Gastroenterology Comment on above: Consult Start: 02-01-2024 End: 02-01-2024 ambulatory DINESH SHEA Facility:[facility] Start: 02-01-2024 End: 02-01-2024 Patient encounter procedure Kei Garcia [facility] Start: 02-01-2024 End: 02-01-2024 ambulatory BETSY Shea Work Phone: [facility] Work Phone: Start: 02-01-2024 End: 02-01-2024 Patient encounter procedure BETSY Shea Work Phone: [facility] Work Phone: Start: 01-02-2024 End: 01-02-2024 Patient encounter procedure Kei Hernándezmini [facility] Start: 11-29-2023 End: 11-29-2023 Patient encounter procedure DINESH SHEA [facility] Start: 11-25-2023 End: 11-25-2023 Patient encounter procedure Nader Driver [facility] Start: 10-26-2023 End: 10-26-2023 Patient encounter procedure Gayathri Martínez [facility] Start: 10-03-2023 End: 10-20-2023 Pre-admission assessment Bhavani BROCK [facility] Start: 09-27-2023 End: 09-27-2023 Patient encounter procedure Bhavani BROCK [facility] Start: 08-30-2023 End: 08-30-2023 Patient encounter procedure Bhavani BROCK [facility] Start: 06-25-2023 Rx Change Dinesh yi Work Phone: [facility] Work Phone: Start: 06-14-[address] Slick Hernandez Facility:[id number] Start: 06-14-2023 Office outpatient ne w 60 minutes Dinesh Méndez Work Phone: [facility] Work Phone: Start: 05-05-2023 Office outpatient ne w 20 minutes Stu Hsu [facility] Start: 05-05-2023 End: 05-05-2023 ambulatory DIRECTOR TRUST-C Dinesh Méndez Work Phone: [employer] Other Start: 05-05-2023 End: 05-05-2023 Departed Referred DIRECTOR TRUST-C Dinesh Méndez Work Phone: [facility] Work Phone: Start: 04-27-2023 End: 04-27-2023 Patient encounter procedure DINESH SHEA [facility] Start: 04-10-2023 End: 04-10-2023 Patient encounter procedure Gayathri Martínez [facility] Start: 04-02-2023 End: 04-02-2023 Patient encounter procedure Gayathri Martínez [facility] Start: 03-15-2023 End: 03-15-2023 Patient encounter procedure Suresh ENG [facility] Start: 03-13-2023 End: 03-13-2023 Patient encounter procedure Gayathri Martínez [facility] Start: 03-09-2023 End: 03-09-2023 Patient encounter procedure DIRECTOR TRUST-Valerio Méndez Work Phone: [facility] Work Phone: Start: 02-27-2023 End: 02-27-2023 Patient encounter procedure Bhavani BROCK [facility] Start: 02-02-2023 End: 02-02-2023 Patient encounter procedure Bhavani BROCK [facility] Start: 01-31-2023 End: 01-31-2023 Patient encounter procedure Gayathri Martínez [facility] Start: 01-31-2023 End: 02-06-2023 Pre-admission assessment Gayathri Martínez [facility] Start: 01-31-2023 End: 01-31-2023 Patient encounter procedure DINESH MÉNDEZ [facility] Start: 01-24-2023 End: 01-24-2023 Patient encounter procedure Bhavani Tejeda INDIORandy [facility] Start: 01-04-2023 Office consultation new/estab patient 40 min Darryl Madrigal Work Phone: [id number] DO Work Phone: Start: 01-04-[address] J Luis Quesada kvng Roof Facility:[id number] Start: 01-03-2023 Orders Only Otilio gutiérrez MD Work Phone: Cardiology Comment on above: Chest pain, unspecif ied type (Primary Dx) Start: 12-26-2022 End: 12-26-[address] HARRY MCHUGH . Facility: Start: 12-13-2022 End: 12-13-2022 Emergency department patient visit Isra Moreno [facility] Start: 12-05-2022 End: 12-05-2022 Patient encounter procedure Reji Hickey [facility] Start: 11-22-2022 End: 11-22-2022 Patient encounter procedure Reij Hickey [facility] Start: 11-09-2022 End: 11-09-2022 Emergency department patient visit Raymundo Hsu [facility] Start: 11-06-2022 End: 11-09-2022 Pre-admission assessment Caterina Richardsd [facility] Start: 11-02-2022 End: 11-02-[address] HARRY MCHUGH . Facility: Start: 11-02-2022 End: 11-02-2022 Patient encounter procedure José Miguel Phoenix [facility] Start: 10-23-2022 End: 10-23-2022 Patient encounter procedure Harry MCHUGH [facility] Start: 10-23-2022 End: 10-23-2022 Patient encounter procedure Reji Hickey [facility] Start: 10-22-2022 Chart Update Darryl diaz Work Phone: [facility] Work Phone: Start: 09-07-2022 End: 09-07-2022 Patient encounter procedure DINESH MÉNDEZ [facility] Start: 05-30-2022 End: 05-30-2022 Patient encounter procedure Reji Hickey [facility] Start: 04-28-2022 End: 04-28-2022 Patient encounter procedure Gayathri Martínez [facility] Start: 04-26-2022 End: 04-26-2022 Patient encounter procedure Suresh CHANDAM [facility] Start: 04-24-2022 End: 04-24-2022 Patient encounter procedure José Miguel Phoenix [facility] Start: 04-10-2022 End: 04-11-[address] HARRY MCHUGH . Facility:[facility] Start: 03-31-2022 End: 03-31-2022 Patient encounter procedure Suresh CHANDAM [facility] Start: 03-24-2022 End: 03-24-2022 Patient encounter procedure José Miguel Phoenix [facility] Start: 03-09-2022 End: 03-09-2022 Patient encounter procedure José Miguel Phoenix [facility] Start: 03-08-2022 End: 06-22-2022 Recurring Prince TrackMavenPILI [facility] Start: 02-22-2022 End: 02-22-[address] HARRY MCHUGH . Facility:[facility] Start: 02-03-2022 End: 02-03-2022 Patient encounter procedure Rjmarla Elian Beckman [facility] Start: 02-02-2022 End: 02-02-2022 Patient encounter procedure José Miguel Phoenix [facility] Start: 02-01-2022 End: 06-01-2022 Recurring Prince SALAM [facility] Start: 12-28-2021 End: 12-28-2021 Patient encounter procedure Suresh ENG [facility] Start: 12-21-2020 End: 12-22-2020 ambulatory EDD C ETHAN [facility] Start: 11-24-2020 End: 11-25-2020 ambulatory EDD C ETHAN [facility] Start: 11-24-2020 End: 11-24-2020 Subsequent hospital visit by physician IRINA Laboratory Procedures Date Procedure Procedure Detail Performing Clinician Start: 02-12-2024 MRI of left knee BETSY Shea Work Phone: Start: 02-01-2024 X-ray of left knee BETSY Shea Work Phone: Start: 11-29-2022 Cholecystectomy Reji Stormjuli Start: 03-31-2022 Esophagogastroduodenoscopy Suresh ENG Start: 11-24-2020 Protein total xcpt refractometry urine Edd C Perni Work Phone: Start: 11-24-2020 Assay of homocysteine Edd C Perni Work Phone: Start: 11-24-2020 Hemoglobin glycosylated a1c Edd C Per ni Work Phone: Start: 11-24-2020 Thromboplastin inhibition tissue Edd C Perni Work Phone: Adenoid excision Darryl mistry Work Phone: adenoids removed Suresh ENG adenoids removed ear tubes 1 Reji Hickey Comment on above: 2001 section Reji yi section Darryl mistry Work Phone: History of tympanostomy Hx of ty mpanostomy tubes Myringotomy and inse rtion of T tube Darryl Madrigal Work Phone: Operation on gallbladder Jesus abdiel [place] Work Phone: Plan of Treatment Date Care Activity Detail Author Start: 05-16-2031 Urine microalbumin profile DTaP,Tdap,Td Vaccine (9 - Td or Tdap) [facility] Start: 04-18-2027 DTaP/Tdap/Td vaccine (8 - Td) DTaP/Tdap/Td vaccine (8 - Td) [facility] Work Phone: Start: 04-18-2027 Urine microalbumin profile DTaP,Tdap,Td Vaccine (3 - Td or Tdap) [facility] Start: 03-26-2025 End: 03-26-2025 ambulatory 03/26/2025 4:30 PM EDT Treatment [facility] [address] [place] [id number] Titi Daniel, KNIFE GRINDER [address] [place] [address] [facility] Start: 03-24-2025 End: 03-24-2025 ambulatory 03/24/2025 4:30 PM EDT Treatment [facility] [address] [place] [id number] Della Goldstein, PT [address] [facility] [place] [address] [facility] Start: 03-19-2025 End: 03-19-2025 ambulatory 03/19/2025 4:30 PM EDT Treatment [facility] [address] [place] [address] Titi Daniel, KNIFE GRINDER [address] [place] [address] [facility] Start: 03-18-2025 End: 03-18-2025 Patient encounter procedure 03/18/2025 10:20 AM EDT Office Visit [facility] [address] [place] [phone] Ahmet Oliver MD 4119 [facility] [place] [address] [place] [address] [id number] [facility] Start: 03-17-2025 End: 03-17-2025 ambulatory [facility] Start: 03-12-2025 End: 03-12-2025 ambulatory 03/12/2025 4:30 PM EDT Treatment [facility] [address] [place] [address] Titi Daniel, KNIFE GRINDER [address] [place] [address] [facility] Start: 03-10-2025 End: 03-10-2025 ambulatory 03/10/2025 3:00 PM EDT Treatment [facility] [address] [place] [address] Jana Maki, PT [address] [place] [address] [facility] Start: 03-05-2025 End: 03-05-2025 ambulatory 03/05/2025 4:30 PM EDT Treatment [facility] [address] [place] [address] Titi Daniel, KNIFE GRINDER [address] [place] [address] [facility] Start: 03-04-2025 End: 03-04-2025 Patient encounter procedure 03/04/2025 11:00 AM EDT Office Visit [facility] OB [address] [phone] Erika Babcock PA [address] [place] [address] [facility] Start: 03-03-2025 End: 03-03-2025 ambulatory 03/03/2025 8:30 AM EDT Treatment [facility] [address] [place] [address] Della Goldstein, PT [address] [place] [address] [facility] Start: 03-02-2025 End: 03-02-2025 ambulatory 03/02/2025 6:00 PM EDT Treatment [facility] [address] [place] [address] Della Goldstein, PT [address] [place] [address] [facility] Start: 03-02-2025 End: 03-02-2025 Patient encounter procedure 03/02/2025 8:10 AM EDT Office Visit [facility] [address] [place] [id number] Harry Mchugh, DO [address] [place] [place] [address] [facility] Start: 02-26-2025 End: 02-26-2025 ambulatory 02/26/2025 10:00 AM EDT Treatment [facility] [address] [place] [address] Titi Daniel, KNIFE GRINDER [address] [place] [address] [facility] Start: 02-24-2025 End: 02-24-2025 ambulatory 02/24/2025 5:00 PM EDT Treatment [facility] [address] [place] [address] Jana Maki, PT [address] [place] [address] [facility] Start: 02-19-2025 End: 02-19-2025 ambulatory 02/19/2025 4:30 PM EDT Treatment [facility] [address] [place] [address] Titi Daniel, KNIFE GRINDER [address] [place] [address] [facility] Start: 02-16-2025 End: 02-16-2025 ambulatory [facility] Comment on above: Arrived Start: 02-12-2025 End: 02-12-2025 ambulatory [facility] Comment on above: Arrived Start: 02-09-2025 End: 02-09-2025 ambulatory [facility] Comment on above: Arrived Start: 02-04-2025 End: 02-04-2025 ambulatory 02/04/2025 4:00 PM EDT Evaluation [facility] [address] [place] [phone] Jana Maki, PT [address] [place] [address] Arrived [facility] Comment on above: Arrived Start: 01-06-2025 End: 01-06-2025 Patient encounter procedure 01/06/2025 10:00 AM EDT Office Visit [facility] [address] [facility] [place] [phone] Harry Mchugh, [address] [place] [place] [address] [facility] Start: 12-23-2024 End: 12-23-2025 DHEA DHEA Lab Routine PCOS (polycystic ovarian syndrome) Expected: 12/23/2024 (Approximate), Expires: 12/23/2025 [facility] Comment on above: Expected: 12/23/2024 (Approximate), Expi res: 12/23/2025 Start: 12-23-2024 End: 12-23-2025 US Pelvis US Pelvis w/ TV Imaging Routine PCOS (polycystic ovarian syndrome) Expected: 12/23/2024, Expires: 12/23/2025 [facility] Comment on above: Expected: 12/23/2024, Expires: Start: 06-09-2024 End: 06-09-2024 ambulatory 06/09/2024 10:15 AM EDT [facility] [address] [address] Treva Carter, RD [address] [place] [address] group Gastroenterology Comment on above: group Start: 06-01-2024 Influenza vaccination [facility] Start: 05-26-2024 End: 05-26-2024 ambulatory 05/26/2024 10:15 AM EDT [facility] [address] [address] Treva Carter, RD [address] [place] [address] group Gastroenterology Comment on above: group Start: 05-21-2024 End: 05-21-2024 Patient encounter procedure 05/21/2024 2:30 PM EDT [facility] [address] [place] [address] Kristen Nieto, KARLAYD [address] [place] [address] bar endo consult Psychology Comment on above: bar endo consult Start: 05-19-2024 End: 05-19-2024 ambulatory 05/19/2024 10:15 AM EDT [facility] [address] [address] Treva Carter, RD [address] [place] [address] group Gastroenterology Comment on above: group Start: 05-12-2024 End: 05-12-2024 ambulatory 05/12/2024 10:15 AM EDT [facility] [address] [place] [address] Treva Carter, RD [address] [place] [address] group Gastroenterology Comment on above: group Start: 05-09-2024 End: 05-09-2024 ambulatory 05/09/2024 1:45 PM EDT [facility] [address] [place] [address] Treva Carter, RD [address] [place] [address] med wt Gastroenterology Comment on above: med wt Start: 05-05-2024 End: 05-05-2024 ambulatory 05/05/2024 10:15 AM EDT [facility] [address] [place] [address] Treva Carter, RD [address] [place] [address] group Gastroenterology Comment on above: group Start: 04-21-2024 End: 04-21-2024 ambulatory 04/21/2024 10:15 AM EDT [facility] [address] [place] [address] Treva Carter, RD [address] [place] [address] group Gastroenterology Comment on above: group Start: 04-14-2024 End: 04-14-2024 ambulatory 04/14/2024 10:15 AM EDT [facility] [address] [place] [address] Treva Carter, RD [address] [place] [address] group Gastroenterology Comment on above: group Start: 04-07-2024 End: 04-07-2024 ambulatory 04/07/2024 10:15 AM EDT [facility] [address] [place] [address] Treva Carter, RD [address] [place] [address] group Gastroenterology Comment on above: group Start: 03-31-2024 End: 03-31-2024 ambulatory 03/31/2024 10:15 AM EDT [facility] [address] [place] [address] Treva Carter, RD [address] [place] [address] group Gastroenterology Comment on above: group Start: 03-31-2024 End: 03-31-2024 Patient encounter procedure 03/31/2024 8:00 AM EDT [facility] [address] [address] Treva Carter, RD [address] [place], [place] [id number] bar endo consult Gastroenterology Comment on above: bar endo consult Start: 03-21-2024 End: 03-21-2024 Follow-up encounter 03/21/2024 10:00 AM EDT [facility] [address] [address] Bree Lopes APRN.SPINDRAW OPERATOR [address] [place] [address] med follow up Gastroenterology Comment on above: med follow up Start: 03-14-2024 End: 03-14-2024 Patient encounter procedure 03/14/2024 1:30 PM EDT [facility] [address] [address] Kristen Nieto, PSYD [address] [place] [address] bar endo consult Psychology Comment on above: bar endo consult Start: 02-15-2024 End: 02-15-2024 ambulatory 02/15/2024 9:45 AM EDT Results Only [facility] [address] [place] [address] [place] [address] [facility] Start: 02-14-2024 End: 02-14-2024 Patient encounter procedure 02/14/2024 10:15 AM EDT [facility] [address] [address] Treva Carter, RD [address] [place] [address] bar endo consult Gastroenterology Comment on above: bar endo consult Start: 02-11-2024 End: 02-11-2024 ambulatory 02/11/2024 11:30 AM EDT Results Only [facility] [address] [place] [address] [place] [address] [facility] Start: 02-08-2024 End: 05-09-2024 Comprehensive metabolic 2000 panel - Serum or Plasma COMPREHENSIVE METABOLIC PANEL Lab Routine Class 2 severe obesity due to excess calories with serious comorbidity and body mass index (BMI) of 38.0 to 38.9 in adult (HCC) Expected: 02/08/2024, Expires: 05/09/2024 [facility] Work Phone: Comment on above: Expected: 02/08/2024, Expires: 4 Start: 02-08-2024 End: 05-09-2024 Hemoglobin A1c in Blood HEMOGLOBIN A1C Lab Routine Class 2 severe obesity due to excess calories with serious comorbidity and body mass index (BMI) of 38.0 to 38.9 in adult ([facility]) Expected: 02/08/2024, Expires: 05/09/2024 [facility] Comment on above: Expected: 02/08/2024, Expires: Start: 02-08-2024 End: 05-09-2024 Insulin [Units/volume] in Serum or Plasma INSULIN ASSAY BLOOD Lab Routine Class 2 severe obesity due to excess calories with serious comorbidity and body mass index (BMI) of 38.0 to 38.9 in adult ([facility]) Expected: 02/08/2024, Expires: 05/09/2024 [facility] Comment on above: Expected: 02/08/2024, Expires: 4 Start: 02-01-2024 X-ray of left knee XR knee LT 2V [facility] Start: 02-01-2024 XR Knee - left 2 Views [facility] Start: 11-12-2023 FUVGENERAL, Provider: Slick Hernandez, Status: Pen, Time: 10:15 AM FUVGENERAL, Provider: Slick Hernandez, Status: Pen, Time: 10:15 AM [place] [address] Work Phone: Start: 10-01-2023 Behavioral Health Screening Behavioral Health Screening [facility] Start: 06-21-2023 NPV, Provider: Reji Whyte, Status: Pen, Time: 2:30 PM NPV, Provider: Reji Whyte, Status: Pen, Time: 2:30 PM [facility] 201 Work Phone: Start: 06-01-2023 Covid-19 Vaccine ( season) Covid-19 Vaccine ( season) [facility] Start: 06-01-2023 Influenza vaccination INFLUENZA (Season Ended) [facility] Start: 05-05-2023 Bacteria identified in Urine by Culture Urine Culture [facility] Start: 10-01-2022 DEPRESSION ASSESSMENT DEPRESSION ASSESSMENT [facility] Start: 12-22-2020 End: 12-22-2020 Routine 12/22/2020 Routine Perinatology [facility] Start: 06-01-2020 Influenza vaccination Flu vaccine (#1) [place] Phone: Start: 2017 PAP TESTING PAP TESTING [facility] Start: 2017 Screening for malignant neoplasm of cervix [facility] Start: 2015 Urine microalbumin profile DTAP,TDAP,TD (1 - Tdap) [facility] Start: 2014 Anxiety Screening Anxiety Screening [facility] Start: 2014 Depression Screening Depression Screening [facility] Start: 2014 HEPATITIS C SCREENING HEPATITIS C SCREENING [facility] Start: 2014 Hepatitis C screening Hepatitis C Screening [facility] Start: 2014 HIV SCREENING HIV SCREENING [facility] Start: 2014 HIV screening HIV Screening [facility] Start: 2012 Screening for Chlamydia trachomatis Chlamydia screen [place] Phone: Start: 2011 HIV screening HIV screen [place] Phone: Start: 2010 PEDS TO ADULT TRANSITION ANNUAL ASSESSMENT PEDS TO ADULT TRANSITION ANNUAL ASSESSMENT [facility] Start: 2008 PEDS TO ADULT TRANSITION INITIAL DISCUSSION PEDS TO ADULT TRANSITION INITIAL DISCUSSION [facility] Start: 2007 HPV vaccine (1 - 2-dose series) HPV vaccine (1 - 2-dose series) [facility] Start: 1997 Varicella vaccine (1 of 2 - 2-dose childhood series) Varicella vaccine (1 of 2 - 2-dose childhood series) [place] Phone: Start: 1996 COVID-19 VACCINE (#1) COVID-19 VACCINE (#1) [facility] Start: 1996 HEPATITIS B (1 of 3 - 3-dose series) HEPATITIS B (1 of 3 - 3-dose series) [facility] Start: 1996 Hepatitis C screening Hepatitis C screen [place] Phone: End: 11-24-2020 Antithrombin III Activity Antithrombin III Activity Lab Routine Once for 1 Occurrences starting 11/24/2020 until 11/24/2020 [place] Phone: Comment on above: Once for 1 Occurrences starting 11/24/19 until 11/24/2020 Antithrombin III Activity Antithrombin III Activity Lab Routine 11/24/2020 5:05 PM EST [place] Phone: CBC W Auto Differential panel - Blood CBC and differential Lab Routine PCOS (polycystic ovarian syndrome) Ordered: 12/23/2024 [employer] [facility] Comment on above: Ordered: 12/23/2024 DHEA-sulfate DHEA-sulfate Lab Routine PCOS (polycystic ovarian syndrome) Ordered: 12/23/2024 [employer] Comment on above: Ordered: 12/23/2024 End: 01-04-2024 ECG COMPLETE ECG COMPLETE ECG Routine Chest pain, unspecified type 1 Occurrences starting 01/03/2023 until 01/04/2024 [facility] [employer] Work Phone: Comment on above: 1 Occurrences starting 01/03/2023 until 01/04/2024 End: 11-24-2020 Factor 5 Leiden Factor 5 Leiden Lab Routine Once for 1 Occurrences starting 11/24/2020 until 11/24/2020 [place] Phone: Comment on above: Once for 1 Occurrences starting 11/24/19 until 11/24/2020 Factor 5 Leiden Factor 5 Leiden Lab Routine 11/24/2020 5:05 PM [facility] Phone: Follicle stimulating hormone Follicle stimulating hormone Lab Routine PCOS (polycystic ovarian syndrome) Ordered: 12/23/2024 [employer] Comment on above: Ordered: 12/23/2024 End: 11-24-2020 Glucose tolerance, 1 hour Glucose tolerance, 1 hour Lab Routine Once for 1 Occurrences starting 11/24/2020 until 11/24/2020 [facility] Phone: Comment on above: Once for 1 Occurrences starting 11/24/19 until 11/24/2020 End: 11-24-2020 HbA1c (Bld) [Mass fraction] Hemoglobin A1C Lab Routine Once for 1 Occurrences starting 11/24/2020 until 11/24/2020 [place] Phone: Comment on above: Once for 1 Occurrences starting 11/24/19 until 11/24/2020 hCG, quantitative, hCG, quantitative, Lab Routine PCOS (polycystic ovarian syndrome) Ordered: 12/23/2024 [employer] Work Phone: Comment on above: Ordered: 12/23/2024 Hemoglobin A1c/Hemoglobin.total in Blood Hemoglobin A1c Lab Routine Menorrhagia with regular cycle Ordered: 12/23/2024 [employer] Comment on above: Ordered: 12/23/2024 Lupus Anticoagulant Lupus Antico agulant Lab Routine 11/24/2020 5:05 PM [facility] Phone: Luteinizing hormone Luteinizing hormone Lab Routine PCOS (polycystic ovarian syndrome) Ordered: 12/23/2024 [employer] Comment on above: Ordered: 12/23/2024 End: 11-24-2020 MISCELLANEOUS TESTING MISCELLANEOUS TESTING Lab Routine Once for 1 Occurrences starting 11/24/2020 until 11/24/2020 [place] Phone: Comment on above: Once for 1 Occurrences starting 11/24/19 until 11/24/2020 MISCELLANEOUS TESTING MISCELLANE OUS TESTING Lab Routine 11/24/2020 5:05 PM [facility] Phone: MR Knee - left WO contrast [facility] End: 11-24-2020 MTHFR mutation MTHFR mutation Lab Routine Once for 1 Occurrences starting 11/24/2020 until 11/24/2020 [facility] Phone: Comment on above: Once for 1 Occurrences starting 11/24/19 21 until 11/24/2020 MTHFR mutation MTHFR mutation L ab Routine 11/24/2020 5:05 PM [facility] Phone: End: 11-24-2020 Protein C Functional Protein C Functional Lab Routine Once for 1 Occurrences starting 11/24/2020 until 11/24/2020 [facility] Phone: Comment on above: Once for 1 Occurrences starting 11/24/19 21 until 11/24/2020 Protein C Functional Protein C F unctional Lab Routine 11/24/2020 5:05 PM [facility] Phone: End: 11-24-2020 Protein S Functional Protein S Functional Lab Routine Once for 1 Occurrences starting 11/24/2020 until 11/24/2020 [place] Phone: Comment on above: Once for 1 Occurrences starting 11/24/19 21 until 11/24/2020 Protein S Functional Protein S F unctional Lab Routine 11/24/2020 5:05 PM [facility] Phone: End: 11-24-2020 Prothrombin Gene Mutation Prothrombin Gene Mutation Lab Routine Once for 1 Occurrences starting 11/24/2020 until 11/24/2020 [place] Phone: Comment on above: Once for 1 Occurrences starting 11/24/19 21 until 11/24/2020 Prothrombin Gene Mutation Prothrombin Gene Mutation Lab Routine 11/24/2020 5:05 PM [facility] Phone: Thyrotropin [Units/volume] in Serum or Plasma TSH Lab Routine PCOS (polycystic ovarian syndrome) Ordered: 12/23/2024 [facility] Comment on above: Ordered: 12/23/2024 Thyroxine (T4) free [Mass/volume] in Serum or Plasma T4, free Lab Routine PCOS (polycystic ovarian syndrome) Ordered: 12/23/2024 [facility] Comment on above: Ordered: 12/23/2024 [facility] Immunizations Immunization Date Immunization Notes Care Provider Raj herring 06-17-2024 influenza virus vaccine, unspecified formulation Kei Garcia [facility] 06-25-2023 influenza virus vaccine, unspecified formulation Bhavani BROCK [facility] Comment on above: Result Comment: PCP 07-10-2022 influenza virus vaccine, unspecified formulation Bhavani DELMY [facility] 07-10-2022 Influenza, injectabl e, Madin [place] Canine Kidney, preservative free, quadrivalent Darryl Solano [place] Work Phone: [facility] 240 DO Work Phone: 05-16-2021 diphtheria, tetanus toxoids and pertussis vaccine Darryl Madrigal Work Phone: [facility] 240 DO Work Phone: 04-18-2017 tetanus toxoid, redu fabi diphtheria toxoid, and acellular pertussis vaccine, adsorbed; Translations: [Adacel (Tdap)] Suresh ENG [facility] Comment on above: Reason for Medicatio n: Other (see comment) 05-11-2010 meningococcal ACWY vaccine, unspecified formulation Bhavani BORJASRandy [facility] 05-11-2010 meningococcal polysaccharide (groups A, C, Y and W-135) diphtheria toxoid conjugate vaccine (MCV4P) Darryl Knottwood Work Phone: [facility] ENT 240 DO Work Phone: 05-11-2010 tetanus toxoid, redu fabi diphtheria toxoid, and acellular pertussis vaccine, adsorbed Darryl K[place]twood Work Phone: [facility] 12-18-2000 diphtheria, tetanus toxoids and acellular pertussis vaccine, unspecified formulation Darryl Madrigal Work Phone: [facility] [place] [facility] 240 DO Work Phone: 12-18-2000 DTaP, unspecified formulation Bhavani DELMY [facility] 12-18-2000 measles, mumps and rubella virus vaccine Darryl Madrigal Work Phone: [facility] 12-18-2000 poliovirus vaccine, inactivated Darryl Madrigal Work Phone: [facility] 240 DO Work Phone: 12-18-2000 poliovirus vaccine, unspecified formulation Bhavani DELMY [facility] 10-28-1997 diphtheria, tetanus toxoids and acellular pertussis vaccine, unspecified formulation Darryl Madrigal Work Phone: [facility] 240 DO Work Phone: 10-28-1997 DTaP, unspecified formulation Bhavani DELMY [facility] 10-28-1997 haemophilus influenz ae type b vaccine, conjugate unspecified formulation Darryl Madrigal Work Phone: [facility] 240 DO Work Phone: 10-28-1997 Hib, unspecified formulation Bhavani DELMY [facility] 10-28-1997 measles, mumps and rubella virus vaccine Darryl Madrigal Work Phone: [facility] 1996 DTP-Haemophilus influenzae type b conjugate vaccine Darryl Madrigal Work Phone: [facility] 240 DO Work Phone: 1996 DTP-Hib Bhavani INDIOG [facility] 1996 hepatitis B vaccine, pediatric or pediatric/adolescent dosage Darryl Madrigal Work Phone: [facility] 1996 trivalent poliovirus vaccine, live, oral Darryl Madrigal Work Phone: [facility] [place] [facility] 240 DO Work Phone: 1996 DTP-Haemophilus influenzae type b conjugate vaccine Darryl Madrigal Work Phone: [facility] [place] [facility] 240 DO Work Phone: 1996 DTP-Hib Bhavani INDIOG [facility] 1996 trivalent poliovirus vaccine, live, oral Darryl Madrigal Work Phone: [facility] 240 DO Work Phone: 1996 DTP-Haemophilus influenzae type b conjugate vaccine Darryl Madrigal Work Phone: [facility] 240 DO Work Phone: 1996 DTP-Hib Bhavanidavid BROCK [facility] 1996 hepatitis B vaccine, pediatric or pediatric/adolescent dosage Darryl Madrigal Work Phone: [facility] 1996 trivalent poliovirus vaccine, live, oral Darryl A Kaitlin Work Phone: [facility] 240 DO Work Phone: 1996 hepatitis B vaccine, pediatric or pediatric/adolescent dosage Darryl A Kaitlin Work Phone: [facility] NEGATED: Highlighted row has not occurred!11-25-2023 SARS-CoV-2 mRNA (tozinameran 5y-11y) vaccine Nader Driver [facility] NEGATED: Highlighted row has not occurred!10-23-2022 SARS-CoV-2 mRNA (tozinameran 5y-11y) vaccine Rjei Hickey [facility] NEGATED: Highlighted row has not occurred!05-30-2022 influenza virus vaccine, unspecified formulation Reji Hickey [facility] NEGATED: Highlighted row has not occurred!12-28-2021 influenza virus vaccine, unspecified formulation Prince SALAM [facility] Payers Date Payer Category Payer Private Health Insurance [id number] 2024 Self-pay [id number] 2022 Medicaid [id number] 2021 [facility] [id number] 2020 Medicaid (Managed Care) SEGUNDO BLACKWELL [id number]. [id number] 2014 Unknown 1996 Unknown [id number] 2.16.840.1.498173.3.579.2. 175 1996 Unknown [id number] 2.16.840.1.155585.3.579.2. 175 1996 Unknown [id number] 2.16.840.1.632657.3.579.2. 593 1996 Unknown [id number] 2.16.840.1.206486.3.579.2. 593 1996 Unknown [id number] 2.16.840.1.136993.3.579.2. 593 1996 Unknown [id number] 2.16.840.1.206689.3.579.2. 593 1996 Unknown [id number] 2.16.840.1.120553.3.579.2. 356 1996 Unknown [id number] 2.16.840.1.169054.3.579.2. 356 1996 Unknown [id number] 2.16.840.1.309470.3.579.2. 727 1996 Unknown [id number] 2.16.840.1.121386.3.579.2. 727 1996 Unknown [id number] 2.16.840.1.344299.3.579.2. 72 1996 Unknown [id number] 2.16.840.1.034361.3.579.2 1996 Unknown [id number] 2.16.840.1.943531.3.579.2 1996 Unknown [id number] 2.16.840.1.293756.3.579.2 1996 Unknown [id number] 2.16.840.1.081989.3.579.2 1996 Unknown [id number] 2.16.840.1.017393.3.579.2 1996 Unknown [id number] 2.16.840.1.235763.3.579.2 1996 Unknown [id number] 2.16.840.1.673586.3.579.2 1996 Unknown [id number] 2.16.840.1.406247.3.579.2 1996 Unknown [id number] 2.16.840.1.426253.3.579.2 1996 Unknown [id number] 2.16.840.1.602897.3.579.2 1996 Unknown [id number] 2.16.840.1.366106.3.579.2 1996 Unknown [id number] 2.16.840.1.213934.3.579.2 1996 Unknown [id number] 2.16.840.1.194436.3.579.2 1996 Unknown [id number] 2.16.840.1.079094.3.579.2 1996 Unknown [id number] 2.16.840.1.461819.3.579.2 1996 Unknown [id number] 2.16.840.1.618843.3.579.2 1996 Unknown [id number] 2.16.840.1.877680.3.579.2. 1996 Unknown [id number] 2.16.840.1.938729.3.579.2 1996 Unknown [id number] 1996 Unknown [id number] 2.16.840.1.429643.3.579.2 1996 Unknown [id number] 2.16.840.1.146297.3.579.2 1996 Unknown [id number] 2.16.840.1.414042.3.579.2 1996 Unknown [id number] 2.16.840.1.608206.3.579.2 1996 Unknown [id number] 2.16840.1.616692.3.579.2 1996 Unknown [id number] 2.16840.1.645394.3.579.2 1996 Unknown [id number] 2.16.840.1.373818.3.579.2 1996 Unknown [id number] 2.16840.1.074332.3.579.2. 1258 1996 Unknown [id number] 2.16.840.1.536307.3.579.2. 1258 1996 Unknown [id number] 2.16.840.1.270969.3.579.2. 1258 1996 Unknown [id number] 2.16.840.1.906331.3.579.2. 1258 1996 Unknown [id number] 2.16.840.1.176248.3.579.2. 1258 1996 Unknown [id number] 2.16.840.1.879329.3.579.2. 1259 1996 Unknown [id number] 2.16.840.1.112103.3.579.2. 1259 1996 Unknown [id number] 2.16.840.1.933757.3.579.2. 727 1996 Unknown [id number] 2.16.840.1.932323.3.579.2. 727 1996 Unknown [id number] 2.16.840.1.252447.3.579.2. 727 1996 Unknown [id number] 2.16.840.1.195309.3.579.2. 1244 1958 Medicaid [id number] 1.2.840.611680.1.13.239.2. [id number] 1959 Unknown [id number] 1.2.840.857390.1.13.239.2. 7.3.258774.315 Unknown [id number] Unknown [id number] 2.16.840.1.958717.3.579.2. 531 Unknown [id number] 2.16.840.1.133667.3.579.2. 531 Social History Date Type Detail Facility Start: 11-24-2020 End: 01-27-2025 Tobacco smoking status NHIS Former smoker [facility] History of tobacco use Cigarette Smoker M [employer] Phone: Start: 11-24-2020 Tobacco use and exposure Never used [facility] Phone: Start: 11-24-2020 End: 02-08-2024 Alcohol intake Ex-drinker (finding) [facility] Phone: Start: 11-24-2020 Tobacco Comment quit about 1 year ag o [facility] Phone: Start: 09-15-2020 [employer] Work Phone: Sex Assigned At Not on file [facility] Phone: Start: 12-28-2021 End: 04-13-2023 Tobacco smoking status Never smoked tobacco (finding) [facility] Comment on above: Denies. Tobacco smoking status Never [facility] Comment on above: Denies. Start: 04-10-2023 End: 12-31-2023 Sex Assigned At Female [facility] Start: 10-23-2022 Tobacco smoking status Light t obacco smoker (finding) [facility] Tobacco smoking stat [facility] Tobacco smoking consumption unknown [facility] Start: 1995 Sex Assigned At Female [facility] Tobacco Current vaping o r e-cigarette use Smokeless Tobacco Use:. Cigarettes, Vaping, Yes [facility] Tobacco smoking status [facility] Start: 04-10-2023 End: 12-31-2023 No alcohol use No alcohol use [facility] Start: 12-13-2022 Gender identity Identifies as female gender (finding) [facility] History of tobacco use Current smoker [facility] Start: 12-31-2023 End: 12-29-2024 Alcoholic beverage intake Lifetime non-drinker (finding) [facility] Start: 04-13-2023 Alcohol Comment Caffeine intak e: 3-4 cups per day [facility] Start: 12-19-2018 End: 01-07-2025 Sex Female (finding) [facility] Functional Status Date Assessment Result Facility 02-05-2025 Functional Status N/A [facility] 01-23-2025 Functional Status N/A [facility] 12-01-2024 Functional Status N/A [facility] 11-28-2024 Functional Status N/A [facility] 10-20-2024 Functional Status N/A [facility] 09-17-2024 Functional Status N/A [facility] 08-20-2024 Functional Status N/A [facility] 07-16-2024 Functional Status N/A [facility] 03-13-2024 Functional Status N/A [facility] 02-07-2024 Functional Status No [facility] 02-01-2024 Functional Status N/A [facility] 11-25-2023 Functional Status N/A [facility] 09-27-2023 Functional Status No [facility] 08-30-2023 Functional Status No [facility] 02-27-2023 Functional Status No [facility] 01-24-2023 Functional Status No [facility] 12-13-2022 Functional Status N/A [facility] 11-22-2022 Functional Status No [facility] 11-09-2022 Functional Status N/A [facility] 11-02-2022 Functional Status No [facility] 10-23-2022 Functional Status N/A [facility] 05-30-2022 Functional Status N/A [facility] 04-28-2022 Functional Status N/A [facility] 04-24-2022 Functional Status N/A [facility] 03-31-2022 Functional Status N/A [facility] Clinical Notes 01-11-2022 to 02-24-2025 Jana Maki, PT - 02/24/2025 5:00 PM Inna Maki, PT - 02/16/2025 4:00 PM Inna Maki, PT - 02/09/2025 5:00 PM EDT Note Date & Type Note Facility 02-24-2025 History of Presen t illness Narrative Images from the original note were not included. Time In: 5:10 pm Time Out: 6:05 pm Supervised Time: 55 min Total Time: 55 min Visit Number: 5, 46 visits left for 2024 Chief Complaint: M54.12: Radiculopathy of cervical region M24.812: Internal derangement left shoulder Neck and left shoulder pain Precautions: MT (SOR) at C1 reproduces pain radiating left face, discontinued. PMHx: LBP with pars defect L5S1 Subjective Mechanism of injury: no specific injury. Left shoulder pops , neck pain, headaches, numbness/tingling left UE. History of left sciatica. Dizziness with forward bend. Pain disturbs sleep, worse with UE activity, driving. Pt unable to take NSAIDs due to acid reflux. 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 Pain level: Very little neck pain today. No nerve pain as experienced initially last session. Left shoulder still feels weak, pops but is slowly getting stronger. Muscle length: decreased left upper traps and levator Special Tests: positive median nerve stretch test on left, negative on right. Negative Spurling's compression/distraction. Negative alar/AA ligament testing. Positive Marin's test for SLAP. Negative Speeds test, negative impingement tests left shoulder. 02/24: slight drop with supraspinatus drop lag test on . Negative testing all neural tension tests . INTERVENTIONS: X 10 minutes of manual therapy left GH joint. No: Manual traction, neural mobes, prone grade 2 PA's, upper rib mobes, CT junction mobs. X 35 minutes of supervised therapeutic exercises per flowsheet, stretching, rotator cuff strengthening. Updated HEP. Re-assess X10 mins ice left shoulder. No cervical mechanical traction (20#/10#) today. PT Assessment: Pt has been seen by PT 5 times from 02/04/25 throught 02/24/25. PT has consisted of manual therapy cervical spine, mechanical cervical traction, therapeutic exercises for neck and left shoulder. Focused on progressing shoulder exercises today. Issued new HEP. Updated coding and will send to referring provider for signature. May have underlying injury left shoulder: RCT, labral tear. No cervical pain today. Assess 24hr response next session. Continue per PT POC. Plan: PT 2x/week x 6 weeks Treatment: manual therapy, therapeutic exercises, neuromuscular re-ed, modalities as needed: ice, heat, dry needling, e-stim IASTM as needed, mechanical traction as needed. I hereby deem this POC medically necessary. Please sign below and fax back to the number below. Physician Signature: Date: documented in this encounter [facility] 02-16-2025 History of Presen t illness Narrative Time In: 4:05 pm Time Out: 5:02 pm Supervised Time: 45 min Total Time: 57 min Visit Number: 3, 46 visits left for 2024 Chief Complaint: M54.12: Radiculopathy of cervical region Neck and left shoulder pain Precautions: MT (SOR) at C1 reproduces pain radiating left face, discontinued. PMHx: LBP with pars defect L5S1 Subjective Mechanism of injury: no specific injury. Left shoulder pops , neck pain, headaches, numbness/tingling left UE. History of left sciatica. Dizziness with forward bend. Pain disturbs sleep, worse with UE activity, driving. Pt unable to take NSAIDs due to acid reflux. 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 Pain level: Improved after last treatment with increased emphasis on neural mobes and cervical treatment to address pain radiating to left shoulder. Very little left shoulder pain at this time. Some crepitus but nonpainful. Muscle length: decreased left upper traps and levator Special Tests: positive median nerve stretch test on left, negative on right. Negative Spurling's compression/distraction. Negative alar/AA ligament testing. Positive Marin's test for SLAP. Negative Speeds test, negative impingement tests left shoulder. INTERVENTIONS: X25 minutes of manual therapy C-spine, left GH joint, must stay off C1. Manual traction, neural mobes, prone grade 2 PA's, upper rib mobes, CT junction. Inferior glide left shoulder X 20 minutes of supervised therapeutic exercises per flowsheet, stretching, rotator cuff strengthening. X12 mins cervical mechanical traction (20#/10#) at end of session for spinal decompression. PT Assessment: Good tolerance with MT, continued nonpainful exercises. Continued median, radial and ulnar nerve glides and cervical mechanical traction for spinal decompression without any adverse responses. Pt gets claustophobic with traction but tolerated 12 minutes. Advised to ice at home. Assess 24hr response next session. Continue per PT POC. Plan: PT 2x/week x 6 weeks Treatment: manual therapy, therapeutic exercises, neuromuscular re-ed, modalities as needed: ice, heat, dry needling, e-stim IASTM as needed, mechanical traction as needed. documented in this encounter [facility] 02-09-2025 History of Presen t illness Narrative Images from the original note were not included. Time In: 5:00 pm Time Out: 5:55 pm Supervised Time: 55 min Total Time: 55 min Visit Number: 2, 46 visits left for 2024 Chief Complaint: M54.12: Radiculopathy of cervical region Neck and left shoulder pain Precautions: MT (SOR) at C1 reproduces pain radiating left face, discontinued. PMHx: LBP with pars defect L5S1 Subjective Mechanism of injury: no specific injury. Left shoulder pops , neck pain, headaches, numbness/tingling left UE. History of left sciatica. Dizziness with forward bend. Pain disturbs sleep, worse with UE activity, driving. Pt unable to take NSAIDs due to acid reflux. Pt is busy pztx-cf-gejs mother with 4 children including 3 year old twins. Pain radiates: into face, down spine Timing of pain: constant Numbness/tingling: yes fingers 3,4 Headaches: yes Imaging: none Pain level: 5-6/10 Progress: corner stretch is beneficial. Objective IE: 02/04/25 Posture / Appearance: midline, forward head posture Cervical AROM: flexion: 40* full ROM, no pain extension: 60* full ROM no pain L side bend: 20* no pain R side bend: 20* with pull left side L rotation: 57* R rotation: 55 * AROM Shoulders: full AAROM bilateral upper extremities, crepitus AC joint left with abduction. Muscle Strength: 5/5 bilateral UE's Left supraspinatus weakness seen with 90/90 drop lag testing Palpation: point tender C1,2, throughout C-spine, left anterior and posterior GH joint line. Joint Play: hypermobile in general, restrictions CT junction, mid cervical Muscle length: decreased left upper traps and levator Special Tests: positive median nerve stretch test on left, negative on right. Negative Spurling's compression/distraction. Negative alar/AA ligament testing. Positive Marin's test for SLAP. Negative Speeds test, negative impingement tests left shoulder. INTERVENTIONS: X 25 minutes of manual therapy C-spine, left GH joint, must stay off C1. Manual traction, neural mobes, prone grade 2 PA's, upper rib mobes, CT junction. Inferior glide left shoulder X 30 minutes of therapeutic exercises per flowsheet: initiated stretching, rotator cuff strengthening. Added deep neck flexors, scapular stabilization with written instructions PT Assessment: Therapy Diagnosis: cervical radiculopathy with headaches, left shoulder pain with supraspinatus weakness, crepitus Functional Limitations: Neck Index: 25/50 points, 50% impairment Home Health Occupational Therapist Goals: in 6 weeks Decrease pain 50% in 2-3 weeks Negative median nerve stretch test on left Abolish sleep disturbance. Home program in place 0-2/10 pain with pt able to manage indep Assessment: Decreased left shoulder pain with MT C-spine. Tolerated new exercises well. Will progress as able. Will consider mechanical traction C-spine as indicated. Plan: PT 2x/week x 6 weeks Treatment: manual therapy, therapeutic exercises, neuromuscular re-ed, modalities as needed: ice, heat, dry needling, e-stim IASTM as needed, mechanical traction as needed. I hereby deem this POC medically necessary. Please sign below and fax back to the number below. Physician Signature: Date: documented in this encounter [facility] 02-06-2025 Hospital Discharg e instructions Patient Education 02/06/2025 01:07:07 Migraine Headache Migraine Headache A migraine headache is an intense pulsing or throbbing pain on one or both sides of the head. Migraine headaches may also cause other symptoms, such as nausea, vomiting, and sensitivity to light and noise. A migraine headache can last from 4 hours to 3 days. Talk with your health care provider about what things may bring on (trigger) your migraine headaches. What are the causes? The exact cause is not known. However, a migraine may be caused when nerves in the brain get irritated and release chemicals that cause blood vessels to become inflamed. This inflammation causes pain. Migraines may be triggered or caused by: Smoking. Medicines, such as: ?Nitroglycerin, which is used to treat chest pain. ? control pills. ?Estrogen. ?Certain blood pressure medicines. Foods or drinks that contain nitrates, glutamate, aspartame, MSG, or tyramine. Certain foods or drinks, such as aged cheeses, chocolate, alcohol, or caffeine. Doing physical activity that is very hard. Other triggers may include: Menstruation. . Hunger. Stress. Getting too much or too little sleep. Weather changes. Tiredness (fatigue). What increases the risk? The following factors may make you more likely to have migraine headaches: Being between the ages of 25-55 years old. Being female. Having a family history of migraine headaches. Being . Having a mental health condition, such as depression or anxiety. Being obese. What are the signs or symptoms? The main symptom of this condition is pulsing or throbbing pain. This pain may: Happen in any area of the head, such as on one or both sides. Make it hard to do daily activities. Get worse with physical activity. Get worse around bright lights, loud noises, or smells. Other symptoms may include: Nausea. Vomiting. Dizziness. Before a migraine headache starts, you may get warning signs (an aura). An aura may include: Seeing flashing lights or having blind spots. Seeing bright spots, halos, or zigzag lines. Having tunnel vision or blurred vision. Having numbness or a tingling feeling. Having trouble talking. Having muscle weakness. After a migraine ends, you may have symptoms. These may include: Feeling tired. Trouble concentrating. How is this diagnosed? A migraine headache can be diagnosed based on: Your symptoms. A physical exam. Tests, such as: ?A CT scan or an MRI of the head. These tests can help rule out other causes of headaches. ?Taking fluid from the spine (lumbar puncture) to examine it (cerebrospinal fluid analysis, or CSF analysis). How is this treated? This condition may be treated with medicines that: Relieve pain and nausea. Prevent migraines. Treatment may also include: Acupuncture. Lifestyle changes like avoiding foods that trigger migraine headaches. Learning ways to control your body (biofeedback). Talk therapy to help you know and deal with negative thoughts (cognitive behavioral therapy). Follow these instructions at home: Medicines Take ihid-mcc-muvdqql and prescription medicines only as told by your provider. Ask your provider if the medicine prescribed to you: ?Requires you to avoid driving or using machinery. ?Can cause constipation. You may need to take these actions to prevent or treat constipation: ?Drink enough fluid to keep your pee (urine) pale yellow. ?Take etzr-jzk-jipugku or prescription medicines. ?Eat foods that are high in fiber, such as beans, whole grains, and fresh fruits and vegetables. ?Limit foods that are high in fat and processed sugars, such as fried or sweet foods. Lifestyle Do not drink alcohol. Do not use any products that contain nicotine or tobacco. These products include cigarettes, chewing tobacco, and vaping devices, such as e-cigarettes. If you need help quitting, ask your provider. Get 7 9 hours of sleep each night, or the amount recommended by your provider. Find ways to manage stress, such as meditation, deep breathing, or yoga. Try to exercise regularly. This can help lessen how bad and how often your migraines occur. General instructions Keep a journal to find out what triggers your migraines, so you can avoid those things. For example, write down: ?What you eat and drink. ?How much sleep you get. ?Any change to your diet or medicines. If you have a migraine headache: ?Avoid things that make your symptoms worse, such as bright lights. ?Lie down in a dark, quiet room. ?Do not drive or use machinery. ?Ask your provider what activities are safe for you while you have symptoms. Keep all follow-up visits. Your provider will monitor your symptoms and recommend any further treatment. Where to find more information Coalition for Headache and Migraine Patients (CHAMP): headachemigraine.org [employer] Mig[employer]: americanmigrainefoundation.org National Headache Foundation: headaches.org Contact a health care provider if: You have symptoms that are different or worse than your usual migraine headache symptoms. You have more than 15 days of headaches in one month. Get help right away if: Your migraine headache becomes severe or lasts more than 72 hours. You have a fever or stiff neck. You have vision loss. Your muscles feel weak or like you cannot control them. You lose your balance often or have trouble walking. You faint. You have a seizure. This information is not intended to replace advice given to you by your health care provider. Make sure you discuss any questions you have with your health care provider. Document Revised: 05/14/2023 Document Reviewed: 05/14/2023 [employer] Patient Education 2023 [employer]. Follow Up Care 02/05/2025 21:36:38 With:NORMA QUIROS Address: [address], [place] , [facility] [address] [place] [address]- [phone] Business (1) When:02/09/2025 Comments:Call the office of your primary care doctor to arrange for follow-up within the above-stated timeframe. Follow-up with your primary care doctor about this ED visit. You should review your labs, imaging, and diagnoses from this ED visit with your primary care physician. There are occasionally non-emergent findings that require additional follow-up after your ED visit. If you were prescribed medications you should discuss possible side-effects and drug interactions with your pharmacist. Call 911 or go to the nearest Emergency Department if you develop any new or worsening symptoms.Seek immediate medical attention if you develop: worsening headache, nausea, vomiting, confusion, weakness, loss of motion in your arms or legs, loss of control of your urine or stool, difficulty waking from sleep, neck pain, fever, or any new or worsening symptoms. [facility] 02-06-2025 Note ED Patient Education Note Neurology Migraine Headache A migraine headache is an intense pulsing or throbbing pain on one or both sides of the head. Migraine headaches may also cause other symptoms, such as nausea, vomiting, and sensitivity to light and noise. A migraine headache can last from 4 hours to 3 days. Talk with your health care provider about what things may bring on (trigger) your migraine headaches. What are the causes? The exact cause is not known. However, a migraine may be caused when nerves in the brain get irritated and release chemicals that cause blood vessels to become inflamed. This inflammation causes pain. Migraines may be triggered or caused by: ??? Smoking. ??? Medicines, such as: ? Nitroglycerin, which is used to treat chest pain. ? control pills. ? Estrogen. ? Certain blood pressure medicines. ??? Foods or drinks that contain nitrates, glutamate, aspartame, MSG, or tyramine. ??? Certain foods or drinks, such as aged cheeses, chocolate, alcohol, or caffeine. ??? Doing physical activity that is very hard. Other triggers may include: ??? Menstruation. ??? . ??? Hunger. ??? Stress. ??? Getting too much or too little sleep. ??? Weather changes. ??? Tiredness (fatigue). What increases the risk? The following factors may make you more likely to have migraine headaches: ??? Being between the ages of 25-55 years old. ??? Being female. ??? Having a family history of migraine headaches. ??? Being . ??? Having a mental health condition, such as depression or anxiety. ??? Being obese. What are the signs or symptoms? The main symptom of this condition is pulsing or throbbing pain. This pain may: ??? Happen in any area of the head, such as on one or both sides. ??? Make it hard to do daily activities. ??? Get worse with physical activity. ??? Get worse around bright lights, loud noises, or smells. Other symptoms may include: ??? Nausea. ??? Vomiting. ??? Dizziness. Before a migraine headache starts, you may get warning signs (an aura). An aura may include: ??? Seeing flashing lights or having blind spots. ??? Seeing bright spots, halos, or zigzag lines. ??? Having tunnel vision or blurred vision. ??? Having numbness or a tingling feeling. ??? Having trouble talking. ??? Having muscle weakness. After a migraine ends, you may have symptoms. These may include: ??? Feeling tired. ??? Trouble concentrating. How is this diagnosed? A migraine headache can be diagnosed based on: ??? Your symptoms. ??? A physical exam. ??? Tests, such as: ? A CT scan or an MRI of the head. These tests can help rule out other causes of headaches. ? Taking fluid from the spine (lumbar puncture) to examine it (cerebrospinal fluid analysis, or CSF analysis). How is this treated? This condition may be treated with medicines that: ??? Relieve pain and nausea. ??? Prevent migraines. Treatment may also include: ??? Acupuncture. ??? Lifestyle changes like avoiding foods that trigger migraine headaches. ??? Learning ways to control your body (biofeedback). ??? Talk therapy to help you know and deal with negative thoughts (cognitive behavioral therapy). Follow these instructions at home: Medicines ??? Take hwxy-evk-iykbikp and prescription medicines only as told by your provider. ??? Ask your provider if the medicine prescribed to you: ? Requires you to avoid driving or using machinery. ? Can cause constipation. You may need to take these actions to prevent or treat constipation: ? Drink enough fluid to keep your pee (urine) pale yellow. ? Take eiat-bdy-ijsxcvv or prescription medicines. ? Eat foods that are high in fiber, such as beans, whole grains, and fresh fruits and vegetables. ? Limit foods that are high in fat and processed sugars, such as fried or sweet foods. Lifestyle ??? Do not drink alcohol. ??? Do not use any products that contain nicotine or tobacco. These products include cigarettes, chewing tobacco, and vaping devices, such as e-cigarettes. If you need help quitting, ask your provider. ??? Get 7?9 hours of sleep each night, or the amount recommended by your provider. ??? Find ways to manage stress, such as meditation, deep breathing, or yoga. ??? Try to exercise regularly. This can help lessen how bad and how often your migraines occur. General instructions ??? Keep a journal to find out what triggers your migraines, so you can avoid those things. For example, write down: ? What you eat and drink. ? How much sleep you get. ? Any change to your diet or medicines. ??? If you have a migraine headache: ? Avoid things that make your symptoms worse, such as bright lights. ? Lie down in a dark, quiet room. ? Do not drive or use machinery. ? Ask your provider what activities are safe for you while you have symptoms. ??? Keep all follow-up visits. Your provider will monitor your s (more content not included)... [facility] 02-05-2025 Evaluation + Plan note Extrac mona from: Title:ED Note Author:Raymundo Hsu DO Date: Acute headache (R51.9: Heada radha, unspecified) Orders: acetaminophen + Generic Diluent 100 mL, 1,000 mg = 100 mL, Soln-IV, IV Piggyback, Once, Stop date 02/05/25 22:29:00 EDT, STAT, Start date 02/05/25 22:29:00 EDT, 400 mL/hr, Infuse over 15 minute(s) magnesium sulfate + Generic Diluent 50 mL, 2 gram = 50 mL, IV Piggyback, Once, Stop date 02/05/25 22:29:00 EDT, STAT, Start date 02/05/25 22:29:00 EDT, 25 mL/hr, Infuse over 2 hour(s), 02/05/25 22:29:00 EDT methylPREDNISolone, 125 mg = 2 mL, Injection, IV Push, Once, Stop date 02/05/25 22:29:00 EDT, STAT, Start date 02/05/25 22:29:00 EDT, 02/05/25 22:29:00 EDT ondansetron, 4 mg = 2 mL, Injection, IV Push, Once, Stop date 02/05/25 22:29:00 EDT, STAT, Start date 02/05/25 22:29:00 EDT, 02/05/25 22:29:00 EDT Sodium Chloride 0.9% intravenous solution, 1,000 mL, Soln-IV, IV, Once, Stop date 02/05/25 22:29:00 EDT, STAT, Start date 02/05/25 22:29:00 EDT, Infuse over 61, minute(s) Basic Metabolic Panel CBC w/ Auto Diff CT Head or Brain w/o Contrast eGFR Extra Blue Tube Extra SST Tube Future Appointments Appointment Date:03/09/2025 11:20:00 AM Scheduled Provider:Oneyda Urbina Location:[facility] Appointment Type:URO Office Visit Appointment Date:03/11/2025 12:45:00 PM Scheduled Provider:Siva URBINA, Ankur Andrade Location:[facility] Digestive Health Appointment Type:[facility] Follow Up Appointment Date:07/24/2025 09:45:00 AM Scheduled Provider:Perry James PA-C Location:.Cardiology Clinic Appointment Type:Cardiology Follow Up (FT) Future Scheduled Tests Laboratory* UA with Cult Rflx 01/02/25 * Celiac Disease Comprehensive 10/20/24 * UTI ([facility]) 01/02/25 * CBC w/ Auto Diff 02/05/25 * Comprehensive Metabolic Panel 02/05/25 [facility] 05-07-2025 History of Present illness Narrative* Jana Maik, PT - 02/04/2025 4:00 PM EDT Images from the original note were not included. 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 MT at C1 reproduces pain radiating leftface Subjective Mechanism of injury: no specific injury. Left shoulder pops , pt c/o headaches, numbness/tingling left UE, left sciatica. Dizziness with forward bend. Location of Symptoms: neck pain, left more than right Pain level: 5-6/10 What increases symptoms: pain disturbs sleep, UE activity, driving What decreases symptoms: nothing so far. Pt has tried ice/heat. She has difficulty with NSAIDs due to acid reflux Pain radiates: into face, down spine Timing of pain: constant Numbness/tingling: yes fingers 3,4 Headaches: yes Imaging: none Objective Posture / Appearance: midline, forward head posture Cervical AROM: flexion: 40* full ROM, no pain extension: 60* full ROM no pain L side bend: 20* no pain R side bend: 20* with pull left side L rotation: 57* R rotation: 55 * AROM Shoulders: full AAROM bilateral upper extremities, crepitus AC joint left with abduction. Muscle Strength: 5/5 bilateral UE's Left supraspinatus weakness seen with 90/90 drop lag testing Palpation: point tender C1,2, throughout C-spine, left anterior and posterior GH joint line. Joint Play: hypermobile in general Muscle length: decreased left upper traps and levator Special Tests: positive median nerve stretch test on left, negative on right. Negative Spurling's compression/distraction. Negative alar/AA ligament testing. Positive Marin's test for SLAP. Negative Speeds test, negative impingement tests left shoulder. 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 Manual traction, neural mobes, prone grade 2 PA's upper ribs, CT junction. History of chiropractic manipulation C-spine during last trimesterof with twins 3 years ago. X 20 minutes of therapeutic exercises per flowsheet: initiated stretching, rotator cuff strengthening. Will progress to cervical stabes. PT Assessment: Therapy Diagnosis: cervical radiculopathy with headaches, left shoulder pain with supraspinatus weakness, crepitus Functional Limitations: Neck Index: 25/50 points, 50% impairment Home Health Occupational Therapist Goals: in 6 weeks Decrease pain 50% in 2-3 weeks Negative median nerve stretch test on left Abolish sleep disturbance. Home program in place 0-2/10 pain with pt able to manage indep Rehab Potential: good Plan: PT 2x/week x 6 weeks Treatment: manual therapy, therapeutic exercises, neuromuscular re-ed, modalities as needed: ice, heat, dry needling, e-stim IASTM as needed. I hereby deem this POC medically necessary. Please sign below and fax back to the number below. Physician Signature: Date: documented in this encounterWestern Missouri Mental Health [id number] Chief complaint+Reason for visit Narrative* Chief Complaint Admit Date Referral Dinesh Shea-[facility] January 07 12:42pm Reason for Visit Admit Date Tension headache January 07, 2025 12:4 2pm TMJ (temporomandibular joint disorder) A pril 2024 12:42pm Abnormal weight gain February 24, 2025 12:4 4pm BMI 40.0-44.9, adult February 24, 2025 12:4 4pm Dietary counseling and surveillance February 24, 2025 12:44pm GERD (gastroesophageal reflux disease) M ay 2024 12:44pm Obesity February 24, 2025 12:44 pm [facility] Work Phone: 1(977) 772-294904-09-2025 Evaluation note* Diagnosis Onset Date Resolution Status Admit Date Tension headache noneactive December 12:42pm TMJ (temporomandibular joint disorder) noneactive January 07, 2025 12:42pm Abnormal weight gain acute February 24, 2025 12:44pm BMI 40.0-44.9, adult acute February 24, 2025 12:44pm Dietary counseling and surveillance acute February 24, 2025 1 2:44pm GERD (gastroesophageal reflu x disease) acute February 24, 2025 1 2:44pm Obesity acute February 24, 2025 12:44pm [facility] Work Phone: 1(166) 645-519303-25-2025 History of Present illness Narrative* Mary Harris, SHERYL - 12/23/2024 11:40 AM EDT Reason for Appointment: Patient ID: Shy Lane is a 29 y.o. female who presents for Follow-up Patient presents today for Acute Visit. and Consult appointment. MEDICATIONS Current Outpatient Medications Medication Instructions ferrous sulfate 325 mg, Oral, Daily with breakfast metFORMIN XR (GLUCOPHAGE-XR) 1,000 mg, Oral, Daily with evening meal, Do not crush, chew, or split. metoprolol tartrate (LOPRESSOR) 25 mg, Oral, 2 times daily omeprazole (PriLOSEC) [address] capsule 1 tablet, Oral, Daily RT ALLERGIES Allergies Allergen Reactions Penicillins Anaphylaxis, Hives and Unknown Hydrochlorothiazide Norvasc [Amlodipine] Sulfa Antibiotics Hives and Unknown PROBLEMS Active Ambulatory Problems Diagnosis Date Noted No Active Ambulatory Problems Resolved Ambulatory Problems Diagnosis Date Noted No Resolved Ambulatory Problems Past Medical History: Diagnosis Date Abnormal weight gain Anxiety Change in pigmented skin lesion Gall bladder disease 11/29/2022 Irregular menses Morbid obesity with BMI of 40.0-44.9, adult (CMS/HCC) Pain of ovary PCOS (polycystic ovarian syndrome) HISTORY PAST MEDICAL HISTORY SOCIAL HISTORY Past Medical History: Diagnosis Date Abnormal weight gain Anxiety Change in pigmented skin lesion Gall bladder disease 11/29/2022 Irregular menses Morbid obesity with BMI of 40.0-44.9, adult (CMS/HCC) Pain of ovary PCOS (polycystic ovarian syndrome) Social History Tobacco Use Smoking status: Never Smokeless tobacco: Not on file Substance Use Topics Alcohol use: Never Comment: Caffeine intake: 3-4 cups per day Drug use: Never FAMILY HISTORY Family History Problem Relation Name Age of Onset Hypertension Maternal Grandmother Hypertension Maternal Grandfather Cancer Maternal Grandfather Hypertension Paternal Grandmother Hypertension Paternal Grandfather SURGICAL HISTORY Past Surgical History: Procedure Laterality Date ADENOIDECTOMY SECTION, LOW TRANSVERSE 05/14/2021 delivery of twins GALLBLADDER SURGERY 11/29/2022 MYRINGOTOMY W/ TUBES TONSILLECTOMY REVIEW OF SYSTEMS Review of Systems: Review of Systems Constitutional: Negative. HENT: Negative. Eyes: Negative. Respiratory: Negative. Cardiovascular: Negative. Gastrointestinal: Negative. Genitourinary: Negative. Musculoskeletal: Negative. Skin: Negative. Neurological: Negative. All other systems reviewed and are negative. Hematological: Negative. Endocrine: Negative. Allergic/Immunologic: Negative. OBJECTIVE Objective: Physical Exam Constitutional: Appearance: Normal appearance. She is well-developed. Cardiovascular: Rate and Rhythm: Normal rate and regular rhythm. Pulmonary: Effort: Pulmonary effort is normal. Breath sounds: Normal breath sounds. Abdominal: General: Bowel sounds are normal. There is no distension. Palpations: Abdomen is soft. Tenderness: There is no abdominal tenderness. There is no guarding or rebound. Musculoskeletal: General: No swelling. Normal range of motion. Right lower leg: No edema. Left lower leg: No edema. Neurological: Mental Status: She is alert and oriented to person, place, and time. Skin: General: Skin is warm and dry. Psychiatric: Mood and Affect: Mood normal. Behavior: Behavior normal. Vitals and nursing note reviewed. Exam conducted with a claims auditor present. Vitals: Estimated body mass index is 44.25 kg/m as calculated from the following: Height as of 07/17/23: 5' 8 . Weight as of this encounter: 291 lb. BP: (!) 136/92 No LMP recorded. ASSESSMENT & PLAN ICD-10-CM 1. Menorrhagia with regular cycle N92.0 2. Dyspareunia in female N94.10 Pt presents to discuss pain and cramping during intercourse, and heavy bleeding. Pt had ultrasound 10/29/24 reviewed results. Pt given labs to have obtained. Pt does not desire adipex taking metformin 1000mg a day- will have labs obtained and will discuss prescribing mounjaro. Documented by Mary Harris LPN on behalf of: Harry Mchugh DO documented in this encounterWestern Missouri Mental Health [id number] NotePatient Education Caregiving Antibiotic Medicine, Adult Antibiotic medicines are used to treat infections caused by bacteria. These medicines do not work for illnesses caused by viruses. Antibiotics work by killing the bacteria that are making you sick, but they can also have serious side effects. Antibiotics must be used safely and only when needed. When do I need to take antibiotics? You may need antibiotics for: ??? A urinary tract infection (UTI). ??? Strep throat. ??? Bacterial sinus infection. ??? Meningitis. ??? Serious lung infections. Your health care provider may start you on antibiotics while you are waiting for test results. Tests may include a culture of the throat, urine, blood, or mucus. Your health care provider may change or stop your antibiotic depending on your test results. When are antibiotics not needed? You do not need antibiotics for most common illnesses. These illnesses may be caused by a virus, not by bacteria. You do not need antibiotics for: ??? The common cold. ??? The flu (influenza). ??? Sore throat. ??? Discolored mucus. ??? Bronchitis. Antibiotics are not always needed for all infections caused by bacteria. Many of these infections clear up on their own. Do not take antibiotics when they are not needed. How long should I take my antibiotic? You must take the entire amount prescribed to you. Take your antibiotics as told by your health care provider. Do not stop taking your antibiotics even if you start to feel better. If you stop takingthem too soon: ??? You may feel sick again. ??? Your infection may get harder to treat. Each course of antibiotics needs a different length of time to work. The length of time may vary from a few days to a few weeks. What if I miss a dose? Try not to miss any doses of medicine. If you miss a dose, call your health care provider or pharmacist for help. Sometimes, it is okay to take the missed dose as soon as possible. Do not take doubleor extra doses. What are the risks of taking antibiotics? Antibiotics can cause: ??? Allergic reactions. ??? Nausea. ??? Yeast infections. ??? Liver problems. Antibiotics can also cause an infection called Clostridioides difficile (C. difficile or C. diff), which causes severe diarrhea. This infection happens when the antibiotics kill the healthy bacteria in your intestines. This allows C. diff to grow. C. diff needs to be treated right away. Let your health care provider know if: ??? You have diarrhea while taking an antibiotic. ??? You have diarrhea after you stop taking an antibiotic. C. diff infection can start weeks after stopping the antibiotic. Taking an antibiotic also puts you at risk for getting sick in the future with bacteria that do notrespond to medicine (antibiotic-resistant infection). Antibiotics can cause bacteria to change so that if the antibiotic is taken again, the medicine cannot kill the bacteria. These infections can bemore serious because they are hard, or sometimes impossible, to treat. Do antibiotics affect control? control pills may not work while you are taking antibiotics. If you are taking control pills: ??? Keep taking them as usual. ??? Use a second form of control, such as a condom, to avoid unwanted . Do this for as long as told by your health care provider. What else should I know about taking antibiotics? Take antibiotics exactly as told. ??? Take the correct amount of medicine at the same time each day. ??? Ask your health care provider: ? How long to wait between doses. ? If you should take your antibiotic with food or water. ? If you should avoid certain foods, drinks, or medicines while taking your antibiotics. ? If you need to watch for any side effects. ??? Use only the antibiotics prescribed to you by your health care provider. Do not use antibioticsprescribed for someone else. ??? Drink a large glass of water when taking your antibiotics unless told otherwise. Drink enough fluid to keep your urine pale yellow. ??? Ask your pharmacist for a dosage syringe, cup, or spoon that correctly measures your antibiotics. ??? Ask your pharmacist or health care provider how to safely get rid of leftover medicine. Follow these instructions at home: ??? Take your antibiotics as told by your health care provider. Do not stop taking your antibioticseven if you start to feel better. ??? Return to your normal activities as told by your health care provider. Ask your health care provider what activities are safe for you. Contact a health care provider if: ??? Your symptoms get worse. ??? You have new joint pain or muscle aches that begin after starting your antibiotic. ??? You have side effects from your antibiotic, such as: ? Stomach pain. ? Diarrhea. ? Nausea. ? White patches in your mouth or throat. Get help right away if: ??? You have sig (more content not included)...[facility] 12-03-2024 NotePatient Education Urology Hematuria, Adult Hematuria is blood in the urine. Blood may be visible in the urine, or it may be identified with a test. This condition can be caused by infections of the bladder, urethra, kidney, or prostate. Otherpossible causes include: ??? Kidney stones. ??? Cancer of the urinary tract. ??? Too much calcium in the urine. ??? Conditions that are passed from parent to child (inherited conditions). ??? Exercise that requires a lot of energy. Infections can usually be treated with medicine, and a kidney stone usually will pass through your urine. If neither of these is the cause of your hematuria, more tests may be needed to identify the cause of your symptoms. It is very important to tell your health care provider about any blood in your urine, even if it ispainless or the blood stops without treatment. Blood in the urine, when it happens and then stops and then happens again, can be a symptom of a very serious condition, including cancer. There is no pain in the initial stages of many urinary cancers. Follow these instructions at home: Medicines ??? Take pnof-esk-ssnebpz and prescription medicines only as told by your health care provider. ??? If you were prescribed an antibiotic medicine, take it as told by your health care provider. Donot stop taking the antibiotic even if you start to feel better. Eating and drinking ??? Drink enough fluid to keep your urine pale yellow. It is recommended that you drink 3?4 quarts (2.8?3.8 L) a day. If you have been diagnosed with an infection, drinking cranberry juice in addition to large amounts of water is recommended. ??? Avoid caffeine, tea, and carbonated beverages. These tend to irritate the bladder. ??? Avoid alcohol because it may irritate the prostate (in males). General instructions ??? If you have been diagnosed with a kidney stone, follow your health care provider's instructionsabout straining your urine to catch the stone. ??? Empty your bladder often. Avoid holding urine for long periods of time. ??? If you are female: ? After a bowel movement, wipe from front to back and use each piece of toilet paper only once. ? Empty your bladder before and after sex. ??? Pay attention to any changes in your symptoms. Tell your health care provider about any changesor any new symptoms. ??? It is up to you to get the results of any tests. Ask your health care provider, or the department that is doing the test, when your results will be ready. ??? Keep all follow-up visits. This is important. Contact a health care provider if: ??? You develop back pain. ??? You have a fever or chills. ??? You have nausea or vomiting. ??? Your symptoms do not improve after 3 days. ??? Your symptoms get worse. Get help right away if: ??? You develop severe vomiting and are unable to take medicine without vomiting. ??? You develop severe pain in your back or abdomen even though you are taking medicine. ??? You pass a large amount of blood in your urine. ??? You pass blood clots in your urine. ??? You feel very weak or like you might faint. ??? You faint. Summary ??? Hematuria is blood in the urine. It has many possible causes. ??? It is very important that you tell your health care provider about any blood in your urine, even if it is painless or the blood stops without treatment. ??? Take mclf-mzu-wklzkpq and prescription medicines only as told by your health care provider. ??? Drink enough fluid to keep your urine pale yellow. This information is not intended to replace advice given to you by your health care provider. Make sure you discuss any questions you have with your health care provider. Document Revised: 05/18/2021 Document Reviewed: 05/18/2021 JRD Communication Patient Education ? 2023 [employer] 12-01-2024 Hospital Discharge instructions Follow Up Care 12/01/2024 13:20:20 With:DINESH SHEA CNP Address: [address] [place] [phone]- When: Unknown [facility] [id number] Evaluation + Plan noteExtracted from: Title:ED Note Author:Isra Moreno DO Date :09/17/24 Acute UTI (N39.0: Urinary tr act infection, site not specified) Orders: cephalexin, 500 mg = 1 cap(s), Oral, q6hr, X 7 day(s), # 28 cap(s), Refills(s) 0, Pharmacy: [facility]/pharmacy #[id number], 174, cm, 09/17/24 4:48:00 EST, Height/Length Dosing, 125.4, kg, 09/17/24 4:48:00 EST, Weight Dosing cephalexin, 500 mg = 1 cap(s), Cap, Oral, Once, Stop date 09/17/24 5:25:00 EST, STAT, Start date 09/17/24 5:25:00 EST, 09/17/24 5:25:00 EST phenazopyridine, 100 mg = 1 tab(s), Tab, Oral, Once, Stop date 09/17/24 5:26:00 EST, STAT, Start date 09/17/24 5:26:00 EST, 09/17/24 5:26:00 EST phenazopyridine, 100 mg = 1 tab(s), Oral, TID, X 3 day(s), # 9 tab(s), Refills(s) 0, Pharmacy: [facility]/pharmacy #[id number], 174, cm, 09/17/24 4:48:00 EST, Height/Length Dosing, 125.4, kg, 09/17/24 4:48:00 EST, Weight Dosing U Beta Hcg Qual UA with Cult Rflx Urine Culture Future Appointments Appointment Date:10/20/2024 09:00:00 AM Scheduled Provider:Kei Garcia MD Location:[facility] Digestive Health Appointment Type:BADH Follow Up Appointment Date:11/19/2024 09:15:00 AM Scheduled Provider:Perry James PA-C Location:.Cardiology Clinic Appointment Type:Cardiology Follow Up (FT) Diagnostic Tests Pending * Urine Culture 09/17/24 [facility] 12-18-2024 Hospital Discharge instructions Patient Education 09/17/2024 05:37:32 Urinary Tract Infection, Adult Urinary Tract Infection, Adult A urinary tract infection (UTI) is an infection of any part of the urinary tract. The urinary tractincludes the kidneys, ureters, bladder, and urethra. These organs make, store, and get rid of urinein the body. An upper UTI affects the ureters and kidneys. A lower UTI affects the bladder and urethra. What are the causes? Most urinary tract infections are caused by bacteria in your genital area around your urethra, where urine leaves your body. These bacteria grow and cause inflammation of your urinary tract. What increases the risk? You are more likely to develop this condition if: You have a urinary catheter that stays in place. You are not able to control when you urinate or have a bowel movement (incontinence). You are female and you: ?Use a spermicide or diaphragm for control. ?Have low estrogen levels. ?Are . You have certain genes that increase your risk. You are sexually active. You take antibiotic medicines. You have a condition that causes your flow of urine to slow down, such as: ?An enlarged prostate, if you are male. ?Blockage in your urethra. ?A kidney stone. ?A nerve condition that affects your bladder control (neurogenic bladder). ?Not getting enough to drink, or not urinating often. You have certain medical conditions, such as: ?Diabetes. ?A weak disease-fighting system (immunesystem). ?Sickle cell disease. ?Gout. ?Spinal cord injury. What are the signs or symptoms? Symptoms of this condition include: Needing to urinate right away (urgency). Frequent urination. This may include small amounts of urine each time you urinate. Pain or burning with urination. Blood in the urine. Urine that smells bad or unusual. Trouble urinating. Cloudy urine. Vaginal discharge, if you are female. Pain in the abdomen or the lower back. You may also have: Vomiting or a decreased appetite. Confusion. Irritability or tiredness. A fever or chills. Diarrhea. The first symptom in older adults may be confusion. In some cases, they may not have any symptoms until the infection has worsened. How is this diagnosed? This condition is diagnosed based on your medical history and a physical exam. You may also have other tests, including: Urine tests. Blood tests. Tests for STIs (sexually transmitted infections). If you have had more than one UTI, a cystoscopy or imaging studies may be done to determine the cause of the infections. How is this treated? Treatment for this condition includes: Antibiotic medicine. Tyoq-ixw-coxipnm medicines to treat discomfort. Drinking enough water to stay hydrated. If you have frequent infections or have other conditions such as a kidney stone, you may need to see a health care provider who specializes in the urinary tract (urologist). In rare cases, urinary tract infections can cause sepsis. Sepsis is a life- threatening condition that occurs when the body responds to an infection. Sepsis is treated in the hospital with IV antibiotics, fluids, and other medicines. Follow these instructions at home: Medicines Take qxsf-qyl-wfxuhiq and prescription medicines only as told by your health care provider. If you were prescribed an antibiotic medicine, take it as told by your health care provider. Do notstop using the antibiotic even if you start to feel better. General instructions Make sure you: ?Empty your bladder often and completely. Do not hold urine for long periods of time. ?Empty your bladder after sex. ?Wipe from front to back after urinating or having a bowel movement if you are female. Use each tissue only one time when you wipe. Drink enough fluid to keep your urine pale yellow. Keep all follow-up visits. This is important. Contact a health care provider if: Your symptoms do not get better after 1 2 days. Your symptoms go away and then return. Get help right away if: You have severe pain in your back or your lower abdomen. You have a fever or chills. You have nausea or vomiting. Summary A urinary tract infection (UTI) is an infection of any part of the urinary tract, which includes the kidneys, ureters, bladder, and urethra. Most urinary tract infections are caused by bacteria in your genital area. Treatment for this condition often includes antibiotic medicines. If you were prescribed an antibiotic medicine, take it as told by your health care provider. Do notstop using the antibiotic even if you start to feel better. Keep all follow-up visits. This is important. This information is not intended to replace advice given to you by your health care provider. Make sure you discuss any questions you have with your health care provider. Document Revised: 04/24/2021 Document Reviewed: 04/29/2021 JRD Communication Patient Education 2023 [employer]. Follow Up Care 09/17/2024 04:43:18 With:DINESH SHEA Address: [address] [place] [address] [phone] Business (1) When:Within 3 Day(s) [facility] 12-18-2024 NoteED Patient Education Note Obstetrics and Gynecology Urinary Tract Infection, Adult A urinary tract infection (UTI) is an infection of any part of the urinary tract. The urinary tractincludes the kidneys, ureters, bladder, and urethra. These organs make, store, and get rid of urinein the body. An upper UTI affects the ureters and kidneys. A lower UTI affects the bladder and urethra. What are the causes? Most urinary tract infections are caused by bacteria in your genital area around your urethra, where urine leaves your body. These bacteria grow and cause inflammation of your urinary tract. What increases the risk? You are more likely to develop this condition if: ??? You have a urinary catheter that stays in place. ??? You are not able to control when you urinate or have a bowel movement (incontinence). ??? You are female and you: ? Use a spermicide or diaphragm for control. ? Have low estrogen levels. ? Are . ??? You have certain genes that increase your risk. ??? You are sexually active. ??? You take antibiotic medicines. ??? You have a condition that causes your flow of urine to slow down, such as: ? An enlarged prostate, if you are male. ? Blockage in your urethra. ? A kidney stone. ? A nerve condition that affects your bladder control (neurogenic bladder). ? Not getting enough to drink, or not urinating often. ??? You have certain medical conditions, such as: ? Diabetes. ? A weak disease-fighting system (immunesystem). ? Sickle cell disease. ? Gout. ? Spinal cord injury. What are the signs or symptoms? Symptoms of this condition include: ??? Needing to urinate right away (urgency). ??? Frequent urination. This may include small amounts of urine each time you urinate. ??? Pain or burning with urination. ??? Blood in the urine. ??? Urine that smells bad or unusual. ??? Trouble urinating. ??? Cloudy urine. ??? Vaginal discharge, if you are female. ??? Pain in the abdomen or the lower back. You may also have: ??? Vomiting or a decreased appetite. ??? Confusion. ??? Irritability or tiredness. ??? A fever or chills. ??? Diarrhea. The first symptom in older adults may be confusion. In some cases, they may not have any symptoms until the infection has worsened. How is this diagnosed? This condition is diagnosed based on your medical history and a physical exam. You may also have other tests, including: ??? Urine tests. ??? Blood tests. ??? Tests for STIs (sexually transmitted infections). If you have had more than one UTI, a cystoscopy or imaging studies may be done to determine the cause of the infections. How is this treated? Treatment for this condition includes: ??? Antibiotic medicine. ??? Zvky-xwd-hmhcvia medicines to treat discomfort. ??? Drinking enough water to stay hydrated. If you have frequent infections or have other conditions such as a kidney stone, you may need to see a health care provider who specializes in the urinary tract (urologist). In rare cases, urinary tract infections can cause sepsis. Sepsis is a life- threatening condition that occurs when the body responds to an infection. Sepsis is treated in the hospital with IV antibiotics, fluids, and other medicines. Follow these instructions at home: Medicines ??? Take rdlo-lbq-ngoaxej and prescription medicines only as told by your health care provider. ??? If you were prescribed an antibiotic medicine, take it as told by your health care provider. Donot stop using the antibiotic even if you start to feel better. General instructions ??? Make sure you: ? Empty your bladder often and completely. Do not hold urine for long periods of time. ? Empty your bladder after sex. ? Wipe from front to back after urinating or having a bowel movement if you are female. Use each tissue only one time when you wipe. ??? Drink enough fluid to keep your urine pale yellow. ??? Keep all follow-up visits. This is important. Contact a health care provider if: ??? Your symptoms do not get better after 1?2 days. ??? Your symptoms go away and then return. Get help right away if: ??? You have severe pain in your back or your lower abdomen. ??? You have a fever or chills. ??? You have nausea or vomiting. Summary ??? A urinary tract infection (UTI) is an infection of any part of the urinary tract, which includes the kidneys, ureters, bladder, and urethra. ??? Most urinary tract infections are caused by bacteria in your genital area. ??? Treatment for this condition often includes antibiotic medicines. ??? If you were prescribed an antibiotic medicine, take it as told by your health care provider. Donot stop using the antibiotic even if you start to feel better. ??? Keep all follow-up visits. This is important. This information is not intended to replace advice given to you by your health care provider. Make linda (more content not included)...[facility]10-15-2024 Hospital Discharge instructions Follow Up Care 07/15/2024 14:13:32 With:Karuna URBINA, Caterina Plummer, PUL, LINDA Address: [address] [place] [address] Pulmonary Clinic (Heart & Vascular) [place] [address]- When:6 weeks [facility] 07-01-2024 Instructions* Patient Instructions* Treva Carter RD - 03/31/2024 8:18 AM EDT Nutrition Intervention 03/31/2024: Modify type and amount of food consumed for meals and snacks: 1. Do not skip meals. 2. Use protein shake 1x per day to replace any skipped meals or for breakfast 3. Use the Healthy Plate Method of portion control for lunch and dinner 4 oz lean meat (fish, chicken, pork tenderloin, turkey, seafood, eggs/cheese) 1/2 plate non starchy vegetables (salad, greens, cabbage, spinach, brussels sprouts, broccoli, carrots, celery, peppers, green beans, cauliflower) 1 cup starch/starchy vegetables (corn, peas, beans, winter squash, sweet potato, brown rice, whole grain pasta, whole grain bread products, quinoa) 4. Physical activity: continue to increase as able (cardio + strength) 5. Drink 64 ounces per day water. Fluids should follow these guidelines: No carbonation, no caffeine, no calories, no alcohol. Protein needs: 60-100 gm per day Calories needs: 8674-1155 per day Nutrition Monitoring & Evaluation: 1-2# weight loss per week Need for Follow up: 4-8 weeks ([phone] option 3) [facility] NoteHNO ID: [id number] Author: TREVA CARTER RD Service: ? Author Type: Registered Dietitian Type: Progress Notes Filed: 03/31/2024 08:33 Note Text: [facility] Nutrition Therapy: Virtual Consult - Initial Assessment I have communicated my name and active licensure. The patient?s identity and physical location were verified at the time of this visit. Either the patient or their legal admissions representative has been informed of the risks and benefits of -- and alternatives to -- treatment through a remote evaluation and consents to proceed with the evaluation remotely. Nutrition Diagnosis: Overweight/obesity, related to, food/nutrition - related knowledge deficit, as evidenced by BMI above normative standard for age and gender. RECOMMENDED MALNUTRITION DIAGNOSIS: NO MALNUTRITION IDENTIFIED NUTRITION CARE PLAN Nutrition Intervention 03/31/2024: Modify type and amount of food consumed for meals and snacks: 1. Do not skip meals. 2. Use protein shake 1x per day to replace any skipped meals or for breakfast 3. Use the Healthy Plate Method of portion control for lunch and dinner 4 oz lean meat (fish, chicken, pork tenderloin, turkey, seafood, eggs/cheese) 1/2 plate non starchy vegetables (salad, greens, cabbage, spinach, brussels sprouts, broccoli, carrots, celery, peppers, green beans, cauliflower) 1 cup starch/starchy vegetables (corn, peas, beans, winter squash, sweet potato, brown rice, whole grain pasta, whole grain bread products, quinoa) 4. Physical activity: continue to increase as able (cardio + strength) 5. Drink 64 ounces per day water. Fluids should follow these guidelines: No carbonation, no caffeine, no calories, no alcohol. Protein needs: 60-100 gm per day Calories needs: 1987-0050 per day Nutrition Monitoring AND Evaluation: 1-2# weight loss per week Need for Follow up: 4-8 weeks ([phone] option 3) Patient presents for nutrition consult for diet and lifestyle modifications for weight loss. Patient's insurance denied mounjaro and is taking metformin with plans to start on wegovy. Height and weight discussed today. Presents with class 2 obesity, Body mass index is 39.23 kg/m?.. Significant medical comorbidities and history include GERD, fatty liver, belching, cholelithiasis s/p cholecystectomy, irritable bowel syndrome, ex smoker, polycystic ovarian syndrome (PCOS), palpitations, obstructive sleep apnea. Diet recall indicates inconsistent meal pattern with patient missing some meals resulting in inadequate daily protein and calories intake which could be limiting some desired weight loss. Most meals are fairly well-balanced. Consuming sufficient intake of hydrating fluids. Patient is active with variety of exercises however lack of routine and suspect some lower intensity exercises not meeting recommendations. Napoleon body weight: 164 lbs. Excess body weight: 94 lbs. (Based on today's 258 lbs) Protein needs estimated: 94-117gm (0.8-1.0 g protein/kg CBW) Resting Metabolic Rate: 9 Energy needs estimated for weight loss: 5349-5365 kcal/day (10-15 kcal/kg CBW) Highest weight: 290 lbs (Oct 2021) Previous diet attempts: AOM (mounjaro, metformin, adipex), self-directed and commerical diets; WW, intermittent fasting, exercise Patient's symptoms are: Weight Concerns: failure to lose weight Diet History: Breakfast - protein shake sometimes coffee Snack - none Lunch - skip Snack - none OR granola bar OR beef jerky Dinner - 6-9pm: protein (chicken or steak) with starch (potato) and vegetable OR pulled pork sandwich with fruit, and pasta salad Snack - none OR ice cream (on Sundays) Beverages - coffee (1-3 cups per day) with SF flavor and milk, water (80+ oz per day) Alcohol- none Vitamins/Supplements - vitamin C, vitamin D, vitamin D, fish oil, iron Activity: Activities of Daily Living: Active 50% of the day. 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 Resting Metabolic Rate: 1949 Malnutrition Screening Significant unintentional weight loss? No Eating less than 75% of usual intake for more than 2 weeks? No Potential Signs of Inflammation: no identifiable sources Education Materials Provided: None this visit READINESS TO LEARN Cognitive ability: Alert and oriented Motivation to learn: Interested Family support: Unable to assess - Family not present Instruction provided to: Patient Patient learns best by: Multiple Methods Factors affecting learning: None Physical limitations affecting learning: None Referred by: Dr. Moore (more content not included)...[facility] 03-31-2024 History of Present illness Narrative* Treva Carter RD - 03/31/2024 7:53 AM EDT [facility] Nutrition Therapy: Virtual Consult - Initial Assessment I have communicated my name and active licensure. The patient s identity and physical location wereverified at the time of this visit. Either the patient or their legal admissions representative has been informed of the risks and benefits of -- and alternatives to -- treatment through a remote evaluation andconsents to proceed with the evaluation remotely. Nutrition Diagnosis: Overweight/obesity, related to, food/nutrition - related knowledge deficit, asevidenced by BMI above normative standard for age and gender. RECOMMENDED MALNUTRITION DIAGNOSIS: NO MALNUTRITION IDENTIFIED NUTRITION CARE PLAN Nutrition Intervention 03/31/2024: Modify type and amount of food consumed for meals and snacks: 1. Do not skip meals. 2. Use protein shake 1x per day to replace any skipped meals or for breakfast 3. Use the Healthy Plate Method of portion control for lunch and dinner 4 oz lean meat (fish, chicken, pork tenderloin, turkey, seafood, eggs/cheese) 1/2 plate non starchy vegetables (salad, greens, cabbage, spinach, brussels sprouts, broccoli, carrots, celery, peppers, green beans, cauliflower) 1 cup starch/starchy vegetables (corn, peas, beans, winter squash, sweet potato, brown rice, whole grain pasta, whole grain bread products, quinoa) 4. Physical activity: continue to increase as able (cardio + strength) 5. Drink 64 ounces per day water. Fluids should follow these guidelines: No carbonation, no caffeine, no calories, no alcohol. Protein needs: 60-100 gm per day Calories needs: 1579-8665 per day Nutrition Monitoring & Evaluation: 1-2# weight loss per week Need for Follow up: 4-8 weeks ([phone] option 3) Patient presents for nutrition consult for diet and lifestyle modifications for weight loss. Patient's insurance denied mounjaro and is taking metformin with plans to start on wegovy. Height and weight discussed today. Presents with class 2 obesity, Body mass index is 39.23 kg/m .. Significant medical comorbidities and history include GERD, fatty liver, belching, cholelithiasis s/p cholecystectomy, irritable bowel syndrome, ex smoker, polycystic ovarian syndrome (PCOS), palpitations, obstructive sleep apnea. Diet recall indicates inconsistent meal pattern with patient missing some meals resulting in inadequate daily protein and calories intake which could be limiting some desired weight loss. Most meals are fairly well-balanced. Consuming sufficient intake of hydrating fluids. Patient is active with variety of exercises however lack of routine and suspect some lower intensity exercises not meeting recommendations. Napoleon body weight: 164 lbs. Excess body weight: 94 lbs. (Based on today's 258 lbs) Protein needs estimated: 94-117gm (0.8-1.0 g protein/kg CBW) Resting Metabolic Rate: 1948 Energy needs estimated for weight loss: 3367-5593 kcal/day (10-15 kcal/kg CBW) Highest weight: 290 lbs (Oct 2021) Previous diet attempts: AOM (mounjaro, metformin, adipex), self-directed and commerical diets; WW, intermittent fasting, exercise Patient's symptoms are: Weight Concerns: failure to lose weight Diet History: Breakfast - protein shake sometimes coffee Snack - none Lunch - skip Snack - none OR granola bar OR beef jerky Dinner - 6-9pm: protein (chicken or steak) with starch (potato) and vegetable OR pulled pork sandwich with fruit, and pasta salad Snack - none OR ice cream (on Sundays) Beverages - coffee (1-3 cups per day) with SF flavor and milk, water (80+ oz per day) Alcohol- none Vitamins/Supplements - vitamin C, vitamin D, vitamin D, fish oil, iron Activity: Activities of Daily Living: Active 50% of the day. 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 Resting Metabolic Rate: 1948 Malnutrition Screening Significant unintentional weight loss? No Eating less than 75% of usual intake for more than 2 weeks? No Potential Signs of Inflammation: no identifiable sources Education Materials Provided: None this visit READINESS TO LEARN Cognitive ability: Alert and oriented Motivation to learn: Interested Family support: Unable to assess - Family not present Instruction provided to: Patient Patient learns best by: Multiple Methods Factors affecting learning: None Physical limitations affecting learning: None Referred by: Dr. Davis NHT Billing Type: Initial Assess/15 min 2 units SIGNATURE: Treva Carter RD PATIENT NAME: Addie Lane DATE: 03/31/2024 TIME: 7:55 AM PAGER: N/A documented in this encounterK[facility]06[facility] Telephone encounter Note * Telephone Encounter - Tracy Leonard - 03/21/2024 12:20 PM EDT Received / forwarded notification that medication (Wegovy) requires a prior authorization. See scanned request in chart. [facility] Lemus # [id number] [facility] Work Phone: 1(562) 408-357106-21-2024 Miscellaneous Notes* Telephone Encounter - Tracy Leonard - 03/21/2024 12:20 PM EDT Received / forwarded notification that medication (Wegovy) requires a prior authorization. See scanned request in chart. M Lemus # [id number] documented in this encounterK[facility]06-[facility] History of Present illness Narrative* Bree Lopes APRN.SPINDRAW OPERATOR - 03/21/2024 10:00 AM EDT Images from the original note were not included. Dinesh Méndez APRN.SPINDRAW OPERATOR [address] [place] [address] GI/Bariatric Endoscopy Clinic Visit Gastroenterology, Hepatology, and Nutrition Department ?[facility] ? 03/21/2024 ? The patient encounter is a virtual/telephone visit today, 03/21/2024, in lieu of an office visit dueto the current COVID-19 pandemic crisis and need for social distancing. Reason for Visit: Obesity class II and weight management Patient is: Established patient Location of Provider: Hospital Location of Patient: Home Consent for virtual care, including informing the patient that insurance will be billed, and that in-person care is available in case of emergencies or as needed otherwise, was discussed at the time of scheduling. Dear Dinesh Méndez APRN.SPINDRAW OPERATOR, ? I had the pleasure of seeing Addie Lane in the [facility] for obesity class II and weight management. ?? The patient is a 28 year old female with past medical history as below presenting to us with obesity class II and weight mangement. Interval: Patient presents to f/u on medical weight management. Unable to lose weight despite efforts. Weightfluctuates between 255-258 lbs. Not interested in bariatric surgery nor EBMT options at this time. She tried multiple diets, exercise, and lifestyle modifications. She did lose weight on mounjaro insurance no longer covering. She tried topamax for 1-2 weeks but stopped because increased anxiety. Zepbound was denied. Adipex increased anxiety and she had heart palpitations. She has insulin resistance and metabolic syndrome on metformin 1000 mg unable to tolerate higher doses due to diarrhea. Not i nterested in orlistat due to needed imodium prn or powder med (cholestyramine?) for diarrhea. Exercise has increased she is going to the gym 3 times a week, swimming, riding bike for at least 3 miles. She has scheduled visit with dietitian she believes she may not be eating enough calories, discussed tracking intake with colleen or journal. Stays hydrated drinks >100 fluid ounces of water daily. Prior History taken from last VV on 02/08/2024: Addie Lane has struggled with obesity since reaching adulthood, coinciding with a diagnosis of PCOS following her second . She is a mother of four children. Comorbidities are: obesity class II, GERD, fatty liver, belching, cholelithiasis s/p cholecystectomy, irritable bowel syndrome, ex smoker, polycystic ovarian syndrome (PCOS), palpitations, obstructive sleep apnea (she reports this was never diagnosed but plans to schedule ordered sleep study) Patient has tried to control the diet and be able to lose weight. She was able to lose up to 70 lbswhile being on mounjaro for 1 year however insurance stopped covering once HmA1c improved and she stopped mounjaro in August then regained 35 lbs, lost an additional 10 lbs following a strict diet plan however now experiencing a weight loss plateau. Unfortunately, the patient would subsequently experience rebound weight regain following lifestyle modification interventions (diet + exercise). Patient has tried increasing physical activity or exercise, Weight Watcher, high protein/low carb sugar diets, Intermittent fasting. Patient has tried medications (adipex stopped d/t increased HR and irritability, mounjaro, metformin for PCOS). She is not interested in bariatric surgery. Patient exercises 7 times a week for 30-45 min every time: she used to go to the gym for cardio andstrength training however now limited from torn meniscus, following sports medicine locally has scheduled MRI on Sunday. She is now able to do upper arm exercises but painful left knee radiates downleg, also affected by weight. Addie Lane was seen by kalsominer, gastroenterology, specialities who recommended to lose weight and weight loss interventions. 24 hrs Diet recall: Breakfast: skipped slept in Snack: none Lunch: protein shake with coffee Snack: none Dinner: chicken foldover pizza Snack: string cheese Wakes up to eat: Yes, she used to snack no longer doing this over 1 month ago Beverages: 120 fluid ounces sometimes liquid IV Current Exercise Activity: She started going to the gym 30 mins each time fast pace walking, riding bike 3 miles, swimming limited from torn meniscus able to complete upper arm exercises Weight History: Ht 172.7 cm (5' 8 ) Wt 117 kg (258 lb) BMI 39.23 kg/m Goal weight BMI < 27: 162.3 Goal weight BMI < 30: 180.3 No data found for this vital: Wt Risk factors: Tobacco use: No, former smoker quit long ago and she quit vaping in 10/2023 EtOH intake: No NSAIDs: Ibuprofen prn for knee pain, normally takes tylenol H. Pylori: No PH: Denies any upper GI cancer, polyposis, ckd, kidney stones, seizures. FH: Denies any upper GI cancer Relevant Medications: Phentermine tried twice s/e irritation and heart palpitations Mounjaro for 1 year lost 70 lbs and insurance stopped covering Metformin 500 mg BID for PCOS Vitamins/Minerals Supplements: MVI, iron, vitamin c, d, fish oil Past Medical History: PAST MEDICAL HISTORY Diagnosis Date Class II obesity Fatty liver disease, nonalcoholic GERD (gastroesophageal reflux disease) IBS (irritable bowel syndrome) PCOS (polycystic ovarian syndrome) Sleep apnea Past Surgical History: PAST SURGICAL HISTORY Procedure Laterality Date CHOLECYSTECTOMY HX Medications: Current Outpatient Medications Medication Sig Dispense Refill tirzepatide, weight loss (ZEPBOUND) 5 mg/0.5 mL pen injector Inject 5 mg subcutaneously one time a week. 4 Each 0 tirzepatide, weight loss (ZEPBOUND) 7.5 mg/0.5 mL pen injector Inject 7.5 mg subcutaneously one time a week. Patient should start on March 10, 2024. 4 Each 0 topiramate (TOPAMAX) 25 mg tablet Take 1 tablet by mouth daily at bedtime. 30 tablet 0 topiramate (TOPAMAX) 50 mg tablet Take 1 tablet by mouth daily at bedtime. Patient should start on March 10, 2024. 90 tablet 0 acetaminophen 325 mg cap Take 325 mg by mouth. Pediatric multivitamin chewable (FLINTSTONES MULTIVITAMIN) chewable tablet 2 tab(s), Chewed, Daily,Refill(s) 0, Prophylaxis VITAMIN C 1,000 mg tablet VITAMIN D2 1,250 mcg (50,000 unit) capsule esomeprazole (NEXIUM) 40 mg capsule Take 1 capsule by mouth every 12 hours. famotidine (PEPCID) 20 mg tablet Take 1 tablet by mouth every 12 hours. ferrous sulfate 325 mg (65 mg iron) tablet Take 1 tablet by mouth every afternoon. hydrOXYzine HCl (ATARAX) 50 mg tablet Refills(s) 0 ibuprofen (MOTRIN IB) 200 mg tablet Take 400 mg by mouth. loperamide (IMODIUM) 2 mg cap(s) TAKE 1 CAPSULE BY MOUTH EVERY 4 HOURS NEEDED FOR DIARRHEA metFORMIN (GLUCOPHAGE) 500 mg tablet Take 1,000 mg by mouth. metoprolol tartrate, short acting, (LOPRESSOR) 25 mg tablet No current facility-administered medications for this visit. Allergies: ALLERGIES Allergen Reactions Hydrochlorothiazide Anaphylaxis, Shortness of Breath Amlodipine Hives, Rash Penicillins Hives, Rash Sulfa (Sulfonamide * Hives, Rash Family History: No known colon cancer, polyps, IBD, celiac disease, pancreatic disease, or liver disease. No family history on file. ? Social History: Social History Tobacco Use Smoking status: Former Types: Cigarettes Vaping Use Vaping Use: Former Quit date: 10/01/2023 Substance Use Topics Alcohol use: Not Currently Drug use: Never Tobacco: Tobacco Use: Not on file Alcohol: Alcohol Use: Not Currently Illicits: Drug Use: Not on file Review of Systems: Review of Systems Constitutional: Negative for chills and fever. Respiratory: Negative for cough. Cardiovascular: Negative for chest pain. Gastrointestinal: Positive for diarrhea. Negative for abdominal pain, blood in stool, constipation,nausea and vomiting. Constitutional: no fevers, chills, night sweats, or weight loss Cardiovascular: no chest pain Pulmonary: no shortness of breath Eyes: no visual changes or eye irritation Musculoskeletal: left knee pain Skin: no new or changing skin lesions, rashes or pruritis 12 point ROS otherwise negative. Physical Examination: Ht 172.7 cm (5' 8 ) Wt 117 kg (258 lb) BMI 39.23 kg/m Physical Exam virtual/videocall encounter: Patient reported height 5'8 and weight 258 lbs There were no vitals taken for this visit. General - Normal, obese, cooperative, in no acute distress Able to interact verbally by video conference Psych - ORIENTATION: normal to time place, person and situation Mood/Affect: AFFECT AND MOOD: Normal Head/Neuro - Normal size and shape Facial appearance normal Pulmonary - respiratory effort normal Cardiovascular - patient describes extremities normal, warm, no cyanosis,no clubbing and no edema Abdominal - Areas of pain/tenderness: denies Skin - abnormal lesions not visualized Motor - patient seen sitting with Normal appearing strength and coordination ? Laboratory Data: No results found for: WBC , HGB , HCT , PLT Lab Results Component Value Date ALB 4.7 02/15/2024 TBILI 0.8 02/15/2024 No results found for: PT , PTCTRL , PTPOC , INR , PTT No components found for: VITDT , 25VITD , 25OHVITAMIND No results found for: B12 No results found for: TSH No components found for: GHBA1C , [id number] No results found for: WBC , RBC , HB , HCT , MCV , MCH , MCHC , RDWCV , PLT , MPV Potassium (mmol/L) Date Value 02/15/2024 4.0 Sodium (mmol/L) Date Value 02/15/2024 139 Creatinine (mg/dL) Date Value 02/15/2024 0.70 BUN (mg/dL) Date Value 02/15/2024 13 Glucose (mg/dL) Date Value 02/15/2024 139 Glucose (mg/dL) Date Value 02/15/2024 139 (H) BUN (mg/dL) Date Value 02/15/2024 13 Creatinine (mg/dL) Date Value 02/15/2024 0.70 Sodium (mmol/L) Date Value 02/15/2024 139 Potassium (mmol/L) Date Value 02/15/2024 4.0 Chloride (mmol/L) Date Value 02/15/2024 106 (H) CO2 (mmol/L) Date Value 02/15/2024 21 (L) Protein, Total (g/dL) Date Value 02/15/2024 7.9 Albumin (g/dL) Date Value 02/15/2024 4.7 Calcium, Total (mg/dL) Date Value 02/15/2024 9.7 Alkaline Phosphatase (U/L) Date Value 02/15/2024 99 Bilirubin, Total (mg/dL) Date Value 02/15/2024 0.8 AST (U/L) Date Value 02/15/2024 25 ALT (U/L) Date Value 02/15/2024 29 Glucose (mg/dL) Date Value 02/15/2024 139 Creatinine (mg/dL) Date Value 02/15/2024 0.70 Potassium (mmol/L) Date Value 02/15/2024 4.0 AST (U/L) Date Value 02/15/2024 25 ALT (U/L) Date Value 02/15/2024 29 Hemoglobin A1C (%) Date Value 02/15/2024 4.9 ] No results found for: LDL , TG , UALBCR ] Imaging: Reviewed Endoscopy: EGD locally twice small bezor, gastritis per patient done 2022 Assessment and Recommendations: ??28 year old female with history as per HPI, obesity class II, GERD, fatty liver, belching, cholelithiasis s/p maurilio, irritable bowel syndrome, current smoker, polycystic ovarian syndrome, palpitations, obstructive sleep apnea, presenting to GI/Bariatric Endoscopy clinic for evaluation of obesity class II and weight management. Interval: Patient presents to f/u on medical weight management. Unable to lose weight despite efforts. Weightfluctuates between 255-258 lbs. Not interested in bariatric surgery nor EBMT options at this time. She tried multiple diets, exercise, and lifestyle modifications. She did lose weight on [employer] insurance no longer covering. She tried topamax for 1-2 weeks but stopped because increased anxiety. Zepbound was denied. Adipex increased anxiety and she had heart palpitations. She has insulin resistance and metabolic syndrome on metformin 1000 mg unable to tolerate higher doses due to diarrhea. Not i nterested in orlistat due to needed imodium prn or powder med (cholestyramine?) for diarrhea. Exercise has increased she is going to the gym 3 times a week, swimming, riding bike for at least 3 miles. She has scheduled visit with dietitian she believes she may not be eating enough calories, discussed tracking intake with colleen or journal. Stays hydrated drinks >100 fluid ounces of water daily. Recommendations: - Start wegovy 0.25 mg weekly injection x4 weeks, then increase to 0.50 mg weekly injection Discussed side effects - Start tracking intake - Follow healthy balance diet - Continue diet and lifestyle modifications - Continue to see and follow up with one of our GI bariatric endoscopy dietitians, Milady Boo RD - Start group visits as scheduled - Continue to see and follow up with GI bariatric endoscopy psychologist, Dr. Nieto - Continue to increase physical activity as tolerated aim for 150 mins of cardio and strength training exercises weekly - RTC in 4-6 weeks for follow up of medically supervised weight management program VIRTUAL VISIT I spent a total of 32 minutes during this real-time, interactive virtual clinical encounter, which was conducted virtually using HIPAA compliant videoconferencing technology. Greater than 50% of the time spent was devoted to counseling and coordinating care including review of records, pertinent lab data and studies, as well as discussing diagnostic evaluation and work up, planned therapeutic interventions and future disposition of care. This includes any additional research needed to obtain further information in formulating the plan of care of this patient. This includes counseling the patient about her disease and diagnosis, specifically: obesity class II and weight management, GERD We reviewed coronavirus precautions including avoiding public places, maintaining 6 feet of distance from other persons when in public, no sick contacts, and fastidious handwashing. Thank you for allowing me to participate in the care of your patient. If you have any questions or concerns, please feel free to contact me. Bree Lopes APRN.CNP GI Bariatric Endoscopy 03/21/2024 1:45 PM documented in [facility] NoteHNO ID: [id number] Author: BREE LOPES APRN.CNP Service: ? Author Type: Nurse Practitioner Type: Progress Notes Filed: 03/21/2024 10:44 Note Text: Dinesh Méndez APRN.CNP [address] [place] [address] GI/Bariatric Endoscopy Clinic Visit Gastroenterology, Hepatology, and Nutrition Department ?[facility] ? 03/21/2024 ? The patient encounter is a virtual/telephone visit today, 03/21/2024, in lieu of an office visit due to the current COVID-19 pandemic crisis and need for social distancing. Reason for Visit: Obesity class II and weight management Patient is: Established patient Location of Provider: Hospital Location of Patient: Home Consent for virtual care, including informing the patient that insurance will be billed, and that in-person care is available in case of emergencies or as needed otherwise, was discussed at the time of scheduling. Dear Dinesh Méndez APRN.SPINDRAW OPERATOR, ? I had the pleasure of seeing Addie Lane in the [facility] GI[facility] Clinic for obesity class II and weight management. ?? The patient is a 28 year old female with past medical history as below presenting to us with obesity class II and weight mangement. Interval: Patient presents to f/u on medical weight management. Unable to lose weight despite efforts. Weight fluctuates between 255-258 lbs. Not interested in bariatric surgery nor EBMT options at this time. She tried multiple diets, exercise, and lifestyle modifications. She did lose weight on [employer] insurance no longer covering. She tried topamax for 1-2 weeks but stopped because increased anxiety. Zepbound was denied. Adipex increased anxiety and she had heart palpitations. She has insulin resistance and metabolic syndrome on metformin 1000 mg unable to tolerate higher doses due to diarrhea. Not interested in orlistat due to needed imodium prn or powder med (cholestyramine?) for diarrhea. Exercise has increased she is going to the gym 3 times a week, swimming, riding bike for at least 3 miles. She has scheduled visit with dietitian she believes she may not be eating enough calories, discussed tracking intake with colleen or journal. Stays hydrated drinks >100 fluid ounces of water daily. Prior History taken from last VV on 02/08/2024: Addie Lane has struggled with obesity since reaching adulthood, coinciding with a diagnosis of PCOS following her second . She is a mother of four children. Comorbidities are: obesity class II, GERD, fatty liver, belching, cholelithiasis s/p cholecystectomy, irritable bowel syndrome, ex smoker, polycystic ovarian syndrome (PCOS), palpitations, obstructive sleep apnea (she reports this was never diagnosed but plans to schedule ordered sleep study) Patient has tried to control the diet and be able to lose weight. She was able to lose up to 70 lbs while being on mounjaro for 1 year however insurance stopped covering once HmA1c improved and she stopped mounjaro in August then regained 35 lbs, lost an additional 10 lbs following a strict diet plan however now experiencing a weight loss plateau. Unfortunately, the patient would subsequently experience rebound weight regain following lifestyle modification interventions (diet + exercise). Patient has tried increasing physical activity or exercise, Weight Watcher, high protein/low carb sugar diets, Intermittent fasting. Patient has tried medications (adipex stopped d/t increased HR and irritability, mounjaro, metformin for PCOS). She is not interested in bariatric surgery. Patient exercises 7 times a week for 30-45 min every time: she used to go to the gym for cardio and strength training however now limited from torn meniscus, following sports medicine locally has scheduled MRI on Sunday. She is now able to do upper arm exercises but painful left knee radiates down leg, also affected by weight. Addie Lane was seen by kalsominer, gastroenterology, specialities who recommended to lose weight and weight loss interventions. 24 hrs Diet recall: Breakfast: skipped slept in Snack: none Lunch: protein shake with coffee Snack: none Dinner: chicken foldover pizza Snack: string cheese Wakes up to eat: Yes, she used to snack no longer doing this over 1 month ago Beverages: 120 fluid ounces sometimes liquid IV Current Exercise Activity: She started going to the gym 30 mins each time fast pace walking, riding bike 3 miles, swimming limited from torn meniscus able to complete upper arm exercises Weight History: Ht 172.7 cm (5' 8 ) Wt 117 kg (258 lb) BMI 39.23 kg/m? Goal weight BMI < 27: 162.3 Goal weight BMI < 30: 180.3 No data found for this vital: Wt Risk factors: Tobacco use: No, former smoker quit long ago and she quit vaping in 10/2023 EtOH intake: No NSAIDs: Ibuprofen prn for knee pain, normally takes tylenol H. Pylori: No PH: D (more content not included)...[facility]06-14-2024 NoteHNO ID: [id number] Author: KRISTEN NIETO PSYD Service: ? Author Type: Psychologist Type: Progress Notes Filed: 03/14/2024 15:08 Note Text: GI/Bariatric Endoscopy Clinic Visit Gastroenterology, Hepatology, and Nutrition Department ?[facility] ([facility] ? Date: 03/14/24 Virtual visit Current location: [place] Discussed privacy risk in digital visits I have communicated my name and active licensure. The patient's identity and physical location were verified at the time of this visit. Either the patient or their legal admissions representative has been informed of the risks and benefits of -- and alternatives to -- treatment through a remote evaluation and consents to proceed with the evaluation remotely. The patient e-signed the Informed Consent for Psychological Evaluation AND Care Form, and the behavioral health care insurance benefits, fees for service, emergency procedures, and the limits of confidentiality that may pertain with any given case were discussed with the patient. The patient was given a copy of the consent form on [employer]. IDENTIFYING INFORMATION Ms. Addie Lane is a 28 year old female. She was referred by Dr. Davis. Ms. Lane is interested in medical weight management. COLLATERAL PARTIES PRESENT: none. MOTIVATION / UNDERSTANDING / EXPECTATIONS: Ms. Lane is motivated by medical problems, hypertension, loss of energy, loss of mobility, wanting to improve health for children, minimizing weight recycling associated with dieting, and wanting to prevent health problems for weight loss. The patient has a good understanding of the lifestyle changes necessary to facilitate and maintain weight loss. Specific areas of understanding that should be addressed include n/a. The patient expected to lose 70-80 lbs over 12-18 months. Other expectations include improvement in health, increased energy, and increased mobility. MEDICAL PROBLEMS ACTIVE PROBLEM LIST Allergic Conjunctivitis, Bilateral Belching Cholelithiasis Current Smoker Diarrhea Epigastric Pain Fatty Liver Gastric Bezoar Chronic Gerd History of Pcos History of Stillbirth Ibs (Irritable Bowel Syndrome) Nausea and Vomiting Obesity Palpitations Pcos (Polycystic Ovarian Syndrome) Sleep Apnea Past surgeries? Yes PAST SURGICAL HISTORY Procedure Laterality Date CHOLECYSTECTOMY HX MEDICATIONS Current Outpatient Medications Medication Sig tirzepatide, weight loss (ZEPBOUND) 5 mg/0.5 mL pen injector Inject 5 mg subcutaneously one time a week. tirzepatide, weight loss (ZEPBOUND) 7.5 mg/0.5 mL pen injector Inject 7.5 mg subcutaneously one time a week. Patient should start on March 10, 2024. topiramate (TOPAMAX) 25 mg tablet Take 1 tablet by mouth daily at bedtime. topiramate (TOPAMAX) 50 mg tablet Take 1 tablet by mouth daily at bedtime. Patient should start on March 10, 2024. acetaminophen 325 mg cap Take 325 mg by mouth. Pediatric multivitamin chewable (FLINTSTONES MULTIVITAMIN) chewable tablet 2 tab(s), Chewed, Daily, Refill(s) 0, Prophylaxis VITAMIN C 1,000 mg tablet VITAMIN D2 1,250 mcg (50,000 unit) capsule esomeprazole (NEXIUM) 40 mg capsule Take 1 capsule by mouth every 12 hours. famotidine (PEPCID) 20 mg tablet Take 1 tablet by mouth every 12 hours. ferrous sulfate 325 mg (65 mg iron) tablet Take 1 tablet by mouth every afternoon. hydrOXYzine HCl (ATARAX) 50 mg tablet Refills(s) 0 ibuprofen (MOTRIN IB) 200 mg tablet Take 400 mg by mouth. loperamide (IMODIUM) 2 mg cap(s) TAKE 1 CAPSULE BY MOUTH EVERY 4 HOURS NEEDED FOR DIARRHEA metFORMIN (GLUCOPHAGE) 500 mg tablet Take 1,000 mg by mouth. metoprolol tartrate, short acting, (LOPRESSOR) 25 mg tablet No current facility-administered medications for this visit. Psychiatric medication. Hydroxyzine PRN ALLERGIES ALLERGIES Allergen Reactions Hydrochlorothiazide Anaphylaxis, Shortness of Breath Amlodipine Hives, Rash Penicillins Hives, Rash Sulfa (Sulfonamide * Hives, Rash EATING/WEIGHT HISTORY: Ms. Lane was average weight as a child. The patient reports the following factors as contributing to weight gain: and medical problems (PCOS). The patient reports a family history of obesity. The patient's current weight is 255 lbs. Her BMI is 38.77. The patient has tried weight loss strategies in the past including: Caloric restriction, Exercise/increased activity, Keto, and Medications such as Mounjaro The patient denies a history of laxative/diuretic use. The patient denies a history of vomiting to lose weight. The patient denies a history of an eating disorder. She has not had treatment for eating disorders in the past. The most pt has lost is 70 lbs using Medications such as Mounjaro. Patient reports eating 1-2 meals/day, with 0-1 snacks. The patient describes her eating pattern as follows: Breakfast: protein shake or protein (more content not included)...[facility]06-14-2024 History of Present illness Narrative* Kristen Nieto PSYD - 03/14/2024 1:29 PM EDT Images from the original note were not included. GI/Bariatric Endoscopy Clinic Visit Gastroenterology, Hepatology, and Nutrition Department ?[facility] ? Date: 03/14/24 Virtual visit Current location: [place] Discussed privacy risk in digital visits I have communicated my name and active licensure. The patient's identity and physical location wereverified at the time of this visit. Either the patient or their legal admissions representative has been informed of the risks and benefits of -- and alternatives to -- treatment through a remote evaluation andconsents to proceed with the evaluation remotely. The patient e-signed the Informed Consent for Psychological Evaluation & Care Form, and the behavioral health care insurance benefits, fees for service, emergency procedures, and the limits of confidentiality that may pertain with any given case were discussed with the patient. The patient was given a copy of the consent form on [employer]. IDENTIFYING INFORMATION Ms. Addie Lane is a 28 year old female. She was referred by Dr. Davis. Ms. Lane is interested in medical weight management. COLLATERAL PARTIES PRESENT: none. MOTIVATION / UNDERSTANDING / EXPECTATIONS: Ms. Lane is motivated by medical problems, hypertension, loss of energy, loss of mobility, wanting to improve health for children, minimizing weight recycling associated with dieting, and wanting to prevent health problems for weight loss. The patient has a good understanding of the lifestyle changes necessary to facilitate and maintain weight loss. Specific areas of understanding that should be addressed include n/a. The patient expected to lose 70-80 lbs over 12-18 months. Other expectations include improvement in health, increased energy, and increased mobility. MEDICAL PROBLEMS ACTIVE PROBLEM LIST Allergic Conjunctivitis, Bilateral Belching Cholelithiasis Current Smoker Diarrhea Epigastric Pain Fatty Liver Gastric Bezoar Chronic Gerd History of Pcos History of Stillbirth Ibs (Irritable Bowel Syndrome) Nausea and Vomiting Obesity Palpitations Pcos (Polycystic Ovarian Syndrome) Sleep Apnea Past surgeries? Yes PAST SURGICAL HISTORY Procedure Laterality Date CHOLECYSTECTOMY HX MEDICATIONS Current Outpatient Medications Medication Sig tirzepatide, weight loss (ZEPBOUND) 5 mg/0.5 mL pen injector Inject 5 mg subcutaneously one time a week. tirzepatide, weight loss (ZEPBOUND) 7.5 mg/0.5 mL pen injector Inject 7.5 mg subcutaneously one time a week. Patient should start on March 10, 2024. topiramate (TOPAMAX) 25 mg tablet Take 1 tablet by mouth daily at bedtime. topiramate (TOPAMAX) 50 mg tablet Take 1 tablet by mouth daily at bedtime. Patient should start on March 10, 2024. acetaminophen 325 mg cap Take 325 mg by mouth. Pediatric multivitamin chewable ([facility] MULTIVITAMIN) chewable tablet 2 tab(s), Chewed, Daily,Refill(s) 0, Prophylaxis VITAMIN C 1,000 mg tablet VITAMIN D2 1,250 mcg (50,000 unit) capsule esomeprazole (NEXIUM) 40 mg capsule Take 1 capsule by mouth every 12 hours. famotidine (PEPCID) 20 mg tablet Take 1 tablet by mouth every 12 hours. ferrous sulfate 325 mg (65 mg iron) tablet Take 1 tablet by mouth every afternoon. hydrOXYzine HCl (ATARAX) 50 mg tablet Refills(s) 0 ibuprofen (MOTRIN IB) 200 mg tablet Take 400 mg by mouth. loperamide (IMODIUM) 2 mg cap(s) TAKE 1 CAPSULE BY MOUTH EVERY 4 HOURS NEEDED FOR DIARRHEA metFORMIN (GLUCOPHAGE) 500 mg tablet Take 1,000 mg by mouth. metoprolol tartrate, short acting, (LOPRESSOR) 25 mg tablet No current facility-administered medications for this visit. Psychiatric medication. Hydroxyzine PRN ALLERGIES ALLERGIES Allergen Reactions Hydrochlorothiazide Anaphylaxis, Shortness of Breath Amlodipine Hives, Rash Penicillins Hives, Rash Sulfa (Sulfonamide * Hives, Rash EATING/WEIGHT HISTORY: Ms. Lane was average weight as a child. The patient reports the following factors as contributing to weight gain: and medical problems (PCOS). The patient reports a family history of obesity. The patient's current weight is 255 lbs. Her BMI is 38.77. The patient has tried weight loss strategies in the past including: Caloric restriction, Exercise/increased activity, Keto, and Medications such as Mounjaro The patient denies a history of laxative/diuretic use. The patient denies a history of vomiting to lose weight. The patient denies a history of an eating disorder. She has not had treatment for eating disorders in the past. The most pt has lost is 70 lbs using Medications such as Mounjaro. Patient reports eating 1-2 meals/day, with 0-1 snacks. The patient describes her eating pattern as follows: Breakfast: protein shake or protein coffee OR skips Snack: denied Lunch: skipped OR salad OR small portion of what is made for kids (corn dog or uncrustable) Snack: denied OR granola bar OR beef jerky Dinner: pizza OR grilled protein with potato and vegetable Snack: denied Pt reported water intake of 100+ oz per day The patient notes caffeine intake of 1 cups/3-4 times per week. Drinks other than water consist of occasional chocolate milk per week. She implemented the following changes since her last nutrition visit: not established BINGE EATING ASSESSMENT: A. Recurrent episodes of binge eating. An episode is characterized by: 1. Eating a larger amount of food than normal during a short period of time (within any two hour period): No 2. Lack of control over eating during the binge episode (i.e. the feeling that one cannot stop eating): No B. Binge eating episodes are associated with three or more of the followin. Eating until feeling uncomfortably full: No 2. Eating large amounts of food when not physically hungry: No 3. Eating much more rapidly than normal: No 4. Eating alone because you are embarrassed by how much you're eating: No 5. Feeling disgusted, depressed, or guilty after overeating: No THREE ASSOCIATED SYMPTOMS MET? No C. Marked distress regarding binge eating is present: No D. Binge eating occurs, on average, at least 1 days a week for three months: No The patient reports 0 binge episodes per week for the past 12 months. E. The binge eating is not associated with the regular use of inappropriate compensatory behavior (i.e. purging, excessive exercise, etc.) and does not occur exclusively during the course of bulimia nervosa or anorexia nervosa.No PATIENT MEETS ABOVE CRITERIA FOR BINGE EATING DISORDER:No BES was not completed. No data to display <18 = minimal binge eating, 18-26 = moderate binge eating, >27 = severe binge eating The patient shows graze eating behaviors: Yes. Patient notes loss of control with grazing No. Grazing occurs 5 days/week. NIGHT EATING SYNDROME A. Demonstrates a significantly increased intake in the evening and/or nighttime, as evidenced by one or both of the following. 1. At least 25% of food is consumed after the evening meal: No 2. At least two episodes of nocturnal eating per week: No B. The clinical picture is characterized by three or more of the followin. Lack of desire to eat in the morning and/or breakfast is skipped four or more mornings per week:No 2. A strong urge to eat between dinner and sleep onset and/or during the night:No 3. Insomnia is present four or more nights per week (onset or maintenance): No 4. Belief one must eat to initiate or return to sleep: No 5. Mood is frequently depressed or worsens in the evening: No C. Marked distress or impairment around night eating is present: No D. Night eating has occurred for at least 3 months: No PATIENT MEETS ABOVE CRITERIA FOR NIGHT EATING SYNDROME: No MENTAL HEALTH HISTORY She is currently prescribed hydroxyzine by PCP- historically also prescribed wellbutrin and zoloft but stopped due to side effects. Did some counseling after of twins for about year in 2020 foranxiety Ms[address] Lane has never been an inpatient for a psychiatric reason. The patient has no previous suicide attempts. The patient has no history of self-injurious behavior. The patient has no family history of mental illness. The patient denies a history of physical, sexual, or emotional abuse. The following psychiatric symptoms are noted: Depression: Sleep disturbance Decreased energy Guerita: Denies any history of hypomanic or manic episodes. Psychosis: Denies any hallucinations or delusions. Generalized Anxiety Disorder: Excessive worry more than not Difficulty controlling worry Restless / keyed up Fatigued Muscle tension Sleep disturbance Panic: Palpitations, Nausea and/or abdominal distress, Dizzy/faint, Avoidant behavior, and Fear of dying Obsessive Compulsive Disorder: Denies any symptoms of OCD. Post-Traumatic Stress Disorder: Denies any PTSD symptoms The patient has the following level of depression: none. Besides depressive disorders, the patient meets criteria for Anxiety disorder(s). SUBSTANCE USE The patient reports drinking 1 times per 4 years and has 1-2 drinks on average at each occasion. The patient DOES NOT report current marijuana use. The patient denies any lifetime drug use. The patient does not report social/occupational/legal consequences associated with drug or alcohol use. The patient quit smoking 4 years ago. Quit vaping October of 2023 FAMILY OF ORIGIN Ms. Lane was raised in an intact family. Parents pt's senior year of high school. Pt has not spoken to father in 3 yrs after conflict with father's new . She described her family environment as good, but distant from father. The patient had 2 younger brothers. The patient's parents are still living. She is currently semi - close with her family (close with mom and one brother- less close with other brother and no contact with father). The patient's family is supportive of her decision to pursue medical weight management. MARITAL FAMILY/SIGNIFICANT RELATIONSHIPS Ms. Lane is currently to first spouse of 5 years.. The patient has 4 children, including (9, 7, 2 yr old twins). The patient currently lives with and children. The patient's significant other is supportive of her decision for medical weight management. She describes her family life as good. Other social supports include extended family and friends. The patient reports that her social supports are supportive of herdecision for medical weight management. 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 CURRENT STRESSORS: The patient reports the following stressors: parenting schedule; 's work schedule; health and anxiety COPING STRATEGIES The patient reports the following coping strategies: exercise, talking with social supports, distraction, staying busy, problem solving, and ignoring. These coping strategies have been partially effective. The patient notes taoist practice is: Non-practicing . The patient's cultural identity/ethnicity is: . LEISURE/EXERCISE The patient currently exercises 3-6 times a week by biking and cardio . SLEEP: The patient reports problems falling asleep: Yes The patient reports problems staying asleep:Yes The patient reports the following quality of sleep:poor Total sleep time: 5-9 hours Patient is diagnosed with CASIE:No- historically had sleep study Patient Data Generalized Anxiety Disorder Scale (ALIE-7) 03/13/2024 ALIE - 7 SCORES Score 9 (0-4) minimal anxiety, (5-9) mild anxiety, (10-14) moderate anxiety, (15-21) severe anxiety Patient Health Questionnaire (PHQ-9) 03/13/2024 PHQ-9 Score 3 (0-4) minimal depression, (5-9) mild depression, (10-14) moderate depression, (15-19) moderately severe depression, (20-27) severe depression PROMIS Global Health 02/06/2024 PROMIS Global Health - (T-Scores - the mean of general population = 50. Five points is a clinicallymeaningful difference.) Physical T-Score 54.1 Mental T-Score 53.3 Mental Status Exam: General/Sensorium: Alert and & interactive - Appearance: Appears well groomed and stated age - Eye Contact: Appropriate eye contact - Demeanor: Appropriately interactive - Motor Activity: Normal - Speech: Appropriate - Mood: Anxious - Affect: Constricted - Thought Process: Linear, logical, and goal-directed - Associations: Normal - Thought Content: Appropriate with no SI/HI/AVH and Obsessive thinking - Perceptions: The patient does not appear internally stimulated - Cognition: Appears intact in regards to memory, attention/concentration, fund of knowledge and language skills - Insight: Good - Judgment: Good - PROVISIONAL DIAGNOSTIC IMPRESSION Primary Diagnoses: Generalized Anxiety Disorder Psychological Factors Affecting a Medical Condition class 2 obesity Personality Diagnoses:Deferred Global Assessment of Functionin-61 Some mild symptoms or some difficulty in social, occupational, or school functioning, but generally functioning pretty well. IMPRESSIONS: 1) Based on the information gathered through the interview process , the patient appears to have other areas of stress management that are complicating weight loss. 2) The patient evidences ALIE at this time but is well managed with PRN hydroxyzine. TREATMENT PLAN AND RECOMMENDATIONS: 1) Collateral data and consultation with the bariatric endoscopy multidisciplinary team (luncheonette manager,nursing, endoscopy) will continue and be incorporated into the pt's plan of care. 2) The patient may benefit from *brief psychotherapy to address anxiety, modification of lifestyle (e.g., eating and activity patterns), and adaptive coping and stress management 3) Pt self-identified stress and GI upset as areas she would benefit from continued support 4) The projected length of treatment is: short term (12 sessions or less). 5) Above recommendations and treatment plan will be communicated back to the referring physician byway of the shared medical record. Thank you for this referral. Please feel free to call or page with any questions. Kristen Nieto PsyD Clinical Psychologist [facility] Telephone encounter Note * Telephone Encounter - June Pizarro RN - 02/12/2024 12:05 PM EDT Spoke with patient's [facility] pharmacy. Zepbound not covered by primary [employer] insurance and no PA available. Attempted to do PA under [place] [employer] in covermymeds but unable to complete PA as form returned not a covered/ payable medication on her plan patient and provider updated [facility]05-14-[facility] Miscellaneous Notes* Telephone Encounter - June Pizarro RN - 02/12/2024 12:05 PM EDT Spoke with patient's [facility] pharmacy. Zepbound not covered by primary [employer] insurance and no PA available. Attempted to do PA under [place] [employer] in covermymeds but unable to complete PA as form returned not a covered/ payable medication on her plan patient and provider updated * Telephone Encounter - Tracy Leonard - 02/11/2024 4:31 PM EDT Received / forwarded notification that medication (Zepbound) requires a prior authorization. See scanned request in chart. M Lemus # [id number] documented in this encounterK[facility]05[facility] Telephone encounter Note * Telephone Encounter - Tracy Leonard - 02/11/2024 4:31 PM EDT Received / forwarded notification that medication (Zepbound) requires a prior authorization. See scanned request in chart. [facility] Lemus # [id number] [facility] Work Phone: [phone] History of Present illness Narrative* Bree Lopes APRN.CNP - 02/08/2024 1:00 PM EDT Images from the original note were not included. Dinesh Méndez APRN.SPINDRAW OPERATOR [address] [facility] [id number] GI/Bariatric Endoscopy Clinic Visit Gastroenterology, Hepatology, and Nutrition Department ?[facility] ? 02/08/2024 ? The patient encounter is a virtual/telephone visit today, 02/08/2024, in lieu of an office visit dueto the current COVID-19 pandemic crisis and need for social distancing. Reason for Visit: Obesity class II and weight management Patient is: New patient Location of Provider: Hospital Location of Patient: Home Consent for virtual care, including informing the patient that insurance will be billed, and that in-person care is available in case of emergencies or as needed otherwise, was discussed at the time of scheduling. Dear Dinesh Méndez APRN.SPINDRAW OPERATOR, ? I had the pleasure of seeing Addie Russ Lane in the [facility] for obesity class II and weight management. ?? The patient is a 28 year old female with past medical history as below presenting to us with obesity class II and weight mangement. Prior History: Addie Lane has struggled with obesity since reaching adulthood, coinciding with a diagnosis of PCOS following her second . She is a mother of four children. Comorbidities are: obesity class II, GERD, fatty liver, belching, cholelithiasis s/p cholecystectomy, irritable bowel syndrome, ex smoker, polycystic ovarian syndrome (PCOS), palpitations, obstructive sleep apnea (she reports this was never diagnosed but plans to schedule ordered sleep study) Patient has tried to control the diet and be able to lose weight. She was able to lose up to 70 lbswhile being on mounjaro for 1 year however insurance stopped covering once HmA1c improved and she stopped mounjaro in August then regained 35 lbs, lost an additional 10 lbs following a strict diet plan however now experiencing a weight loss plateau. Unfortunately, the patient would subsequently experience rebound weight regain following lifestyle modification interventions (diet + exercise). Patient has tried increasing physical activity or exercise, Weight Watcher, high protein/low carb sugar diets, Intermittent fasting. Patient has tried medications (adipex stopped d/t increased HR and irritability, mounjaro, metformin for PCOS). She is not interested in bariatric surgery. Patient exercises 7 times a week for 30-45 min every time: she used to go to the gym for cardio andstrength training however now limited from torn meniscus, following sports medicine locally has scheduled MRI on Sunday. She is now able to do upper arm exercises but painful left knee radiates downleg, also affected by weight. Addie Lane was seen by kalsominer, gastroenterology, specialities who recommended to lose weight and weight loss interventions. 24 hrs Diet recall: Breakfast: protein shake Snack: none Lunch: salad Snack: none Dinner: grilled chicken, mushrooms, beans, potatoes Snack: none Wakes up to eat: Yes, she used to snack no longer doing this over 1 month ago Current Exercise Activity: Limited from torn meniscus able to complete upper arm exercises Weight History: Ht 172.7 cm (5' 8 ) Wt 115.7 kg (255 lb) BMI 38.77 kg/m Goal weight BMI < 27: 162.3 Goal weight BMI < 30: 180.3 No data found for this vital: Wt Risk factors: Tobacco use: No, former smoker quit long ago and she quit vaping in 10/2023 EtOH intake: No NSAIDs: Ibuprofen prn for knee pain, normally takes tylenol H. Pylori: No PH: Denies any upper GI cancer, polyposis, ckd, kidney stones, seizures. FH: Denies any upper GI cancer Relevant Medications: Phentermine tried twice s/e irritation and heart palpitations Nohemi for 1 year lost 70 lbs and insurance stopped covering Metformin 500 mg BID for PCOS Vitamins/Minerals Supplements: MVI, iron, vitamin c, d, fish oil Past Medical History: PAST MEDICAL HISTORY Diagnosis Date Class II obesity Fatty liver disease, nonalcoholic GERD (gastroesophageal reflux disease) IBS (irritable bowel syndrome) PCOS (polycystic ovarian syndrome) Sleep apnea Past Surgical History: PAST SURGICAL HISTORY Procedure Laterality Date CHOLECYSTECTOMY HX Medications: No current outpatient medications on file. No current facility-administered medications for this visit. Allergies: ALLERGIES Allergen Reactions Hydrochlorothiazide Anaphylaxis, Shortness of Breath Amlodipine Hives, Rash Penicillins Hives, Rash Sulfa (Sulfonamide * Hives, Rash Family History: No known colon cancer, polyps, IBD, celiac disease, pancreatic disease, or liver disease. No family history on file. ? Social History: Tobacco: Tobacco Use: Not on file Alcohol: Alcohol Use: Not on file Illicits: Drug Use: Not on file Review of Systems: Review of Systems Constitutional: no fevers, chills, night sweats, or weight loss Cardiovascular: no chest pain Pulmonary: no shortness of breath Eyes: no visual changes or eye irritation Musculoskeletal: left knee pain Skin: no new or changing skin lesions, rashes or pruritis 12 point ROS otherwise negative. Physical Examination: Ht 172.7 cm (5' 8 ) Wt 115.7 kg (255 lb) BMI 38.77 kg/m Physical Exam virtual/videocall encounter: Patient reported height 5'8 and weight 255 lbs There were no vitals taken for this visit. General - Normal, obese, cooperative, in no acute distress Able to interact verbally by video conference Psych - ORIENTATION: normal to time place, person and situation Mood/Affect: AFFECT AND MOOD: Normal Head/Neuro - Normal size and shape Facial appearance normal Pulmonary - respiratory effort normal Cardiovascular - patient describes extremities normal, warm, no cyanosis,no clubbing and no edema Abdominal - Areas of pain/tenderness: denies Skin - abnormal lesions not visualized Motor - patient seen sitting with Normal appearing strength and coordination ? Laboratory Data: No results found for: WBC , HGB , HCT , PLT No results found for: SGOT , TP , ALB , TBILI , DBILI No results found for: PT , PTCTRL , PTPOC , INR , PTT No components found for: VITDT , 25VITD , 25OHVITAMIND No results found for: B12 No results found for: TSH No components found for: GHBA1C , TGDP2IJJW No results found for: WBC , RBC , HB , HCT , MCV , MCH , MCHC , RDWCV , PLT , MPV No results found for: K , NA , MG , CREAT , BUN , GLUC , INR , TSH , PBNP , DDMER No results found for: GLUC , BUN , CREAT , NA , K , CHLOR , CO2 , TPROT , ALB , CA , ALKPHOS , TBILI , AST , ALT No results found for: GLUC , CREAT , K , AST , ALT , HBA1C , CHOL , HDL ] No results found for: LDL , TG , UALBCR ] Imaging: Reviewed Endoscopy: EGD locally twice small bezor, gastritis per patient done 2022 Assessment and Recommendations: ??28 year old female with history as per HPI, obesity class II, GERD, fatty liver, belching, cholelithiasis s/p maurilio, irritable bowel syndrome, current smoker, polycystic ovarian syndrome, palpitations, obstructive sleep apnea, presenting to GI/Bariatric Endoscopy clinic for evaluation of obesity class II and weight management. We discussed the 4 options for management of obesity including lifestyle intervention, pharmacotherapy, endoscopic bariatric and metabolic therapies (EBMTs), and bariatric surgery. We discussed all FDA-approved medications for weight loss. The benefits and risks of each medications were discussed with the patient. She has taken phentermine in the past stopped due to heart palpitations and irritability, currently on metformin for PCOS, benefited fro 70 lbs weight loss with mounjaro however insurance stopped covering and she gained 35 lbs back. She is interested in AOM we discussed zepbound andtopamax. We then discussed EBMTs. We explained that currently there are 2 types of EBMTs that are FDA-approved in the [place] 1) Intragastric balloon (IGB) which is associated with approximately 10% of total weight loss (TWL). 2) Endoscopic sleeve gastroplasty (ESG), which can be performed via suturing or plication, which is associated with approximately 15% to 20% TWL. Risks of each EBMTs were alsodiscussed with the patient in details. Lastly, we also discussed briefly about Bariatric Surgery such as laparoscopic sleeve gastrectomy and Bc-en-Y gastric bypass, which patient currently is eligible for given class II obesity with a comorbidity and she is aware she can lose the most weight withbariatric surgery however declined surgery. She is not interested in EBMT procedures at this time may consider in the future. Patient would like to proceed with AOM and diet and lifestyle modifications for obesity first. We also discussed the possible causes of weight gain leading to obesity class II with related comorbidities, including inappropriate diet, lack of sufficient exercise. Patient isscheduled to see our dietitian and psychologist. Recommendations: - Check lab work (insulin assay, hmgA1c, cmp) must be fasting for 12 hours - Start zepbound 5 mg weekly injection if approved and tolerated increase to 7.5 mg weekly injection Discussed all side effects can look for coupon at [email or web address] - Start topamax 25 mg at bedtime if tolerated after 4 weeks increase to 50 mg tablet at bedtime Discussed potential adverse events of topamax which include paresthesia, fatigue, drowsiness, dizziness, memory impairment, hyperamonemia, decreased serum, abdominal discomfort, diarrhea, nausea, vomiting, among others. We recommended two types of contraception to avoid while on this medic ation, due to potential medication risks to the fetus. Patient verbalized understanding and agreement with plan - Continue diet and lifestyle modifications - See as scheduled GI bariatric endoscopy dietitians, Treva Carter RD - See as scheduled GI bariatric endoscopy psychologist, Dr. Nieto - Continue to increase physical activity as tolerated if cleared aim for 200 mins of cardio and strength training exercises weekly - RTC in 6-8 weeks for follow up of medically supervised weight management program VIRTUAL VISIT I spent a total of 40 minutes during this real-time, interactive virtual clinical encounter, which was conducted virtually using HIPAA compliant videoconferencing technology. Greater than 50% of the time spent was devoted to counseling and coordinating care including review of records, pertinent lab data and studies, as well as discussing diagnostic evaluation and work up, planned therapeutic interventions and future disposition of care. This includes any additional research needed to obtain further information in formulating the plan of care of this patient. This includes counseling the patient about her disease and diagnosis, specifically: obesity class II and weight management, GERD We reviewed coronavirus precautions including avoiding public places, maintaining 6 feet of distance from other persons when in public, no sick contacts, and fastidious handwashing. Thank you for allowing me to participate in the care of your patient. If you have any questions or concerns, please feel free to contact me. Bree Lopes APRN.CNP GI Bariatric Endoscopy 02/08/2024 1:45 PM documented in this encounterK[facility] NoteHNO ID: [id number] Author: BREE LOPES APRN.CNP Service: ? Author Type: Nurse Practitioner Type: Progress Notes Filed: 02/08/2024 14:22 Note Text: Dinesh Méndez APRN.CNP [address] [facility] [id number] GI/Bariatric Endoscopy Clinic Visit Gastroenterology, Hepatology, and Nutrition Department ?[facility] ([facility] ? 02/08/2024 ? The patient encounter is a virtual/telephone visit today, 02/08/2024, in lieu of an office visit due to the current COVID-19 pandemic crisis and need for social distancing. Reason for Visit: Obesity class II and weight management Patient is: New patient Location of Provider: Hospital Location of Patient: Home Consent for virtual care, including informing the patient that insurance will be billed, and that in-person care is available in case of emergencies or as needed otherwise, was discussed at the time of scheduling. Dear Dinesh Méndez APRN.CNP, ? I had the pleasure of seeing Addie Lane in the [facility] GI[facility]oscopy Clinic for obesity class II and weight management. ?? The patient is a 28 year old female with past medical history as below presenting to us with obesity class II and weight mangement. Prior History: Addie Lane has struggled with obesity since reaching adulthood, coinciding with a diagnosis of PCOS following her second . She is a mother of four children. Comorbidities are: obesity class II, GERD, fatty liver, belching, cholelithiasis s/p cholecystectomy, irritable bowel syndrome, ex smoker, polycystic ovarian syndrome (PCOS), palpitations, obstructive sleep apnea (she reports this was never diagnosed but plans to schedule ordered sleep study) Patient has tried to control the diet and be able to lose weight. She was able to lose up to 70 lbs while being on mounjaro for 1 year however insurance stopped covering once HmA1c improved and she stopped mounjaro in August then regained 35 lbs, lost an additional 10 lbs following a strict diet plan however now experiencing a weight loss plateau. Unfortunately, the patient would subsequently experience rebound weight regain following lifestyle modification interventions (diet + exercise). Patient has tried increasing physical activity or exercise, Weight Watcher, high protein/low carb sugar diets, Intermittent fasting. Patient has tried medications (adipex stopped d/t increased HR and irritability, mounjaro, metformin for PCOS). She is not interested in bariatric surgery. Patient exercises 7 times a week for 30-45 min every time: she used to go to the gym for cardio and strength training however now limited from torn meniscus, following sports medicine locally has scheduled MRI on Sunday. She is now able to do upper arm exercises but painful left knee radiates down leg, also affected by weight. Addie Lane was seen by kalsominer, gastroenterology, specialities who recommended to lose weight and weight loss interventions. 24 hrs Diet recall: Breakfast: protein shake Snack: none Lunch: salad Snack: none Dinner: grilled chicken, mushrooms, beans, potatoes Snack: none Wakes up to eat: Yes, she used to snack no longer doing this over 1 month ago Current Exercise Activity: Limited from torn meniscus able to complete upper arm exercises Weight History: Ht 172.7 cm (5' 8 ) Wt 115.7 kg (255 lb) BMI 38.77 kg/m? Goal weight BMI < 27: 162.3 Goal weight BMI < 30: 180.3 No data found for this vital: Wt Risk factors: Tobacco use: No, former smoker quit long ago and she quit vaping in 10/2023 EtOH intake: No NSAIDs: Ibuprofen prn for knee pain, normally takes tylenol H. Pylori: No PH: Denies any upper GI cancer, polyposis, ckd, kidney stones, seizures. FH: Denies any upper GI cancer Relevant Medications: Phentermine tried twice s/e irritation and heart palpitations Nohemi for 1 year lost 70 lbs and insurance stopped covering Metformin 500 mg BID for PCOS Vitamins/Minerals Supplements: MVI, iron, vitamin c, d, fish oil Past Medical History: PAST MEDICAL HISTORY Diagnosis Date Class II obesity Fatty liver disease, nonalcoholic GERD (gastroesophageal reflux disease) IBS (irritable bowel syndrome) PCOS (polycystic ovarian syndrome) Sleep apnea Past Surgical History: PAST SURGICAL HISTORY Procedure Laterality Date CHOLECYSTECTOMY HX Medications: No current outpatient medications on file. No current facility-administered medications for this visit. Allergies: ALLERGIES Allergen Reactions Hydrochlorothiazide Anaphylaxis, Shortness of Breath Amlodipine Hives, Rash Penicillins Hives, Rash Sulfa (Sulfonamide * Hives, Rash Family History: No known colon cancer, polyps, IBD, celiac disease, pancreatic disease, or liver disease. No family history on file. ? Social History: Tobacco: Tobacco Use: Not on file Alcohol: Alcohol Use: No (more content not included)...[facility]05-03-2024 Telephone encounter Note* Telephone Encounter - Norma Rosa - 02/01/2024 3:00 PM EDT Referral uploaded under scanned doc. Norma Rosa [employer] Teacher [facility]05-03-2024 Miscellaneous Notes* Telephone Encounter - Norma Rosa - 02/01/2024 3:00 PM EDT Referral uploaded under scanned doc. 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 Push fluids. Urine sent for culture and pt will be notified of results if any change needs to be made. Advised good hygiene and no sexual activity while on meds. Pt to f/u as needed with pcp for persistent or recurrent sx. Immediate eval in ER for abdominal pain, severe back pain, N/V/D, fever/chills, or severe dehydration. Pt understood and agreed to treatment plan. [facility] Other 04-05-2023 Miscellaneous Notes* Addendum Note - Reji Hugo - 01/03/2023 12:23 PM EDTAddended by: REJI HUGO on: 01/03/2023 12:23 PM Modules accepted: Orders documented in this encounterK[facility] History general Narrative - Reported* Type Description Date Surgical History gall bladder 12/21 [facility] Other 03-15-2023 Evaluation + Plan noteExtracted from: Title:ED Note Author:Isra Moreno DO Date :12/13/22 Acute headache (R51.9: Heada radha, unspecified) Orders: diphenhydrAMINE, 25 mg = 0.5 mL, Injection, IV Push, Once, Stop date 12/13/22 2:02:00 EDT, STAT, Start date 12/13/22 2:02:00 EDT, 12/13/22 2:02:00 EDT ketorolac, 15 mg = 1 mL, Injection, IV Push, Once, Stop date 12/13/22 2:49:00 EDT, STAT, Start date 12/13/22 2:49:00 EDT, 12/13/22 2:49:00 EDT metoclopramide, 10 mg = 2 mL, Injection, IV Push, Once, Stop date 12/13/22 2:02:00 EDT, STAT, Start date 12/13/22 2:02:00 EDT, 12/13/22 2:02:00 EDT Sodium Chloride 0.9% intravenous solution, 1,000 mL, Soln-IV, IV, Once, Stop date 12/13/22 2:02:00 EDT, STAT, Start date 12/13/22 2:02:00 EDT, Infuse over 61, minute(s) Sodium Chloride 0.9% intravenous solution, Soln-IV, Misc, Once, Stop date 12/13/22 2:07:22 EDT, Physician Stop, 12/13/22 2:07:22 EDT Capillary Glucose POC CT Head or Brain w/o Contrast U Beta Hcg Qual Future Scheduled Tests Laboratory* CBC w/ Auto Diff 04/28/22 * Comprehensive Metabolic Panel 04/28/22 [facility]03-15-2023 Hospital Discharge instructions Patient Education 12/13/2022 03:41:07 General Headache Without Cause General Headache Without Cause A headache is pain or discomfort felt around the head or neck area. The specific cause of a headache may not be found. There are many causes and types of headaches. A few common ones are: Tension headaches. Migraine headaches. Cluster headaches. Chronic daily headaches. Follow these instructions at home: Watch your condition for any changes. Let your health care provider know about them. Take these steps to help with your condition: Managing pain Take chnf-fjd-luxvfbb and prescription medicines only as told by your health care provider. Lie down in a dark, quiet room when you have a headache. If directed, put ice on your head and neck area: ?Put ice in a plastic bag. ?Place a towel between your skin and the bag. ?Leave the ice on for 20 minutes, 2 3 times per day. If directed, apply heat to the affected area. Use the heat source that your health care provider recommends, such as a moist heat pack or a heating pad. ?Place a towel between your skin and the heat source. ?Leave the heat on for 20 30 minutes. ?Remove the heat if your skin turns bright red. This is especially important if you are unable to feel pain, heat, or cold. You may have a greater risk of getting burned. Keep lights dim if bright lights bother you or make your headaches worse. Eating and drinking Eat meals on a regular schedule. If you drink alcohol: ?Limit how much you use to: ?0 1 drink a day for women. ? 0 2 drinks a day for men. ?Be aware of how much alcohol is in your drink. In the [place] one drink equals one 12 oz bottle of beer (355 mL), one 5 oz glass of wine (148 mL), or one 1 oz glass of hard liquor (44 mL). Stop drinking caffeine, or decrease the amount of caffeine you drink. General instructions Keep a headache journal to help find out what may trigger your headaches. For example, write down: ?What you eat and drink. ?How much sleep you get. ?Any change to your diet or medicines. Try massage or other relaxation techniques. Limit stress. Sit up straight, and do not tense your muscles. Do not use any products that contain nicotine or tobacco, such as cigarettes, e- cigarettes, and chewing tobacco. If you need help quitting, ask your health care provider. Exercise regularly as told by your health care provider. Sleep on a regular schedule. Get 7 9 hours of sleep each night, or the amount recommended by your health care provider. Keep all follow-up visits as told by your health care provider. This is important. Contact a health care provider if: Your symptoms are not helped by medicine. You have a headache that is different from the usual headache. You have nausea or you vomit. You have a fever. Get help right away if: Your headache becomes severe quickly. Your headache gets worse after moderate to intense physical activity. You have repeated vomiting. You have a stiff neck. You have a loss of vision. You have problems with speech. You have pain in the eye or ear. You have muscular weakness or loss of muscle control. You lose your balance or have trouble walking. You feel faint or pass out. You have confusion. You have a seizure. Summary A headache is pain or discomfort felt around the head or neck area. There are many causes and types of headaches. In some cases, the cause may not be found. Keep a headache journal to help find out what may trigger your headaches. Watch your condition for any changes. Let your health care provider know about them. Contact a health care provider if you have a headache that is different from the usual headache, orif your symptoms are not helped by medicine. Get help right away if your headache becomes severe, you vomit, you have a loss of vision, you loseyour balance, or you have a seizure. This information is not intended to replace advice given to you by your health care provider. Make sure you discuss any questions you have with your health care provider. Document Released: 09/17/2006 Document Revised: 04/07/2019 Document Reviewed: 04/07/2019 [employer] Patient Education 2020 [employer] Follow Up Care 12/13/2022 01:43:36 With:DINESH MÉNDEZ Address: [facility] [address] [place] [address] [phone] Business (1) When:Within 3 Day(s) [facility]02-09-2023 Hospital Discharge instructions Patient Education 11/09/2022 11:54:34 Gastroesophageal Reflux Disease, Adult Gastroesophageal Reflux Disease, Adult Gastroesophageal reflux (BABS) happens when acid from the stomach flows up into the tube that connects the mouth and the stomach (esophagus). Normally, food travels down the esophagus and stays in thestomach to be digested. However, when a person has BABS, food and stomach acid sometimes move back up into the esophagus. If this becomes a more serious problem, the person may be diagnosed with a disease called gastroesophageal reflux disease (GERD). GERD occurs when the reflux: Happens often. Causes frequent or severe symptoms. Causes problems such as damage to the esophagus. When stomach acid comes in contact with the esophagus, the acid may cause soreness (inflammation) in the esophagus. Over time, GERD may create small holes (ulcers) in the lining of the esophagus. What are the causes? This condition is caused by a problem with the muscle between the esophagus and the stomach (lower esophageal sphincter, or LES). Normally, the LES muscle closes after food passes through the esophagus to the stomach. When the LES is weakened or abnormal, it does not close properly, and that allowsfood and stomach acid to go back up into the esophagus. The LES can be weakened by certain dietary substances, medicines, and medical conditions, including: Tobacco use. . Having a hiatal hernia. Alcohol use. Certain foods and beverages, such as coffee, chocolate, onions, and peppermint. What increases the risk? You are more likely to develop this condition if you: Have an increased body weight. Have a connective tissue disorder. Use NSAID medicines. What are the signs or symptoms? Symptoms of this condition include: Heartburn. Difficult or painful swallowing. The feeling of having a lump in the throat. A bitter taste in the mouth. Bad breath. Having a large amount of saliva. Having an upset or bloated stomach. Belching. Chest pain. Different conditions can cause chest pain. Make sure you see your health care provider if you experience chest pain. Shortness of breath or wheezing. Ongoing (chronic) cough or a night-time cough. Wearing away of tooth enamel. Weight loss. How is this diagnosed? Your health care provider will take a medical history and perform a physical exam. To determine if you have mild or severe GERD, your health care provider may also monitor how you respond to treatment. You may also have tests, including: A test to examine your stomach and esophagus with a small camera (endoscopy). A test that measures the acidity level in your esophagus. A test that measures how much pressure is on your esophagus. A barium swallow or modified barium swallow test to show the shape, size, and functioning of your esophagus. How is this treated? The goal of treatment is to help relieve your symptoms and to prevent complications. Treatment for this condition may vary depending on how severe your symptoms are. Your health care provider may recommend: Changes to your diet. Medicine. Surgery. Follow these instructions at home: Eating and drinking Follow a diet as recommended by your health care provider. This may involve avoiding foods and drinks such as: ?Coffee and tea (with or without caffeine). ?Drinks that contain alcohol. ?Energy drinks and sports drinks. ?Carbonated drinks or sodas. ?Chocolate and cocoa. ?Peppermint and mint flavorings. ?Garlic and onions. ?Horseradish. ?Spicy and acidic foods, including peppers, chili powder, martines powder, vinegar, hot sauces, and barbecue sauce. ?Door fruit juices and citrus fruits, such as oranges, adán, and limes. ?Tomato-based foods, such as red sauce, chili, salsa, and pizza with red sauce. ?Fried and fatty foods, such as donuts, azeri fries, potato chips, and high-fat dressings. ?High-fat meats, such as hot dogs and fatty cuts of red and white meats, such as rib eye steak, sausage, ham, and walker. ?High-fat dairy items, such as whole milk, butter, and cream cheese. Eat small, frequent meals instead of large meals. Avoid drinking large amounts of liquid with your meals. Avoid eating meals during the 2 3 hours before bedtime. Avoid lying down right after you eat. Do not exercise right after you eat. Lifestyle Do not use any products that contain nicotine or tobacco, such as cigarettes, e- cigarettes, and chewing tobacco. If you need help quitting, ask your health care provider. Try to reduce your stress by using methods such as yoga or meditation. If you need help reducing stress, ask your health care provider. If you are overweight, reduce your weight to an amount that is healthy for you. Ask your health care provider for guidance about a safe weight loss goal. General instructions Pay attention to any changes in your symptoms. Take edxn-djw-ezyipzw and prescription medicines only as told by your health care provider. Do not take aspirin, ibuprofen, or other NSAIDs unless your health care provider told you to do so. Wear loose-fitting clothing. Do not wear anything tight around your waist that causes pressure on your abdomen. Raise (elevate) the head of your bed about 6 inches (15 cm). Avoid bending over if this makes your symptoms worse. Keep all follow-up visits as told by your health care provider. This is important. Contact a health care provider if: You have: ?New symptoms. ?Unexplained weight loss. ?Difficulty swallowing or it hurts to swallow. ?Wheezing or a persistent cough. ?A hoarse voice. Your symptoms do not improve with treatment. Get help right away if you: Have pain in your arms, neck, jaw, teeth, or back. Feel sweaty, dizzy, or light-headed. Have chest pain or shortness of breath. Vomit and your vomit looks like blood or coffee grounds. Faint. Have stool that is bloody or black. Cannot swallow, drink, or eat. Summary Gastroesophageal reflux happens when acid from the stomach flows up into the esophagus. GERD is a disease in which the reflux happens often, causes frequent or severe symptoms, or causes problems such as damage to the esophagus. Treatment for this condition may vary depending on how severe your symptoms are. Your health care provider may recommend diet and lifestyle changes, medicine, or surgery. Contact a health care provider if you have new or worsening symptoms. Take ihqj-djy-fufgvnz and prescription medicines only as told by your health care provider. Do not take aspirin, ibuprofen, or other NSAIDs unless your health care provider told you to do so. Keep all follow-up visits as told by your health care provider. This is important. This information is not intended to replace advice given to you by your health care provider. Make sure you discuss any questions you have with your health care provider. Document Released: 06/27/2006 Document Revised: 03/26/2019 Document Reviewed: 03/26/2019 [employer] Patient Education 2020 [employer]. Follow Up Care 11/09/2022 08:41:12 With:DINESH MÉNDEZ Address: [facility] [address] [place] [address]- [phone] Business (1) When:11/12/2022 11:54:20 Comments:Call the office of your primary care doctor to arrange for follow-up within the above-stated timeframe. Follow-up with your primary care doctor about this ED visit. You should review your labs, imaging, and diagnoses from this ED visit with your primary care physician. If you were prescribed medications you should discuss possible side-effects and drug interactions with your pharmacist. Call 911 or go to the nearest Emergency Department if you develop any new or worsening symptoms. [facility]01-23-2023 Hospital Discharge instructions Patient Education 10/23/2022 14:09:28 Obesity, Adult Obesity, Adult Obesity is the condition of having too much total body fat. Being overweight or obese means that your weight is greater than what is considered healthy for your body size. Obesity is determined by a measurement called BMI. BMI is an estimate of body fat and is calculated from height and weight. Foradults, a BMI of 30 or higher is considered obese. Obesity can lead to other health concerns and major illnesses, including: Stroke. Coronary artery disease (CAD). Type 2 diabetes. Some types of cancer, including cancers of the colon, breast, uterus, and gallbladder. Osteoarthritis. High blood pressure (hypertension). High cholesterol. Sleep apnea. Gallbladder stones. Infertility problems. What are the causes? Common causes of this condition include: Eating daily meals that are high in calories, sugar, and fat. Being born with genes that may make you more likely to become obese. Having a medical condition that causes obesity, including: ?Hypothyroidism. ?Polycystic ovarian syndrome (PCOS). ?Binge-eating disorder. ?Peck syndrome. Taking certain medicines, such as steroids, antidepressants, and seizure medicines. Not being physically active (sedentary lifestyle). Not getting enough sleep. Drinking high amounts of sugar-sweetened beverages, such as soft drinks. What increases the risk? The following factors may make you more likely to develop this condition: Having a family history of obesity. Being a woman of descent. Being a man of descent. Living in an area with limited access to: ?[place], recreation centers, or sidewalks. ?Healthy food choices, such as grocery stores and [employer] markets. What are the signs or symptoms? The main sign of this condition is having too much body fat. How is this diagnosed? This condition is diagnosed based on: Your BMI. If you are an adult with a BMI of 30 or higher, you are considered obese. Your waist circumference. This measures the distance around your waistline. Your skinfold thickness. Your health care provider may gently pinch a fold of your skin and measureit. You may have other tests to check for underlying conditions. How is this treated? Treatment for this condition often includes changing your lifestyle. Treatment may include some or all of the following: Dietary changes. This may include developing a healthy meal plan. Regular physical activity. This may include activity that causes your heart to beat faster (aerobicexercise) and strength training. Work with your health care provider to design an exercise program that works for you. Medicine to help you lose weight if you are unable to lose 1 pound a week after 6 weeks of healthy eating and more physical activity. Treating conditions that cause the obesity (underlying conditions). Surgery. Surgical options may include gastric banding and gastric bypass. Surgery may be done if: ?Other treatments have not helped to improve your condition. ?You have a BMI of 40 or higher. ?You have life-threatening health problems related to obesity. Follow these instructions at home: Eating and drinking Follow recommendations from your health care provider about what you eat and drink. Your health care provider may advise you to: ?Limit fast food, sweets, and processed snack foods. ?Choose low-fat options, such as low-fat milk instead of whole milk. ?Eat 5 or more servings of fruits or vegetables every day. ?Eat at home more often. This gives you more control over what you eat. ?Choose healthy foods when you eat out. ?Learn to read food labels. This will help you understand how much food is considered 1 serving. ?Learn what a healthy serving size is. ?Keep low-fat snacks available. ?Limit sugary drinks, such as soda, fruit juice, sweetened iced tea, and flavored milk. Drink enough water to keep your urine pale yellow. Do not follow a fad diet. Fad diets can be unhealthy and even dangerous. Physical activity Exercise regularly, as told by your health care provider. ?Most adults should get up to 150 minutes of moderate-intensity exercise every week. ?Ask your health care provider what types of exercise are safe for you and how often you should exercise. Warm up and stretch before being active. Cool down and stretch after being active. Rest between periods of activity. Lifestyle Work with your health care provider and a dietitian to set a weight-loss goal that is healthy and reasonable for you. Limit your screen time. Find ways to reward yourself that do not involve food. Do not drink alcohol if: ?Your health care provider tells you not to drink. ?You are , may be , or are planning to become . If you drink alcohol: ?Limit how much you use to: ?0 1 drink a day for women. ?0 2 drinks a day for men. ?Be aware of how much alcohol is in your drink. In the [place] one drink equals one 12 oz bottle of beer (355 mL), one 5 oz glass of wine (148 mL), or one 1 oz glass of hard liquor (44 mL). General instructions Keep a weight-loss journal to keep track of the food you eat and how much exercise you get. Take tqit-dni-cwjxezo and prescription medicines only as told by your health care provider. Take vitamins and supplements only as told by your health care provider. Consider joining a support group. Your health care provider may be able to recommend a support group. Keep all follow-up visits as told by your health care provider. This is important. Contact a health care provider if: You are unable to meet your weight loss goal after 6 weeks of dietary and lifestyle changes. Get help right away if you are having: Trouble breathing. Suicidal thoughts or behaviors. Summary Obesity is the condition of having too much total body fat. Being overweight or obese means that your weight is greater than what is considered healthy for your body size. Work with your health care provider and a dietitian to set a weight-loss goal that is healthy and reasonable for you. Exercise regularly, as told by your health care provider. Ask your health care provider what types of exercise are safe for you and how often you should exercise. This information is not intended to replace advice given to you by your health care provider. Make sure you discuss any questions you have with your health care provider. Document Released: 10/25/2005 Document Revised: 05/22/2019 Document Reviewed: 05/22/2019 [employer] Patient Education 2019 [employer]. [facility] 08-30-2022 Hospital Discharge instructions Patient Education 05/30/2022 13:29:30 Obesity, Adult Obesity, Adult Obesity is the condition of having too much total body fat. Being overweight or obese means that your weight is greater than what is considered healthy for your body size. Obesity is determined by a measurement called BMI. BMI is an estimate of body fat and is calculated from height and weight. Foradults, a BMI of 30 or higher is considered obese. Obesity can lead to other health concerns and major illnesses, including: Stroke. Coronary artery disease (CAD). Type 2 diabetes. Some types of cancer, including cancers of the colon, breast, uterus, and gallbladder. Osteoarthritis. High blood pressure (hypertension). High cholesterol. Sleep apnea. Gallbladder stones. Infertility problems. What are the causes? Common causes of this condition include: Eating daily meals that are high in calories, sugar, and fat. Being born with genes that may make you more likely to become obese. Having a medical condition that causes obesity, including: ?Hypothyroidism. ?Polycystic ovarian syndrome (PCOS). ?Binge-eating disorder. ?Inessa syndrome. Taking certain medicines, such as steroids, antidepressants, and seizure medicines. Not being physically active (sedentary lifestyle). Not getting enough sleep. Drinking high amounts of sugar-sweetened beverages, such as soft drinks. What increases the risk? The following factors may make you more likely to develop this condition: Having a family history of obesity. Being a woman of descent. Being a man of descent. Living in an area with limited access to: ?[place], recreation centers, or sidewalks. ?Healthy food choices, such as grocery stores and [employer] markets. What are the signs or symptoms? The main sign of this condition is having too much body fat. How is this diagnosed? This condition is diagnosed based on: Your BMI. If you are an adult with a BMI of 30 or higher, you are considered obese. Your waist circumference. This measures the distance around your waistline. Your skinfold thickness. Your health care provider may gently pinch a fold of your skin and measureit. You may have other tests to check for underlying conditions. How is this treated? Treatment for this condition often includes changing your lifestyle. Treatment may include some or all of the following: Dietary changes. This may include developing a healthy meal plan. Regular physical activity. This may include activity that causes your heart to beat faster (aerobicexercise) and strength training. Work with your health care provider to design an exercise program that works for you. Medicine to help you lose weight if you are unable to lose 1 pound a week after 6 weeks of healthy eating and more physical activity. Treating conditions that cause the obesity (underlying conditions). Surgery. Surgical options may include gastric banding and gastric bypass. Surgery may be done if: ?Other treatments have not helped to improve your condition. ?You have a BMI of 40 or higher. ?You have life-threatening health problems related to obesity. Follow these instructions at home: Eating and drinking Follow recommendations from your health care provider about what you eat and drink. Your health care provider may advise you to: ?Limit fast food, sweets, and processed snack foods. ?Choose low-fat options, such as low-fat milk instead of whole milk. ?Eat 5 or more servings of fruits or vegetables every day. ?Eat at home more often. This gives you more control over what you eat. ?Choose healthy foods when you eat out. ?Learn to read food labels. This will help you understand how much food is considered 1 serving. ?Learn what a healthy serving size is. ?Keep low-fat snacks available. ?Limit sugary drinks, such as soda, fruit juice, sweetened iced tea, and flavored milk. Drink enough water to keep your urine pale yellow. Do not follow a fad diet. Fad diets can be unhealthy and even dangerous. Physical activity Exercise regularly, as told by your health care provider. ?Most adults should get up to 150 minutes of moderate-intensity exercise every week. ?Ask your health care provider what types of exercise are safe for you and how often you should exercise. Warm up and stretch before being active. Cool down and stretch after being active. Rest between periods of activity. Lifestyle Work with your health care provider and a dietitian to set a weight-loss goal that is healthy and reasonable for you. Limit your screen time. Find ways to reward yourself that do not involve food. Do not drink alcohol if: ?Your health care provider tells you not to drink. ?You are , may be , or are planning to become . If you drink alcohol: ?Limit how much you use to: ?0 1 drink a day for women. ?0 2 drinks a day for men. ?Be aware of how much alcohol is in your drink. In the [place] one drink equals one 12 oz bottle of beer (355 mL), one 5 oz glass of wine (148 mL), or one 1 oz glass of hard liquor (44 mL). General instructions Keep a weight-loss journal to keep track of the food you eat and how much exercise you get. Take whrj-adj-fcucrta and prescription medicines only as told by your health care provider. Take vitamins and supplements only as told by your health care provider. Consider joining a support group. Your health care provider may be able to recommend a support group. Keep all follow-up visits as told by your health care provider. This is important. Contact a health care provider if: You are unable to meet your weight loss goal after 6 weeks of dietary and lifestyle changes. Get help right away if you are having: Trouble breathing. Suicidal thoughts or behaviors. Summary Obesity is the condition of having too much total body fat. Being overweight or obese means that your weight is greater than what is considered healthy for your body size. Work with your health care provider and a dietitian to set a weight-loss goal that is healthy and reasonable for you. Exercise regularly, as told by your health care provider. Ask your health care provider what types of exercise are safe for you and how often you should exercise. This information is not intended to replace advice given to you by your health care provider. Make sure you discuss any questions you have with your health care provider. Document Released: 10/25/2005 Document Revised: 05/22/2019 Document Reviewed: 05/22/2019 JRD Communication Patient Education 2019 [employer]. [facility] 07-29-2022 Hospital Discharge instructions Patient Education 04/28/2022 12:33:58 Gastritis, Adult Gastritis, Adult Gastritis is inflammation of the stomach. There are two kinds of gastritis: Acute gastritis. This kind develops suddenly. Chronic gastritis. This kind is much more common and lasts for a long time. Gastritis happens when the lining of the stomach becomes weak or gets damaged. Without treatment, gastritis can lead to stomach bleeding and ulcers. What are the causes? This condition may be caused by: An infection. Drinking too much alcohol. Certain medicines. These include steroids, antibiotics, and some mctt-tjl-wpopvxr medicines, such as aspirin or ibuprofen. Having too much acid in the stomach. A disease of the intestines or stomach. Stress. An allergic reaction. Crohn's disease. Some cancer treatments (radiation). Sometimes the cause of this condition is not known. What are the signs or symptoms? Symptoms of this condition include: Pain or a burning sensation in the upper abdomen. Nausea. Vomiting. An uncomfortable feeling of fullness after eating. Weight loss. Bad breath. Blood in your vomit or stools. In some cases, there are no symptoms. How is this diagnosed? This condition may be diagnosed with: Your medical history and a description of your symptoms. A physical exam. Tests. These can include: ?Blood tests. ?Stool tests. ?A test in which a thin, flexible instrument with a light and a camera is passed down the esophagusand into the stomach (upper endoscopy). ?A test in which a sample of tissue is taken for testing (biopsy). How is this treated? This condition may be treated with medicines. The medicines that are used vary depending on the cause of the gastritis: If the condition is caused by a bacterial infection, you may be given antibiotic medicines. If the condition is caused by too much acid in the stomach, you may be given medicines called H2 blockers, proton pump inhibitors, or antacids. Treatment may also involve stopping the use of certain medicines, such as aspirin, ibuprofen, or other NSAIDs. Follow these instructions at home: Medicines Take aest-xiw-xllnuoc and prescription medicines only as told by your health care provider. If you were prescribed an antibiotic medicine, take it as told by your health care provider. Do notstop taking the antibiotic even if you start to feel better. Eating and drinking Eat small, frequent meals instead of large meals. Avoid foods and drinks that make your symptoms worse. Drink enough fluid to keep your urine pale yellow. Alcohol use Do not drink alcohol if: ?Your health care provider tells you not to drink. ?You are , may be , or are planning to become . If you drink alcohol: ?Limit your use to: ?0 1 drink a day for women. ?0 2 drinks a day for men. ?Be aware of how much alcohol is in your drink. In the [place] one drink equals one 12 oz bottle of beer (355 mL), one 5 oz glass of wine (148 mL), or one 1 oz glass of hard liquor (44 mL). General instructions Talk with your health care provider about ways to manage stress, such as getting regular exercise or practicing deep breathing, meditation, or yoga. Do not use any products that contain nicotine or tobacco, such as cigarettes and e-cigarettes. If you need help quitting, ask your health care provider. Keep all follow-up visits as told by your health care provider. This is important. Contact a health care provider if: Your symptoms get worse. Your symptoms return after treatment. Get help right away if: You vomit blood or material that looks like coffee grounds. You have black or dark red stools. You are unable to keep fluids down. Your abdominal pain gets worse. You have a fever. You do not feel better after one week. Summary Gastritis is inflammation of the lining of the stomach that can occur suddenly (acute) or develop slowly over time (chronic). This condition is diagnosed with a medical history, a physical exam, or tests. This condition may be treated with medicines to treat infection or medicines to reduce the amount of acid in your stomach. Follow your health care provider's instructions about taking medicines, making changes to your diet, and knowing when to call for help. This information is not intended to replace advice given to you by your health care provider. Make sure you discuss any questions you have with your health care provider. Document Released: 09/11/2002 Document Revised: 02/04/2019 Document Reviewed: 02/04/2019 JRD Communication Patient Education 2020 [employer]. Follow Up Care 04/07/2022 08:35:03 With:Gayathri Martínez CNP Address: When:1 month [facility] 07-29-2022 Evaluation + Plan note Future Scheduled Tests Laboratory* CBC w/ Auto Diff 04/28/22 * Comprehensive Metabolic Panel 04/28/22 [facility] 07-01-2022 Hospital Discharge instructions Patient Education 03/31/2022 14:02:46 Endoscopy, Care After Procedure [facility] ([facility]) Endoscopy Care After Procedure Please read the instructions outlined below and refer to this sheet in the next few weeks. These discharge instructions provide you with general information on caring [facility] Your doctor may also give you specific instructions. While your treatment has been planned according to the most current medical practices available, unavoidable complications occasionally occur. If you have any problems or questions after discharge, please call your doctor. ACTIVITY You may resume your regular activity but move at a slower pace for the next 24 hours. Take frequent rest periods for the next 24 hours. Walking will help expel (get rid of) the air and reduce the bloated feeling in your abdomen. No driving for 24 hours (because of the anesthesia (medicine) used during the test). You may shower. Do not sign any important legal documents or operate any machinery for 24 hours (because of the anesthesia used during the test). NUTRITION Drink plenty of fluids. You may resume your normal diet. Begin with a light meal and progress to your normal diet. Avoid alcoholic beverages for 24 hours or as instructed by your caregiver. MEDICATIONS You may resume your normal medications unless your caregiver tells you otherwise. WHAT YOU CAN EXPECT TODAY You may experience abdominal discomfort such as a feeling of fullness or gas pains. FOLLOW-UP Your doctor will discuss the results of your test with you. SEEK IMMEDIATE MEDICAL ATTENTION IF ANY OF THE FOLLOWING OCCUR: Excessive nausea (feeling sick to your stomach) and/or vomiting. Severe abdominal pain and distention (swelling). Trouble swallowing. Temperature over 100 F (37.8 C). Rectal bleeding or vomiting of blood. Document Released: 05/01/2005 Document Re-Released: 03/11/2007 ExitCare Patient Information 2009 [employer]. Follow Up Care 12/28/2021 09:55:58 With:Suresh ENG Address: [address] [place] [address]. [address] [place] [address] Business (1) When:1 to 2 weeks Comments:Call for any problems. [facility]07-01-2022 Evaluation + Plan noteExtracted from: Title:Pre-anesthesia - Endoscopy Author:Juan Moore Jr., DO Date:03/31/22 Plan [employer] (ASA) physical status classification: Class III. Anesthetic Preoperative Plan Anesthesia: General. . Anesthetic plan, risks, benefits, and alternatives discussed with the patient and/or family. Patient verbalized understanding. Future Appointments Appointment Date:04/04/2022 01:00:00 PM Scheduled Provider: Location:.CARDIO Appointment Type:CV Holter/Event (FT) Appointment Date:04/24/2022 03:15:00 PM Scheduled Provider:José Miguel Phoenix MD Location:FT.Cardiology Clinic Appointment Type:Cardiology Follow Up (FT) Future Scheduled Tests Radiology* US Gallbladder 04/07/22 [facility]04-13-2022 Hospital Discharge instructions Follow Up Care 01/11/2022 15:15:15 With:Karuna URBINA, Caterina Plummer, PUL, LINDA Address: [address] [place] [address] [facility] [place] [address]- When:6 weeks Comments:6 weeks after initiating CPAP [facility] - [facility]orted* NPV * Neurologic Evaluation. * ADDIE is a 28 year old F who presents to clinic for trigeminal/occipital neuralgia evaluation. [id number] Work Phone: chiej complaint+Reason for visit Narrative* Chief Complaint Referral Peds on whe els Lt knee pain M25.562 [facility] Work Phone: Chief complaint+Reason for visit Narrative* Chief Complaint Referral Peds on whe els Lt knee pain M25.562 M25.562 go over MRI, left knee [facility] Work Phone: Chief complaint+Reason for visit Narrative* Chief Complaint Admit Date Referral Dinesh Shea-[facility] January 07 12:42pm [facility] Work Phone: Evaluation + Plan note Future Appointments Appointment Date:12/30/2021 01:45:00 PM Scheduled Provider: Location:.PH[place]ICAL [place] Appointment Type:PT 45 (FT) Appointment Date:12/30/2021 08:00:00 PM Scheduled Provider: Location:.SLEEP LAB_ Appointment Type:HYPERION ANALYST Sleep Study HST (FT) Appointment Date:01/02/2022 01:45:00 PM Scheduled Provider: Location:.[place]ICAL [place] Appointment Type:PT 45 (FT) Appointment Date:01/05/2022 01:45:00 PM Scheduled Provider: Location:.[place]ICAL [place] Appointment Type:PT 45 (FT) Appointment Date:01/09/2022 02:00:00 PM Scheduled Provider: Location:.[place]ICAL [place] Appointment Type:PT 45 (FT) Appointment Date:01/12/2022 02:00:00 PM Scheduled Provider: Location:.[place] Appointment Type:PT 45 (FT) Appointment Date:01/16/2022 02:00:00 PM Scheduled Provider: Location:.[place] Appointment Type:PT 45 (FT) Appointment Date:01/19/2022 01:15:00 PM Scheduled Provider: Location:.[place]ICAL [place] Appointment Type:PT Re-Eval 45 (FT) Appointment Date:01/23/2022 02:00:00 PM Scheduled Provider: Location:.[place]ICAL [place] Appointment Type:PT 45 (FT) Appointment Date:01/26/2022 02:00:00 PM Scheduled Provider: Location:.[place]ICAL [place] Appointment Type:PT 45 (FT) Appointment Date:01/30/2022 01:00:00 PM Scheduled Provider: Location:[facility] Appointment Type:Surgery PAT COVID Testing Appointment Date:01/30/2022 02:15:00 PM Scheduled Provider: Location:.[place]ICAL [place] Appointment Type:PT Re-Eval 45 (FT) Appointment Date:02/06/2022 08:15:00 AM Scheduled Provider: Location:[facility] Appointment Type:Surgery FT [facility] Evaluation + Plan note Future Appointments Appointment Date:02/03/2022 09:30:00 AM Scheduled Provider: Location:.Sleep Clinic Appointment Type:HYPERION ANALYST Sleep Study Clinic Follow Up (FT) Appointment Date:02/13/2022 02:00:00 PM Scheduled Provider: Location:.CARDIO Appointment Type:CV Stress (FT) Appointment Date:02/23/2022 01:15:00 PM Scheduled Provider:José Miguel Phoenix MD Location:.Cardiology Clinic Appointment Type:Cardiology Follow Up (FT) Appointment Date:03/03/2022 11:00:00 AM Scheduled Provider: Location:[facility] Appointment Type:Surgery PAT COVID Testing Appointment Date:03/10/2022 09:30:00 AM Scheduled Provider: Location:[facility] Appointment Type:Surgery FT Future Scheduled Tests Laboratory* Lipid Panel 01/19/22 Radiology* ECG Stress [facility]13[facility] Future Appointments Appointment Date:02/13/2022 02:00:00 PM Scheduled Provider: Location:.CARDIO Appointment Type:CV Stress (FT) Appointment Date:02/23/2022 01:15:00 PM Scheduled Provider:José Miguel Phoenix MD Location:.Cardiology Clinic Appointment Type:Cardiology Follow Up (FT) Appointment Date:03/03/2022 11:00:00 AM Scheduled Provider: Location:[facility] Appointment Type:Surgery PAT COVID Testing Appointment Date:03/10/2022 09:30:00 AM Scheduled Provider: Location:[facility] Appointment Type:Surgery FT Future Scheduled Tests Laboratory* Lipid Panel 01/19/22 Radiology* ECG [facility] App[facility]ments Appointment Date:03/24/2022 01:45:00 PM Scheduled Provider: Location:[facility] Appointment Type:Surgery PAT COVID Testing Appointment Date:03/24/2022 02:15:00 PM Scheduled Provider:José Migule Phoenix MD Location:.Cardiology Clinic Appointment Type:Cardiology Follow Up (FT) Appointment Date:03/31/2022 01:55:00 PM Scheduled Provider: Location:[facility] Appointment Type:Surgery FT Future Scheduled Tests Laboratory* Lipid [facility]19[facility] App[facility]ments Appointment Date:03/31/2022 01:55:00 PM Scheduled Provider: Location:[facility] Appointment Type:Surgery FT Appointment Date:04/04/2022 01:00:00 PM Scheduled Provider: [facility] Type:CV Holter/Event (FT) Appointment Date:04/24/2022 03:15:00 PM Scheduled Provider:José Miguel Phoenix MD Location:.Cardiology Clinic Appointment Type:Cardiology Follow Up (FT) [facility] Future Appointments Appointment Date:04/26/2022 07:30:00 PM Scheduled Provider: [facility] Appoint[facility] Type:US Abdominal/Pelvis (FT) Appointment Date:04/28/2022 12:40:00 PM Scheduled Provider:Gayathri Martínez CNP Location:[facility] Appointment Type:BADH Follow Up Appointment Date:10/31/2022 01:15:00 PM Scheduled Provider:José Miguel Phoenix MD [facility] Type:Cardiology Follow Up (FT) Future Scheduled Tests Radiology* US Gallbladder 04/26/22 [facility] App[facility]ments Appointment Date:04/28/2022 12:40:00 PM Scheduled Provider:Gayathri Martínez CNP Location:[facility] Appointment Type:BAD Follow Up Appointment Date:10/31/2022 01:15:00 PM Scheduled Provider:José Miguel Phoenix MD Location:.Cardiology Clinic Appointment Type:Cardiology Follow Up (FT) [facility] Future Appointments Appointment Date:10/31/2022 01:15:00 PM Scheduled Provider:José Miguel Phoenix MD [facility] Type:Cardiology Follow Up (FT) Future Scheduled Tests Laboratory* CBC w/ Auto Diff 04/28/22 * Comprehensive Metabolic Panel 04/28/22 [facility] Evaluation + Plan note Future Appointments Appointment Date:10/31/2022 01:15:00 PM Scheduled Provider:José Miguel Phoenix MD [facility] Appoint[facility] Type:Cardiology Follow Up (FT) Diagnostic Tests Pending * Lead, Adult 09/07/22 Future Scheduled Tests Laboratory* CBC w/ Auto Diff 04/28/22 * Comprehensive Metabolic Panel [facility]/28/22 [facility] App[facility]ments Appointment Date:10/31/2022 01:15:00 PM Scheduled Provider:José Miguel Phoenix MD [facility] App[facility] Type:Cardiology Follow Up (FT) Appointment Date:11/22/2022 09:30:00 AM Scheduled Provider: Location:[facility] Appointment Type:Surgical PAT FT Appointment Date:11/22/2022 10:30:00 AM Scheduled Provider: Location:[facility] Appointment Type:Surgery PAT COVID Testing Appointment Date:11/29/2022 08:30:00 AM Scheduled Provider: [facility] Appointment Type:Surgery FT Appointment Date:12/05/2022 09:00:00 AM Scheduled Provider:Reji Hickey MD Location:[facility] Appointment Type:GS Post Op 15 Future Scheduled Tests Laboratory* CBC w/ Auto Diff 04/28/22 * Comprehensive Metabolic Panel 04/28/22 [facility] Evaluation + Plan note Future Appointments Appointment Date:11/22/2022 09:30:00 AM Scheduled Provider: [facility] Appointment Type:Surgical PAT FT Appointment Date:11/22/2022 10:30:00 AM Scheduled Provider: Location:[facility] Appointment Type:Surgery PAT COVID Testing Appointment Date:11/29/2022 08:30:00 AM Scheduled Provider: [facility] Appointment Type:Surgery FT Appointment Date:12/05/2022 09:00:00 AM Scheduled Provider:Reji Hickey MD Location:[facility] Appointment Type:GS Post Op 15 Future Scheduled Tests Laboratory* CBC w/ Auto Diff 04/28/22 * Comprehensive Metabolic Panel [facility]/28/22 [facility] App[facility]ments Appointment Date:11/22/2022 09:30:00 AM Scheduled [facility]: [facility] Type:Surgical PAT FT Appointment Date:11/22/2022 10:30:00 AM Scheduled Provider: [facility] Appointment Type:Surgery PAT COVID Testing Appointment Date:11/29/2022 08:00:00 AM Scheduled Provider: [facility] Type:Surgery FT Appointment Date:12/05/2022 09:00:00 AM Scheduled Provider:Reji Hickey MD Location:[facility] Appointment Type:GS Post Op 15 Future Scheduled Tests Laboratory* CBC w/ Auto Diff 04/28/22 * Comprehensive Metabolic Panel 04/28/22 [facility] Future Appointments Appointment Date:11/29/2022 08:00:00 AM Scheduled Provider: Location:[facility] Appointment Type:Surgery FT Appointment Date:12/05/2022 09:00:00 AM Scheduled Provider:Reji Hickey MD Location:[facility] Appointment Type: Post Op 15 Future Scheduled Tests Laboratory* CBC w/ Auto Diff 04/28/22 * Comprehensive Metabolic Panel 04/28/22 [facility] Future Appointments Appointment Date:02/02/2023 09:30:00 AM Scheduled Provider: [facility] Type:CV Holter/Event (FT) Appointment Date:02/02/2023 01:20:00 PM Scheduled Provider:Gayathri Martínez CNP Location:[facility] Appointment Type:BADH Follow Up Appointment Date:02/23/2023 09:00:00 AM Scheduled Provider:Bhavani BROCK CNP [facility] Type:Cardiology Follow Up (FT) Future Scheduled Tests Laboratory* CBC w/ Auto Diff 04/28/22 * Comprehensive Metabolic Panel 04/28/22 Radiology* Echo Transthoracic Complete [facility]/24/23 [facility] Future Appointments Appointment Date:02/02/2023 09:30:00 AM Scheduled Provider: [facility] Type:CV Holter/Event (FT) Appointment Date:02/05/2023 10:00:00 AM Scheduled Provider: [facility] [facility] Appointment Type:US Abdominal/Pelvis (FT) Appointment Date:02/23/2023 09:00:00 AM Scheduled Provider:Bhavani BROCK CNP [facility] Appointment Type:Cardiology Follow Up (FT) Future Scheduled Tests Laboratory* Pancreatic Elastase, Fecal 01/31/23 * CBC w/ Auto Diff 04/28/22 * Comprehensive Metabolic Panel 04/28/22 Radiology* US Liver 02/05/23 * Echo Transthoracic [facility]23 [facility]ments Appointment Date:02/05/2023 10:00:00 AM Scheduled Provider: [facility] Appointment Type:US Abdominal/Pelvis (FT) Appointment Date:02/22/2023 01:00:00 PM Scheduled Provider: [facility] Appointment Type:CV Echo (FT) Appointment Date:02/23/2023 09:00:00 AM Scheduled Provider:Bhavani BROCK CNP [facility] Appointment Type:Cardiology Follow Up (FT) Future Scheduled Tests Laboratory* Pancreatic Elastase, Fecal 01/31/23 * Potassium Level 03/04/23 * CBC w/ Auto Diff 04/28/22 * Comprehensive Metabolic Panel 04/28/22 Radiology* US Liver 02/05/23 * Echo Transthoracic Complete 02/22/23 [facility] Future Appointments Appointment Date:02/14/2023 10:00:00 AM Scheduled Provider: [facility] Appointment Type:US Abdominal/Pelvis (FT) Appointment Date:02/22/2023 01:00:00 PM Scheduled Provider: [facility] Appointment Type:CV Echo (FT) Appointment Date:02/23/2023 09:00:00 AM Scheduled Provider:Bhavani BROCK CNP [facility] Appointment Type:Cardiology Follow Up (FT) Future Scheduled Tests Laboratory* Pancreatic Elastase, Fecal 01/31/23 * Potassium Level 03/04/23 * CBC w/ Auto Diff 04/28/22 * Comprehensive Metabolic Panel 04/28/22 Radiology* US Liver 02/05/23 * Echo Transthoracic Complete 02/22/23 [facility] Future Appointments Appointment Date:02/28/2023 10:30:00 AM Scheduled Provider: Location:[facility] Appointment Type:Surgery FT Appointment Date:03/05/2023 01:00:00 PM Scheduled Provider:Billy PINEDO RD, LD, Kelly [facility] Appointment Type:Nutrition Education - Initial 60 (FT) Appointment Date:03/08/2023 08:00:00 AM Scheduled Provider: [facility] Appointment Type:NM Gastric Emptying Study (FT) Appointment Date:03/29/2023 10:40:00 AM Scheduled Provider:Gayathri Martínez CNP Location:[facility] Appointment Type:BADH Follow Up Appointment Date:08/30/2023 10:15:00 AM Scheduled Provider:Bhavani BROCK CNP [facility] Appointment Type:Cardiology Follow Up (FT) Future Scheduled Tests Laboratory* Potassium Level 03/04/23 * CBC w/ Auto Diff 04/28/22 * Comprehensive Metabolic Panel 04/28/22 Radiology* NM Gastric Emptying Study 03/08/23 [facility] Future Appointments Appointment Date:03/15/2023 03:00:00 PM Scheduled Provider: Location:[facility] Appointment Type:Surgery FT Appointment Date:03/29/2023 10:40:00 AM Scheduled Provider:Gayathri Martínez CNP Location:[facility] Appointment Type:BADH Follow Up Appointment Date:08/30/2023 10:15:00 AM Scheduled Provider:Bhavani BROCK CNP [facility] Appointment Type:Cardiology Follow Up (FT) Future Scheduled Tests Laboratory* Potassium Level 03/04/23 * CBC w/ Auto Diff 04/28/22 * Comprehensive Metabolic Panel 04/28/22 [facility] Evaluation + Plan note Future Appointments Appointment Date:03/29/2023 10:40:00 AM Scheduled Provider:Gayathri Martínez CNP Location:[facility] Appointment Type:BAD Follow Up Appointment Date:08/30/2023 10:15:00 AM Scheduled Provider:Bhavani BROCK CNP [facility] Appointment Type:Cardiology Follow Up (FT) Future Scheduled Tests Laboratory* Potassium Level 03/04/23 * CBC w/ Auto Diff 04/28/22 * Comprehensive Metabolic Panel 04/28/22 [facility] Future Appointments Appointment Date:04/25/2023 02:40:00 PM Scheduled Provider:Gayathri Martínez CNP Location:[facility] Dig[facility] Appointment Type:BAD Follow Up Appointment Date:08/30/2023 10:15:00 AM Scheduled Provider:Bhavani BROCK CNP [facility] Appointment Type:Cardiology Follow Up (FT) Future Scheduled Tests Laboratory* Potassium Level 03/04/23 * CBC w/ Auto Diff 04/28/22 * Comprehensive Metabolic Panel 04/28/22 [facility] Future Appointments Appointment Date:04/25/2023 02:40:00 PM Scheduled Provider:Gayathri Martínez CNP Location:[facility] Dig[facility] Appointment Type:BADH Follow Up Appointment Date:08/30/2023 10:15:00 AM Scheduled Provider:Bhavani BROCK CNP [facility] Appointment Type:Cardiology Follow Up (FT) [facility] Future Appointments Appointment Date:09/27/2023 10:30:00 AM Scheduled Provider:Bhavani BROCK CNP [facility] Appointment Type:Cardiology Follow Up (FT) Appointment Date:10/26/2023 09:20:00 AM Scheduled Provider:Gayathri Martínez CNP Location:[facility] Appointment Type:BAD Follow Up [facility] Future Appointments Appointment Date:10/26/2023 09:20:00 AM Scheduled Provider:Gayathri Martínez CNP Location:[facility] Dig[facility] Appointment Type:BADH Follow Up Appointment Date:11/15/2023 01:15:00 PM Scheduled Provider:Primo Pfeiffer MD [facility] Appointment Type:Cardiology Follow Up (FT) Future Scheduled Tests Radiology* EC Stress Echo Complete w/ Contrast 09/27/23 [facility] Future Appointments Appointment Date:10/26/2023 09:20:00 AM Scheduled Provider:Gayathri Martínez CNP Location:[facility] Appointment Type:BADH Follow Up Appointment Date:11/15/2023 01:15:00 PM Scheduled Provider:Primo Pfeiffer MD [facility] Appointment Type:Cardiology Follow Up (FT) [facility] Future Appointments Appointment Date:11/15/2023 01:15:00 PM Scheduled Provider:Primo Pfeiffer MD [facility] Appointment Type:Cardiology Follow Up (FT) [facility] Evaluation + Plan note Future Appointments Appointment Date:11/28/2023 10:45:00 AM Scheduled Provider:Primo Pfeiffer MD [facility] Appointment Type:Cardiology Follow Up (FT) [facility] Evaluation + Plan note Future Appointments Appointment Date:02/07/2024 03:15:00 PM Scheduled Provider:Primo Pfeiffer MD Location:FT.Cardiology Clinic Appointment Type:Cardiology Follow Up (FT) Diagnostic Tests Pending * MTHFR Thermolabile Variant, DNA Analysis 11/29/23 [facility] Future Appointments Appointment Date:02/01/2024 10:45:00 AM Scheduled Provider:Kei Garcia MD Location:[facility] Appointment Type:BADH Follow Up Appointment Date:02/07/2024 03:15:00 PM Scheduled Provider:Primo Pfeiffer MD [facility] Appointment Type:Cardiology Follow Up (FT) [facility] Evaluation + Plan note Future Appointments Appointment Date:02/07/2024 01:45:00 PM Scheduled Provider:Primo Pfeiffer MD [facility] Appointment Type:Cardiology Follow Up (FT) Appointment Date:05/08/2024 02:15:00 PM Scheduled Provider:Kei Garcia MD Location:[facility] Dig[facility] Appointment Type:BAD Follow Up [facility] Evaluation + Plan note Future Appointments Appointment Date:05/08/2024 02:15:00 PM Scheduled Provider:Kei Garcia MD Location:[facility] Appointment Type:BAD Follow Up Appointment Date:08/11/2024 01:00:00 PM Scheduled Provider:Perry James PA-C Location:.Cardiology Clinic Appointment Type:Cardiology Follow Up (FT) [facility] Future Appointments Appointment Date:05/30/2024 07:45:00 PM Scheduled Provider: [facility] Appointment Type:HYPERION ANALYST Sleep Study HST (FT) Appointment Date:08/11/2024 01:00:00 PM Scheduled Provider:Perry James PA-C [facility] Appointment Type:Cardiology Follow Up (FT) [facility] Evaluation + Plan note Future Appointments Appointment Date:08/11/2024 01:00:00 PM Scheduled Provider:Perry James PA-C [facility] Appointment Type:Cardiology Follow Up (FT) [facility] Evaluation + Plan note Future Appointments Appointment Date:08/11/2024 01:00:00 PM Scheduled Provider:Perry James PA-C Location:[facility]iology Clinic Appointment Type:Cardiology Follow Up (FT) Appointment Date:08/18/2024 10:30:00 AM Scheduled Provider: Location:FT.Sleep Clinic Appointment Type:HYPERION ANALYST Sleep Study Clinic Follow Up (FT) [facility] Evaluation + Plan note Future Appointments Appointment Date:08/20/2024 11:30:00 AM Scheduled Provider:Sung Au MD Location:FT.[facility]iology Clinic Appointment Type:Cardiology Follow Up (FT) Appointment Date:09/04/2024 02:45:00 PM Scheduled Provider:Kei Garcia MD Location:[facility] Health Appointment Type:BADH Sick Call [facility] Evaluation + Plan note Future Appointments Appointment Date:09/04/2024 02:45:00 PM Scheduled Provider:Kei Garcia MD Location:[facility] Appointment Type:BADH Sick Call Appointment Date:11/19/2024 09:15:00 AM Scheduled Provider:Perry James PA-C Location:FT.Cardiology Clinic Appointment Type:Cardiology Follow Up (FT) [facility] Evaluation + Plan note Future Appointments Appointment Date:08/30/2023 10:15:00 AM Scheduled Provider:Bhavani BROCK CNP Location:FT.[facility]iology Clinic Appointment Type:Cardiology Follow Up (FT) Appointment Date:10/26/2023 09:20:00 AM Scheduled Provider:Gayathri Martínez CNP Location:[facility] Dig[facility] Appointment Type:BAD Follow Up [facility] Future Appointments Appointment Date:11/19/2024 09:15:00 AM Scheduled Provider:Perry James PA-C Location:[facility] Clinic Appointment Type:Cardiology Follow Up (FT) Future Scheduled Tests Laboratory* Celiac Disease Comprehensive 10/20/24 * Celiac Disease Comprehensive 10/20/24 [facility] Evaluation + Plan note Future Appointments Appointment Date:11/07/2024 09:40:00 AM Scheduled Provider:JAYDE Elmore APRN, [place] Location:[facility] Appointment Type:URO New Patient Appointment Date:11/19/2024 09:15:00 AM Scheduled Provider:Perry James PA-C Location:[facility]Cardiology Clinic Appointment Type:Cardiology Follow Up (FT) Future Scheduled Tests Laboratory* Celiac Disease Comprehensive 10/20/24 * Celiac Disease Comprehensive 10/20/24 [facility] evaluation + Plan note Future Appointments Appointment Date:11/07/2024 09:40:00 AM Scheduled Provider:JAYDE Elmore APRN, [place] Location:[facility] Appointment Type:URO New Patient Appointment Date:11/19/2024 09:15:00 AM Scheduled Provider:Perry James PA-C Location:[facility]iology Clinic Appointment Type:Cardiology Follow Up (FT) Diagnostic Tests Pending * Celiac Disease Comprehensive 11/06/24 Future Scheduled Tests Laboratory* Celiac Disease Comprehensive 10/20/24 [facility] evaluation + Plan note Future Appointments Appointment Date:11/07/2024 09:40:00 AM Scheduled Provider:JAYDE Elmore APRN, [place] [facility] Location:[facility] Appointment Type:URO New Patient Appointment Date:11/19/2024 09:15:00 AM Scheduled Provider:Perry James PA-C Location:FT[facility]Cardiology Clinic Appointment Type:Cardiology Follow Up (FT) Future Scheduled Tests Laboratory* Celiac Disease Comprehensive 10/20/24 [facility] evaluation + Plan note Future Appointments Appointment Date:11/19/2024 09:15:00 AM Scheduled Provider:Perry James PA-C Location:FT.Cardiology Clinic Appointment Type:Cardiology Follow Up (FT) Future Scheduled Tests Laboratory* Celiac Disease Comprehensive 10/20/24 [facility] Evaluation + Plan note Future Appointments Appointment Date:02/26/2025 10:30:00 AM Scheduled Provider:Perry James PA-C Location:FT.Cardiology Clinic Appointment Type:Cardiology Follow Up (FT) Future Scheduled Tests Laboratory* Celiac Disease Comprehensive 10/20/24 [facility] evaluation + Plan note Future Appointments Appointment Date:12/09/2024 09:40:00 AM Scheduled Provider:JAYDE Elmore APRN, [place] Location:[facility] Appointment Type:URO New Patient Appointment Date:02/26/2025 10:30:00 AM Scheduled Provider:Perry James PA-C Location:[facility] Appointment Type:Cardiology Follow Up (FT) Diagnostic Tests Pending * Urine Culture 12/01/24 Future Scheduled Tests Laboratory* Celiac Disease Comprehensive 10/20/24 [facility] evaluation + Plan note Future Appointments Appointment Date:12/09/2024 09:40:00 AM Scheduled Provider:JAYDE Elmore APRN, [place] Location:[facility] Appointment Type:URO New Patient Appointment Date:02/26/2025 10:30:00 AM Scheduled Provider:Perry James PA-C [facility] Appointment Type:Cardiology Follow Up (FT) Future Scheduled Tests Laboratory* Celiac Disease Comprehensive 10/20/24 [facility] evaluwxsox + Plan note Future Appointments Appointment Date:02/26/2025 10:30:00 AM Scheduled Provider:Perry James PA-C Location:[facility] Appointment Type:Cardiology Follow Up (FT) Appointment Date:03/09/2025 11:20:00 AM Scheduled Provider:Oneyda Urbina Location:[facility] Appointment Type:URO Office Visit Future Scheduled Tests Laboratory* UA with Cult Rflx 01/02/25 * Celiac Disease Comprehensive 10/20/24 * UTI ([facility]) 01/02/25 [facility] evaluation + Plan note Future Appointments Appointment Date:01/27/2025 11:15:00 AM Scheduled Provider:Ankur Paniagua MD Location:[facility] Dig[facility]ive Health Appointment Type:BAD Follow Up Appointment Date:03/09/2025 11:20:00 AM Scheduled Provider:Oneyda Urbina Location:[facility] Appointment Type:URO Office Visit Appointment Date:07/24/2025 09:45:00 AM Scheduled Provider:Perry James PA-C [facility] Appointment Type:Cardiology Follow Up (FT) Future Scheduled Tests Laboratory* UA with Cult Rflx 01/02/25 * Celiac Disease Comprehensive 10/20/24 * UTI ([facility]) 01/02/25 [facility] Evaluation + Plan note Future Appointments Appointment Date:03/09/2025 11:20:00 AM Scheduled Provider:Oneyda Urbina Location:[facility] Appointment Type:URO Office Visit Appointment Date:03/09/2025 03:45:00 PM Scheduled Provider:Marcell Ndiaye MD [facility] Appointment Type:Cardiology Follow Up (FT) Appointment Date:03/17/2025 12:45:00 PM Scheduled Provider:Kei Garcia MD Location:[facility] Dig[facility]ive [facility] Appointment Type:[facility] Sick Call Future Scheduled Tests Laboratory* UA with Cult Rflx 01/02/25 * Celiac Disease Comprehensive 10/20/24 * UTI ([facility]) 01/02/25 * CBC w/ Auto Diff 02/05/25 * Comprehensive Metabolic Panel 02/05/25 [facility] Evaluation note* Diagnosis Chest pain, unspecified type- Primary [facility] noteNo assessment information availableMemorial Hospital Work Phone: Evaluation note* Diagnosis Class 2 severe obesity due to excess calories with serious comorbidity and body mass index (BMI) of 38.0 to 38.9 in adult (HCC)- Primary Gastroesophageal reflux disease, unspecified whether esophagitis present Fatty liver Other chronic nonalcoholic liver disease PCOS (polycystic ovarian syndrome) Polycystic ovaries Sleep apnea, unspecified type [facility] Diagnosis Psychological factors affecting medical condition- Primary Psychic factors associated with diseases classified elsewhere Class 2 obesity due to excess calories with body mass index (BMI) of 38.0 to 38.9 in adult, unspecified whether serious comorbidity present Generalized anxiety disorder [facility]* Diagnosis Class 2 severe obesity due to excess calories with serious comorbidity and body mass index (BMI) of 38.0 to 38.9 in adult (HCC)- Primary Gastroesophageal reflux disease, unspecified whether esophagitis present Fatty liver Other chronic nonalcoholic liver disease PCOS (polycystic ovarian syndrome) Polycystic ovaries Sleep apnea, unspecified type Insulin resistance Dysmetabolic Syndrome X Metabolic syndrome Dysmetabolic Syndrome X [facility]* Diagnosis Class 2 obesity due to excess calories with body mass index (BMI) of 39.0 to 39.9 in adult, unspecified whether serious comorbidity present- Primary Dietary counseling and surveillance Dietary surveillance and counseling documented in [facility] encounter [facility] note* Diagnosis Menorrhagia with regular cycle Dyspareunia in female PCOS (polycystic ovarian syndrome) Polycystic ovaries documented in this encounter [facility] HealthcareEvaluation [facility]* Diagnosis Radiculopathy of cervical region- Primary [facility]* Diagnosis Radiculopathy of cervical region- Primary [facility] encounter [facility]* Diagnosis Radiculopathy of cervical region- Primary documented in this encounter [facility] HealthcareEvaluation note* Diagnosis Radiculopathy of cervical region- Primary Internal derangement of left shoulder documented [facility] this encounter [facility] HealthcareHistory of Present illness NarrativeThireid is a pleasant 27-year-old female who presents to the office today complaining of intermittent pain, worse in the left ear. She oftentimes complains of pressure. She has been using Nasonex nasal spray as directed however she has also been diagnosed with previous middle ear infections. She denies any drainage from the ears or any other neurologic complaints. She denies grinding her teeth or any history of TMJ problems. She does have chronic neck problems with headache and she has seen a chiropractor and neurologist. I did review her previous audiogram and back in August 2022 it did appear that she may have had some fluid in the left middle ear space.[id number] DO Work Phone: History of Present illness Narrative* Addie Lane is a 28-year-old young lady who was seen today for evaluation of her episodic left facial tingling and numbness with occasional tingling that was on the right side of the face withpain in the back of the neck and occasional pain behind the left ear. Symptoms have been fluctuating and can last from minutes to hours to sometimes days. Today her physical and neurological exam is normal. At the time of my evaluation she is asymptomatic. I believe she has most likely tension headache with associated this episodic tingling numbness which is in the form of atypical neuralgia which could be due to anxiety. I would like to try her on Lexapro 10 mg for anxiety and for chronic painand have discussed the therapy to be done at home and the signs symptoms to watch for which she understood. * She had MRI and CAT scan done in the past which according to her was reported to be normal * As you recall, Addie is a 28-year-old young lady who has been having this episodic tingling numbness for last 2 years. According to her it started on the left side of the face which can last for seconds to a minute without any pain. Then she was having tingling and numbness on the right side of the face and occasionally she will have pain in the back of the neck with some tightening of the muscles. At the same time she was complaining of some tingling and numbness in the left side of the andin the legs which started like few months back. She does complain of some neck and back pain. * At time she was also having some pain in the left ear for which she had ENT evaluation which was normal * She lives with her family and there is no family history of seizures migraine headaches or any neurological problem on either maternal or paternal side [id number] Work Phone: Hospital course Narrative No data available for this section [facility] Hospital Discharge instructions No data available for this section [facility] Progress note No data available for this section [facility] Outpatient Procedure (Routine) - Authorized Specialty Diagnoses / Procedures Referred By Contac t Referred To Contact [facility] Diagnoses Chest pain, unspecified type Procedures ECG COMPLETE ECG ROUTINE ECG W/LEAST 12 LDS W/I&R Otilio Combs MD [address] [place] [address] [facility] [address] [place] [address] Referral ID Status Reason Start Date Expiration Date Visits Requested Visits Authorized [id number] Authorized Auto-Generat ed Referral 01/03/2023 01/03/2024 1 1 [facility] for referral (narrative) , Dr[facility] Baig at [facility] for weight loss Referred by: Jose URBINA, Kei Tom [facility] Reason for visit Narrative* Rehabilitation - Outpatient (Routine) - Authorized Specialty Diagnoses / Procedures Referred By Contac t Referred To Contact Physical Therapy Diagnoses Radiculopathy, cervical region neck and left shoulder Procedures OR PHYS THERAPY EVALUATION Norma Quiros MD [address] [place] [address] Phone: tel: fax: Della Goldstein, PT [address] [place] [address] Phone: tel: fax: Referral ID Status Reason Start Date Expiration Date Visits Requested Visits Authorized [id number] Authorized Consult and Treat 01/28/2025 07/27/2025 46 46 [facility] N[facility]* Rehabilitation - Outpatient (Routine) - Authorized Specialty Diagnoses / Procedures Referred By [facility] Referred To Contact Physical Therapy Diagnoses Radiculopathy, cervical region neck and left shoulder Procedures OR PHYS THERAPY EVALUATION Norma Quiros MD [address] [place] [address] Phone: tel: fax: Della Goldstein, PT [address] [place] [address] Phone: tel: fax: Referral ID Status Reason Start Date Expiration Date Visits Requested Visits Authorized [id number] Authorized Consult and Treat 01/28/2025 09/30/2025 46 46 [facility] Summary Purpose Family History No Family History Records FoundUnknown Family Member Name Dates Details No pertinent family history: Mother(V49.89, Z78.9) Status:Active Unknown Family Member Name Dates Details No pertinent family history: Mother(V49.89, Z78.9) Status:Active Relationship Condition Age at Onset Recorded Date/T joaquin brother Diabetes mellitus Unknown Hypertension Unknown father Diabetes mellitus Unknown mother Hypertension Unknown paternal grandfather Transient ischemic attack Unknown Advance Directives No Advanced Directives Records Found Advance Directive Response Recorded Date/ Time Advance Directives No February 02, 2022 3:43pm Chief Complaint Chronic ear pain, occasional pressure in the ears, history of neck problems with headache Chief Complaint and Reason for Visit Chief Complaint gerd abdominal pain Dysuria Additional Source Comments INFORMATION SOURCE (unrecogn ized section and content) DATE CREATED AUTHOR 10/21/2020 [facility] DATE CREATED AUTHOR AUTHOR'S ORGANIZ ATION 04/15/2021 [facility] DATE CREATED AUTHOR AUTHOR'S ORGANIZ ATION 02/07/[address] [facility] DATE CREATED AUTHOR AUTHOR'S ORGANIZ ATION 06/16/2023 [facility] DATE CREATED AUTHOR AUTHOR'S ORGANIZ ATION 06/16/2023 [facility] DATE CREATED AUTHOR AUTHOR'S ORGANIZ ATION 03/31/2024 [facility] DATE CREATED AUTHOR AUTHOR'S ORGANIZ ATION 05/29/2024 [facility] DATE CREATED AUTHOR AUTHOR'S ORGANIZ ATION 09/20/2024 [facility] DATE CREATED AUTHOR AUTHOR'S ORGANIZ ATION 11/17/2024 [facility] DATE CREATED AUTHOR AUTHOR'S ORGANIZ ATION 12/06/2024 [facility] DATE CREATED AUTHOR AUTHOR'S ORGANIZ ATION 12/11/2024 [facility] DATE CREATED AUTHOR AUTHOR'S ORGANIZ ATION 01/27/2025 [facility] DATE CREATED AUTHOR AUTHOR'S ORGANIZ ATION 02/08/2025 [facility] DATE CREATED AUTHOR AUTHOR'S ORGANIZ ATION 02/26/2025 [facility] DATE CREATED AUTHOR AUTHOR'S ORGANIZ ATION 02/28/2025 [facility] DATE CREATED AUTHOR AUTHOR'S ORGANIZ ATION 03/04/2025 [facility] [employer] Team (unrecognized sect ion and content) Team Status: Active Member Role Status Dates Dinesh Shea APRN Primary Care Provider Activ e Team Status: Active Member Role Status Dates Dinesh Shea APRN Primary Care Provider, Attending Provider Active Start: December 23, 2024 Team Status: Inactive Member Role Status Dates Dinesh Shea APRN Primary Care Provider Activ e Start: January 07, 2025 End: January 07, 2025 Richi Llamas DO Attending Provider Active Start: January 07, 2025 End: January 07, 2025 Team Status: Active Member Role Status Dates Dinesh Shea APRN Primary Care Provider, Attending Provider Active Start: February 05, 2025 Team Status: Inactive Member Role Status Dates Dinesh Shea APRN Primary Care Provider Activ e Start: February 24, 2025 End: February 24, 2025 Mirian Rueda APRN Attending Provider Active Start: February 24, 2025 End: February 24, 2025 Consultant Rn Relationship Specialty Start Date End Date Kassidy Hope DO PCP - General Family Medicine 01/18/15 Team Status: Inactive Member Role Status Dates Dinesh Méndez DIRECTOR [employer]-C Primary Care Provider, Att ending Provider Active Team Status: Inactive Member Role Status Dates Stu Hsu PA-C Attending Provider Active Consultant Rn Relationship Specialty Start Date End Date Dinesh Méndez APRN.SPINDRAW OPERATOR [address] [place] [address] PCP - General Internal Medicine 01/10/23 Team Status: Inactive Member Role Status Dates Richi Llamas DO Attending Provider Active Start: February 01, 2024 End: February 01, 2024 Dinesh Shea APRN Primary Care Provider Activ e Start: February 01, 2024 End: February 01, 2024 Team Status: Active Member Role Status Dates Dinesh Shea APRN Primary Care Provider Activ e Start: February 01, 2024 Richi Llamas DO Attending Provider Active Start: February 01, 2024 Team Status: Inactive Member Role Status Dates Dinesh Shea APRN Primary Care Provider Activ e Start: February 01, 2024 End: February 01, 2024 Richi Llamas DO Attending Provider Active Start: February 01, 2024 End: February 01, 2024 Consultant Rn Relationship Specialty Start Date End Date Dinesh Méndez APRN.SPINDRAW OPERATOR [address] [place] [address] PCP - General Internal Medicine 01/10/23 Consultant Rn Relationship Specialty Start Date End Date Dinesh Méndez APRN.SPINDRAW OPERATOR [address] [place] [address] PCP - General Internal Medicine 01/10/23 Team Status: Inactive Member Role Status Dates Dinesh Shea APRN Primary Care Provider Activ e Start: February 12, 2024 End: February 12, 2024 Richi Llamas DO Attending Provider Active Start: February 12, 2024 End: February 12, 2024 Team Status: Inactive Member Role Status Dates Dinesh Shea APRN Primary Care Provider Activ e Start: February 15, 2024 End: February 15, 2024 Richi Llamas DO Attending Provider Active Start: February 15, 2024 End: February 15, 2024 Consultant Rn Relationship Specialty Start Date End Date Dinesh Méndez APRN.SPINDRAW OPERATOR [address] [place] [address] PCP - General Internal Medicine 01/10/23 Consultant Rn Relationship Specialty Start Date End Date Dinesh Méndez APRN.SPINDRAW OPERATOR [address] [place] [address] PCP - General Internal Medicine 01/10/23 Consultant Rn Relationship Specialty Start Date End Date Dinesh Méndez, HIDE MILL WORKER.SPINDRAW OPERATOR [address] [place] [address] PCP - General Internal Medicine 01/10/23 Consultant Rn Relationship Specialty Start Date End Date Dinesh Méndez MD [address] [place] [address] PCP - General 03/22/23 Consultant Rn Relationship Specialty Start Date End Date Dinesh Méndez MD [address] [place] [address] PCP - General 03/22/23 Consultant Rn Relationship Specialty Start Date End Date Dinesh Méndez MD [address] [place] [address] PCP - General 03/22/23 Consultant Rn Relationship Specialty Start Date End Date Dinesh Méndez MD [address] [place] [address] PCP - General 03/22/23 Consultant Rn Relationship Specialty Start Date End Date Dinesh Méndez MD [address] [place] [address] PCP - General 03/22/23 Consultant Rn Relationship Specialty Start Date End Date Dinesh Méndez MD [address] [place] [address] PCP - General 03/22/23 Consultant Rn Relationship Specialty Start Date End Date Dinesh Méndez MD [address] [place] [address] PCP - General 03/22/23 Consultant Rn Relationship Specialty Start Date End Date Dinesh Méndez MD [address] [place] [address] PCP - General 03/22/23 Consultant Rn Relationship Specialty Start Date End Date Dinesh Méndez MD [address] [place] [address] PCP - General 03/22/23 Source Comments (unrecognize d section and content) In the event this informatio n is protected by the Federal Confidentiality of Alcohol and Drug Abuse Patient Records regulations: The Federal rules restrict any use of the information to criminally investigate or prosecute any alcohol or drug abuse patient.[facility] the event this information is protected by the Federal Confidentiality of Alcohol and Drug Abuse Patient Records regulations: The Federal rules restrict any use of the information to criminally investigate or prosecute any alcohol or drug abuse patient.[facility] the event this information is protected by the Federal Confidentiality of Alcohol and Drug Abuse Patient Records regulations: The Federal rules restrict any use of the information to criminally investigate or prosecute any alcohol or drug abuse patient.[facility] the event this information is protected by the Federal Confidentiality of Alcohol and Drug Abuse Patient Records regulations: The Federal rules restrict any use of the information to criminally investigate or prosecute any alcohol or drug abuse patient.[facility] the event this information is protected by the Federal Confidentiality of Alcohol and Drug Abuse Patient Records regulations: The Federal rules restrict any use of the information to criminally investigate or prosecute any alcohol or drug abuse patient.[facility] the event this information is protected by the Federal Confidentiality of Alcohol and Drug Abuse Patient Records regulations: The Federal rules restrict any use of the information to criminally investigate or prosecute any alcohol or drug abuse patient.[facility] the event this information is protected by the Federal Confidentiality of Alcohol and Drug Abuse Patient Records regulations: The Federal rules restrict any use of the information to criminally investigate or prosecute any alcohol or drug abuse patient.[facility] the event this information is protected by the Federal Confidentiality of Alcohol and Drug Abuse Patient Records regulations: The Federal rules restrict any use of the information to criminally investigate or prosecute any alcohol or drug abuse patient.[facility] REASON FOR VISIT (unrecogniz ed section and content) Reason Comments Consult Reason Comments Class 2 severe obesity with comorbiditie s Reason Comments Medication Preauthorization tirzepatide, weight loss (ZEPBOUND) 5 mg/0.5 mL pen injector Inject 5 mg subcutaneously one time a week. 4 Each 0 ordered 02/08/2024 Reason Comments Weight Management Reason Comments Assessment Patient Education Reason Comments Medication Preauthorization [employer] Reason Comments Follow-up Goals (unrecognized section and content) Goals may be documented in a n alternate section FOR RECORDS PERTAINING TO PATIENTS WHO ARE OR HAVE BEEN ENROLLED IN A CHEMICAL DEPENDENCY/SUBSTANCEABUSE PROGRAM, SOME INFORMATION MAY BE OMITTED. This clinical summary was aggregated from multiple sources. Caution should be exercised in using it in the provision of clinical care. This summary normalizes information from multiple sources, and as a consequence, information in this document may materially change the coding, format and clinical context of patient data. In addition, data may be omitted in some cases. CLINICAL DECISIONS SHOULD BE BASED ON THE PRIMARY CLINICAL RECORDS. [employer] [facility]. provides no warranty or guarantee of the accuracy or completeness of information in this document.
[2025-03-09 09:08] LABS: Age Gdln ACOG Testing Note (.); IGP, rfx Aptima HPV ASCU Note (.)
== END 2025-03-04 21:05 | disposition home or self-care (01) ==
LOC: LAB 21:04
PROVIDERS: Visit Provider Physician Assistant
DX: Z01.419 Encounter for gynecological examination (general) (routine) without abnormal findings (principal)
CPT/HCPCS: 88175